=== PATIENT | male | born 1935 | race Caucasian/White ===

== ENCOUNTER → 2016-11-28 | Outpatient (CLI) | payer OTHER ==
[~2016-11-28] MED LIST: AMLH550 PO; ASPCH81; LEVO50TA PO; LPT/40 PO; MCRK20 PO; MULT-506 PO; OMEG10007 PO; PLMIN90 INH; PRED-301 PO; THEO1CAP3 PO
[2016-11-28 09:39] LABS: BASO % 0.3 %; BASO ABS # 0.02 K/uL (0-0.2); COMPLETE YES; EOS % 3.5 %; HEMATOCRIT 48.2 % (42-52); IG% 0.3 %; LYMPH % 12.9 %; LYMPH ABS # 0.96 K/uL (1.2-3.4); MEAN CELL VOLUME 91.6 fL (80-100); MEAN CORPUSCULAR HEMOGLOBIN 31.7 pg (25-34); MEAN CORPUSCULAR HGB CONC 34.6 g/dl (32-36); MEAN PLATELET VOLUME 11.3 fL (7.4-10.4); MONO % 11.6 %; NEUT % 71.4 %; PLATELET COUNT 139 K/uL (130-400); RED BLOOD COUNT 5.26 M/uL (4.7-6.1); WHITE BLOOD COUNT 7.42 K/uL (4.8-10.8)
[2016-11-28 10:13] LABS: ALT/SGPT 30 U/L (12-78); AST/SGOT 29 U/L (15-37); BLOOD UREA NITROGEN 22 mg/dl (7-18); BUN/CREATININE RATIO 18.3 (10-20); CALCIUM 9.8 mg/dl (8.5-10.1); CARBON DIOXIDE 31 mmol/L (21-32); CHLORIDE 102 mmol/L (98-107); GLUCOSE 85 mg/dl (70-99); POTASSIUM 3.5 mmol/L (3.5-5.1); SODIUM 139 mmol/L (136-145)
[2016-11-28 10:23] LABS: ALKALINE PHOSPHATASE 94 U/L (45-117); CHOLESTEROL 181 mg/dl (0-200); HDL CHOLESTEROL 45 mg/dl; LDL CHOLESTEROL CALCULATED 87 mg/dl; TRIGLYCERIDES 247 mg/dl (0-150); VERY LOW DENSITY LIPOPROT CALC 49 mg/dl
== END | disposition home or self-care (01) ==
LOC: C.LAB1850 08:35
PROVIDERS: ATTEND Internal Medicine Pulmonary Disease
DX: J45.909 Unspecified asthma, uncomplicated (principal); I10 Essential (primary) hypertension; D32.9 Benign neoplasm of meninges, unspecified; E03.9 Hypothyroidism, unspecified; R42 Dizziness and giddiness

== ENCOUNTER → 2017-06-10 | Outpatient (CLI) | payer OTHER ==
[2017-06-10 09:52] LABS: BASO % 0.4 %; BASO ABS # 0.03 K/uL (0-0.2); COMPLETE YES; EOS % 4.6 %; HEMATOCRIT 49.8 % (42-52); IG% 0.3 %; LYMPH % 17.2 %; LYMPH ABS # 1.24 K/uL (1.2-3.4); MEAN CELL VOLUME 90.4 fL (80-100); MEAN CORPUSCULAR HEMOGLOBIN 31.9 pg (25-34); MEAN CORPUSCULAR HGB CONC 35.3 g/dl (32-36); MEAN PLATELET VOLUME 11.1 fL (7.4-10.4); MONO % 9.9 %; NEUT % 67.6 %; PLATELET COUNT 137 K/uL (130-400); RED BLOOD COUNT 5.51 M/uL (4.7-6.1)
[2017-06-10 10:31] LABS: ALT/SGPT 29 U/L (12-78); AST/SGOT 27 U/L (15-37); BLOOD UREA NITROGEN 15 mg/dl (7-18); BUN/CREATININE RATIO 12.9 (10-20); CALCIUM 9.7 mg/dl (8.5-10.1); CARBON DIOXIDE 31 mmol/L (21-32); CHLORIDE 103 mmol/L (98-107); CREATININE 1.19 mg/dl (0.60-1.40); GLUCOSE 98 mg/dl (70-99); POTASSIUM 3.5 mmol/L (3.5-5.1); SODIUM 142 mmol/L (136-145)
[2017-06-10 10:34] LABS: ALB/GLOB RATIO 0.8 (0.9-2); ALKALINE PHOSPHATASE 116 U/L (45-117); CHOLESTEROL 220 mg/dl (0-200); CHOLESTEROL/HDL RATIO 4.8; HDL CHOLESTEROL 46 mg/dl; LDL CHOLESTEROL CALCULATED 103 mg/dl; TRIGLYCERIDES 353 mg/dl (0-150); VERY LOW DENSITY LIPOPROT CALC 71 mg/dl
== END | disposition home or self-care (01) ==
LOC: C.LAB1850 09:20
PROVIDERS: ATTEND Internal Medicine Pulmonary Disease
DX: J45.909 Unspecified asthma, uncomplicated (principal); E78.5 Hyperlipidemia, unspecified; E03.9 Hypothyroidism, unspecified; C20 Malignant neoplasm of rectum; I10 Essential (primary) hypertension

== ENCOUNTER → 2017-06-21 | Outpatient (CLI) | payer OTHER ==
[~2017-06-21] MED LIST changes: +GADAVIST IV PRN
--- NOTE | 2017-06-21 15:46 | DIAGNOSTIC IMAGING REPORT ---
BRAIN COMBO CLINICAL HISTORY: MENINOGOMA, SMALL VESSEL DISEASE CEREBRAL VASCULAR COMPARISON STUDY: No previous studies for comparison. TECHNIQUE: Utilizing a 1.5 Rosalie magnet and dedicated coil, multiplanar, multiecho imaging of the brain was performed pre and postcontrast administration. IV administration of 8 mL of Gadavist contrast was uneventful. FINDINGS: Diffusion-weighted images are considered negative for an acute ischemic insult. Stable findings of age-related chronic small vessel change and atrophy. The meningioma is unchanged. IMPRESSION: 1. No acute process. 2. Age-related changes considered stable. 3. Unchanging right para falcine meningioma The above report was generated using voice recognition software. It may contain grammatical, syntax or spelling errors. Electronically signed by: Reed Boykin M.D. 06/21/2017 3:45 PM Dictated Date/Time: 06/21/2017 3:42 PM
== END | disposition home or self-care (01) ==
LOC: C.MRI 14:21
PROVIDERS: ATTEND Psychiatry & Neurology Neurology
DX: D32.9 Benign neoplasm of meninges, unspecified (principal); I67.9 Cerebrovascular disease, unspecified

== ENCOUNTER 2022-07-24 13:50 | Inpatient (IN) ==
[2022-07-24 15:25] LABS: Hematocrit (blood only) 48.8 % (40.1-51.0); Hemoglobin 17.1 g/dl (14.0-18.0); Mean Corpuscular Hemoglobin 31.3 pg (25.0-34.0); Mean Corpuscular Volume 89.2 fL (80.0-100.0); Mean Platelet Volume 10.6 fL (9.4-12.4); Platelet Count 145 K/uL (130-400); RDW Coefficient of Variation 14.2 % (11.5-14.5); RDW Standard Deviation 45.3 fL (36.4-46.3); Red Blood Count 5.47 M/uL (4.63-6.08); White Blood Count 8.74 K/ul (4.8-10.8)
[2022-07-24 15:44] LABS: Partial Thromboplastin Ratio 0.9; Partial Thromboplastin Time 25.9 Seconds (21.0-31.0)
--- NOTE | 2022-07-24 15:48 | XRay Report ---
SINGLE VIEW PELVIS; 3 VIEWS LEFT FEMUR CLINICAL HISTORY: Atraumatic left leg pain. Weakness. FINDINGS: An AP view of the pelvis with AP, frog-leg, and crosstable lateral views of the left femur are obtained. Correlation is made with pelvic CT dated 06/27/2022. The skeletal structures are heterog eneously osteopenic. There is no radiographic evidence of acute fracture involving the hips or bony p maryjo. There is no radiographic evidence of left femoral fracture. Mild to moderate arthritic change and joint space narrowing is seen in the hips, right greater than left. Mild degenerative sclerosis i s noted in the sacroiliac joints. Lumbosacral spondylosis is partially imaged. The right knee joint i s grossly maintained. The overlying soft tissues are within normal limits. Advanced atherosclerotic c alcification is seen in the femoral arteries. Bladder calculi are again seen in the pelvis. Suture ma terial projects over the rectosigmoid. IMPRESSION: 1. No acute bony abnormality is seen involving the hips or pelvis. 2. No acute bony abnormality is seen involving the left femur. 3. Osteopenia and degenerative change as above. 4. Bladder calculi are noted in the pelvis. Electronically signed by: Holden Sloan M.D. 07/24/2022 3:46 PM
[2022-07-24 16:01] LABS: Alanine Aminotransferase 23 U/L (7-52); Albumin Globulin Ratio 1.2 (0.9-2); Albumin Level 3.8 gm/dl (3.4-5.0); Alkaline Phosphatase 131 U/L (34-104); Anion Gap 6 (3-11); Aspartate Aminotransferase 25 U/L (13-39); Bilirubin,Total 0.6 mg/dl (0.2-1.0); Calcium 10.6 mg/dl (8.5-10.1); Carbon Dioxide 30 mmol/L (21-32); Chloride 100 mmol/L (98-107); Est GFR (African American) 79.7 ml/min; Est GFR (Non-African American) 68.8 ml/min; Globulin 3.1 gm/dl (2.5-4.0); Glucose 129 mg/dl (70-99(Fasting)); Magnesium 2.3 mg/dl (1.7-2.4); Sodium 136 mmol/L (136-145); Total Protein 6.9 gm/dl (6.0-8.3)
[2022-07-24 16:23] LABS: Blood Urea Nitrogen 19 mg/dl (6-23)
--- NOTE | 2022-07-24 16:32 | Electrocardiogram Report ---
Test Reason : Blood Pressure : / mmHG Vent. Rate : 102 BPM Atrial Rate : 102 BPM P-R Int : 184 ms QRS Dur : 106 ms QT Int : 336 ms P-R-T Axes : 093 -65 087 degrees QTc Int : 437 ms Poor data quality, interpretation may be adversely affected Sinus tachycardia Left anterior fascicular block Left ventricular hypertrophy with repolarization abnormality Cannot rule out Septal infarct , age undetermined Possible Lateral infarct , age undetermined Abnormal ECG When compared with ECG of 03-APR-2018 16:45, Minimal criteria for Septal infarct are now Present Borderline criteria for Lateral infarct are now Present Confirmed by Dino Kearney ([id number]) on 07/24/2022 4:32:20 PM Referred By: Confirmed By:Dino Kearney
[2022-07-24] MEDS ORDERED: SODIUM CHLORIDE 0.9% 1000ML 500 ML IV ONE (17:41)
[2022-07-24] MEDS ORDERED: ACETAMINOPHEN 1,000 MG/100 ML VIAL IV STA (17:41)
--- NOTE | 2022-07-24 17:47 | Emergency Department Note ---
Impression & Plan Weakness, Falling, Lumbar disc herniation, Left leg pain ED Provider Note NAME: BARON ZAMORA AGE: 86 SEX: M : 1935 ARRIVES VIA: Walk-In INFORMANT: [Patient][family, nursing] ED PROVIDER(S): [Holden Rooney MD] CHIEF COMPLAINT: Neuro symptoms, falling HISTORY OF PRESENT ILLNESS: The patient is an 86-year-old male who for 3 months has been complaining of some left lower back pain and left leg pain. His left leg is becoming weaker and weaker to the point where he is now falling and cannot care for himself at home. He denies any syncope, there is no chest pain or shortness of breath. There has been no fever or chills. He does urinate frequently but this is not normal for him. No urinary burning. The patient feels he may have sciatica. His family is at bedside and they believe he needs hospitalization as he is too weak to be at home, they are concerned for his safety at home. PMHx/PSHx: See Below SOCIAL HISTORY: See Below. PHYSICAL EXAM: GENERAL: Patient is in no acute distress. HEENT: No acute trauma, normocephalic atraumatic, mucous membranes moist, no nasal congestion. NECK: No stridor, no adenopathy, no meningismus, trachea is midline. LUNGS: Clear to auscultation bilaterally, no wheeze, no rhonchi, breath sounds equal. HEART: Without murmurs gallops or rubs, regular rate and rhythm. ABDOMEN: Soft, nontender, bowel sounds positive, no peritonitis. EXTREMITIES: No cyanosis or edema, full range of motion of all the joints without pain or difficulty, no signs for acute trauma. NEUROLOGIC: Oriented x 3, no acute motor or sensory deficits, no focal weakness. Patient has 2/4 patellar reflexes bilaterally. I cannot elicit any Achilles reflex on the right or left. He is able to lift the left leg off the bed without difficulty. SKIN: No rash, no jaundice, no diaphoresis. DIFFERENTIAL DIAGNOSIS: Infection, UTI, dehydration, metabolic abnormality, hypo/hyperglycemia, electrolyte disturbance, anemia, hypoxia, cardiac sources, intracerebral event, toxicologic issues, stroke, TIA, sciatica, lumbar disc disease, as well as other pathologies. EMERGENCY DEPARTMENT COURSE/PROCEDURES: Prior/Outside records reviewed: None ECG: Indication was weakness and falling. The ECG shows a sinus tachycardia with a rate of 102. LVH is present. There is no ST elevation, no PVCs. Ba seline artifact is present. There is some poor R wave progression consistent with possible old septal infarct. QTC is 437. Continuous Cardiac Monitoring: An order was placed for continuous cardiac monitoring. The monitor shows a rate of 99 with normal sinus rhythm. MEDICAL DECISION MAKING: There is no leukocytosis or concerning anemia. There is a normal platelet count. No coagulopathy. No renal failure or significant electrolyte abnormality. No concerning liver enzyme elevation. The patient appeared to be in a euthyroid state. ECG showed a sinus tachycardia, no obvious ischemia. Cardiac enzyme testing x1 was not consistent with acute cardiac injury. Urinalysis did not show infection. COVID test returned negative. Films of the pelvis and left femur were performed, no fractures were seen. Lumbar spine MRI did show significant disc disease with some canal narrowing. On my exam, the patient was not toxic or febrile. He did have reflexes in both the right and left patella, I could not elicit reflex in either Achilles. He could lift both legs off the bed. The patient presents with frequent falls and increasing weakness. He can no longer bear his own weight. He was not felt safe for discharge home. The patient was given a 500 cc saline bolus, he received IV tylenol for pain. I did speak with the patient, I talked with his family, I spoke with case management, the on-call hospitalist was consulted. DISPOSITION: Patient's presentation and complaints warrant a hospital stay. 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 Meningioma Metastatic squamous cell carcinoma Nephrolithiasis Seizure Skin cancer Small vessel disease, cerebrovascular Status post placement of implantable loop recorder Ventral hernia Surgical History History of colon surgery History of hemorrhoidectomy History of neck surgery Hx of parotidectomy Status post Mohs surgery 07/04/2020 - left face/preauricular area Family History Unknown Coronary heart disease Cancer Father Cancer Hypertension Son Diabetes Mother Benign neoplasm of head Brother Heart disease Brother Liver disease Heart disease Valve replacement Denies family history of Stroke Social History Smoking Status: Never smoker Hx Alcohol Use: No Hx Substance Use: No Preferred Language: Citizen Of [place] Communication Ability: Effective Visual Impairment: No Limitations Hearing Ability: Hard of Hearing Heading Pinner Required: No Beliefs That Will Affect Care: None marital status: Current Living Situation: Spouse current occupational status: retired Feels Safe at Home: Yes caffeine: No Dental Care, Regularly: Yes Physical Activity Frequency: Daily Seatbelt Use: always Assistive Devices: Hearing Aid - Left, Hearing Aid - Right and Oxygen - Continuous Allergies Allergies Allergy/AdvReac Type Severity Reaction Status Date / Time No Known Drug Allergies Allergy Verified 07/13/22 11:04 Home Meds Home Medications Medication Instructions Recorded Confirmed levothyroxine 88 mcg tablet 88 mcg PO DAILYBB 07/24/22 07/24/22 potassium chloride 20 mEq 20 meq PO DAILY 07/24/22 07/24/22 tablet,extended release(part/cryst) prednisone 5 mg tablet 5 mg PO DAILY 07/24/22 07/24/22 tamsulosin 0.4 mg capsule 0.4 mg PO DAILY 07/24/22 07/24/22 theophylline 300 mg 600 mg PO DAILY 07/24/22 07/24/22 tablet,extended release,12 hr Previous Rx's Medication Instructions Recorded clopidogrel 75 mg tablet (Plavix) 75 mg PO DAILY #90 tabs 01/08/22 rosuvastatin 5 mg tablet 5 mg PO DAILY #90 tabs 04/30/22 cyclobenzaprine 5 mg tablet 5 mg PO TID PRN muscle spasm #60 05/28/22 tabs tramadol 50 mg tablet 50 mg PO Q6H #30 tabs 05/28/22 acetaminophen 300 mg-codeine 30 mg 1 tab PO Q6H PRN pain #50 tabs 06/25/22 tablet oxycodone-acetaminophen 5 mg-325 1 tab PO Q6H PRN pain #30 tabs 07/17/22 mg tablet (Percocet) Results & Data (ED) Vital Signs Vital Signs - 24 hr 07/24/22 13:54 07/24/22 15:00 07/24/22 15:00 Temperature 36.5 C Temperature Source Temporal Artery Scan Pulse Rate 101 H Pulse Rate [Finger] 103 H Respiratory Rate 17 20 Respiratory Effort / Characteristics Non-Labored Spontaneous Respiratory Depth Normal Blood Pressure 129/75 Blood Pressure [Right Arm] 129/80 Blood Pressure Mean 93 Blood Pressure Mean [Right Arm] 96 Pulse Oximetry 96 95 95 Oxygen Delivery Method Room Air Room Air Room Air Sepsis Recent Fever Within 48 Hours No Sepsis New/Unexplained Change in Mental Status N/A Sepsis Action Taken by Nursing No Action Required 07/24/22 17:31 07/24/22 17:32 07/24/22 17:59 Temperature Temperature Source Pulse Rate Pulse Rate [Finger] 98 H 76 Respiratory Rate 20 16 Respiratory Effort / Characteristics Non-Labored Non-Labored Respiratory Depth Normal Normal Blood Pressure Blood Pressure [Right Arm] 173/116 H 162/98 H Blood Pressure Mean Blood Pressure Mean [Right Arm] 135 119 Pulse Oximetry 94 96 Oxygen Delivery Method Room Air Room Air Room Air Sepsis Recent Fever Within 48 Hours Sepsis New/Unexplained Change in Mental Status Sepsis Action Taken by [facility] Medications Current Medication List: was personally reviewed by me Laboratory Data Attestation: I reviewed the patient's lab results. 07/24/22 15:13 07/24/22 15:13 Lab Results 07/24/22 07/24/22 07/24/22 Range/Units 15:11 15:13 15:13 WBC 8.74 (4.8-10.8) K/ul RBC 5.47 (4.63-6.08) M/uL Hgb 17.1 (14.0-18.0) g/dl Hct 48.8 (40.1-51.0) % MCV 89.2 (80.0-100.0) fL MCH 31.3 (25.0-34.0) pg MCHC 35.0 (32.0-36.0) g/dL RDW Std Deviation 45.3 (36.4-46.3) fL RDW Coeff of Celestino 14.2 (11.5-14.5) % Plt Count 145 (130-400) K/uL MPV 10.6 (9.4-12.4) fL PT 11.0 (9.0-12.0) Seconds INR 1.0 (0.9-1.1) APTT 25.9 (21.0-31.0) Seconds PTT Ratio 0.9 Sodium (136-145) mmol/L Potassium (3.5-5.1) mmol/L Chloride (98-107) mmol/L Carbon Dioxide (21-32) mmol/L Anion Gap (3-11) BUN (6-23) mg/dl Creatinine (0.6-1.4) mg/dl Est Cr Clr Drug Dosing Est GFR ( Amer) ml/min Est GFR (Non-Af Amer) ml/min BUN/Creatinine Ratio (10-20) Glucose (70-99(Fasting)) mg/dl POC Glucose 139 H (70-99) mg/dl Calcium (8.5-10.1) mg/dl Magnesium (1.7-2.4) mg/dl Total Bilirubin (0.2-1.0) mg/dl AST (13-39) U/L ALT (7-52) U/L Alkaline Phosphatase (34-104) U/L Troponin I High Sens (0-20) pg/ml Total Protein (6.0-8.3) gm/dl Albumin (3.4-5.0) gm/dl Globulin (2.5-4.0) gm/dl Albumin/Globulin Ratio (0.9-2) TSH (0.300-4.500) uIu/ml Urine Color Urine Appearance (Clear) Urine pH (4.5-7.5) Ur Specific [place] (1.000-1.030) Urine Protein (Negative) Urine Glucose (UA) (Negative) Urine Ketones (Negative) Urine Blood (Negative) Urine Nitrite (Negative) Urine Bilirubin (Negative) Urine Urobilinogen (Negative) Ur Leukocyte Esterase (Negative) SARS-CoV-2, RNA, NAAT (NEGATIVE) 07/24/22 07/24/22 07/24/22 Range/Units 15:13 15:13 15:13 WBC (4.8-10.8) K/ul RBC (4.63-6.08) M/uL Hgb (14.0-18.0) g/dl Hct (40.1-51.0) % MCV (80.0-100.0) fL MCH (25.0-34.0) pg MCHC (32.0-36.0) g/dL RDW Std Deviation (36.4-46.3) fL RDW Coeff of Celestino (11.5-14.5) % Plt Count (130-400) K/uL MPV (9.4-12.4) fL PT (9.0-12.0) Seconds INR (0.9-1.1) APTT (21.0-31.0) Seconds PTT Ratio Sodium 136 (136-145) mmol/L Potassium 4.0 (3.5-5.1) mmol/L Chloride 100 (98-107) mmol/L Carbon Dioxide 30 (21-32) mmol/L Anion Gap 6 (3-11) BUN 19 (6-23) mg/dl Creatinine 1.00 (0.6-1.4) mg/dl Est Cr Clr Drug Dosing Not Reportable Est GFR ( Amer) 79.7 ml/min Est GFR (Non-Af Amer) 68.8 ml/min BUN/Creatinine Ratio 19.0 (10-20) Glucose 129 H (70-99(Fasting)) mg/dl POC Glucose (70-99) mg/dl Calcium 10.6 H (8.5-10.1) mg/dl Magnesium 2.3 (1.7-2.4) mg/dl Total Bilirubin 0.6 (0.2-1.0) mg/dl AST 25 (13-39) U/L ALT 23 (7-52) U/L Alkaline Phosphatase 131 H (34-104) U/L Troponin I High Sens 10.8 (0-20) pg/ml Total Protein 6.9 (6.0-8.3) gm/dl Albumin 3.8 (3.4-5.0) gm/dl Globulin 3.1 (2.5-4.0) gm/dl Albumin/Globulin Ratio 1.2 (0.9-2) TSH 3.504 (0.300-4.500) uIu/ml Urine Color Urine Appearance (Clear) Urine pH (4.5-7.5) Ur Specific [place] (1.000-1.030) Urine Protein (Negative) Urine Glucose (UA) (Negative) Urine Ketones (Negative) Urine Blood (Negative) Urine Nitrite (Negative) Urine Bilirubin (Negative) Urine Urobilinogen (Negative) Ur Leukocyte Esterase (Negative) SARS-CoV-2, RNA, NAAT (NEGATIVE) 07/24/22 07/24/22 Range/Units 18:05 18:05 WBC (4.8-10.8) K/ul RBC (4.63-6.08) M/uL Hgb (14.0-18.0) g/dl Hct (40.1-51.0) % MCV (80.0-100.0) fL MCH (25.0-34.0) pg MCHC (32.0-36.0) g/dL RDW Std Deviation (36.4-46.3) fL RDW Coeff of Celestino (11.5-14.5) % Plt Count (130-400) K/uL MPV (9.4-12.4) fL PT (9.0-12.0) Seconds INR (0.9-1.1) APTT (21.0-31.0) Seconds PTT Ratio Sodium (136-145) mmol/L Potassium (3.5-5.1) mmol/L Chloride (98-107) mmol/L Carbon Dioxide (21-32) mmol/L Anion Gap (3-11) BUN (6-23) mg/dl Creatinine (0.6-1.4) mg/dl Est Cr Clr Drug Dosing Est GFR ( Amer) ml/min Est GFR (Non-Af Amer) ml/min BUN/Creatinine Ratio (10-20) Glucose (70-99(Fasting)) mg/dl POC Glucose (70-99) mg/dl Calcium (8.5-10.1) mg/dl Magnesium (1.7-2.4) mg/dl Total Bilirubin (0.2-1.0) mg/dl AST (13-39) U/L ALT (7-52) U/L Alkaline Phosphatase (34-104) U/L Troponin I High Sens (0-20) pg/ml Total Protein (6.0-8.3) gm/dl Albumin (3.4-5.0) gm/dl Globulin (2.5-4.0) gm/dl Albumin/Globulin Ratio (0.9-2) TSH (0.300-4.500) uIu/ml Urine Color Yellow Urine Appearance Clear (Clear) Urine pH 5.0 (4.5-7.5) Ur Specific [place] 1.014 (1.000-1.030) Urine Protein Negative (Negative) Urine Glucose (UA) Negative (Negative) Urine Ketones Negative (Negative) Urine Blood Negative (Negative) Urine Nitrite Negative (Negative) Urine Bilirubin Negative (Negative) Urine Urobilinogen Negative (Negative) Ur Leukocyte Esterase Negative (Negative) SARS-CoV-2, RNA, NAAT NEGATIVE (NEGATIVE) Administered Medications Discontinued Medications Gadobutrol (Gadobutrol 65ml Vial) 6.5 ml IV ONCE ONE Stop: 07/24/22 18:49 Last Admin: 07/24/22 18:49 Dose: 6.5 ml Documented By: JULES Sodium Chloride (Nss 1000ml) 500 mls @ 999 mls/hr IV .Q31M ONE Stop: 07/24/22 18:11 Last Admin: 07/24/22 18:00 Dose: 999 mls/hr Documented By: CRISTO Acetaminophen (Ofirmev) 1,000 mg in 100 mls @ 400 mls/hr IV NOW STA Stop: 07/24/22 17:55 Last Admin: 07/24/22 18:00 Dose: 400 mls/hr Documented By: CRISTO Imaging Data Radiologist's Impression: Femur X-Ray 07/24/22 13:58 SINGLE VIEW PELVIS; 3 VIEWS LEFT FEMUR CLINICAL HISTORY: Atraumatic left leg pain. Weakness. FINDINGS: An AP view of the pelvis with AP, frog-leg, and crosstable lateral views of the left femur are obtained. Correlation is made with pelvic CT dated 06/27/2022. The skeletal structures are heterogeneously osteopenic. There is no radiographic evidence of acute fracture involving the hips or bony pelvis. There is no radiographic evidence of left femoral fracture. Mild to moderate arthritic change and joint space narrowing is seen in the hips, right greater than left. Mild degenerative sclerosis is noted in the sacroiliac joints. Lumbosacral spondylosis is partially imaged. The right knee joint is grossly maintained. The overlying soft tissues are within normal limits. Advanced atherosclerotic calcification is seen in the femoral arteries. Bladder calculi are again seen in the pelvis. Suture material projects over the rectosigmoid. IMPRESSION: 1. No acute bony abnormality is seen involving the hips or pelvis. 2. No acute bony abnormality is seen involving the left femur. 3. Osteopenia and degenerative change as above. 4. Bladder calculi are noted in the pelvis. Electronically signed by: Holden Sloan M.D. 07/24/2022 3:46 PM Pelvis X-Ray 07/24/22 13:58 SINGLE VIEW PELVIS; 3 VIEWS LEFT FEMUR CLINICAL HISTORY: Atraumatic left leg pain. Weakness. FINDINGS: An AP view of the pelvis with AP, frog-leg, and crosstable lateral views of the left femur are obtained. Correlation is made with pelvic CT dated 06/27/2022. The skeletal structures are heterogeneously osteopenic. There is no radiographic evidence of acute fracture involving the hips or bony pelvis. There is no radiographic evidence of left femoral fracture. Mild to moderate arthritic change and joint space narrowing is seen in the hips, right greater than left. Mild degenerative sclerosis is noted in the sacroiliac joints. Lumbosacral spondylosis is partially imaged. The right knee joint is grossly maintained. The overlying soft tissues are within normal limits. Advanced atherosclerotic calcification is seen in the femoral arteries. Bladder calculi are again seen in the pelvis. Suture material projects over the rectosigmoid. IMPRESSION: 1. No acute bony abnormality is seen involving the hips or pelvis. 2. No acute bony abnormality is seen involving the left femur. 3. Osteopenia and degenerative change as above. 4. Bladder calculi are noted in the pelvis. Electronically signed by: Holden Sloan M.D. 07/24/2022 3:46 PM Lumbar Spine MRI 07/24/22 17:35 MRI OF THE LUMBAR SPINE WITH AND WITHOUT CONTRAST CLINICAL HISTORY: low back pain, left leg pain, falling COMPARISON STUDY: CT of the abdomen and pelvis June 27, 2022. TECHNIQUE: Utilizing a 1.5 Rosalie magnet and dedicated coil, multiplanar, multiecho imaging of the lumbar spine was performed before and after uneventful IV administration of 6.5 mL of Gadavist. FINDINGS: For purposes of numbering on this exam, the L5-S1 disc space is assigned to axial image 23 of 25. There is straightening of the normal lumbar lordosis. There is no lumbar spine fracture. A few Schmorl's nodes are noted. No intracanalicular fluid collection. Conus terminates at the lower L1 level. A large right renal cyst is partially imaged on this exam. There is a small 3 mm enhancing focus within the right aspect of the canal at the L2-L3 level. L1-2: The central canal and neural foramen are patent. L2-3: There is moderate facet arthrosis. The central canal is patent. There is mild bilateral neural foraminal stenosis. L3-4: Moderate facet arthrosis is noted. Central canal is patent. There is mild bilateral neural foraminal stenosis. There is mild disc bulge. L4-5: There is marked disc space narrowing with disc bulge and a superimposed right paracentral disc extrusion with superior subligamentous migration. There is severe facet arthrosis. Severe central canal stenosis is noted. Patent AP diameter canal is 3.2 mm. There is severe narrowing of both lateral recesses and the bilateral neural foramen, greater on the right. L5-S1: Marked disc space narrowing is noted. There is disc bulge with moderate facet arthrosis. Mild is narrowing of the central canal and lateral recesses is present. There is severe bilateral neural foraminal stenosis. IMPRESSION: 1. Disc bulge with superimposed right paracentral disc extrusion with superior subligamentous migration at L4-L5 superimposed upon facet arthrosis. Severe narrowing of the central canal, bilateral recesses and neural foramen at the L4- L5 level. 2. Mild central canal stenosis and severe bilateral neural foraminal stenosis at L5-S1. 3. No lumbar spine fracture. No suspicious marrow replacement. 4. Small 3 mm enhancing focus within the right aspect of the canal at the L2-L3 level. This appears to be associated with the exiting nerve roots. This could reflect a small meningioma or schwannoma or enhancement of the nerve roots. ACT 112: Negative or not required by law. Electronically signed by: Pablo Samuels M.D. 07/24/2022 7:15 PM Discharge Plan Visit Data Chief Complaint: Neuro Symptoms/Deficit Stated Complaint: LEG NUMBNESS ED Provider: Holden Rooney Discharge Problem: Weakness, Falling, Lumbar disc herniation, Left leg pain Patient Disposition: Admitted As Inpatient Condition: Fair Forms Stand Alone Forms: My [facility] [place] Prescriptions Prescriptions: No Action clopidogrel [Plavix] 75 mg tablet 75 mg PO DAILY Qty: 90 3RF rosuvastatin 5 mg tablet 5 mg PO DAILY Qty: 90 3RF cyclobenzaprine 5 mg tablet 5 mg PO TID PRN (Reason: muscle spasm) Qty: 60 3RF tramadol 50 mg tablet 50 mg PO Q6H Qty: 30 2RF acetaminophen-codeine 300-30 mg tablet 1 tab PO Q6H PRN (Reason: pain) Qty: 50 1RF oxycodone-acetaminophen [Percocet] 5-325 mg tablet 1 tab PO Q6H PRN (Reason: pain) Qty: 30 0RF theophylline 300 mg tablet extended release 12 hr 600 mg PO DAILY Rx Instructions: TAKE TWO TABLETS BY MOUTH DAILY tamsulosin 0.4 mg capsule 0.4 mg PO DAILY levothyroxine 88 mcg tablet 88 mcg PO DAILYBB Rx Instructions: TAKE ONE TABLET BY MOUTH ONE TIME DAILY potassium chloride 20 mEq tablet,ER particles/crystals 20 meq PO DAILY Rx Instructions: TAKE ONE TABLET BY MOUTH ONE TIME DAILY prednisone 5 mg tablet 5 mg PO DAILY Referrals Referrals: Giles Galan MD [Primary Care Provider] -
[2022-07-24 18:41] LABS: Appearance Urine Clear (Clear); Bilirubin Urine Negative (Negative); Blood Urine Negative (Negative); Color Urine Yellow; Glucose Urine UA Negative (Negative); Ketones Urine Negative (Negative); Leukocyte Esterase Urine Negative (Negative); Nitrite Urine Negative (Negative); Protein Urine Negative (Negative); Specific Gravity Urine 1.014 (1.000-1.030); Urobilinogen Urine Negative (Negative)
[2022-07-24] MEDS ORDERED: GADOBUTROL 65ML VIAL IV ONE (18:48)
--- NOTE | 2022-07-24 19:16 | History & Physical Report ---
Date of Service July 24, 2022 Assessment & Plan (1) Lumbar disc herniation: Plan: - 3 months of progressive left LBP with radiation into left leg associated with left leg weakness and decreased sensation with multiple falls. - Pelvis/femur XR: No acute bony abnormality is seen involving the hips or pelvis, or left femur. - Lumbar MRI: * Disc bulge with superimposed right paracentral disc extrusion with superior subligamentous migration at L4-L5 superimposed upon facet arthrosis. Severe narrowing of the central canal, bilateral recesses and neural foramen at the L4-L5 level. * Mild central canal stenosis and severe bilateral neural foraminal stenosis at L5-S1. * No lumbar spine fracture. No suspicious marrow replacement. * Small 3 mm enhancing focus within the right aspect of the canal at the L2-L3 level. This appears to be associated with the exiting nerve roots. This could reflect a small meningioma or schwannoma or enhancement of the nerve roots. - Orthopedic surgery consulted. - Pain control for now, PT/OT to evaluate and treat. (2) Hypercholesterolemia: Plan: - Continue statin therapy. (3) Hypothyroidism: Plan: - Continue levothyroxine. (4) Small vessel disease, cerebrovascular: Plan: - Continue Plavix. 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 (6) Asthma: Plan: - Continue prednisone, theophylline. 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 - CT and PET scans have since been negative for metastatic disease. Plan - Admit to med/surg. - SCDs for VTE ppx. - Full Code. History of Present Illness Chief Complaint: left back, leg pain and weakness x 3 months with frequent falls Primary Care Provider: Giles Galan MD Geovanni Redmond is an 86-year-old male with past medical history significant for hypertension, hyperlipidemia, hypothyroidism, prior CVA, sciatica, vertigo, meningioma, hypothyroidism, colon cancer, SCC, and BPH is presenting today for lower back and left leg pain. This has been going on for 3 months and causes his left leg to be On presentation is borderline tachycardic and hypertensive, otherwise vital signs are within normal limits, stable. Labs are largely unrevealing, concern for infection electrolyte imbalance, urinary tract infection. Renal and hepatic function at baseline. Femur and pelvis x-ray unrevealing for any acute bony abnormality, osteopenia and degenerative changes noted. Lumbar spine MRI: disc bulge with superimposed right paracentral disc extrusion with superior subligamentous migration at L4-L5 superimposed upon facet arthrosis. Severe narrowing of the central canal, bilateral recesses and neural foramen at the L4-L5 level. Mild central canal stenosis and severe bilateral neural foraminal stenosis at L5-S1. Small 3 mm enhancing focus within the right aspect of the canal at the L2-L3 level. This appears to be associated with the exiting nerve roots. This could reflect a small meningioma or schwannoma or enhancement of the nerve roots. Allergies Allergy/AdvReac Type Severity Reaction Status Date / Time No Known Drug Allergies Allergy Verified 07/13/22 11:04 Home Medications Medication Instructions Recorded Confirmed Type clopidogrel 75 mg tablet (Plavix) 75 mg PO DAILY #90 tabs 01/08/22 07/24/22 Rx rosuvastatin 5 mg tablet 5 mg PO DAILY #90 tabs 04/30/22 07/24/22 Rx cyclobenzaprine 5 mg tablet 5 mg PO TID PRN muscle spasm #60 05/28/22 07/24/22 Rx tabs tramadol 50 mg tablet 50 mg PO Q6H #30 tabs 05/28/22 07/24/22 Rx acetaminophen 300 mg-codeine 30 mg 1 tab PO Q6H PRN pain #50 tabs 06/25/22 07/24/22 Rx tablet oxycodone-acetaminophen 5 mg-325 1 tab PO Q6H PRN pain #30 tabs 07/17/22 Rx mg tablet (Percocet) levothyroxine 88 mcg tablet 88 mcg PO DAILYBB 07/24/22 07/24/22 History potassium chloride 20 mEq 20 meq PO DAILY 07/24/22 07/24/22 History tablet,extended release(part/cryst) prednisone 5 mg tablet 5 mg PO DAILY 07/24/22 07/24/22 History tamsulosin 0.4 mg capsule 0.4 mg PO DAILY 07/24/22 07/24/22 History theophylline 300 mg 600 mg PO DAILY 07/24/22 07/24/22 History tablet,extended release,12 hr 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 Meningioma Metastatic squamous cell carcinoma Nephrolithiasis Seizure Skin cancer Small vessel disease, cerebrovascular Status post placement of implantable loop recorder Ventral hernia Surgical History History of colon surgery History of hemorrhoidectomy History of neck surgery Hx of parotidectomy Status post Mohs surgery 07/04/2020 - left face/preauricular area Family History Unknown Coronary heart disease Cancer Father Cancer Hypertension Son Diabetes Mother Benign neoplasm of head Brother Heart disease Brother Liver disease Heart disease Valve replacement Denies family history of Stroke Social History Smoking Status: Never smoker Second Hand Exposure: No; Do You Dip or Chew Tobacco: No; Tobacco Cessation Education Requested by Patient: No Hx Alcohol Use: Yes Alcohol type: beer Alcohol Intake Frequency: 2-3 x/Week Hx Substance Use: No Preferred Language: Spanish Communication Ability: Effective Visual Impairment: No Limitations Hearing Ability: Hard of Hearing 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 Beliefs That Will Affect Care: None marital status: Current Living Situation: Spouse current occupational status: retired Other Information That Helps Us Care for You: No Feels Safe at Home: Yes Safety Concerns: Feels Safe At This Time caffeine: No Dental Care, Regularly: Yes Physical Activity Frequency: Daily Seatbelt Use: always Assistive Devices: Cane Review of Systems Review of Systems: Constitutional: No fever/chills, weakness, fatigue, myalgias, anorexia, night sweats Eyes: No diplopia, no worsening or blurred vision ENT: normal hearing, no trouble swallowing Respiratory: No cough, sputum, dyspnea at rest or on exertion Cardiovascular: No chest pain, tightness or palpitations Abdomen: No pain, nausea, vomiting, diarrhea or constipation : Denies dysuria, hematuria, increased urgency/frequency, urinary retention Musculoskeletal: left lower back pain radiating to lateral left leg with associated weakness x 3 months with frequent falls Neurologic: No weakness, numbness/tingling, or balance problems Psychiatric: No anxiety or depression Skin: No rash or itch Physical Exam Physical Exam: General: awake, alert, no apparent distress Head: Normocephalic, atraumatic ENT: PERRL, EOMI, no pharyngeal exudate, mucous membranes moist Chest: Clear to auscultation, on room air, no adventitious breath sounds Cardiac: Regular rate and rhythm, no murmur, no JVD, normal peripheral pulses, good capillary refill Abdominal: NABS x 4 quadrants, soft, nontender to palpation, no rebound, guarding or tenderness Extremities: dorsal and plantarflexion intact b/l with 2/4 b/l patellar reflexed intact, decreased lateral left thigh sensation; otherwise normal inspection, no peripheral edema or erythema, calfs nontender to palpation Psych: Normal mood and affect Neuro: AAO x 3, strength intact bilaterally and rated 5/5, no motor deficits, speech is clear, no peripheral sensory deficits Skin: no rash or erythema Results & Data Results & Data ([facility]) Vital Signs (Past 12 Hours) Vital Signs Temp Pulse Pulse Resp BP BP Pulse Ox 07/24/22 17:59 76 16 162/98 H 96 07/24/22 17:32 98 H 20 173/116 H 94 07/24/22 17:31 07/24/22 15:00 103 H 20 129/80 95 07/24/22 15:00 95 07/24/22 13:54 36.5 C 101 H 17 129/75 96 O2 Del Method 07/24/22 17:59 Room Air 07/24/22 17:32 Room Air 07/24/22 17:31 Room Air 07/24/22 15:00 Room Air 07/24/22 15:00 Room Air 07/24/22 13:54 Room Air Laboratory Results Abnormal lab results 07/24/22 07/24/22 Range/Units 15:11 15:13 Glucose 129 H (70-99(Fasting)) mg/dl POC Glucose 139 H (70-99) mg/dl Calcium 10.6 H (8.5-10.1) mg/dl Alkaline Phosphatase 131 H (34-104) U/L Diagnostic Findings Femur X-Ray 07/24/22 13:58 SINGLE VIEW PELVIS; 3 VIEWS LEFT FEMUR CLINICAL HISTORY: Atraumatic left leg pain. Weakness. FINDINGS: An AP view of the pelvis with AP, frog-leg, and crosstable lateral views of the left femur are obtained. Correlation is made with pelvic CT dated 06/27/2022. The skeletal structures are heterogeneously osteopenic. There is no radiographic evidence of acute fracture involving the hips or bony pelvis. There is no radiographic evidence of left femoral fracture. Mild to moderate arthritic change and joint space narrowing is seen in the hips, right greater than left. Mild degenerative sclerosis is noted in the sacroiliac joints. Lumbosacral spondylosis is partially imaged. The right knee joint is grossly maintained. The overlying soft tissues are within normal limits. Advanced atherosclerotic yeyo cification is seen in the femoral arteries. Bladder calculi are again seen in the pelvis. Suture material projects over the rectosigmoid. IMPRESSION: 1. No acute bony abnormality is seen involving the hips or pelvis. 2. No acute bony abnormality is seen involving the left femur. 3. Osteopenia and degenerative change as above. 4. Bladder calculi are noted in the pelvis. Electronically signed by: Holden Sloan M.D. 07/24/2022 3:46 PM Pelvis X-Ray 07/24/22 13:58 SINGLE VIEW PELVIS; 3 VIEWS LEFT FEMUR CLINICAL HISTORY: Atraumatic left leg pain. Weakness. FINDINGS: An AP view of the pelvis with AP, frog-leg, and crosstable lateral views of the left femur are obtained. Correlation is made with pelvic CT dated 06/27/2022. The skeletal structures are heterogeneously osteopenic. There is no radiographic evidence of acute fracture involving the hips or bony pelvis. There is no radiographic evidence of left femoral fracture. Mild to moderate arthritic change and joint space narrowing is seen in the hips, right greater than left. Mild degenerative sclerosis is noted in the sacroiliac joints. Lumbosacral spondylosis is partially imaged. The right knee joint is grossly maintained. The overlying soft tissues are within normal limits. Advanced atherosclerotic calcification is seen in the femoral arteries. Bladder calculi are again seen in the pelvis. Suture material projects over the rectosigmoid. IMPRESSION: 1. No acute bony abnormality is seen involving the hips or pelvis. 2. No acute bony abnormality is seen involving the left femur. 3. Osteopenia and degenerative change as above. 4. Bladder calculi are noted in the pelvis. Electronically signed by: Holden Sloan M.D. 07/24/2022 3:46 PM Code Status & VTE Plan Code Status Full Code. Supervising Physician Co-Signing Physician Notes Patient seen and examined at bedside. During face to face encounter, I performed a physical examination and clinical history. Patient will be admitted for left leg weakness and back pain will obtain imaging and consult Dr. Bueno I discussed plan of care with APC Ritchie and patient. I reviewed above note and agree with it. PG Care Time/CCT Total # of Minutes Spent Total Time Spent with Patient: Total time spent is greater than 50% in coordination of care (as documented) at patient's floor/unit and/or counseling patient: Coding Level of Care Code 48772 INT INP/OBS CARE MIN Diagnoses Lumbar disc herniation M51.26 Hypercholesterolemia E78.00 Hypothyroidism E03.9 Small vessel disease, cerebrovascular I67.9 Benign prostatic hyperplasia with urinary obstruction N40.1; N13.8 Asthma J45.909 Malignant neoplasm of parotid gland C07
--- NOTE | 2022-07-24 19:17 | Magnetic Resonance Report ---
MRI OF THE LUMBAR SPINE WITH AND WITHOUT CONTRAST CLINICAL HISTORY: low back pain, left leg pain, falling COMPARISON STUDY: CT of the abdomen and pelvis June 27, 2022. TECHNIQUE: Utilizing a 1.5 Rosalie magnet and dedicated coil, multiplanar, multiecho imaging of the adelina mbar spine was performed before and after uneventful IV administration of 6.5 mL of Gadavist. FINDINGS: For purposes of numbering on this exam, the L5-S1 disc space is assigned to axial image 23 of 25. The re is straightening of the normal lumbar lordosis. There is no lumbar spine fracture. A few Schmorl's nodes are noted. No intracanalicular fluid collection. Conus terminates at the lower L1 level. A lar ge right renal cyst is partially imaged on this exam. There is a small 3 mm enhancing focus within th e right aspect of the canal at the L2-L3 level. L1-2: The central canal and neural foramen are patent. L2-3: There is moderate facet arthrosis. The central canal is patent. There is mild bilateral neural foraminal stenosis. L3-4: Moderate facet arthrosis is noted. Central canal is patent. There is mild bilateral neural fora gia stenosis. There is mild disc bulge. L4-5: There is marked disc space narrowing with disc bulge and a superimposed right paracentral disc extrusion with superior subligamentous migration. There is severe facet arthrosis. Severe central can al stenosis is noted. Patent AP diameter canal is 3.2 mm. There is severe narrowing of both lateral r ecesses and the bilateral neural foramen, greater on the right. L5-S1: Marked disc space narrowing is noted. There is disc bulge with moderate facet arthrosis. Mild is narrowing of the central canal and lateral recesses is present. There is severe bilateral neural f oraminal stenosis. IMPRESSION: 1. Disc bulge with superimposed right paracentral disc extrusion with superior subligamentous migrati on at L4-L5 superimposed upon facet arthrosis. Severe narrowing of the central canal, bilateral reces ses and neural foramen at the L4-L5 level. 2. Mild central canal stenosis and severe bilateral neural foraminal stenosis at L5-S1. 3. No lumbar spine fracture. No suspicious marrow replacement. 4. Small 3 mm enhancing focus within the right aspect of the canal at the L2-L3 level. This appears t o be associated with the exiting nerve roots. This could reflect a small meningioma or schwannoma or enhancement of the nerve roots. ACT 112: Negative or not required by law. Electronically signed by: Pablo Samuels M.D. 07/24/2022 7:15 PM
[2022-07-24] MEDS ORDERED: ONDANSETRON INJ 2 MG/ML 2 ML VIAL IV PRN (21:14)
[2022-07-24] MEDS ORDERED: ACETAMINOPHEN 325 MG TAB PO PRN (21:14)
[2022-07-24] MEDS ORDERED: oxyCODONE/ACETAMINOPHEN 5mg/325mg TAB PO PRN (21:14)
[2022-07-24] MEDS ORDERED: POLYETHYLENE (MIRALAX) 17 GM PACK PO PRN (21:14)
[2022-07-24] MEDS ORDERED: ALUMINUM/MAGNESIUM SUSP 30 ML UDC PO PRN (21:14)
[2022-07-24] MEDS ORDERED: CYCLOBENZAPRINE HCL 5 MG TAB PO PRN (21:14)
[2022-07-25] MEDS: LEVOTHYROXINE SODIUM 88 MCG TABLET PO SCH (05:53)
[2022-07-25] MEDS: predniSONE 5 MG TAB PO SCH (07:22)
[2022-07-25] MEDS: TAMSULOSIN HCL 0.4 MG CAP PO SCH (07:22)
[2022-07-25] MEDS: ROSUVASTATIN CALCIUM 5 MG TAB PO SCH (07:22)
[2022-07-25] MEDS: THEOPHYLLINE 300MG EXTENDED REL TAB PO SCH (07:22)
[2022-07-25] MEDS: POTASSIUM CHLORIDE CRTAB 20 MEQ TABCR PO SCH (07:22)
[2022-07-25] MEDS ORDERED: CLOPIDOGREL BISULFATE 75 MG TAB PO SCH (09:00)
--- NOTE | 2022-07-25 11:41 | Consultation ---
Date of Consultation July 25, 2022 Assessment & Plan (1) Lumbar disc herniation: Dr. Bueno has reviewed case and imaging. I have reviewed options with the patient including trial of pain management versus surgical fixation in the form of a lumbar decompression and instrumented fusion. He has discussed this with his via phone. He states he is feeling better and would like to at least trial pain management injection. He is on Plavix. I believe this is held starting today. We will consult them. Ultimately if pain continues to be under better control, may discharge and follow-up with pain management as an outpatient. If this is the plan, we are happy to see him a week or 2 after injection and assess his response. History of Present Illness Reason for Consultation: Lower back pain Attending Physician: Robert Osorio Marty History of Present Illness Is a pleasant 86-year-old gentleman that we are seeing consultation regarding lower back pain rating to bilateral lower extremities left greater than right. He states symptoms have been ongoing for 2 to 3 weeks. No precipitating accident, trauma, fall. Majority the pain is along the left anterior lateral thigh. Sometimes it radiates below the knee. Also has similar pain pattern on the right but not to the degree of the left. Symptoms are typically reproduced with standing and walking. At home he lives with his and typically ambulates with a cane. Per the ER notes he has fallen multiple times and family brought him to the ER for further work-up and treatment options. Denies bowel or bladder dysfunction. Pain is been under better control since admission. Please note he is on Plavix. Allergies Allergy/AdvReac Type Severity Reaction Status Date / Time No Known Drug Allergies Allergy Verified 07/13/22 11:04 Home Medications Medication Instructions Recorded Confirmed Type clopidogrel 75 mg tablet (Plavix) 75 mg PO DAILY #90 tabs 01/08/22 07/24/22 Rx rosuvastatin 5 mg tablet 5 mg PO DAILY #90 tabs 04/30/22 07/24/22 Rx cyclobenzaprine 5 mg tablet 5 mg PO TID PRN muscle spasm #60 05/28/22 07/24/22 Rx tabs tramadol 50 mg tablet 50 mg PO Q6H #30 tabs 05/28/22 07/24/22 Rx acetaminophen 300 mg-codeine 30 mg 1 tab PO Q6H PRN pain #50 tabs 06/25/22 07/24/22 Rx tablet oxycodone-acetaminophen 5 mg-325 1 tab PO Q6H PRN pain #30 tabs 07/17/22 07/24/22 Rx mg tablet (Percocet) levothyroxine 88 mcg tablet 88 mcg PO DAILYBB 07/24/22 07/24/22 History potassium chloride 20 mEq 20 meq PO DAILY 07/24/22 07/24/22 History tablet,extended release(part/cryst) prednisone 5 mg tablet 5 mg PO DAILY 07/24/22 07/24/22 History tamsulosin 0.4 mg capsule 0.4 mg PO DAILY 07/24/22 07/24/22 History theophylline 300 mg 600 mg PO DAILY 07/24/22 07/24/22 History tablet,extended release,12 hr Patient History Medical History Acid reflux Asthma 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, symptomatic, with infarction Elevated PSA History of colon cancer History of rectal cancer History of skin cancer Hypercholesterolemia Hypertension Hypertriglyceridemia Hypothyroidism Insufficiency, 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 Meningioma Metastatic squamous cell carcinoma Nephrolithiasis Seizure Skin cancer Small vessel disease, cerebrovascular Status post placement of implantable loop recorder Ventral hernia Surgical History History of colon surgery History of hemorrhoidectomy History of neck surgery Hx of parotidectomy Status post Mohs surgery 07/04/2020 - left face/preauricular area Family History Unknown Coronary heart disease Cancer Father Cancer Hypertension Son Diabetes Mother Benign neoplasm of head Brother Heart disease Brother Liver disease Heart disease Valve replacement Denies family history of Stroke Social History Smoking Status: Never smoker Second Hand Exposure: No; Do You Dip or Chew Tobacco: No; Tobacco Cessation Education Requested by Patient: No Hx Alcohol Use: Yes Alcohol type: beer Alcohol Intake Frequency: 2-3 x/Week Hx Substance Use: No Preferred Language: Lithuanian Communication Ability: Effective Visual Impairment: No Limitations Hearing Ability: Hard of Hearing Science Specialist Required: No Beliefs That Will Affect Care: None marital status: Current Living Situation: Spouse current occupational status: retired Other Information That Helps Us Care for You: No Feels Safe at Home: Yes Safety Concerns: Feels Safe At This Time caffeine: No Dental Care, Regularly: Yes Physical Activity Frequency: Daily Seatbelt Use: always Assistive Devices: Cane Review of Systems Review of Systems: All systems reviewed & are unremarkable except as noted in HPI & below Physical Exam Physical Exam: He is alert and oriented x3 Hard of hearing He is in a reclined position with both legs flexed to his chest He is cooperative for exam Negative tension signs bilaterally Negative logrolling bilaterally Motor testing is 5 5 bilateral EHL, dorsiflexion, plantarflexion, quadriceps, hamstrings, hip abductor's and hip adductor's Constitutional: + thin Eyes: normal visual arango by confrontation ENMT: Ears: + hearing impairment Neck: normal visual inspection Respiratory: normal respiratory effort Cardiovascular: Extremities: normal capillary refill Gastrointestinal (Abdomen): Inspection/Auscultation: abdomen normal to inspection Musculoskeletal: Extremities: extremities normal to inspection and strength 5/5 throughout Skin: no rashes, warm and dry normal turgor Neurologic: normal touch/pain/proprioception and moves all extremities Psychiatric: A+Ox3, euthymic affect Eye Contact: good eye contact Speech: normal rate/rhythm/volume of speech Results & Data ([facility]) Vital Signs (Past 12 Hours) Vital Signs Temp Pulse Resp BP BP Pulse Ox O2 Del Method 07/25/22 07:58 36.6 C 66 16 146/74 H 96 Room Air 07/25/22 00:03 137/65 Diagnostic Findings [place], [place] [phone] Magnetic Resonance Report Patient:BARON ZAMORA Admit Date:07/24/22 MR#:[id number] Address[address] Acct ID:[id number] Address2: Date:1935 [facility] Zip:[place] [id number] Age:86 Location:ED Sex:M Room/Bed: Att Phy: Diagnosis:LEG NUMBNESS Gabriella Phy:Giles Galan MD Service Date:07/24/22 [facility] Phy: Interpreting Phy:Pablo Samuels MDAmani Phy: Ordering Phy:Holden Rooney M.D. cc: ~ MRI OF THE LUMBAR SPINE WITH AND WITHOUT CONTRAST CLINICAL HISTORY: low back pain, left leg pain, falling COMPARISON STUDY: CT of the abdomen and pelvis June 27, 2022. TECHNIQUE: Utilizing a 1.5 Rosalie magnet and dedicated coil, multiplanar, multiecho imaging of the lumbar spine was performed before and after uneventful IV administration of 6.5 mL of Gadavist. FINDINGS: For purposes of numbering on this exam, the L5-S1 disc space is assigned to axial image 23 of 25. There is straightening of the normal lumbar lordosis. There is no lumbar spine fracture. A few Schmorl's nodes are noted. No intracanalicular fluid collection. Conus terminates at the lower L1 level. A large right renal cyst is partially imaged on this exam. There is a small 3 mm enhancing focus within the right aspect of the canal at the L2-L3 level. L1-2: The central canal and neural foramen are patent. L2-3: There is moderate facet arthrosis. The central canal is patent. There is mild bilateral neural foraminal stenosis. L3-4: Moderate facet arthrosis is noted. Central canal is patent. There is mild bilateral neural foraminal stenosis. There is mild disc bulge. L4-5: There is marked disc space narrowing with disc bulge and a superimposed right paracentral disc extrusion with superior subligamentous migration. There is severe facet arthrosis. Severe central canal stenosis is noted. Patent AP diameter canal is 3.2 mm. There is severe narrowing of both lateral recesses and the bilateral neural foramen, greater on the right. L5-S1: Marked disc space narrowing is noted. There is disc bulge with moderate facet arthrosis. Mild is narrowing of the central canal and lateral recesses is present. There is severe bilateral neural foraminal stenosis. IMPRESSION: 1. Disc bulge with superimposed right paracentral disc extrusion with superior subligamentous migration at L4-L5 superimposed upon facet arthrosis. Severe narrowing of the central canal, bilateral recesses and neural foramen at the L4- L5 level. 2. Mild central canal stenosis and severe bilateral neural foraminal stenosis at L5-S1. 3. No lumbar spine fracture. No suspicious marrow replacement. 4. Small 3 mm enhancing focus within the right aspect of the canal at the L2-L3 level. This appears to be associated with the exiting nerve roots. This could reflect a small meningioma or schwannoma or enhancement of the nerve roots. ACT 112: Negative or not required by law. Electronically signed by: Pablo Samuels M.D. 07/24/2022 7:15 PM Dictated:07/24/221904 Transcribed: 07/24/221904
[2022-07-25] MEDS ORDERED: oxyCODONE HCL IR 5 MG TAB (IMMEDIATE RELEASE) PO PRN (19:00)
[2022-07-25] MEDS ORDERED: PNEUMOCOCCAL POLYSACCHARIDES 25 MCG/0.5 ML VIAL/SYR IM ONE (21:38)
[2022-07-25] MEDS: traMADol HCL 50 MG TABLET PO PRN (22:07)
--- NOTE | 2022-07-25 22:20 | Hospitalist Progress Note ---
Date of Service July 25, 2022 Assessment & Plan (1) Lumbar disc herniation: Plan: - 3 months of progressive left LBP with radiation into left leg associated with left leg weakness and decreased sensation with multiple falls. - Pelvis/femur XR: No acute bony abnormality is seen involving the hips or pelvis, or left femur. - Lumbar MRI: * Disc bulge with superimposed right paracentral disc extrusion with superior subligamentous migration at L4-L5 superimposed upon facet arthrosis. Severe narrowing of the central canal, bilateral recesses and neural foramen at the L4-L5 level. * Mild central canal stenosis and severe bilateral neural foraminal stenosis at L5-S1. * No lumbar spine fracture. No suspicious marrow replacement. * Small 3 mm enhancing focus within the right aspect of the canal at the L2-L3 level. This appears to be associated with the exiting nerve roots. This could reflect a small meningioma or schwannoma or enhancement of the nerve roots. - Orthopedic surgery consulted. - Pain control for now, PT/OT to evaluate and treat. Patient is willing to try an injection first to see if this will help with pain and weakness. Updated his spouse, she appears to be leaning towards surgery. Their son will be coming in on 07/26 in the afternoon and his spouse would prefer that procedure be delayed until after he arrives. consulted pain management (2) Hypercholesterolemia: Plan: - Continue statin therapy. (3) Hypothyroidism: Plan: - Continue levothyroxine. (4) Small vessel disease, cerebrovascular: Plan: - Continue Plavix. 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 (6) Asthma: Plan: - Continue prednisone, theophylline. 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 - CT and PET scans have since been negative for metastatic disease. Plan - Admit to med/surg. - SCDs for VTE ppx. - Full Code. Admission and Anticipated Discharge Date Admission Date: July 24, 2022 Subjective Patient is poor of hearing. Patient does not recall earlier conversion with ortho spine in which he opted for conservative management. Updated his spouse, who appears to be leaning towards surgery. Their son will be coming in on 07/26 in the afternoon. Review of Systems Review of Systems: All systems reviewed & are unremarkable except as noted in HPI & below Physical Exam Physical Exam: General: awake, alert, no apparent distress Head: Normocephalic, atraumatic ENT: PERRL, EOMI, no pharyngeal exudate, mucous membranes moist Chest: Clear to auscultation, on room air, no adventitious breath sounds Cardiac: Regular rate and rhythm, no murmur, no JVD, normal peripheral pulses, good capillary refill Abdominal: NABS x 4 quadrants, soft, nontender to palpation, no rebound, guarding or tenderness Extremities: dorsal and plantarflexion intact b/l with 2/4 b/l patellar reflexed intact, decreased lateral left thigh sensation; otherwise normal inspection, no peripheral edema or erythema, calfs nontender to palpation Psych: Normal mood and affect Neuro: AAO x 3, strength intact bilaterally and rated 5/5, no motor deficits, speech is clear, no peripheral sensory deficits Skin: no rash or erythema Results & Data Results & Data ([facility]) Vital Signs (Past 12 Hours) Vital Signs Temp Pulse Resp BP Pulse Ox O2 Del Method 07/25/22 20:46 36.8 C 75 18 127/74 92 Room Air 07/25/22 15:38 36.7 C 104 H 16 106/75 94 Room Air PG Care Time/CCT Total # of Minutes Spent Total Time Spent with Patient: Total time spent is greater than 50% in coordination of care (as documented) at patient's floor/unit and/or counseling patient: Coding Level of Care Code 90767 SUB INP/OBS CARE 2/35MIN Diagnoses Lumbar disc herniation M51.26 Hypercholesterolemia E78.00 Hypothyroidism E03.9 Small vessel disease, cerebrovascular I67.9 Benign prostatic hyperplasia with urinary obstruction N40.1; N13.8 Asthma J45.909 Malignant neoplasm of parotid gland C07
[2022-07-26] MEDS: ACETAMINOPHEN 325 MG TAB PO SCH ×4 (00:33→18:24)
[2022-07-26] MEDS: LEVOTHYROXINE SODIUM 88 MCG TABLET PO SCH (05:20)
--- NOTE | 2022-07-26 08:27 | Pain Management Consultation ---
Date of Consultation July 26, 2022 Assessment & Plan (1) Left leg pain: (2) Lumbar disc herniation: (3) Falling: (4) Spinal stenosis of lumbar region: Plan 1. We discussed his presenting symptoms and MRI findings at length. We discussed interventional treatment options. We discussed risks versus benefits of pursuing lumbar epidural. Patient does wish to proceed with lumbar epidural steroid injection. He will continue to hold his Plavix. Patient may be discharged to home and we will complete the epidural injection in the outpatient setting at the pain clinic on 08/01/2022 at 10:15 AM. 2. Recommend patient continue with tramadol 50 mg every 6 hours as needed 3. Patient will be seen in outpatient pain clinic next week for lumbar LYNDA Thank you for allowing us to participate in the care of Mr. Redmond History of Present Illness Reason for Consultation: Low back pain and lower extremity radicular pain Requesting Physician: Karen Garcia PA-C Attending Physician: Andrew Stringer MD History of Present Illness Mr. Redmond is an 86-year-old white male who was admitted 2 days ago due to progressive difficulties with low back pain and left greater than right lower extremity radicular pain with weakness and episodes of falling. Patient reports increased back pain over the past 2-3 months without known injury. His symptoms have been somewhat progressive. His pain is 70% axial and 30% radicular with 80% being left leg and 20% being right leg. The pain predominately stays in the upper leg in the lateral and posterior thigh stopping at the level of the knee. He describes aching axial low back pain which is fairly constant and episodically increased with standing and ambulation. Patient rates his pain a 1/10 at its best in the sitting and supine positions but can escalate to a 6/10 with standing and ambulation. He reports some weakness but denies bowel or bladder incontinence. He denies any lower extremity paresthesia. He reports Plavix use has been chronic over the past 2-3 years. Patient was evaluated by orthopedic surgery yesterday who did discuss surgical intervention versus consideration of interventional treatment. Patient would like to further discuss interventional treatment prior to committing to surgical procedure. He does find tramadol to be moderately effective at diminishing his pain without no table side effects. Plan of care discussed with Dr. Lillie Castillo. Pain Assessment Full Body Front + Back: 1. Axial low back pain left greater than right-sided 2. Left lateral thigh pain stopping at knee 3. Right lateral thigh pain stopping at knee Allergies Allergy/AdvReac Type Severity Reaction Status Date / Time No Known Drug Allergies Allergy Verified 07/13/22 11:04 Home Medications Medication Instructions Recorded Confirmed Type clopidogrel 75 mg tablet (Plavix) 75 mg PO DAILY #90 tabs 01/08/22 07/24/22 Rx rosuvastatin 5 mg tablet 5 mg PO DAILY #90 tabs 04/30/22 07/24/22 Rx cyclobenzaprine 5 mg tablet 5 mg PO TID PRN muscle spasm #60 05/28/22 07/24/22 Rx tabs tramadol 50 mg tablet 50 mg PO Q6H #30 tabs 05/28/22 07/24/22 Rx acetaminophen 300 mg-codeine 30 mg 1 tab PO Q6H PRN pain #50 tabs 06/25/22 07/24/22 Rx tablet oxycodone-acetaminophen 5 mg-325 1 tab PO Q6H PRN pain #30 tabs 07/17/22 07/24/22 Rx mg tablet (Percocet) levothyroxine 88 mcg tablet 88 mcg PO DAILYBB 07/24/22 07/24/22 History potassium chloride 20 mEq 20 meq PO DAILY 07/24/22 07/24/22 History tablet,extended release(part/cryst) prednisone 5 mg tablet 5 mg PO DAILY 07/24/22 07/24/22 History tamsulosin 0.4 mg capsule 0.4 mg PO DAILY 07/24/22 07/24/22 History theophylline 300 mg 600 mg PO DAILY 07/24/22 07/24/22 History tablet,extended release,12 hr Patient History Medical History (Updated 07/26/22 @ 08:34 by Chinmay Alaniz PA-C) Acid reflux Asthma 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, symptomatic, with infarction Elevated PSA History of colon cancer History of rectal cancer History of skin cancer Hypercholesterolemia Hypertension Hypertriglyceridemia Hypothyroidism Insufficiency, 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 Meningioma Metastatic squamous cell carcinoma Nephrolithiasis Seizure Skin cancer Small vessel disease, cerebrovascular Spinal stenosis of lumbar region Status post placement of implantable loop recorder Ventral hernia Surgical History History of colon surgery History of hemorrhoidectomy History of neck surgery Hx of parotidectomy Status post Mohs surgery 07/04/2020 - left face/preauricular area Family History Unknown Coronary heart disease Cancer Father Cancer Hypertension Son Diabetes Mother Benign neoplasm of head Brother Heart disease Brother Liver disease Heart disease Valve replacement Denies family history of Stroke Social History Smoking Status: Never smoker Second Hand Exposure: No; Do You Dip or Chew Tobacco: No; Tobacco Cessation Education Requested by Patient: No Hx Alcohol Use: Yes Alcohol type: beer Alcohol Intake Frequency: 2-3 x/Week Hx Substance Use: No Preferred Language: Urdu Communication Ability: Effective Visual Impairment: No Limitations Hearing Ability: Hard of Hearing Bank Compliance 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 Speech and thought process appropriate. Mood and affect appropriate. Cognition intact. Patient somewhat hard of hearing but communication was effective. Head: Normocephalic and atraumatic. ENT: No evidence of nasal or oral mucosal lesions. Mucous membranes are moist. Eyes: Pupils equal round reactive to light. Neck: Supple without adenopathy and full range of motion. Chest: Nontender to palpation of the costosternal junction. Abdomen: Soft and nondistended. No organomegaly. Bowel sounds active. Back/spine: Patient able to logroll towards his left side for physical exam. Complete loss of lordosis. Nontender over the midline. No focal facet or SI joint tenderness. Some minimal generalized tenderness over the lumbosacral junction which is left greater than right-sided and nonfocal. No appreciable spasm or myoneural trigger point. Lower extremities: Strength testing 4/5 with resisted hip flexion bilaterally. SLR negative bilaterally. All other strength 5/5 and equal. Sensation intact to sharp and dull. No appreciable edema. Neurologic: Cranial nerves grossly intact. Ambulatory function not witnessed. Results (Pain Clinic) Diagnostic Review MRI Findings: [place], [place] [phone] Magnetic Resonance Report Patient:BARON REDMOND Admit Date:07/24/22 MR#:[id number] Address[address] Acct ID:[id number] Address2: Date:1935 [facility] Zip:[place] [address] Age:86 Location:ED Sex:M Room/Bed: Att Phy: Diagnosis:LEG NUMBNESS Gabriella Phy:Giles Galan MD Service Date:07/24/22 [facility] Phy: Interpreting Phy:Pablo Samuels MDAconrad Phy: Ordering Phy:Holden Rooney M.D. cc: ~ MRI OF THE LUMBAR SPINE WITH AND WITHOUT CONTRAST CLINICAL HISTORY: low back pain, left leg pain, falling COMPARISON STUDY: CT of the abdomen and pelvis June 27, 2022. TECHNIQUE: Utilizing a 1.5 Rosalie magnet and dedicated coil, multiplanar, multiecho imaging of the lumbar spine was performed before and after uneventful IV administration of 6.5 mL of Gadavist. FINDINGS: For purposes of numbering on this exam, the L5-S1 disc space is assigned to axial image 23 of 25. There is straightening of the normal lumbar lordosis. Th ere is no lumbar spine fracture. A few Schmorl's nodes are noted. No intracanalicular fluid collection. Conus terminates at the lower L1 level. A large right renal cyst is partially imaged on this exam. There is a small 3 mm enhancing focus within the right aspect of the canal at the L2-L3 level. L1-2: The central canal and neural foramen are patent. L2-3: There is moderate facet arthrosis. The central canal is patent. There is mild bilateral neural foraminal stenosis. L3-4: Moderate facet arthrosis is noted. Central canal is patent. There is mild bilateral neural foraminal stenosis. There is mild disc bulge. L4-5: There is marked disc space narrowing with disc bulge and a superimposed r ight paracentral disc extrusion with superior subligamentous migration. There is severe facet arthrosis. Severe central canal stenosis is noted. Patent AP diameter canal is 3.2 mm. There is severe narrowing of both lateral recesses and the bilateral neural foramen, greater on the right. L5-S1: Marked disc space narrowing is noted. There is disc bulge with moderate facet arthrosis. Mild is narrowing of the central canal and lateral recesses is present. There is severe bilateral neural foraminal stenosis. IMPRESSION: 1. Disc bulge with superimposed right paracentral disc extrusion with superior subligamentous migration at L4-L5 superimposed upon facet arthrosis. Severe narrowing of the central canal, bilateral recesses and neural foramen at the L4- L5 level. 2. Mild central canal stenosis and severe bilateral neural foraminal stenosis at L5-S1. 3. No lumbar spine fracture. No suspicious marrow replacement. 4. Small 3 mm enhancing focus within the right aspect of the canal at the L2-L3 level. This appears to be associated with the exiting nerve roots. This could reflect a small meningioma or schwannoma or enhancement of the nerve roots. ACT 112: Negative or not required by law. Electronically signed by: Pablo Samuels M.D. 07/24/2022 7:15 PM Dictated:07/24/221904 Transcribed: 07/24/221904 Previous Records Review Previous Records: personally reviewed by me
[2022-07-26] MEDS: ROSUVASTATIN CALCIUM 5 MG TAB PO SCH (09:24)
[2022-07-26] MEDS: THEOPHYLLINE 300MG EXTENDED REL TAB PO SCH (09:24)
[2022-07-26] MEDS: POTASSIUM CHLORIDE CRTAB 20 MEQ TABCR PO SCH (09:25)
[2022-07-26] MEDS: TAMSULOSIN HCL 0.4 MG CAP PO SCH (09:25)
[2022-07-26] MEDS: predniSONE 5 MG TAB PO SCH (09:25)
[2022-07-26] MEDS: traMADol HCL 50 MG TABLET PO PRN ×2 (11:59→18:24)
--- NOTE | 2022-07-26 19:13 | Hospitalist Progress Note ---
Date of Service July 26, 2022 Assessment & Plan (1) Lumbar disc herniation: Plan: - 3 months of progressive left LBP with radiation into left leg associated with left leg weakness and decreased sensation with multiple falls. - Pelvis/femur XR: No acute bony abnormality is seen involving the hips or pelvis, or left femur. - Lumbar MRI: * Disc bulge with superimposed right paracentral disc extrusion with superior subligamentous migration at L4-L5 superimposed upon facet arthrosis. Severe narrowing of the central canal, bilateral recesses and neural foramen at the L4-L5 level. * Mild central canal stenosis and severe bilateral neural foraminal stenosis at L5-S1. * No lumbar spine fracture. No suspicious marrow replacement. * Small 3 mm enhancing focus within the right aspect of the canal at the L2-L3 level. This appears to be associated with the exiting nerve roots. This could reflect a small meningioma or schwannoma or enhancement of the nerve roots. - Orthopedic surgery consulted no immediate need for surgical intervention. - Pain control for now, PT/OT to evaluate and treat. Seen by pain management, patient is willing to try an injection first to see if this will help with pain and weakness. Updated his spouse and son at the bedside. (2) Hypercholesterolemia: Plan: - Continue statin therapy. (3) Hypothyroidism: Plan: - Continue levothyroxine. (4) Small vessel disease, cerebrovascular: Plan: - Continue Plavix. 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 (6) Asthma: Plan: - Continue prednisone, theophylline. 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 - CT and PET scans have since been negative for metastatic disease. Plan - Admit to med/surg. - SCDs for VTE ppx. - Full Code. Admission and Anticipated Discharge Date Admission Date: July 24, 2022 Subjective pt is very hard of hearing, he has good pain control and only minor weakness with movement looking forward to going to outpt pain management 08/01/22 Review of Systems Review of Systems: Mild distress and fatigue no headache, no visual changes no speech or swallowing issues no chest pain, pressure or palpitations no shortness of breath, cough or wheezes no abdominal pain, nausea or vomiting, diarrhea or constipation no dysuria, hematuria or frequency no focal joint pain or swelling Occasional left-sided pain with radicular symptomology. no bruising, bleeding or rashes Patient left leg weakness mostly when standing no complaints of anxiety or depression.. Physical Exam Physical Exam: The patient appeared well nourished and normally developed. Vital signs as documented. Head exam is normocephalic atraumatic Neck is without JVD, thyromegaly, or carotid bruits. Lungs are clear to auscultation, no focal loss of breath sounds Cardiac exam, Rhythm is regular.. No murmurs, rubs or gallops. Abdominal exam reveals normal bowel sounds, soft non tender, no masses Extremities are nonedematous and both pedal pulses are present Neurologic exam is alert and oriented, he is extremely hard of hearing, patient has no overtly brisk reflexes loss of sensation or strength decreased on the left side Skin is without bruises or rashes Psychologically is without concerns for anxiety or depression.. Results & Data Results & Data ([facility]) Vital Signs (Past 12 Hours) Vital Signs Temp Pulse Resp BP BP Pulse Ox O2 Del Method 07/26/22 14:18 98.1 F 78 18 129/65 92 Room Air 07/26/22 07:09 97.9 F 65 18 141/74 H 94 Room Air PG Care Time/CCT Total # of Minutes Spent Total Time Spent with Patient: Total time spent is greater than 50% in coordination of care (as documented) at patient's floor/unit and/or counseling patient: Coding Level of Care Code 43632 SUB INP/OBS CARE 2/35MIN Diagnoses Lumbar disc herniation M51.26 Hypercholesterolemia E78.00 Hypothyroidism E03.9 Small vessel disease, cerebrovascular I67.9 Benign prostatic hyperplasia with urinary obstruction N40.1; N13.8 Asthma J45.909 Malignant neoplasm of parotid gland C07
[2022-07-26 22:05] VITALS: O2SAT 94
[2022-07-27] MEDS: ACETAMINOPHEN 325 MG TAB PO SCH ×2 (00:22→05:48)
[2022-07-27] MEDS: traMADol HCL 50 MG TABLET PO PRN (03:57)
[2022-07-27] MEDS: LEVOTHYROXINE SODIUM 88 MCG TABLET PO SCH (05:49)
[2022-07-27 07:48] VITALS: BP 137/68; PULSE 70; TEMP 97.9
[2022-07-27] MEDS: ROSUVASTATIN CALCIUM 5 MG TAB PO SCH (09:12)
[2022-07-27] MEDS: POTASSIUM CHLORIDE CRTAB 20 MEQ TABCR PO SCH (09:12)
[2022-07-27] MEDS: TAMSULOSIN HCL 0.4 MG CAP PO SCH (09:12)
[2022-07-27] MEDS: THEOPHYLLINE 300MG EXTENDED REL TAB PO SCH (09:12)
[2022-07-27] MEDS: predniSONE 5 MG TAB PO SCH (09:12)
--- NOTE | 2022-07-27 17:54 | Discharge Summary ---
Date of Service July 27, 2022 Admission HPI Per Admitting Provider Geovanni Redmond is an 86-year-old male with past medical history significant for hypertension, hyperlipidemia, hypothyroidism, prior CVA, sciatica, vertigo, meningioma, hypothyroidism, colon cancer, SCC, and BPH is presenting today for lower back and left leg pain. This has been going on for 3 months and causes his left leg to be On presentation is borderline tachycardic and hypertensive, otherwise vital signs are within normal limits, stable. Labs are largely unrevealing, concern for infection electrolyte imbalance, urinary tract infection. Renal and hepatic function at baseline. Femur and pelvis x-ray unrevealing for any acute bony abnormality, osteopenia and degenerative changes noted. Lumbar spine MRI: disc bulge with superimposed right paracentral disc extrusion with superior subligamentous migration at L4-L5 superimposed upon facet arthrosis. Severe narrowing of the central canal, bilateral recesses and neural foramen at the L4-L5 level. Mild central canal stenosis and severe bilateral neural foraminal stenosis at L5-S1. Small 3 mm enhancing focus within the right aspect of the canal at the L2-L3 level. This appears to be associated with the exiting nerve roots. This could reflect a small meningioma or schwannoma or enhancement of the nerve roots. Principal Diagnosis Disc bulge with superimposed right paracentral disc extrusion with superior subligamentous migration at L4-L5 Discharge Exam Patient was discharged in stable condition Pain was in good control Discharge Data Allergies Allergy/AdvReac Type Severity Reaction Status Date / Time No Known Drug Allergies Allergy Verified 07/13/22 11:04 Consultations 07/24/22 17:59 ED Decision to Admit Stat 07/24/22 21:14 Consult Orthopedic Surgery Routine 07/25/22 09:23 Consult Pain Management Routine Ordered Studies 07/24/22 17:35 MR lumbar spine wo/w con Stat Hospital Course (1) Lumbar disc herniation: - 3 months of progressive left LBP with radiation into left leg associated with left leg weakness and decreased sensation with multiple falls. - Pelvis/femur XR: No acute bony abnormality is seen involving the hips or pelvis, or left femur. - Lumbar MRI: * Disc bulge with superimposed right paracentral disc extrusion with superior subligamentous migration at L4-L5 superimposed upon facet arthrosis. Severe narrowing of the central canal, bilateral recesses and neural foramen at the L4-L5 level. * Mild central canal stenosis and severe bilateral neural foraminal stenosis at L5-S1. * No lumbar spine fracture. No suspicious marrow replacement. * Small 3 mm enhancing focus within the right aspect of the canal at the L2-L3 level. This appears to be associated with the exiting nerve roots. This could reflect a small meningioma or schwannoma or enhancement of the nerve roots. - Orthopedic surgery consulted no immediate need for surgical intervention. - Pain control for acceptable time of discharge Seen by pain management, patient is willing to try an injection first to see if this will help with pain and weakness. Updated his spouse and son at the bedside 07/26/2022. (2) Hypercholesterolemia: - Continue statin therapy. (3) Hypothyroidism: - Continue levothyroxine. (4) Small vessel disease, cerebrovascular: - Continue Plavix. (5) Benign prostatic hyperplasia with urinary obstruction: - Continue Flomax. (6) Asthma: - Continue prednisone, theophylline. 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 - CT and PET scans have since been negative for metastatic disease. Total Time Total Time Spent Total Time Spent (In Minutes): It required less than 30 minutes to prepare this patient for discharge Discharge Plan Discharge Items Patient Disposition: Home - Home Health Services Reason For Visit: WEAKNESS, BACK PAIN Discharge Diagnosis: disc bulge with superimposed right paracentral disc extrusion with superior subligamentous migration severe facet arthrosis severe central canal stenosis Condition on Discharge: Fair Activity: Per Instructions section Activity Comment: limit activity until after injection Non-emergency contact: Primary Care Provider Call non-emergency contact if: your symptoms worsen Follow-up/Referrals: Giles Galan MD [Primary Care Provider] - 08/03/22 3:00 pm Diet: Heart Healthy Addtl Attending Provider Instructions: Please limit activity especially bendig lifting and twisting until after you see your pain management and also per their instructions afterward Pending Studies at Discharge: No Stand-Alone Forms: [facility], Pain - Opioid Pain Management, Smoking Cessation Medications and DC Order Prescriptions: New polyethylene glycol 3350 [Miralax] 17 gram Powder In Packet 17 g PO DAILY PRN (Reason: constipation) Qty: 30 0RF Continued rosuvastatin 5 mg tablet 5 mg PO DAILY Qty: 90 3RF cyclobenzaprine 5 mg tablet 5 mg PO TID PRN (Reason: muscle spasm) Qty: 60 3RF theophylline 300 mg tablet extended release 12 hr 600 mg PO DAILY Rx Instructions: TAKE TWO TABLETS BY MOUTH DAILY tamsulosin 0.4 mg capsule 0.4 mg PO DAILY levothyroxine 88 mcg tablet 88 mcg PO DAILYBB Rx Instructions: TAKE ONE TABLET BY MOUTH ONE TIME DAILY potassium chloride 20 mEq tablet,ER particles/crystals 20 meq PO DAILY Rx Instructions: TAKE ONE TABLET BY MOUTH ONE TIME DAILY prednisone 5 mg tablet 5 mg PO DAILY tramadol 50 mg tablet 50 mg PO Q6H Qty: 30 2RF oxycodone-acetaminophen [Percocet] 5-325 mg tablet 1 tab PO Q6H PRN (Reason: pain) Qty: 30 0RF Discontinued clopidogrel [Plavix] 75 mg tablet 75 mg PO DAILY Qty: 90 3RF acetaminophen-codeine 300-30 mg tablet 1 tab PO Q6H PRN (Reason: pain) Qty: 50 1RF Discharge Orders: Discharge Order (Routine); Ordered 07/27/22 Ordered By: Andrew Stringer Admission Data Admit Date/Time: 07/24/22 19:20 Attending Provider: Andrew Stringer Admit Provider: Robert Ferguson Primary Care Provider: Giles Galan Other Providers: Robert Ferguson ; Moises Bueno ; Chinmay Alaniz ; Lillie Castillo ; Dequan Rangel ; Ailyn Smith ; Prasanna Saldivar ; [facility] Other Interventions: Discharge Summary Assessment (RN) Last Done: 07/27/22 08:45 Coding Level of Care Code HOSP INP/OBS DISCH 30 MIN/LESS Diagnoses Lumbar disc herniation M51.26 Hypercholesterolemia E78.00 Hypothyroidism E03.9 Small vessel disease, cerebrovascular I67.9 Benign prostatic hyperplasia with urinary obstruction N40.1; N13.8 Asthma J45.909 Malignant neoplasm of parotid gland C07
== END 2022-07-27 10:39 | disposition home health service (06) | DRG 552 ==
LOC: ED 13:50 → 3N 19:20 → SUATTDRO 19:20 → 3N 20:46

== ENCOUNTER 2023-04-21 21:15 | Inpatient (IN) ==
[2023-04-21] MEDS ORDERED: OPTIRAY 320 125ml IV ONE (21:29)
--- NOTE | 2023-04-21 21:32 | Emergency Department Note ---
Impression & Plan Acute CVA (cerebrovascular accident), Occlusion of vertebral artery, Carotid arterial disease ED Provider Note NAME: BARON ZAMORA AGE: 87 SEX: M : 1935 ARRIVES VIA: Ambulance INFORMANT: Patient, ED PROVIDER(S): Dino Reynoso DO CHIEF COMPLAINT: Strokelike symptoms HPI: The patient is an 87-year-old male who presented to the emergency department for an evaluation of strokelike symptoms. Apparently the patient had an acute change in his mental status approximately 8 PM. 911 was called and the patient was brought to the emergency department. Upon evaluating the patient he was having difficulty speaking and had a shaking episode prior to arrival. There was no definite seizure activity. The patient does have a history of stroke in the past. The patient is unable to give much history at this time. ROS: See above HPI for pertinent positives & negatives. A total of 10 systems re viewed and were otherwise negative. PAST MEDICAL HISTORY: See Below PAST SURGICAL HISTORY: See Below FAMILY HISTORY: See Below SOCIAL HISTORY: See Below HOME MEDICATIONS: See Below ALLERGIES: See Below VITALS: See Below PHYSICAL EXAMINATION: GENERAL: The patient is awake and appears very anxious. He is difficult to manage and is not following commands. EYES: The conjunctivae are clear. The pupils are round and reactive. EARS, NOSE, MOUTH AND THROAT: The nose is without any evidence of any deformity. NECK: The neck is nontender and supple. RESPIRATORY: Normal respiratory effort is noted there is no evidence of wheezing rhonchi or rales CARDIOVASCULAR: Regular rate and rhythm noted there no murmurs rubs or gallops normal S1 normal S2. GASTROINTESTINAL: The abdomen is soft. Abdomen is nontender. MUSCULOSKELETAL/EXTREMITIES: There is no evidence of gross deformity full range of motion is noted in the hips and shoulders. SKIN: There is no obvious evidence of any rash. There are no petechiae, pallor or cyanosis noted. NEUROLOGIC: The patient is awake and alert. He does have a right-sided gaze deficit. He appears to have a left-sided facial droop. He is moving all extremities well. The patient is not able to answer questions. He does have some 1 word phrases but mostly says "no " MEDICAL DECISION MAKING: The patient is an 87-year-old male who presented to the emergency department for strokelike symptoms. The patient had similar episodes in the past. Approximately 5 years ago he had a stroke that presented very similarly. The patient had an acute onset of symptoms at approximately 8 PM. His significant other called 911. The patient had a left-sided facial droop. He had a left gaze preference. He had right-sided neglect. He also had some degree of dysarthria. Given the patient's findings and his history the patient was made a stroke alert prior to arrival. I discussed the patient's condition with the telestroke neurologist from [facility]. The patient was felt to be a good candidate for TNK. After discussion with the family verbal consent was obtained for TNK. I discussed the patient's condition with the on-call [facility] hospitalist. They have agreed to evaluate the patient in the emergency department for further management and disposition. The patient's blood pressure did not require intervention in the emergency department. Triage Nursing notes reviewed. Prior medical records reviewed Vital Signs: reviewed and remarkable for elevated blood pressure. Differential diagnosis: Infection, dehydration, metabolic abnormality, hypo/hyperglycemia, electrolyte disturbance, anemia, hypoxia, cardiac sources, intracerebral event, toxicologic, neurologic, as well as other pathologies. ER treatment provided: See below Diagnostics interpreted by me: ECG: EKG was obtained in the emergency department. My patient is sinus rhythm at 94 bpm. Left bundle branch block pattern was favored. LVH was noted by voltage criteria. This was compared to a tracing from July 24, 2022. No changes were noted. Cardiac Monitoring: An order was placed for continuous cardiac monitoring. The monitor shows a rate of 97 bpm with sinus rhythm. Laboratory studies: As stated above and show below. Imaging studies: See below. Radiographic imaging was reviewed by myself Consultation(s): I discussed this case with Dr Qureshi I discussed this case with Dr. Newsome who is on-call for the [facility] group. ED COURSE: Procedures: none Critical Care: I have personally spent greater than 65 minutes of critical care time in the direct management of this patient. This includes bedside care, interpretation of diagnostic studies, and testing, discussion with consultants, patient, and family members, and other required patient management activities. This 65 minutes is in excess of all separately billable procedures. 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 Carotid artery stenosis mild stenosis on 2018 neck CTA History of CVA (cerebrovascular accident) "couple of years ago" - denies residual. History of radiation therapy "left jaw" approx 1 year ago -- unable to recall type of cancer. 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 cervical spine? carotid? ROM WNL per pt report Hx of parotidectomy Status post Mohs surgery 07/04/2020 - left face/preauricular area Family History Unknown Coronary heart disease Cancer Father Cancer Hypertension Son Diabetes Mother Benign neoplasm of head Brother Heart disease Brother Liver disease Heart disease Valve replacement Denies family history of Stroke Social History Smoking Status: Former smoker Cigarettes Per Day: 1960; Second Hand Exposure: No; Do You Dip or Chew Tobacco: No; Hx Alcohol Use: Yes Alcohol type: beer Alcohol Intake Frequency: 2-3 x/Week Hx Substance Use: No Preferred Language: [place] Communication Ability: Impaired Visual Impairment: No Limitations Hearing Ability: Hard of Hearing Envelope Maker Required: No Beliefs That Will Affect Care: None marital status: Current Living Situation: Spouse current occupational status: retired Other Information That Helps Us Care for You: No Feels Safe at Home: Yes Safety Concerns: Feels Safe At This Time caffeine: No Dental Care, Regularly: Yes Physical Activity Frequency: Daily Seatbelt Use: always Assistive Devices: Glasses and Walker Allergies Allergies Allergy/AdvReac Type Severity Reaction Status Date / Time No Known Drug Allergies Allergy Verified 02/11/23 10:45 Home Meds Home Medications Medication Instructions Recorded Confirmed tamsulosin 0.4 mg capsule 0.4 mg PO QPM 07/24/22 02/05/23 cyclobenzaprine 5 mg tablet 5 mg PO TID PRN Muscle Spasm 09/27/22 02/05/23 theophylline 300 mg 300 mg PO QAM 01/23/23 02/05/23 tablet,extended release,12 hr levothyroxine 88 mcg tablet 88 mcg PO QAM 01/24/23 02/05/23 potassium chloride 20 mEq 20 meq PO QAM 01/24/23 02/05/23 tablet,extended release(part/cryst) prednisone 5 mg tablet 5 mg PO QAM 01/24/23 02/05/23 ibuprofen 200 mg tablet (Advil) 200 mg PO Q6H PRN Pain 02/05/23 02/05/23 Previous Rx's Medication Instructions Recorded polyethylene glycol 3350 17 gram 17 g PO DAILY PRN constipation #30 07/26/22 oral powder packet (Miralax) ea gabapentin 300 mg capsule 300 mg PO BID #60 caps 11/28/22 clopidogrel 75 mg tablet See Rx Instructions .Route 02/20/23 .COMPLEX #90 tabs tramadol 50 mg tablet 50 mg PO Q6H PRN Pain #30 tabs 04/17/23 rosuvastatin 5 mg tablet See Rx Instructions .Route 04/21/23 .COMPLEX #90 tabs Results & Data (ED) Vital Signs Vital Signs - 24 hr 04/21/23 21:27 04/21/23 21:35 04/21/23 21:45 Temperature Temperature Source Pulse Rate 117 H Pulse Rate [Apical] 96 H Respiratory Rate 16 18 Respiratory Effort / Characteristics Non-Labored Spontaneous Non-Labored Spontaneous Respiratory Depth Normal Normal Respiratory Pattern Blood Pressure 153/92 H Blood Pressure [Right Arm] 160/86 H Blood Pressure Mean 112 Blood Pressure Mean [Right Arm] 110 Pulse Oximetry 93 89 L 96 Oxygen Delivery Method Room Air Room Air Nasal Cannula Nasal Cannula Oxygen Flow Rate 3 Sepsis Recent Fever Within 48 Hours No Sepsis New/Unexplained Change in Mental Status No Sepsis Action Taken by Nursing No Action Required Oxygen Flow Rate - Titration 2 Pulse Oximetry Post Tiitration 96 04/21/23 22:01 04/21/23 22:10 04/21/23 22:15 Temperature Temperature Source Pulse Rate Pulse Rate [Apical] 96 H 97 H 102 H Respiratory Rate 14 16 19 Respiratory Effort / Characteristics Non-Labored Spontaneous Respiratory Depth Normal Respiratory Pattern Regular Blood Pressure Blood Pressure [Right Arm] 158/85 H 153/111 H 167/87 H Blood Pressure Mean Blood Pressure Mean [Right Arm] 109 125 113 Pulse Oximetry 94 96 95 Oxygen Delivery Method Nasal Cannula Nasal Cannula Nasal Cannula Oxygen Flow Rate 3 3 3 Sepsis Recent Fever Within 48 Hours Sepsis New/Unexplained Change in Mental Status Sepsis Action Taken by Nursing Oxygen Flow Rate - Titration Pulse Oximetry Post Tiitration 04/21/23 22:25 04/21/23 22:39 04/21/23 21:35 Temperature 36.5 C 36.5 C Temperature Source Oral Oral Pulse Rate 99 H Pulse Rate [Apical] 91 H 99 H Respiratory Rate 20 16 Respiratory Effort / Characteristics Respiratory Depth Respiratory Pattern Blood Pressure Blood Pressure [Right Arm] 161/85 H 125/88 Blood Pressure Mean Blood Pressure Mean [Right Arm] 110 100 Pulse Oximetry 97 96 Oxygen Delivery Method Nasal Cannula Nasal Cannula Oxygen Flow Rate 3 3 Sepsis Recent Fever Within 48 Hours Sepsis New/Unexplained Change in Mental Status Sepsis Action Taken by Nursing Oxygen Flow Rate - Titration Pulse Oximetry Post Tiitration Home Medications Current Medication List: was personally reviewed by me Laboratory Data Attestation: I reviewed the patient's lab results. 04/21/23 21:23 04/21/23 21:23 Lab Results 04/21/23 04/21/23 04/21/23 Range/Units 21:23 21:23 21:23 WBC 8.34 (4.8-10.8) K/ul RBC 5.03 (4.70-6.10) M/uL Hgb 15.6 (14.0-18.0) g/dl Hct 45.6 (42.0-52.0) % MCV 90.7 (80.0-100.0) fL MCH 31.0 (25.0-34.0) pg MCHC 34.2 (32.0-36.0) g/dL RDW Std Deviation 48.8 H (36.4-46.3) fL RDW Coeff of [place] 14.7 H (11.5-14.5) % Plt Count 131 (130-400) K/uL MPV 10.6 (9.4-12.4) fL Immature Gran % (Auto) 0.5 % Neut % (Auto) 69.9 % Lymph % (Auto) 17.4 % [place] % (Auto) 10.7 % Eos % (Auto) 1.1 % Baso % (Auto) 0.4 % Neut # (Auto) 5.84 (1.40-6.50) K/uL Lymph # (Auto) 1.45 (1.20-3.40) K/uL [place] # (Auto) 0.89 H (0.11-0.59) K/uL Eos # (Auto) 0.09 (0.00-0.50) K/uL Baso # (Auto) 0.03 (0.00-0.20) K/uL Immature Gran # (Auto) 0.04 (0.01-0.20) K/uL PT 10.9 (9.0-12.0) Seconds INR 1.0 (0.9-1.1) APTT 23.9 (21.0-31.0) Seconds PTT Ratio 0.8 VBG pH (7.36-7.41) VBG pCO2 (38-50) mmHg VBG pO2 mmHg VBG HCO3 mmol/L VBG O2 Saturation % VBG Base Excess mEq/L Sodium 138 (136-145) mmol/L Potassium 3.6 (3.5-5.1) mmol/L Chloride 101 (98-107) mmol/L Carbon Dioxide 25 (21-32) mmol/L Anion Gap 12 H (3-11) BUN 19 (6-23) mg/dl Creatinine 1.33 (0.6-1.4) mg/dl Est Cr Clr Drug Dosing 41.9 ml/min Est GFR ( Amer) 56.1 ml/min Est GFR (Non-Af Amer) 48.4 ml/min BUN/Creatinine Ratio 14.3 (10-20) Glucose 162 H (70-99(Fasting)) mg/dl Calcium 10.0 (8.6-10.3) mg/dl Magnesium 2.3 (1.7-2.4) mg/dl Total Bilirubin 0.6 (0.2-1.0) mg/dl AST 22 (13-39) U/L ALT 15 (7-52) U/L Alkaline Phosphatase 91 (34-104) U/L Troponin I High Sens 8.4 (0-20) pg/ml Total Protein 6.8 (6.0-8.3) gm/dl Albumin 3.8 (3.4-5.0) gm/dl Globulin 3.0 (2.5-4.0) gm/dl Albumin/Globulin Ratio 1.3 (0.9-2) Urine Color Urine Appearance (Clear) Urine pH (4.5-7.5) Ur Specific [place] (1.000-1.030) Urine Protein (Negative) Urine Glucose (UA) (Negative) Urine Ketones (Negative) Urine Blood (Negative) Urine Nitrite (Negative) Urine Bilirubin (Negative) Urine Urobilinogen (Negative) Ur Leukocyte Esterase (Negative) 04/21/23 04/21/23 Range/Units 21:23 22:16 WBC (4.8-10.8) K/ul RBC (4.70-6.10) M/uL Hgb (14.0-18.0) g/dl Hct (42.0-52.0) % MCV (80.0-100.0) fL MCH (25.0-34.0) pg MCHC (32.0-36.0) g/dL RDW Std Deviation (36.4-46.3) fL RDW Coeff of [place] (11.5-14.5) % Plt Count (130-400) K/uL MPV (9.4-12.4) fL Immature Gran % (Auto) % Neut % (Auto) % Lymph % (Auto) % [place] % (Auto) % Eos % (Auto) % Baso % (Auto) % Neut # (Auto) (1.40-6.50) K/uL Lymph # (Auto) (1.20-3.40) K/uL [place] # (Auto) (0.11-0.59) K/uL Eos # (Auto) (0.00-0.50) K/uL Baso # (Auto) (0.00-0.20) K/uL Immature Gran # (Auto) (0.01-0.20) K/uL PT (9.0-12.0) Seconds INR (0.9-1.1) APTT (21.0-31.0) Seconds PTT Ratio VBG pH 7.30 L (7.36-7.41) VBG pCO2 51 H (38-50) mmHg VBG pO2 35 mmHg VBG HCO3 25 mmol/L VBG O2 Saturation < 60.0 % VBG Base Excess -2.0 mEq/L Sodium (136-145) mmol/L Potassium (3.5-5.1) mmol/L Chloride (98-107) mmol/L Carbon Dioxide (21-32) mmol/L Anion Gap (3-11) BUN (6-23) mg/dl Creatinine (0.6-1.4) mg/dl Est Cr Clr Drug Dosing ml/min Est GFR ( Amer) ml/min Est GFR (Non-Af Amer) ml/min BUN/Creatinine Ratio (10-20) Glucose (70-99(Fasting)) mg/dl Calcium (8.6-10.3) mg/dl Magnesium (1.7-2.4) mg/dl Total Bilirubin (0.2-1.0) mg/dl AST (13-39) U/L ALT (7-52) U/L Alkaline Phosphatase (34-104) U/L Troponin I High Sens (0-20) pg/ml Total Protein (6.0-8.3) gm/dl Albumin (3.4-5.0) gm/dl Globulin (2.5-4.0) gm/dl Albumin/Globulin Ratio (0.9-2) Urine Color Yellow Urine Appearance Clear (Clear) Urine pH 6.0 (4.5-7.5) Ur Specific [place] > 1.045 H (1.000-1.030) Urine Protein Negative (Negative) Urine Glucose (UA) Negative (Negative) Urine Ketones Negative (Negative) Urine Blood Negative (Negative) Urine Nitrite Negative (Negative) Urine Bilirubin Negative (Negative) Urine Urobilinogen Negative (Negative) Ur Leukocyte Esterase Negative (Negative) Administered Medications Discontinued Medications Tenecteplase 18 mg/ Syringe 3.6 mls @ 43.2 mls/min IV NOW ONE; Protocol Stop: 04/21/23 22:09 Last Admin: 04/21/23 22:08 Dose: 43.2 mls/min Documented By: AN Co-signed By: KATIA Ioversol (Optiray 320 125ml) 113 ml IV ONCE ONE Stop: 04/21/23 21:30 Last Admin: 04/21/23 21:30 Dose: 113 ml Documented By: FERNANDO Miscellaneous (Stat Iv) 1 each N/A NOW STA Stop: 04/21/23 21:59 Last Admin: 04/21/23 22:09 Dose: 1 each Documented By: AN Sodium Chloride (Sodium Chloride 0.9% 10ml Flush) 20 ml IV NOW STA Stop: 04/21/23 21:59 Last Admin: 04/21/23 22:09 Dose: 20 ml Documented By: AN Imaging Data Attestation: I personally reviewed and interpreted this imaging study as follows: My Impression: CT of the brain was obtained in the emergency department. My interpretation is no intracranial hemorrhage or mass effect, final report below. 1 view chest x-ray was obtained in the emergency department. My interpretation is no free air or infiltrate, final report below. Radiologist's Impression: Head CT 04/21/23 21:17 CR Exam(s): CT HEAD Without Contrast EXAM: CT Head Without Intravenous Contrast CLINICAL HISTORY: Reason for exam: neuro deficit, acute stroke suspected. TECHNIQUE: Axial computed tomography images of the head/brain without intravenous contrast. CTDI is 47.24 mGy and DLP is 1338.07 mGy-cm. Automated exposure control was utilized for the study. A dose lowering technique was utilized adhering to the principles of ALARA. COMPARISON: April 04, 2018 FINDINGS: Brain: 12 mm calcified meningioma along the right side of the anterior aspect of the interhemispheric falx, unchanged. Mild cerebral atrophy and patchy periventricular white matter low density consistent with chronic small vessel disease and/or senescent changes, unchanged. No acute large vessel infarct or intracranial hemorrhage is seen. Ventricles: Unremarkable. No ventriculomegaly. Bones/joints: Unremarkable. No acute fracture. Soft tissues: Unremarkable. Sinuses: Chronic appearing opacification of the left maxillary sinus with bony overgrowth consistent with chronic sinusitis, unchanged. Several of the left ethmoid air cells are also opacified. Mastoid air cells: Unremarkable as visualized. No mastoid effusion. IMPRESSION: Mild cerebral atrophy and patchy periventricular white matter low density consistent with chronic small vessel disease and/or senescent changes, unchanged. No acute large vessel infarct or intracranial hemorrhage is seen. Communications: Call Doctor Stroke Electronically signed by: Morris Keith MD 04/21/23 21:44 PM Head CTA 04/21/23 21:17 CR Exam(s): CTA HEAD With Contrast IV Amt: 113ml EXAM: CT Angiography Head With Intravenous Contrast CLINICAL HISTORY: Reason for exam: neuro deficit, acute stroke suspected. TECHNIQUE: Axial computed tomographic angiography images of the head with intravenous contrast. CTDI is 47.24 mGy and DLP is 1338.07 mGy-cm. Automated exposure control was utilized for the study. A dose lowering technique was utilized adhering to the principles of ALARA. MIP reconstructed images were created and reviewed. CONTRAST: Patient received 113ml of IV contrast COMPARISON: No relevant prior studies available. FINDINGS: Right internal carotid artery: Calcified plaque in the cavernous portion of the distal right internal carotid artery with 30% stenosis. No aneurysm. Right anterior cerebral artery: Unremarkable. No occlusion or significant stenosis. No aneurysm. Right middle cerebral artery: Unremarkable. No occlusion or significant stenosis. No aneurysm. Right posterior cerebral artery: Unremarkable. No occlusion or significant stenosis. No aneurysm. 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 Left internal carotid artery: Calcified plaque causing 20% stenosis of the distal left internal carotid artery. No aneurysm. Left anterior cerebral artery: Unremarkable. No occlusion or significant stenosis. No aneurysm. Left middle cerebral artery: Unremarkable. No occlusion or significant stenosis. No aneurysm. Left posterior cerebral artery: Unremarkable. No occlusion or significant stenosis. No aneurysm. Left vertebral artery: Unremarkable as visualized. Basilar artery: Unremarkable. No occlusion or significant stenosis. No aneurysm. 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 The remaining arterial structures appear within normal limits. No large vessel occlusion is identified. No aneurysm or vascular malformation. Communications: Call Doctor Stroke Electronically signed by: Morris Keith MD 04/21/23 21:47 PM Neck CTA 04/21/23 21:17 CR Exam(s): CTA NECK With Contrast IV Amt: 113ml EXAM: CT Angiography Neck With Intravenous Contrast CLINICAL HISTORY: Reason for exam: neuro deficit, acute stroke suspected. TECHNIQUE: Routine carotid CT angiography protocol was performed with intravenous contrast. NASCET criteria using the distal ICAs for comparison were used for evaluation of stenoses. CTDI is 47.24 mGy and DLP is 1338.07 mGy-cm. Automated exposure control was utilized for the study. A dose lowering technique was utilized adhering to the principles of ALARA. MIP reconstructed images were created and reviewed. CONTRAST: Patient received 113ml of IV contrast COMPARISON: September 05, 2021 FINDINGS: VASCULATURE: Right common carotid artery: Unremarkable. No occlusion or significant stenosis. No dissection. Right internal carotid artery: Calcified plaque in the proximal right internal carotid artery causes 60-70% stenosis. The right internal carotid artery is tortuous. No dissection. Right external carotid artery: Unremarkable. No occlusion. 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 There is segmental reconstitution of a small caliber mid right vertebral artery. No occlusion or significant stenosis. Left common carotid artery: Unremarkable. No occlusion or significant stenosis. No dissection. Left internal carotid artery: Heavily calcified plaque in the proximal left internal carotid artery with 40-50% stenosis. No dissection. Left external carotid artery: Unremarkable. No occlusion. Left vertebral artery: Up to 50% stenosis of the mid left vertebral artery due to external compression from uncovertebral osteophytosis. No dissection. 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 Brachiocephalic and subclavian arteries: 30% stenosis of the right brachiocephalic artery. Aorta: Moderate calcification of the aortic arch. No aneurysm or dissection. NECK: Bones/joints: Moderate multilevel degenerative disc disease and facet arthrosis throughout the cervical spine. No acute fracture or subluxation is seen. Soft tissues: 1.57 or nodule the right thyroid lobe, slightly smaller than previous. Lung apices: Clear. CAROTID STENOSIS REFERENCE USING NASCET CRITERIA: % ICA stenosis = (1 - narrowest ICA diameter/diameter of distal cervical ICA) x 100. Mild - <50% stenosis. Moderate - 50-69% stenosis. Severe - 70-94% stenosis. Near occlusion - 95-99% stenosis. Occluded - 100% stenosis. IMPRESSION: 1. 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 There is segmental reconstitution of a small caliber mid right vertebral artery. This is unchanged. 2. Calcified plaque in the proximal right internal carotid artery causes 60-70% stenosis. The right internal carotid artery is tortuous. This is unchanged. Communications: Call Doctor Stroke Electronically signed by: Morris Keith MD 04/21/23 21:51 PM Discharge Plan Visit Data Chief Complaint: Stroke Alert Stated Complaint: STROKE ALERT ED Provider: Dino Reynoso Discharge Problem: Acute CVA (cerebrovascular accident), Occlusion of vertebral artery, Carotid arterial disease Patient Disposition: Being Evaluated by Hospitalist Discharge Instructions Interventions: ED Discharge Assessment Last Done: 04/21/23 23:14
[2023-04-21 21:38] LABS: HCO3 VBG 25 mmol/L; Oxygen Saturation VBG < 60.0 %; PCO2 VBG 51 mmHg (38-50); PO2 VBG 35 mmHg
--- NOTE | 2023-04-21 21:45 | CT Scan Report ---
Exam(s): CT HEAD Without Contrast EXAM: CT Head Without Intravenous Contrast CLINICAL HISTORY: Reason for exam: neuro deficit, acute stroke suspected. TECHNIQUE: Axial computed tomography images of the head/brain without intravenous contrast. CTDI is 47.24 mGy and DLP is 1338.07 mGy-cm. Automated exposure control was utilized for the study. A dose lowering technique was utilized adhering to the principles of ALARA. COMPARISON: April 04, 2018 FINDINGS: Brain: 12 mm calcified meningioma along the right side of the anterior aspect of the interhemispheric falx, unchanged. Mild cerebral atrophy and patchy periventricular white matter low density consistent with chronic small vessel disease and/or senescent changes, unchanged. No acute large vessel infarct or intracranial hemorrhage is seen. Ventricles: Unremarkable. No ventriculomegaly. Bones/joints: Unremarkable. No acute fracture. Soft tissues: Unremarkable. Sinuses: Chronic appearing opacification of the left maxillary sinus with bony overgrowth consistent with chronic sinusitis, unchanged. Several of the left ethmoid air cells are also opacified. Mastoid air cells: Unremarkable as visualized. No mastoid effusion. IMPRESSION: Mild cerebral atrophy and patchy periventricular white matter low density consistent with chronic small vessel disease and/or senescent changes, unchanged. No acute large vessel infarct or intracranial hemorrhage is seen. Communications: Call Doctor Stroke Electronically signed by: Morris Keith MD 04/21/23 21:44 PM
--- NOTE | 2023-04-21 21:48 | CT Scan Report ---
Exam(s): CTA HEAD With Contrast IV Amt: 113ml EXAM: CT Angiography Head With Intravenous Contrast CLINICAL HISTORY: Reason for exam: neuro deficit, acute stroke suspected. TECHNIQUE: Axial computed tomographic angiography images of the head with intravenous contrast. CTDI is 47.24 mGy and DLP is 1338.07 mGy-cm. Automated exposure control was utilized for the study. A dose lowering technique was utilized adhering to the principles of ALARA. MIP reconstructed images were created and reviewed. CONTRAST: Patient received 113ml of IV contrast COMPARISON: No relevant prior studies available. FINDINGS: Right internal carotid artery: Calcified plaque in the cavernous portion of the distal right internal carotid artery with 30% stenosis. No aneurysm. Right anterior cerebral artery: Unremarkable. No occlusion or significant stenosis. No aneurysm. Right middle cerebral artery: Unremarkable. No occlusion or significant stenosis. No aneurysm. Right posterior cerebral artery: Unremarkable. No occlusion or significant stenosis. No aneurysm. 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 Left internal carotid artery: Calcified plaque causing 20% stenosis of the distal left internal carotid artery. No aneurysm. Left anterior cerebral artery: Unremarkable. No occlusion or significant stenosis. No aneurysm. Left middle cerebral artery: Unremarkable. No occlusion or significant stenosis. No aneurysm. Left posterior cerebral artery: Unremarkable. No occlusion or significant stenosis. No aneurysm. Left vertebral artery: Unremarkable as visualized. Basilar artery: Unremarkable. No occlusion or significant stenosis. No aneurysm. 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 The remaining arterial structures appear within normal limits. No large vessel occlusion is identified. No aneurysm or vascular malformation. Communications: Call Doctor Stroke Electronically signed by: Morris Keith MD 04/21/23 21:47 PM
[2023-04-21 21:52] LABS: Basophils # (auto) 0.03 K/uL (0.00-0.20); Basophils % (auto) 0.4 %; Eosinophils # (auto) 0.09 K/uL (0.00-0.50); Eosinophils % (auto) 1.1 %; Hematocrit (blood only) 45.6 % (42.0-52.0); Hemoglobin 15.6 g/dl (14.0-18.0); Immature Granulocytes # (auto) 0.04 K/uL (0.01-0.20); Immature Granulocytes % (auto) 0.5 %; Lymphocytes # (auto) 1.45 K/uL (1.20-3.40); Lymphocytes % (auto) 17.4 %; Mean Corpuscular Hgb Conc 34.2 g/dL (32.0-36.0); Mean Corpuscular Volume 90.7 fL (80.0-100.0); Mean Platelet Volume 10.6 fL (9.4-12.4); Monocytes # (auto) 0.89 K/uL (0.11-0.59); Monocytes % (auto) 10.7 %; Neutrophils # (auto) 5.84 K/uL (1.40-6.50); Neutrophils % (auto) 69.9 %; Platelet Count 131 K/uL (130-400); RDW Coefficient of Variation 14.7 % (11.5-14.5); RDW Standard Deviation 48.8 fL (36.4-46.3); Red Blood Count 5.03 M/uL (4.70-6.10); White Blood Count 8.34 K/ul (4.8-10.8)
--- NOTE | 2023-04-21 21:52 | CT Scan Report ---
Exam(s): CTA NECK With Contrast IV Amt: 113ml EXAM: CT Angiography Neck With Intravenous Contrast CLINICAL HISTORY: Reason for exam: neuro deficit, acute stroke suspected. TECHNIQUE: Routine carotid CT angiography protocol was performed with intravenous contrast. NASCET criteria using the distal ICAs for comparison were used for evaluation of stenoses. CTDI is 47.24 mGy and DLP is 1338.07 mGy-cm. Automated exposure control was utilized for the study. A dose lowering technique was utilized adhering to the principles of ALARA. MIP reconstructed images were created and reviewed. CONTRAST: Patient received 113ml of IV contrast COMPARISON: September 05, 2021 FINDINGS: VASCULATURE: Right common carotid artery: Unremarkable. No occlusion or significant stenosis. No dissection. Right internal carotid artery: Calcified plaque in the proximal right internal carotid artery causes 60-70% stenosis. The right internal carotid artery is tortuous. No dissection. Right external carotid artery: Unremarkable. No occlusion. 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 There is segmental reconstitution of a small caliber mid right vertebral artery. No occlusion or significant stenosis. Left common carotid artery: Unremarkable. No occlusion or significant stenosis. No dissection. Left internal carotid artery: Heavily calcified plaque in the proximal left internal carotid artery with 40-50% stenosis. No dissection. Left external carotid artery: Unremarkable. No occlusion. Left vertebral artery: Up to 50% stenosis of the mid left vertebral artery due to external compression from uncovertebral osteophytosis. No dissection. 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 Brachiocephalic and subclavian arteries: 30% stenosis of the right brachiocephalic artery. Aorta: Moderate calcification of the aortic arch. No aneurysm or dissection. NECK: Bones/joints: Moderate multilevel degenerative disc disease and facet arthrosis throughout the cervical spine. No acute fracture or subluxation is seen. Soft tissues: 1.57 or nodule the right thyroid lobe, slightly smaller than previous. Lung apices: Clear. CAROTID STENOSIS REFERENCE USING NASCET CRITERIA: % ICA stenosis = (1 - narrowest ICA diameter/diameter of distal cervical ICA) x 100. Mild - <50% stenosis. Moderate - 50-69% stenosis. Severe - 70-94% stenosis. Near occlusion - 95-99% stenosis. Occluded - 100% stenosis. IMPRESSION: 1. 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 There is segmental reconstitution of a small caliber mid right vertebral artery. This is unchanged. 2. Calcified plaque in the proximal right internal carotid artery causes 60-70% stenosis. The right internal carotid artery is tortuous. This is unchanged. Communications: Call Doctor Stroke Electronically signed by: Morris Keith MD 04/21/23 21:51 PM
[2023-04-21] MEDS ORDERED: STAT IV STA (21:58)
[2023-04-21] MEDS ORDERED: SODIUM CHLORIDE 0.9% 10ML FLUSH IV STA (21:58)
[2023-04-21] MEDS ORDERED: No Aspirin within 24hrs of THROMBOLYTIC-Stroke PO SCH (22:00)
[2023-04-21 22:07] LABS: Albumin Level 3.8 gm/dl (3.4-5.0); Bilirubin,Total 0.6 mg/dl (0.2-1.0); Magnesium 2.3 mg/dl (1.7-2.4); Potassium 3.6 mmol/L (3.5-5.1)
[2023-04-21] MEDS ORDERED: TENECTEPLASE 18 MG in SYRINGE 0 ML IV ONE (22:08)
[2023-04-21 22:13] LABS: Albumin Globulin Ratio 1.3 (0.9-2); BUN Creatinine Ratio 14.3 (10-20); Creatinine Clr Calc Pharmacy 41.9 ml/min; Est GFR (African American) 56.1 ml/min; Est GFR (Non-African American) 48.4 ml/min; Total Protein 6.8 gm/dl (6.0-8.3)
[2023-04-21 22:18] LABS: Partial Thromboplastin Ratio 0.8; Partial Thromboplastin Time 23.9 Seconds (21.0-31.0); Prothrombin Time 10.9 Seconds (9.0-12.0)
[2023-04-21 22:41] LABS: Troponin I High Sensitivity 8.4 pg/ml (0-20)
--- NOTE | 2023-04-21 22:48 | Critical Care Consultation ---
Date of Consultation April 21, 2023 Assessment & Plan (1) Stroke-like symptoms: (2) Seizure-like activity: (3) Lumbosacral radiculopathy: (4) Hypercholesterolemia: (5) Squamous cell carcinoma: (6) Thoracic aortic aneurysm: (7) Moderate persistent asthma, uncomplicated: (8) Hypothyroidism: (9) Malignant neoplasm of parotid gland: (10) Carotid artery stenosis: (11) HLD (hyperlipidemia): (12) Hypertension: Plan Reason Critically Ill: 87 YOM presents to EMD with stroke like symptoms and reported seizure like activity, was deemed TNK candidate and received TNK at 2200. He is currently with NIHSS of 6. To ICU for 24 hours nuerological examinations, hemodynamic monitoring. MRI pending and obtain CT head 24 hour post TNK or acute change. Neuro - Stroke like symptoms, reported seizure like activity, lumbar back pain with radicular symptoms CAM ICU: [facility] - Patient presents with right sided facial droop, left sided weakness, dysarthria and mild aphasia- NIHSS 6 on arrival- improved - MRI pending - BP goal post TNK- <180/105- Labetalol/Hydralazine PRN if needed Cardene infusion - Speech therapy swallow screen- NPO until then - Previously on Plavix- unsure if taking - DUANE stenosis 60-70%- Vascular surgical consultation - Follow for seizure activity- hold on epileptics at this time unless large ischemic area noted on MRI - Neurology consultation - Will need re-imitation of statin following swallow eval- NPO - 24 hour telemetry monitoring for dysrythmia- ECHO in am for PFO - previously had ~ 3 year of loop monitoring recordings with no afib noted Cardiac - HTN, HLD, Carotid artery stenosis, AAA - BP goals as above - Statin as above- lipid panel pending - His AAA was recently evaluated by CT scan of chest 10/11- unclear who is following this- currently 4.4cm - scan was obtained for parotid gland screening and pulmonary nodules Respiratory - Pulmonary nodules, Asthma - 7 mm groundglass nodule within the lingula- follows with allergy- Dr. Galan - Asthma reported as mild/persistent- however appears that patient has been on 5mg prednisone for many years - No PFTs available and no CRISTIANO on medrec GI - No acute needs - NPO until swallow eval RENAL/LYTES - No acute needs - ICU electrolyte protocol - No acute needs - he has history of BPH with LUTS- Smith was declined prior to TNK administration- hopeful patient can void ENDO - No acute needs - Hx hypothyroidism- restart Synthroid when able HEME/Onc- Hx of bilateral parotid gland cancer- radiation therapy and left neck dissection - No acute needs ID - No cocnern for infectious etiology LINES/IV ACCESS - PIV Continue use of these lines DVT PROPHYLAXIS - SCDS, Chemoprophylaxis contraindicated following TNK administration DISPO: ICU 24 hours post TNK follow for declination in neurological status, hemodynamic monitoring and control post TNK I have personally spent 60 minutes of critical care time in the direct management of this patient. This is a life/limb threatening event. This includes time spent evaluating patient, direct bedside care, chart review, placing orders, interpretation of diagnostic studies, discussion with consultants, patient, and family members, as well as other required patient management activities. This time is exclusive of all separately billable procedures, and separate from and in addition to any other critical care service time. Thank you for allowing us to participate in the care of this patient. Please refer to my attending physician's documentation for any further recommendations. 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 Patient was brought in by EMS today with last known well around [id number] with what was reported by as him sitting up, putting has hand to his head and then started to be able to not speak right- incomprehensible sounds as well as she stated that he was then not moving any of his extremities. She then reports that when EMS got there he had shaking of bilateral upper and lower extremities and EMS told them he may be having a seizure. In the EMD the patient underwent Head CT, head and neck CTA completed with no bleed or LVO. He was noted to have right vertebral artery occlusion whi ch appears to also be unchanged from 2018. He was noted to have DUANE stenosis 60-70%, and remains with LICA 40-50% stenosis. He was deemed a TNK candidate and this was administered at 2208. Patient will be admitted for frequent neurological exams, MRI, hemodynamic monitoring and control if needed. Patient previous history of possible CVA in 2018 for which he did receive TPA for at that time - preceded by seizure like activity- he was diagnosed encephalopathy with small vessel disease- MRI was negative for ischemia, he had routine EEG performed that was negative for siezure like activity- he was to be evaluated for LECT CEA in 04/08- however does not appear this was done, he also had implantation of loop recorder. CODE: DNR/DNI Allergies Allergy/AdvReac Type Severity Reaction Status Date / Time No Known Drug Allergies Allergy Verified 02/11/23 10:45 Home Medications Medication Instructions Recorded Confirmed Type tamsulosin 0.4 mg capsule 0.4 mg PO QPM 07/24/22 02/05/23 History polyethylene glycol 3350 17 gram 17 g PO DAILY PRN constipation #30 07/26/22 02/05/23 Rx oral powder packet (Miralax) ea cyclobenzaprine 5 mg tablet 5 mg PO TID PRN Muscle Spasm 09/27/22 02/05/23 History gabapentin 300 mg capsule 300 mg PO BID #60 caps 11/28/22 02/05/23 Rx theophylline 300 mg 300 mg PO QAM 01/23/23 02/05/23 History tablet,extended release,12 hr levothyroxine 88 mcg tablet 88 mcg PO QAM 01/24/23 02/05/23 History potassium chloride 20 mEq 20 meq PO QAM 01/24/23 02/05/23 History tablet,extended release(part/cryst) prednisone 5 mg tablet 5 mg PO QAM 01/24/23 02/05/23 History ibuprofen 200 mg tablet (Advil) 200 mg PO Q6H PRN Pain 02/05/23 02/05/23 History clopidogrel 75 mg tablet See Rx Instructions .Route 02/20/23 Rx .COMPLEX #90 tabs tramadol 50 mg tablet 50 mg PO Q6H PRN Pain #30 tabs 04/17/23 Rx rosuvastatin 5 mg tablet See Rx Instructions .Route 04/21/23 Rx .COMPLEX #90 tabs Patient History Medical History (Updated 04/21/23 @ 23:44 by GLORIA Orozco) Acid reflux 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 Carotid artery stenosis mild stenosis on 2018 neck CTA History of CVA (cerebrovascular accident) "couple of years ago" - denies residual. History of radiation therapy "left jaw" approx 1 year ago -- unable to recall type of cancer. 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 cervical spine? carotid? ROM WNL per pt report Hx of parotidectomy Status post Mohs surgery 07/04/2020 - left face/preauricular area Family History Unknown Coronary heart disease Cancer Father Cancer Hypertension Son Diabetes Mother Benign neoplasm of head Brother Heart disease Brother Liver disease Heart disease Valve replacement Denies family history of Stroke Social History Smoking Status: Former smoker Cigarettes Per Day: 1960; Second Hand Exposure: No; Do You Dip or Chew Tobacco: No; Hx Alcohol Use: Yes Alcohol type: beer Alcohol Intake Frequency: 2-3 x/Week Hx Substance Use: No Preferred Language: [place] Communication Ability: Impaired Visual Impairment: No Limitations Hearing Ability: Hard of Hearing Therapeutic Consultant Required: No Beliefs That Will Affect Care: None marital status: Current Living Situation: Spouse current occupational status: retired Other Information That Helps Us Care for You: No Feels Safe at Home: Yes Safety Concerns: Feels Safe At This Time caffeine: No Dental Care, Regularly: Yes Physical Activity Frequency: Daily Seatbelt Use: always Assistive Devices: Glasses and Walker Review of Systems Review of Systems: REVIEW OF SYSTEMS: obtained by and son in law at the bedside REVIEW OF SYSTEMS: Constitutional: No fever, sweats or chills Eyes: No diplopia, no worsening or blurred vision ENT: (+) difficulty hearingnormal hearing, no trouble swallowing Respiratory: (+) asthma, No cough, sputum, dyspnea at rest or on exertion Cardiovascular: No chest pain, tightness or palpitations Abdomen: No pain, nausea, vomiting, diarrhea or constipation Musculoskeletal: (+) chronic low back pain, No joint pain, calf pain, swelling Neurologic: (+) difficulty with speach, possible seizure like activity, weakness, balance problems- walks with walker and cane Psychiatric: No anxiety or depression Skin: multiple skin lesions Physical Exam Physical Exam: PHYSICAL EXAM: General: awakens to voice Head: Normocephalic, atraumatic ENT: PERRLA, EOMI, no pharyngeal exudate, mucous membranes dry Neuro: AAO x 1, speech clear and appropriate at times as well as times with dysarthria and inappropriate answers, is repeating some words, Right sided facial droop is present, Right side 5/5 upper and lower strength, LUE and LLE 4/5 strength, LLE with drift, LUE ataxia, mild aphasia- NIHSS - 6 Chest: equal rise and fall of the chest, no accessory muscle use, no heaves or thrills, Clear to auscultation, on room air, Cardiac: Regular rate and rhythm, telemetry reviewed- NSR, skin warm dry, cap refill <3 seconds, peripheral pulses +2 no JVD, no murmur, no edema GI: NABS x 4 quadrants, soft, nontender to palpation, no rebound, guarding or tenderness : Spontaneously voiding, no pain, no CVA tenderness, Psych: Normal mood and affect Skin: multiple skin keratotic skin lesions Results & Data Results & Data Vital Signs (Past 12 Hours) Vital Signs Temp Pulse Pulse Resp BP BP Pulse Ox 04/21/23 22:39 36.5 C 99 H 16 125/88 96 04/21/23 22:25 36.5 C 91 H 20 161/85 H 97 04/21/23 22:15 102 H 19 167/87 H 95 04/21/23 22:10 97 H 16 153/111 H 96 04/21/23 22:01 96 H 14 158/85 H 94 04/21/23 21:45 96 H 18 160/86 H 96 04/21/23 21:35 89 L 04/21/23 21:27 117 H 16 153/92 H 93 O2 Del Method O2 Flow Rate 04/21/23 22:39 Nasal Cannula 3 04/21/23 22:25 Nasal Cannula 3 04/21/23 22:15 Nasal Cannula 3 04/21/23 22:10 Nasal Cannula 3 04/21/23 22:01 Nasal Cannula 3 04/21/23 21:45 Nasal Cannula 3 04/21/23 21:35 Room Air, Nasal Cannula 04/21/23 21:27 Room Air Laboratory Results Abnormal lab results 04/21/23 04/21/23 04/21/23 Range/Units 21:23 21:23 21:23 RDW Std Deviation 48.8 H (36.4-46.3) fL RDW Coeff of Celestino 14.7 H (11.5-14.5) % Davis # (Auto) 0.89 H (0.11-0.59) K/uL VBG pH 7.30 L (7.36-7.41) VBG pCO2 51 H (38-50) mmHg Anion Gap 12 H (3-11) Glucose 162 H (70-99(Fasting)) mg/dl Ur Specific [place] (1.000-1.030) 04/21/23 Range/Units 22:16 RDW Std Deviation (36.4-46.3) fL RDW Coeff of [place]estino (11.5-14.5) % Davis # (Auto) (0.11-0.59) K/uL VBG pH (7.36-7.41) VBG pCO2 (38-50) mmHg Anion Gap (3-11) Glucose (70-99(Fasting)) mg/dl Ur Specific [place] > 1.045 H (1.000-1.030) Diagnostic Findings Head CT 04/21/23 21:17 CR Exam(s): CT HEAD Without Contrast EXAM: CT Head Without Intravenous Contrast CLINICAL HISTORY: Reason for exam: neuro deficit, acute stroke suspected. TECHNIQUE: Axial computed tomography images of the head/brain without intravenous contrast. CTDI is 47.24 mGy and DLP is 1338.07 mGy-cm. Automated exposure control was utilized for the study. A dose lowering technique was utilized adhering to the principles of ALARA. COMPARISON: April 04, 2018 FINDINGS: Brain: 12 mm calcified meningioma along the right side of the anterior aspect of the interhemispheric falx, unchanged. Mild cerebral atrophy and patchy periventricular white matter low density consistent with chronic small vessel disease and/or senescent changes, unchanged. No acute large vessel infarct or intracranial hemorrhage is seen. Ventricles: Unremarkable. No ventriculomegaly. Bones/joints: Unremarkable. No acute fracture. Soft tissues: Unremarkable. Sinuses: Chronic appearing opacification of the left maxillary sinus with bony overgrowth consistent with chronic sinusitis, unchanged. Several of the left ethmoid air cells are also opacified. Mastoid air cells: Unremarkable as visualized. No mastoid effusion. IMPRESSION: Mild cerebral atrophy and patchy periventricular white matter low density consistent with chronic small vessel disease and/or senescent changes, unchanged. No acute large vessel infarct or intracranial hemorrhage is seen. Communications: Call Doctor Stroke Electronically signed by: Morris Keith MD 04/21/23 21:44 PM Head CTA 04/21/23 21:17 CR Exam(s): CTA HEAD With Contrast IV Amt: 113ml EXAM: CT Angiography Head With Intravenous Contrast CLINICAL HISTORY: Reason for exam: neuro deficit, acute stroke suspected. TECHNIQUE: Axial computed tomographic angiography images of the head with intravenous contrast. CTDI is 47.24 mGy and DLP is 1338.07 mGy-cm. Automated exposure control was utilized for the study. A dose lowering technique was utilized adhering to the principles of ALARA. MIP reconstructed images were created and reviewed. CONTRAST: Patient received 113ml of IV contrast COMPARISON: No relevant prior studies available. FINDINGS: Right internal carotid artery: Calcified plaque in the cavernous portion of the distal right internal carotid artery with 30% stenosis. No aneurysm. Right anterior cerebral artery: Unremarkable. No occlusion or significant stenosis. No aneurysm. Right middle cerebral artery: Unremarkable. No occlusion or significant stenosis. No aneurysm. Right posterior cerebral artery: Unremarkable. No occlusion or significant stenosis. No aneurysm. 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 Left internal carotid artery: Calcified plaque causing 20% stenosis of the distal left internal carotid artery. No aneurysm. Left anterior cerebral artery: Unremarkable. No occlusion or significant stenosis. No aneurysm. Left middle cerebral artery: Unremarkable. No occlusion or significant stenosis. No aneurysm. Left posterior cerebral artery: Unremarkable. No occlusion or significant stenosis. No aneurysm. Left vertebral artery: Unremarkable as visualized. Basilar artery: Unremarkable. No occlusion or significant stenosis. No aneurysm. 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 The remaining arterial structures appear within normal limits. No large vessel occlusion is identified. No aneurysm or vascular malformation. Communications: Call Doctor Stroke Electronically signed by: Morris Keith MD 04/21/23 21:47 PM Neck CTA 04/21/23 21:17 CR Exam(s): CTA NECK With Contrast IV Amt: 113ml EXAM: CT Angiography Neck With Intravenous Contrast CLINICAL HISTORY: Reason for exam: neuro deficit, acute stroke suspected. TECHNIQUE: Routine carotid CT angiography protocol was performed with intravenous contrast. NASCET criteria using the distal ICAs for comparison were used for evaluation of stenoses. CTDI is 47.24 mGy and DLP is 1338.07 mGy-cm. Automated exposure control was utilized for the study. A dose lowering technique was utilized adhering to the principles of ALARA. MIP reconstructed images were created and reviewed. CONTRAST: Patient received 113ml of IV contrast COMPARISON: September 05, 2021 FINDINGS: VASCULATURE: Right common carotid artery: Unremarkable. No occlusion or significant stenosis. No dissection. Right internal carotid artery: Calcified plaque in the proximal right internal carotid artery causes 60-70% stenosis. The right internal carotid artery is tortuous. No dissection. Right external carotid artery: Unremarkable. No occlusion. 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 There is segmental reconstitution of a small caliber mid right vertebral artery. No occlusion or significant stenosis. Left common carotid artery: Unremarkable. No occlusion or significant stenosis. No dissection. Left internal carotid artery: Heavily calcified plaque in the proximal left internal carotid artery with 40-50% stenosis. No dissection. Left external carotid artery: Unremarkable. No occlusion. Left vertebral artery: Up to 50% stenosis of the mid left vertebral artery due to external compression from uncovertebral osteophytosis. No dissection. 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 Brachiocephalic and subclavian arteries: 30% stenosis of the right brachiocephalic artery. Aorta: Moderate calcification of the aortic arch. No aneurysm or dissection. NECK: Bones/joints: Moderate multilevel degenerative disc disease and facet arthrosis throughout the cervical spine. No acute fracture or subluxation is seen. Soft tissues: 1.57 or nodule the right thyroid lobe, slightly smaller than previous. Lung apices: Clear. CAROTID STENOSIS REFERENCE USING NASCET CRITERIA: % ICA stenosis = (1 - narrowest ICA diameter/diameter of distal cervical ICA) x 100. Mild - <50% stenosis. Moderate - 50-69% stenosis. Severe - 70-94% stenosis. Near occlusion - 95-99% stenosis. Occluded - 100% stenosis. IMPRESSION: 1. 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 There is segmental reconstitution of a small caliber mid right vertebral artery. This is unchanged. 2. Calcified plaque in the proximal right internal carotid artery causes 60-70% stenosis. The right internal carotid artery is tortuous. This is unchanged. Communications: Call Doctor Stroke Electronically signed by: Morris Keith MD 04/21/23 21:51 PM Medications Administered Discontinued Medications Tenecteplase 18 mg/ Syringe 3.6 mls @ 43.2 mls/min IV NOW ONE; Protocol Stop: 04/21/23 22:09 Last Admin: 04/21/23 22:08 Dose: 43.2 mls/min Documented By: AN Co-signed By: KATIA Ioversol (Optiray 320 125ml) 113 ml IV ONCE ONE Stop: 04/21/23 21:30 Last Admin: 04/21/23 21:30 Dose: 113 ml Documented By: FERNANDO Miscellaneous (Stat Iv) 1 each N/A NOW STA Stop: 04/21/23 21:59 Last Admin: 04/21/23 22:09 Dose: 1 each Documented By: AN Sodium Chloride (Sodium Chloride 0.9% 10ml Flush) 20 ml IV NOW STA Stop: 04/21/23 21:59 Last Admin: 04/21/23 22:09 Dose: 20 ml Documented By: AN ECG Additional Comments: Sinus rhythm with 1st degree A-V block Left anterior fascicular block Left ventricular hypertrophy with QRS widening and repolarization abnormality ( R in aVL , [place] product ) Cannot rule out Septal infarct (cited on or before 24-JUL-2022) Abnormal ECG When compared with ECG of 24-JUL-2022 15:02, HI interval has increased Borderline criteria for Lateral infarct are no longer Present Questionable change in initial forces of Septal leads Coding Level of Care Code 62603 CRITICAL CARE 1ST 30-74M Diagnoses Stroke-like symptoms R29.90 Seizure-like activity R56.9 Lumbosacral radiculopathy M54.17 Hypercholesterolemia E78.00 Squamous cell carcinoma Thoracic aortic aneurysm I71.2 Moderate persistent asthma, uncomplicated J45.40 Hypothyroidism E03.9 Malignant neoplasm of parotid gland C07 Carotid artery stenosis I65.29 HLD (hyperlipidemia) E78.5 Hypertension I10 Hypertension type: primary hypertension (12) Hypertension Hypertension type: primary hypertension Qualified Code(s): I10 - Essential (primary) hypertension
[2023-04-21 22:50] LABS: Appearance Urine Clear (Clear); Bilirubin Urine Negative (Negative); Blood Urine Negative (Negative); Color Urine Yellow; Glucose Urine UA Negative (Negative); Ketones Urine Negative (Negative); Leukocyte Esterase Urine Negative (Negative); Nitrite Urine Negative (Negative); Protein Urine Negative (Negative); Specific Gravity Urine > 1.045 (1.000-1.030); Urobilinogen Urine Negative (Negative)
--- NOTE | 2023-04-21 22:55 | History & Physical Report ---
Date of Service April 21, 2023 Assessment & Plan (1) CVA (cerebral vascular accident): (2) Hypertension: (3) HLD (hyperlipidemia): (4) Carotid artery stenosis: (5) Vertebral artery narrowing: (6) Seizure-like activity: (7) Stroke-like symptoms: Plan Strokelike symptoms/seizure-like activity/history of stroke- CT head without contrast shows chronic small vessel disease CTA head and neck show a 90% distal right vertebral artery narrowing, occlusion at the proximal origin, and revascularization in mid artery Right internal carotid artery stenosis of 60-70% Admit to ICU post TNK reports that his symptoms have improved somewhat shortly after administration of TNK Seizure-like activity noted, and will order EEG and neurology consult MRI does not show acute stroke Stroke with TNK order set Consult PT/OT/speech/neurology Hold oral medications until cleared by speech Carotid artery stenosis/AAA/hypertension- Permissive hypertension overnight, with target of keeping blood pressure less than 180/105 due to post TNK As needed hydralazine and labetalol orders as noted Asthma/pulmonary nodules- Following with Dr. Morgan in the outpatient setting Chronically on prednisone 5 mg Monitor for need for stress dose steroids, being held at this time History of Present Illness Chief Complaint: The patient presents to the emergency department with symptoms of seizure-like activity, noted by EMS, strokelike symptoms, was seen by telestroke and felt to be a TNK candidate, and was given TNK in the ED. 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 The patient's reports that around 830 this evening, the patient developed acute onset of difficulty with speech, sounding confused, and they then called EMS. When EMS is there, the reports that she overheard them saying that he was shaking like he was having a seizure. When he was brought to the emergency department, he was evaluated by telestroke, was thought to be a good TNK candidate, and then administered TNK at 2200 hrs. Allergies Allergy/AdvReac Type Severity Reaction Status Date / Time No Known Drug Allergies Allergy Verified 02/11/23 10:45 Home Medications Medication Instructions Recorded Confirmed Type tamsulosin 0.4 mg capsule 0.4 mg PO QPM 07/24/22 02/05/23 History polyethylene glycol 3350 17 gram 17 g PO DAILY PRN constipation #30 07/26/22 02/05/23 Rx oral powder packet (Miralax) ea cyclobenzaprine 5 mg tablet 5 mg PO TID PRN Muscle Spasm 09/27/22 02/05/23 History gabapentin 300 mg capsule 300 mg PO BID #60 caps 11/28/22 02/05/23 Rx theophylline 300 mg 300 mg PO QAM 01/23/23 02/05/23 History tablet,extended release,12 hr levothyroxine 88 mcg tablet 88 mcg PO QAM 01/24/23 02/05/23 History potassium chloride 20 mEq 20 meq PO QAM 01/24/23 02/05/23 History tablet,extended release(part/cryst) prednisone 5 mg tablet 5 mg PO QAM 01/24/23 02/05/23 History ibuprofen 200 mg tablet (Advil) 200 mg PO Q6H PRN Pain 02/05/23 02/05/23 History clopidogrel 75 mg tablet See Rx Instructions .Route 02/20/23 Rx .COMPLEX #90 tabs tramadol 50 mg tablet 50 mg PO Q6H PRN Pain #30 tabs 04/17/23 Rx rosuvastatin 5 mg tablet See Rx Instructions .Route 04/21/23 Rx .COMPLEX #90 tabs Past Med/Surg History Medical History (Updated 04/22/23 @ 04:34 by Kilo Newsome MD) Acid reflux 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 Carotid artery stenosis mild stenosis on 2018 neck CTA History of CVA (cerebrovascular accident) "couple of years ago" - denies residual. History of radiation therapy "left jaw" approx 1 year ago -- unable to recall type of cancer. 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 cervical spine? carotid? ROM WNL per pt report Hx of parotidectomy Status post Mohs surgery 07/04/2020 - left face/preauricular area Family History Unknown Coronary heart disease Cancer Father Cancer Hypertension Son Diabetes Mother Benign neoplasm of head Brother Heart disease Brother Liver disease Heart disease Valve replacement Denies family history of Stroke Social History Smoking Status: Former smoker Cigarettes Per Day: 1960; Second Hand Exposure: No; Do You Dip or Chew Tobacco: No; Hx Alcohol Use: Yes Alcohol type: beer Alcohol Intake Frequency: 2-3 x/Week Hx Substance Use: No Preferred Language: Hungarian Communication Ability: Impaired Visual Impairment: No Limitations Hearing Ability: Hard of Hearing [employer]ch[employer] Required: No Beliefs That Will Affect Care: None marital status: Current Living Situation: Spouse current occupational status: retired Other Information That Helps Us Care for You: No Feels Safe at Home: Yes Safety Concerns: Feels Safe At This Time caffeine: No Dental Care, Regularly: Yes Physical Activity Frequency: Daily Seatbelt Use: always Assistive Devices: Glasses and Walker Review of Systems Review of Systems: Patient himself unable to contribute significant to review of systems due to present medical state, however, his reports that he was in his usual state of health until about 830 this evening when his symptoms developed Physical Exam Physical Exam: The patient is awake, and confused, well developed and well nourished, normocephalic and atraumatic, sitting upright in bed and in no acute distress. HEENT--PERRL, EOMI, mucous membranes and oropharynx mildly dry. Neck--supple. No JVD. No bruits. Thyroid normal, trachea midline, no adenopathy. Heart--normal S1 and S2. No murmurs, rubs or gallops. Lungs--clear bilaterally, no respiratory distress, no accessory muscle use. Abdomen--normal bowel sounds and soft. Nontender. Nondistended, no hernias or masses, no organomegaly. Extremities--no cyanosis or clubbing. No edema. Dermatologic--normal skin turgor, normal color, no abnormal lymph nodes, no rash. Neurologic--cranial nerves II through XII grossly intact. Rheumatologic--limited exam due to patient confusion Psychiatric--normal affect, but confused Results & Data Results & Data Vital Signs (Past 12 Hours) Vital Signs Temp Pulse Pulse Resp BP BP Pulse Ox 04/21/23 22:39 36.5 C 99 H 16 125/88 96 04/21/23 22:25 36.5 C 91 H 20 161/85 H 97 04/21/23 22:15 102 H 19 167/87 H 95 04/21/23 22:10 97 H 16 153/111 H 96 04/21/23 22:01 96 H 14 158/85 H 94 04/21/23 21:45 96 H 18 160/86 H 96 04/21/23 21:35 89 L 04/21/23 21:27 117 H 16 153/92 H 93 O2 Del Method O2 Flow Rate 04/21/23 22:39 Nasal Cannula 3 04/21/23 22:25 Nasal Cannula 3 04/21/23 22:15 Nasal Cannula 3 04/21/23 22:10 Nasal Cannula 3 04/21/23 22:01 Nasal Cannula 3 04/21/23 21:45 Nasal Cannula 3 04/21/23 21:35 Room Air, Nasal Cannula 04/21/23 21:27 Room Air Laboratory Results Laboratory Results WBC 8.34 K/ul (4.8-10.8) 04/21/23 21: RBC 5.03 M/uL (4.70-6.10) 04/21/23 21:23 Hgb 15.6 g/dl (14.0-18.0) 04/21/23 21:23 Hct 45.6 % (42.0-52.0) 04/21/23: MCV 90.7 fL (80.0-100.0) 04/21/23: MCH 31.0 pg (25.0-34.0) 04/21/23: MCHC 34.2 g/dL (32.0-36.0) 04/21/23: RDW Std Deviation 48.8 fL (36.4-46.3) H 04/21/23: RDW Coeff of [place] 14.7 % (11.5-14.5) H 04/21/23: Plt Count 131 K/uL (130-400) 04/21/23: MPV 10.6 fL (9.4-12.4) 04/21/23: Immature Gran % (Auto) 0.5 % 04/21/23: Neut % (Auto) 69.9 % 04/21/23: Lymph % (Auto) 17.4 % 04/21/23: [place] % (Auto) 10.7 % 04/21/23: Eos % (Auto) 1.1 % 04/21/23: Baso % (Auto) 0.4 % 04/21/23: Neut # (Auto) 5.84 K/uL (1.40-6.50) 04/21/23: Lymph # (Auto) 1.45 K/uL (1.20-3.40) 04/21/23: [place] # (Auto) 0.89 K/uL (0.11-0.59) H 04/21/23: Eos # (Auto) 0.09 K/uL (0.00-0.50) 04/21/23: Baso # (Auto) 0.03 K/uL (0.00-0.20) 04/21/23: Immature Gran # (Auto) 0.04 K/uL (0.01-0.20) 04/21/23: PT 10.9 Seconds (9.0-12.0) 04/21/23: INR 1.0 (0.9-1.1) 04/21/23: APTT 23.9 Seconds (21.0-31.0) 04/21/23: PTT Ratio 0.8 04/21/23 21: VBG pH 7.30 (7.36-7.41) L 04/21/23 21: VBG pCO2 51 mmHg (38-50) H 04/21/23: VBG pO2 35 mmHg 04/21/23: VBG HCO3 25 mmol/L 04/21/23 21: VBG O2 Saturation < 60.0 % 04/21/23 21: VBG Base Excess -2.0 mEq/L 04/21/23 21: Sodium 138 mmol/L (136-145) 04/21/23 21: Potassium 3.6 mmol/L (3.5-5.1) 04/21/23: Chloride 101 mmol/L (98-107) 04/21/23: Carbon Dioxide 25 mmol/L (21-32) 04/21/23: Anion Gap 12 (3-11) H 04/21/23 21: BUN 19 mg/dl (6-23) 04/21/23 21: Creatinine 1.33 mg/dl (0.6-1.4) 04/21/23: Est Cr Clr Drug Dosing 41.9 ml/min 04/21/23: Est GFR ( Amer) 56.1 ml/min 04/21/23: Est GFR (Non-Af Amer) 48.4 ml/min 04/21/23: BUN/Creatinine Ratio 14.3 (10-20) 04/21/23 21: Glucose 162 mg/dl (70-99(Fasting)) H 04/21/23 21: Calcium 10.0 mg/dl (8.6-10.3) 04/21/23: Magnesium 2.3 mg/dl (1.7-2.4) 04/21/23: Total Bilirubin 0.6 mg/dl (0.2-1.0) 04/21/23 21: AST 22 U/L (13-39) 04/21/23: ALT 15 U/L (7-52) 04/21/23 21: Alkaline Phosphatase 91 U/L (34-104) 04/21/23 21: Troponin I High Sens 8.4 pg/ml (0-20) 04/21/23 21:23 Total Protein 6.8 gm/dl (6.0-8.3) 04/21/23 21:23 Albumin 3.8 gm/dl (3.4-5.0) 04/21/23 21:23 Globulin 3.0 gm/dl (2.5-4.0) 04/21/23 21:23 Albumin/Globulin Ratio 1.3 (0.9-2) 04/21/23 21:23 Urine Color Yellow 04/21/23 22:16 Urine Appearance Clear (Clear) 04/21/23 22:16 Urine pH 6.0 (4.5-7.5) 04/21/23 22:16 Ur Specific [place] > 1.045 (1.000-1.030) H 04/21/23 22:16 Urine Protein Negative (Negative) 04/21/23 22:16 Urine Glucose (UA) Negative (Negative) 04/21/23 22:16 Urine Ketones Negative (Negative) 04/21/23 22:16 Urine Blood Negative (Negative) 04/21/23 22:16 Urine Nitrite Negative (Negative) 04/21/23 22:16 Urine Bilirubin Negative (Negative) 04/21/23 22:16 Urine Urobilinogen Negative (Negative) 04/21/23 22:16 Ur Leukocyte Esterase Negative (Negative) 04/21/23 22:16 Nasal Screen MRSA (PCR) Negative (Negative) 04/21/23 23:[address] 04/21/23 21:17 CR Exam(s): CT HEAD Without Contrast EXAM: CT Head Without Intravenous Contrast CLINICAL HISTORY: Reason for exam: neuro deficit, acute stroke suspected. TECHNIQUE: Axial computed tomography images of the head/brain without intravenous contrast. CTDI is 47.24 mGy and DLP is 1338.07 mGy-cm. Automated exposure control was utilized for the study. A dose lowering technique was utilized adhering to the principles of ALARA. COMPARISON: April 04, 2018 FINDINGS: Brain: 12 mm calcified meningioma along the right side of the anterior aspect of the interhemispheric falx, unchanged. Mild cerebral atrophy and patchy periventricular white matter low density consistent with chronic small vessel disease and/or senescent changes, unchanged. No acute large vessel infarct or intracranial hemorrhage is seen. Ventricles: Unremarkable. No ventriculomegaly. Bones/joints: Unremarkable. No acute fracture. Soft tissues: Unremarkable. Sinuses: Chronic appearing opacification of the left maxillary sinus with bony overgrowth consistent with chronic sinusitis, unchanged. Several of the left ethmoid air cells are also opacified. Mastoid air cells: Unremarkable as visualized. No mastoid effusion. IMPRESSION: Mild cerebral atrophy and patchy periventricular white matter low density consistent with chronic small vessel disease and/or senescent changes, unchanged. No acute large vessel infarct or intracranial hemorrhage is seen. Communications: Call Doctor Stroke Electronically signed by: Morris Keith MD 04/21/23 21:44 PM Head CTA 04/21/23 21:17 CR Exam(s): CTA HEAD With Contrast IV Amt: 113ml EXAM: CT Angiography Head With Intravenous Contrast CLINICAL HISTORY: Reason for exam: neuro deficit, acute stroke suspected. TECHNIQUE: Axial computed tomographic angiography images of the head with intravenous contrast. CTDI is 47.24 mGy and DLP is 1338.07 mGy-cm. Automated exposure control was utilized for the study. A dose lowering technique was utilized adhering to the principles of ALARA. MIP reconstructed images were created and reviewed. CONTRAST: Patient received 113ml of IV contrast COMPARISON: No relevant prior studies available. FINDINGS: Right internal carotid artery: Calcified plaque in the cavernous portion of the distal right internal carotid artery with 30% stenosis. No aneurysm. Right anterior cerebral artery: Unremarkable. No occlusion or significant stenosis. No aneurysm. Right middle cerebral artery: Unremarkable. No occlusion or significant stenosis. No aneurysm. Right posterior cerebral artery: Unremarkable. No occlusion or significant stenosis. No aneurysm. 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 Left internal carotid artery: Calcified plaque causing 20% stenosis of the distal left internal carotid artery. No aneurysm. Left anterior cerebral artery: Unremarkable. No occlusion or significant stenosis. No aneurysm. Left middle cerebral artery: Unremarkable. No occlusion or significant stenosis. No aneurysm. Left posterior cerebral artery: Unremarkable. No occlusion or significant stenosis. No aneurysm. Left vertebral artery: Unremarkable as visualized. Basilar artery: Unremarkable. No occlusion or significant stenosis. No aneurysm. 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 The remaining arterial structures appear within normal limits. No large vessel occlusion is identified. No aneurysm or vascular malformation. Communications: Call Doctor Stroke Electronically signed by: Morris Keith MD 04/21/23 21:47 PM Neck CTA 04/21/23 21:17 CR Exam(s): CTA NECK With Contrast IV Amt: 113ml EXAM: CT Angiography Neck With Intravenous Contrast CLINICAL HISTORY: Reason for exam: neuro deficit, acute stroke suspected. TECHNIQUE: Routine carotid CT angiography protocol was performed with intravenous contrast. NASCET criteria using the distal ICAs for comparison were used for evaluation of stenoses. CTDI is 47.24 mGy and DLP is 1338.07 mGy-cm. Automated exposure control was utilized for the study. A dose lowering technique was utilized adhering to the principles of ALARA. MIP reconstructed images were created and reviewed. CONTRAST: Patient received 113ml of IV contrast COMPARISON: September 05, 2021 FINDINGS: VASCULATURE: Right common carotid artery: Unremarkable. No occlusion or significant stenosis. No dissection. Right internal carotid artery: Calcified plaque in the proximal right internal carotid artery causes 60-70% stenosis. The right internal carotid artery is tortuous. No dissection. Right external carotid artery: Unremarkable. No occlusion. 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 There is segmental reconstitution of a small caliber mid right vertebral artery. No occlusion or significant stenosis. Left common carotid artery: Unremarkable. No occlusion or significant stenosis. No dissection. Left internal carotid artery: Heavily calcified plaque in the proximal left internal carotid artery with 40-50% stenosis. No dissection. Left external carotid artery: Unremarkable. No occlusion. Left vertebral artery: Up to 50% stenosis of the mid left vertebral artery due to external compression from uncovertebral osteophytosis. No dissection. 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 Brachiocephalic and subclavian arteries: 30% stenosis of the right brachiocephalic artery. Aorta: Moderate calcification of the aortic arch. No aneurysm or dissection. NECK: Bones/joints: Moderate multilevel degenerative disc disease and facet arthrosis throughout the cervical spine. No acute fracture or subluxation is seen. Soft tissues: 1.57 or nodule the right thyroid lobe, slightly smaller than previous. Lung apices: Clear. CAROTID STENOSIS REFERENCE USING NASCET CRITERIA: % ICA stenosis = (1 - narrowest ICA diameter/diameter of distal cervical ICA) x 100. Mild - <50% stenosis. Moderate - 50-69% stenosis. Severe - 70-94% stenosis. Near occlusion - 95-99% stenosis. Occluded - 100% stenosis. IMPRESSION: 1. 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 There is segmental reconstitution of a small caliber mid right vertebral artery. This is unchanged. 2. Calcified plaque in the proximal right internal carotid artery causes 60-70% stenosis. The right internal carotid artery is tortuous. This is unchanged. Communications: Call Doctor Stroke Electronically signed by: Morris Keith MD 04/21/23 21:51 PM Brain MRI 04/21/23 22:57 Exam(s): MRI HEAD Without Contrast EXAM: MR Head Without Intravenous Contrast CLINICAL HISTORY: Reason for exam: eval for stroke. TECHNIQUE: Magnetic resonance images of the head/brain without intravenous contrast in multiple planes. COMPARISON: CT head from April 21, [address] neck from September 05, 2021 FINDINGS: Brain: Mild to moderate diffuse cerebral atrophy and patchy periventricular white matter T2 hyperintensity consistent with chronic small vessel disease and/or senescent changes. No areas of diffusion restriction are seen to indicate acute stroke. No hemorrhage. Ventricles: Unremarkable. No ventriculomegaly. Bones/joints: Unremarkable. Sinuses: Fluid signal in the left maxillary sinus and several left ethmoid air cells consistent with sinusitis. Mastoid air cells: Unremarkable as visualized. No mastoid effusion. Orbits: Unremarkable as visualized. Vertebral arteries: Absent flow signal in the visualized portion of the distal right vertebral artery indicating occlusion. IMPRESSION: 1. Absent flow signal in the visualized portion of the distal right vertebral artery indicating occlusion. This is chronic. 2. Fluid signal in the left maxillary sinus and several left ethmoid air cells consistent with sinusitis. 3. Mild to moderate diffuse cerebral atrophy and patchy periventricular white matter T2 hyperintensity consistent with chronic small vessel disease and/or senescent changes. No areas of diffusion restriction are seen to indicate acute stroke. Electronically signed by: Morris Keith MD 04/22/23 01:33 AM Code Status & VTE Plan Code Status DNR/DNI VTE Prophylaxis Plan VTE Prophylaxis will be ordered: Yes PG Care Time/CCT Total # of Minutes Spent Total Time Spent with Patient: Total time spent is greater than 50% in coordination of care (as documented) at patient's floor/unit and/or counseling patient: Coding Level of Care Code 46536 INT INP/OBS CARE 3/75MIN Diagnoses CVA (cerebral vascular accident) I63.9 Hypertension I10 Hypertension type: primary hypertension HLD (hyperlipidemia) E78.5 Carotid artery stenosis I65.29 Vertebral artery narrowing I65.09 Seizure-like activity R56.9 Stroke-like symptoms R29.90 (2) Hypertension Hypertension type: primary hypertension Qualified Code(s): I10 - Essential (primary) hypertension
[2023-04-21] MEDS ORDERED: ALBUT/IPRATROP 3MG/0.5MG NEB 3 ML VIAL NEB PRN (23:24)
[2023-04-21] MEDS ORDERED: PHARMACIST DISCHARGE MED REC CONSULT PRN (23:24)
[2023-04-21] MEDS ORDERED: ACETAMINOPHEN 1000 MG/100 ML IV IV PRN (23:24)
[2023-04-21] MEDS ORDERED: ONDANSETRON INJ 2 MG/ML 2 ML VIAL IV PRN (23:24)
[2023-04-22] MEDS: NSS + 20MEQ KCL 20 MEQ/1,000 ML BAG IV SCH ×2 (00:34→19:02)
--- NOTE | 2023-04-22 01:34 | Magnetic Resonance Report ---
Exam(s): MRI HEAD Without Contrast EXAM: MR Head Without Intravenous Contrast CLINICAL HISTORY: Reason for exam: eval for stroke. TECHNIQUE: Magnetic resonance images of the head/brain without intravenous contrast in multiple planes. COMPARISON: CT head from April 21, [address] neck from September 05, 2021 FINDINGS: Brain: Mild to moderate diffuse cerebral atrophy and patchy periventricular white matter T2 hyperintensity consistent with chronic small vessel disease and/or senescent changes. No areas of diffusion restriction are seen to indicate acute stroke. No hemorrhage. Ventricles: Unremarkable. No ventriculomegaly. Bones/joints: Unremarkable. Sinuses: Fluid signal in the left maxillary sinus and several left ethmoid air cells consistent with sinusitis. Mastoid air cells: Unremarkable as visualized. No mastoid effusion. Orbits: Unremarkable as visualized. Vertebral arteries: Absent flow signal in the visualized portion of the distal right vertebral artery indicating occlusion. IMPRESSION: 1. Absent flow signal in the visualized portion of the distal right vertebral artery indicating occlusion. This is chronic. 2. Fluid signal in the left maxillary sinus and several left ethmoid air cells consistent with sinusitis. 3. Mild to moderate diffuse cerebral atrophy and patchy periventricular white matter T2 hyperintensity consistent with chronic small vessel disease and/or senescent changes. No areas of diffusion restriction are seen to indicate acute stroke. Electronically signed by: Morris Keith MD 04/22/23 01:33 AM
[2023-04-22] MEDS ORDERED: LABETALOL HCL IV 5 MG/ML 20ML IV PRN (02:20)
--- NOTE | 2023-04-22 04:39 | Billing Data ---
Date of Service April 22, 2023 Coding Level of Care Code 54071 CRITICAL CARE 1ST 30-74M Time Spent (min) 50
[2023-04-22 05:24] LABS: Basophils # (auto) 0.03 K/uL (0.00-0.20); Basophils % (auto) 0.4 %; Eosinophils # (auto) 0.05 K/uL (0.00-0.50); Eosinophils % (auto) 0.7 %; Hematocrit (blood only) 40.7 % (42.0-52.0); Hemoglobin 14.1 g/dl (14.0-18.0); Immature Granulocytes # (auto) 0.03 K/uL (0.01-0.20); Immature Granulocytes % (auto) 0.4 %; Lymphocytes # (auto) 0.65 K/uL (1.20-3.40); Lymphocytes % (auto) 8.5 %; Mean Corpuscular Hgb Conc 34.6 g/dL (32.0-36.0); Mean Corpuscular Volume 89.5 fL (80.0-100.0); Mean Platelet Volume 10.3 fL (9.4-12.4); Monocytes # (auto) 0.92 K/uL (0.11-0.59); Monocytes % (auto) 12.1 %; Neutrophils # (auto) 5.93 K/uL (1.40-6.50); Neutrophils % (auto) 77.9 %; Platelet Count 120 K/uL (130-400); RDW Coefficient of Variation 14.4 % (11.5-14.5); RDW Standard Deviation 46.6 fL (36.4-46.3); Red Blood Count 4.55 M/uL (4.70-6.10); White Blood Count 7.61 K/ul (4.8-10.8)
[2023-04-22 05:35] LABS: Albumin Level 3.2 gm/dl (3.4-5.0); BUN Creatinine Ratio 16.9 (10-20); Bilirubin Direct 0.1 mg/dl (0-0.2); Bilirubin,Total 0.6 mg/dl (0.2-1.0); Calcium 9.1 mg/dl (8.6-10.3); Chol HDL Ratio 4.2 (0-5); Creatinine Clr Calc Pharmacy 62.7 ml/min; Est GFR (African American) 90.4 ml/min; Phosphorus 2.1 mg/dl (2.5-4.9); Potassium 3.4 mmol/L (3.5-5.1); Total Protein 5.7 gm/dl (6.0-8.3)
[2023-04-22 06:07] LABS: Partial Thromboplastin Ratio 0.9; Partial Thromboplastin Time 25.7 Seconds (21.0-31.0); Prothrombin Time 11.1 Seconds (9.0-12.0)
[2023-04-22] MEDS: ICU Protocol for HYPERglycemia SCH ×4 (07:28→20:29)
[2023-04-22] MEDS ORDERED: POTASSIUM PHOS 3 MMOL/1 ML INFUSION IV STA (07:44)
--- NOTE | 2023-04-22 07:45 | Hospitalist Progress Note ---
Date of Service April 22, 2023 Assessment & Plan (1) CVA (cerebral vascular accident): Plan: Strokelike symptoms/seizure-like activity/history of stroke-stoke alert with thrombolytic administration symptoms have improved somewhat shortly after administration of TNK CT head without contrast shows chronic small vessel disease CTA head and neck show a 90% distal right vertebral artery narrowing, occlusion at the proximal origin, and revascularization in mid artery Right internal carotid artery stenosis of 60-70% MRI does not show acute stroke, on asa and rosuvastatin Seizure-like activity noted, neurology consult, Stroke with TNK order set pt taking po meds cleared by speech (2) Asthma: Plan: Following with Dr. Galan in the outpatient setting Chronically on prednisone 5 mg, theophylline Monitor for need for stress dose steroids, being held at this time Plan will need to start DVT chemoprophylaxis 24 hours after thrombolytic completed Admission and Anticipated Discharge Date Admission Date: April 21, 2023 Subjective Patient was seen he has no great recollection he does not seem to have any focal deficits he does recall why he came to the hospital Physical Exam Physical Exam: Awake and alert no focal neurological deficits spontaneously moving all extremities no facial drooping Results & Data Results & Data Vital Signs (Past 12 Hours) Vital Signs Temp Pulse Pulse Resp BP BP Pulse Ox 04/22/23 07:10 97.7 F 61 14 146/75 H 94 04/22/23 06:31 82 19 126/96 93 04/22/23 06:00 65 10 L 135/69 90 04/22/23 06:10 97.7 F 62 9 L 135/69 96 04/22/23 05:30 75 18 95 04/22/23 05:30 144/88 H 04/22/23 05:10 97.7 F 77 13 138/74 92 04/22/23 05:40 97.7 F 72 8 L 144/88 H 94 04/22/23 01:40 83 04/22/23 04:31 80 15 95 04/22/23 04:31 164/79 H 04/22/23 03:30 76 16 97 04/22/23 03:30 153/72 H 04/22/23 03:00 76 8 L 94 04/22/23 03:00 151/76 H 04/22/23 02:30 70 12 04/22/23 02:30 152/74 H 04/22/23 02:01 83 15 97 04/22/23 02:01 168/86 H 04/22/23 04:40 97.7 F 75 12 164/79 H 92 04/22/23 03:40 97.7 F 79 15 153/72 H 94 04/22/23 04:10 97.7 F 70 14 148/70 H 93 04/22/23 03:10 97.7 F 77 15 151/76 H 94 04/22/23 02:40 97.7 F 73 15 152/74 H 94 04/22/23 02:10 97.7 F 86 20 168/86 H 93 04/22/23 01:40 97.7 F 89 19 168/86 H 96 04/22/23 01:15 73 19 93 04/22/23 01:00 85 20 04/22/23 00:41 157/82 H 04/22/23 00:41 89 18 93 04/22/23 00:32 109 H 24 96 04/22/23 00:32 167/107 H 04/21/23 23:35 92 H 18 95 04/21/23 23:35 172/84 H 04/22/23 00:40 97.7 F 88 16 157/82 H 92 04/22/23 01:10 97.7 F 68 20 155/78 H 93 04/21/23 23:55 97.7 F 93 H 20 139/91 95 04/22/23 00:10 97.7 F 90 20 137/82 93 04/21/23 23:25 97.7 F 94 H 20 172/84 H 95 04/21/23 23:10 97.9 F 97 H 18 146/83 H 96 04/21/23 21:35 99 H 04/21/23 22:55 97.9 F 94 H 22 136/84 97 04/21/23 22:39 97.7 F 99 H 16 125/88 96 04/21/23 22:25 97.7 F 91 H 20 161/85 H 97 04/21/23 22:15 102 H 19 167/87 H 95 04/21/23 22:10 97 H 16 153/111 H 96 04/21/23 22:01 96 H 14 158/85 H 94 04/21/23 21:45 96 H 18 160/86 H 96 04/21/23 21:35 89 L 04/21/23 21:27 117 H 16 153/92 H 93 O2 Del Method O2 Flow Rate 04/22/23 07:10 Room Air 04/22/23 06:31 04/22/23 06:00 04/22/23 06:10 Room Air 04/22/23 05:30 04/22/23 05:30 04/22/23 05:10 Room Air 04/22/23 05:40 Room Air 04/22/23 01:40 04/22/23 04:31 04/22/23 04:31 04/22/23 03:30 04/22/23 03:30 04/22/23 03:00 04/22/23 03:00 04/22/23 02:30 04/22/23 02:30 04/22/23 02:01 04/22/23 02:01 04/22/23 04:40 Room Air 04/22/23 03:40 Room Air 04/22/23 04:10 Room Air 04/22/23 03:10 Room Air 04/22/23 02:40 Room Air 04/22/23 02:10 Room Air 04/22/23 01:40 Room Air 04/22/23 01:15 04/22/23 01:00 04/22/23 00:41 04/22/23 00:41 04/22/23 00:32 04/22/23 00:32 04/21/23 23:35 04/21/23 23:35 04/22/23 00:40 Room Air 04/22/23 01:10 Room Air 04/21/23 23:55 Room Air 04/22/23 00:10 Room Air 04/21/23 23:25 Room Air 04/21/23 23:10 Nasal Cannula 3 04/21/23 21:35 04/21/23 22:55 Nasal Cannula 3 04/21/23 22:39 Nasal Cannula 3 04/21/23 22:25 Nasal Cannula 3 04/21/23 22:15 Nasal Cannula 3 04/21/23 22:10 Nasal Cannula 3 04/21/23 22:01 Nasal Cannula 3 04/21/23 21:45 Nasal Cannula 3 04/21/23 21:35 Room Air, Nasal Cannula 04/21/23 21:27 Room Air Laboratory Results Reviewed CBC Reviewed PRP PG Care Time/CCT Total # of Minutes Spent Total Time Spent with Patient: Total time spent is greater than 50% in coordination of care (as documented) at patient's floor/unit and/or counseling patient: Coding Level of Care Code 58221 SUB INP/OBS CARE 2/35MIN Diagnoses CVA (cerebral vascular accident) I63.9 Asthma J45.909
--- NOTE | 2023-04-22 07:54 | XRay Report ---
XR chest 1V portable CLINICAL HISTORY: neuro deficit, acute stroke suspected TECHNIQUE: Single frontal radiograph of the chest was obtained. Comparison: Comparison is made to chest radiograph 04/03/2018 FINDINGS: No lines and tubes are seen. The cardiomediastinal silhouette is normal. Lungs are underinflated but clear. No evidence of pleural effusion or pneumothorax. IMPRESSION: No acute chest disease. ACT 112: Negative or not required by law. Electronically signed by: Claude Coker M.D. 04/22/2023 7:53 AM
[2023-04-22] MEDS ORDERED: POTASSIUM PHOSPHATE 21 MMOL in SODIUM CHLORIDE 0.9% 500 ML IV ONE (08:30)
--- NOTE | 2023-04-22 09:22 | Critical Care Progress Note ---
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 He is currently with NIHSS of 6. To ICU for 24 hours nuerological examinations, hemodynamic monitoring. MRI pending and obtain CT head 24 hour post TNK or acute change. Neuro -Stroke like symptoms, reported seizure like activity, lumbar back pain with radicular symptoms CAM ICU: [facility] - Patient presents with right sided facial droop, left sided weakness, dysarthria and mild aphasia- NIHSS 6 on arrival- improved - MRI pending - BP goal post TNK- <180/105- Labetalol/Hydralazine PRN if needed Cardene infusion - Previously on Plavix-held it for epidural procedure not too long ago - DUANE stenosis 60-70%- Vascular surgical consultation - Follow for seizure activity- hold on epileptics at this time unless large ischemic area noted on MRI - Neurology consultation -Reinitiate statin - 24 hour telemetry monitoring for dysrythmia- ECHO in am for PFO - previously had ~ 3 year of loop monitoring recordings with no afib noted Cardiac -HTN, HLD, Carotid artery stenosis, AAA - BP goals as above - Statin as above- lipid panel pending - His AAA was recently evaluated by CT scan of chest 10/11- unclear who is following this- currently 4.4cm - scan was obtained for parotid gland screening and pulmonary nodules Respiratory -Pulmonary nodules, Asthma -7 mm groundglass nodule within the lingula- follows with allergy- Dr. 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 Plan: In/out: -150 We will get bedside swallow and see if the patient can be started on diet Neurology consultation reviewed. Low likelihood of seizure as per their experience. Hold off on antiepileptic. Patient is on chronic prednisone 5 mg. He is also taking Theophylline as well as tramadol. Theophylline as well as tramadol will decrease the seizure threshold. We will try to avoid them if possible. Potassium and phosphorus being replaced Follow-up repeat CT head later tonight. Please note the above document was generated using voice recognition software. It may contain grammatical, syntax or spelling errors.Any formal questions or concerns about the content, text or information contained within the body of this dictation should be directly addressed to the provider for clarification. Admission and Anticipated Discharge Date Admission Date: April 21, 2023 Subjective Patient seen and examined at bedside. No acute distress, no adverse events overnight Blood pressure was 150/77 at the time of examination. Denies any chest pain, no shortness of breath, no headache, no nausea, no vomiting, no dizziness Was asking if he can eat something. Denies any blurry vision. Moving all extremities without any issues Review of Systems Review of Systems: All systems reviewed & are unremarkable except as noted in Subjective Physical Exam Physical Exam: Constitutional: No acute distress HEENT: EOMI, PERRLA, mild left-sided facial droop Respiratory system: Good air entry bilaterally, no wheeze, no rhonchi, no crackles CVS: S1-S2 positive, no murmurs or gallops, accentuated P2 Abdomen: Soft, nontender, nondistended, positive bowel sounds x4 Extremities: +2 pulses bilaterally radialis/ dorsalis pedis, no cyanosis, no edema Neuro: Awake alert oriented x3, motor strength 5 out of 5 bilateral upper extremity and lower extremity Psych: Normal mood and affect G/U: No Smith Skin: no rashes, warm and dry Lymphatic: no cervical or axillary lymphadenopathy Results & Data Results & Data Vital Signs (Past 12 Hours) Vital Signs Temp Pulse Pulse Resp BP BP Pulse Ox 04/22/23 09:10 36.6 C 79 16 160/90 H 95 04/22/23 08:10 36.5 C 70 16 151/74 H 93 04/22/23 07:10 36.5 C 61 14 146/75 H 94 04/22/23 06:31 82 19 126/96 93 04/22/23 06:00 65 10 L 135/69 90 04/22/23 06:10 36.5 C 62 9 L 135/69 96 04/22/23 05:30 75 18 95 04/22/23 05:30 144/88 H 04/22/23 05:10 36.5 C 77 13 138/74 92 04/22/23 05:40 36.5 C 72 8 L 144/88 H 94 04/22/23 01:40 83 04/22/23 04:31 80 15 95 04/22/23 04:31 164/79 H 04/22/23 03:30 76 16 97 04/22/23 03:30 153/72 H 04/22/23 03:00 76 8 L 94 04/22/23 03:00 151/76 H 04/22/23 02:30 70 12 04/22/23 02:30 152/74 H 04/22/23 02:01 83 15 97 04/22/23 02:01 168/86 H 04/22/23 04:40 36.5 C 75 12 164/79 H 92 04/22/23 03:40 36.5 C 79 15 153/72 H 94 04/22/23 04:10 36.5 C 70 14 148/70 H 93 04/22/23 03:10 36.5 C 77 15 151/76 H 94 04/22/23 02:40 36.5 C 73 15 152/74 H 94 04/22/23 02:10 36.5 C 86 20 168/86 H 93 04/22/23 01:40 36.5 C 89 19 168/86 H 96 04/22/23 01:15 73 19 93 04/22/23 01:00 85 20 04/22/23 00:41 157/82 H 04/22/23 00:41 89 18 93 04/22/23 00:32 109 H 24 96 04/22/23 00:32 167/107 H 04/21/23 23:35 92 H 18 95 04/21/23 23:35 172/84 H 04/22/23 00:40 36.5 C 88 16 157/82 H 92 04/22/23 01:10 36.5 C 68 20 155/78 H 93 04/21/23 23:55 36.5 C 93 H 20 139/91 95 04/22/23 00:10 36.5 C 90 20 137/82 93 04/21/23 23:25 36.5 C 94 H 20 172/84 H 95 04/21/23 23:10 36.6 C 97 H 18 146/83 H 96 04/21/23 21:35 99 H 04/21/23 22:55 36.6 C 94 H 22 136/84 97 04/21/23 22:39 36.5 C 99 H 16 125/88 96 04/21/23 22:25 36.5 C 91 H 20 161/85 H 97 04/21/23 22:15 102 H 19 167/87 H 95 04/21/23 22:10 97 H 16 153/111 H 96 04/21/23 22:01 96 H 14 158/85 H 94 04/21/23 21:45 96 H 18 160/86 H 96 04/21/23 21:35 89 L 04/21/23 21:27 117 H 16 153/92 H 93 O2 Del Method O2 Flow Rate 04/22/23 09:10 Room Air 04/22/23 08:10 Room Air 04/22/23 07:10 Room Air 04/22/23 06:31 04/22/23 06:00 04/22/23 06:10 Room Air 04/22/23 05:30 04/22/23 05:30 04/22/23 05:10 Room Air 04/22/23 05:40 Room Air 04/22/23 01:40 04/22/23 04:31 04/22/23 04:31 04/22/23 03:30 04/22/23 03:30 04/22/23 03:00 04/22/23 03:00 04/22/23 02:30 04/22/23 02:30 04/22/23 02:01 04/22/23 02:01 04/22/23 04:40 Room Air 04/22/23 03:40 Room Air 04/22/23 04:10 Room Air 04/22/23 03:10 Room Air 04/22/23 02:40 Room Air 04/22/23 02:10 Room Air 04/22/23 01:40 Room Air 04/22/23 01:15 04/22/23 01:00 04/22/23 00:41 04/22/23 00:41 04/22/23 00:32 04/22/23 00:32 04/21/23 23:35 04/21/23 23:35 04/22/23 00:40 Room Air 04/22/23 01:10 Room Air 04/21/23 23:55 Room Air 04/22/23 00:10 Room Air 04/21/23 23:25 Room Air 04/21/23 23:10 Nasal Cannula 3 04/21/23 21:35 04/21/23 22:55 Nasal Cannula 3 04/21/23 22:39 Nasal Cannula 3 04/21/23 22:25 Nasal Cannula 3 04/21/23 22:15 Nasal Cannula 3 04/21/23 22:10 Nasal Cannula 3 04/21/23 22:01 Nasal Cannula 3 04/21/23 21:45 Nasal Cannula 3 04/21/23 21:35 Room Air, Nasal Cannula 04/21/23 21:27 Room Air Laboratory Results 04/22/23 04:50 04/22/23 04:50 Coding Level of Care Code 42017 SUB INP/OBS CARE 3/50MIN Diagnoses Occlusion of right vertebral artery I65.01 Vertebral artery narrowing I65.09 Hypertension I10 Hypertension type: primary hypertension HLD (hyperlipidemia) E78.5 Seizure-like activity R56.9 Stroke-like symptoms R29.90 Hypercholesterolemia E78.00 Squamous cell carcinoma Lung nodule R91.1 Malignant neoplasm of parotid gland C07 Benign prostatic hyperplasia with urinary obstruction N40.1; N13.8 (3) Hypertension Hypertension type: primary hypertension Qualified Code(s): I10 - Essential (primary) hypertension
--- NOTE | 2023-04-22 10:25 | Neurology Consultation ---
Date of Consultation April 22, 2023 Assessment & Plan (1) Stroke-like symptoms: (2) Occlusion of right vertebral artery: (3) Carotid artery stenosis: Plan 87-year-old male with probable TIA, presenting with aphasia, dysarthria, left gaze preference, right visual field deficit, and mild right-sided weakness. The symptoms would localize to the left cerebral hemisphere. He did receive TNKase in the emergency department. Symptoms are resolved this morning. No evidence of acute or subacute stroke on MRI. 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 This finding is not likely related to his current clinical presentation. He also has a chronic moderate stenosis of the proximal right internal carotid artery. This finding would also not likely be related to his current presentation. The patient did inform me that he has been holding his Plavix recently, in anticipation of proceeding with a lumbar epidural steroid injection. Continue to allow for permissive hypertension, systolic blood pressure 140 to 160 mmHg. Long-term blood pressure goal less than 130/80. May continue with rosuvastatin. LDL goal 70 or less. May restart clopidogrel 75 mg/day, 24 hours after administration of TNK. Further, if there is no evidence of hemorrhage on follow-up CT of the head (to be done 24 hours after administration of TNK), would recommend dual antiplatelet therapy, aspirin 81 mg/day, and clopidogrel 75 mg/day for 21 days, followed by discontinuation of aspirin, and continuation with clopidogrel. Given that patient's TIA occurred in the context of holding his clopidogrel for an epidural steroid injection (that was scheduled for April 24), would recommend not proceeding with this type of procedure going forward. I note that patient had a loop recorder for about 4 years, was explanted in February 2022. No evidence of atrial fibrillation although he did have a few episodes of atrial tachycardia that were not felt to be responsible for his previous stroke. Would recommend 30-day mobile cardiac outpatient telemetry. Patient also has a history of head and neck radiation to address a left parotid squamous cell carcinoma. He may have radiation-induced vasculopathy although no evidence of significant vascular lesion on CTA of the head and neck. Would also recommend a transthoracic echocardiogram with bubble study. Further, patient's clinical presentation did include some shaking although the majority of documented signs and symptoms are more consistent with TIA/stroke, rather than seizure. Going forward, if patient were to have further similar episodes, would recommend outpatient EEG. Would not recommend starting an antiseizure medicine at this time. May follow-up in neurology clinic in 2 to 3 weeks. History of Present Illness Reason for Consultation: stroke like sxs Requesting Physician: Willa Attending Physician: Andrew Stringer MD History of Present Illness The patient is a 87-year-old male who presented to the emergency department yesterday evening with acute onset change in speech, word finding difficulty, confusion, and shaking. He reportedly had left gaze deviation as well as possible difficulty with the right visual field. He has a chronic left facial droop related to history of left parotid gland surgery. He had a similar presentation in 2018. He informs me that he has been holding his clopidogrel over the past few days, in anticipation of receiving an epidural steroid injection. A CT of the head revealed atrophy and chronic cerebrovascular disease, no hemorrhage or acute process. A CTA of the head and neck revealed a chronic occlusion of the right vertebral artery at its origin with segmental reconstitution as well as a calcified plaque in the proximal right internal carotid artery resulting in 60 to 70% stenosis. This finding is also unchanged compared with the previous study done in August 2021. He did have a telestroke consultation with a specialist at [facility]. He did have evidence of aphasia, dysarthria, left gaze preference, right visual field cut, (chronic left facial droop), as well as right upper and lower extremity drift on examination at that time. He did receive TNK. A brain MRI completed yesterday was negative for acute or subacute infarcts. There was absent flow signal in the visualized portion of the distal right vertebral artery, mild to moderate diffuse cerebral atrophy and patchy chronic small vessel ischemic disease. No evidence of hemorrhage. There is chronic left maxillary and ethmoid sinusitis. 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 Radiation therapy to the head and neck was completed in November 2020. Patient also had a cardiac loop recorder explanted in February 2022. He has previously followed with [facility] cardiology, no significant cardiac arrhythmia. He did have an occasional episode of atrial tachycardia that was not felt to be related to his previous stroke. This morning, patient's acute neurologic symptoms have resolved. No visual field loss, no aphasia, no focal weakness. He does have a chronic left facial droop. Allergies Allergy/AdvReac Type Severity Reaction Status Date / Time No Known Drug Allergies Allergy Verified 02/11/23 10:45 Home Medications Medication Instructions Recorded Confirmed Type tamsulosin 0.4 mg capsule 0.4 mg PO QPM 07/24/22 02/05/23 History polyethylene glycol 3350 17 gram 17 g PO DAILY PRN constipation #30 07/26/22 02/05/23 Rx oral powder packet (Miralax) ea cyclobenzaprine 5 mg tablet 5 mg PO TID PRN Muscle Spasm 09/27/22 02/05/23 History gabapentin 300 mg capsule 300 mg PO BID #60 caps 11/28/22 02/05/23 Rx theophylline 300 mg 300 mg PO QAM 01/23/23 02/05/23 History tablet,extended release,12 hr levothyroxine 88 mcg tablet 88 mcg PO QAM 01/24/23 02/05/23 History potassium chloride 20 mEq 20 meq PO QAM 01/24/23 02/05/23 History tablet,extended release(part/cryst) prednisone 5 mg tablet 5 mg PO QAM 01/24/23 02/05/23 History ibuprofen 200 mg tablet (Advil) 200 mg PO Q6H PRN Pain 02/05/23 02/05/23 History clopidogrel 75 mg tablet See Rx Instructions .Route 02/20/23 Rx .COMPLEX #90 tabs tramadol 50 mg tablet 50 mg PO Q6H PRN Pain #30 tabs 04/17/23 Rx rosuvastatin 5 mg tablet See Rx Instructions .Route 04/21/23 Rx .COMPLEX #90 tabs Patient History Medical History (Updated 04/22/23 @ 10:09 by Bala Garrido MD) Acid reflux 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 Carotid artery stenosis mild stenosis on 2018 neck CTA History of CVA (cerebrovascular accident) "couple of years ago" - denies residual. History of radiation therapy "left jaw" approx 1 year ago -- unable to recall type of cancer. 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) History of skin cancer HLD (hyperlipidemia) [place] (hard of hearing) Hypertension Hypothyroidism Insufficiency, adrenal Lumbar disc disease with radiculopathy Lumbosacral radiculopathy Malignant neoplasm of parotid gland hx Meningioma Metastatic squamous cell carcinoma hx Poor historian Spinal stenosis of lumbar region Status post placement of implantable loop recorder removed Subclavian artery stenosis moderate proximal left subclavian artery, mild stenosis at origin of left vertebral artery on 2018 neck CTA Ventral hernia Vertebral artery occlusion occluded proximal right vertebral artery on 2018 neck CTA Surgical History History of bowel resection w/ colostomy History of colostomy reversal History of hemorrhoidectomy History of neck surgery unsure of type? cervical spine? carotid? ROM WNL per pt report Hx of parotidectomy Status post Mohs surgery 07/04/2020 - left face/preauricular area Family History Unknown Coronary heart disease Cancer Father Cancer Hypertension Son Diabetes Mother Benign neoplasm of head Brother Heart disease Brother Liver disease Heart disease Valve replacement Denies family history of Stroke Social History Smoking Status: Former smoker Cigarettes Per Day: 1960; Second Hand Exposure: No; Do You Dip or Chew Tobacco: No; Hx Alcohol Use: Yes Alcohol type: beer Alcohol Intake Frequency: 2-3 x/Week Hx Substance Use: No Preferred Language: Bhutanese Communication Ability: Impaired Visual Impairment: No Limitations Hearing Ability: Hard of Hearing Behavioral Specialist Required: No Beliefs That Will Affect Care: None marital status: Current Living Situation: Spouse current occupational status: retired Other Information That Helps Us Care for You: No Feels Safe at Home: Yes Safety Concerns: Feels Safe At This Time caffeine: No Dental Care, Regularly: Yes Physical Activity Frequency: Daily Seatbelt Use: always Assistive Devices: Glasses and Walker Review of Systems Constitutional: no fever and no chills Eyes: no blind spots and no diplopia Ear, Nose, Mouth, Throat: + hearing loss (Chronic, wears hearing aid) Respiratory: no cough and no dyspnea Cardiovascular: no chest pain and no palpitations Gastrointestinal: no nausea and no vomiting Genitourinary: no dysuria Musculoskeletal: + back pain and + muscle weakness (Complains of left leg weakness which has been present for several months); no myalgia Integumentary: no rash Neurologic: as per Subjective / HPI and + headache(s) (Mild); no tremor(s) and no abnormal movements Psychiatric: no depression and no anxiety Hematologic / Lymphatic: + easy bruising; no easy bleeding Exam (Neuro) Constitutional: well developed and + thin; no acute distress Eyes: normal visual arango by confrontation, PERRL and EOM intact bilaterally Neurologic: Oriented to:: Person, Place and Time Memory: Short Term Intact and Remote Intact Attention: Span Intact and Concentration Intact Speech Fluency: negative Dysarthria or Dysfluency Speech Aphasia: negative Aphasia Fund of Knowledge: Current Events, Past History and Vocabulary Cranial Nerves: Normal II, III, IV, , V, IX, X, XI and XII; Abnorm VII (Left lower facial droop noted (chronic)) or VIII Motor Strength: Normal Lower Extremities and Normal Upper Extremities; negative Pronator Drift Motor Tone: Normal Lower Extremities and Normal Upper Extremities Muscle Bulk/Involuntary Movements: No Involuntary Movements and Muscle Atrophy (Atrophy of the intrinsic hand muscles noted) Sensation: Light Touch Intact, Pain/Temperature Intact, Vibration Intact and Proprioception Intact Coordination: negative Dysdiadochokinesia, Finger-Nose Abnormal or Heel-Zabala Abnormal Deep Tendon Reflexes: Rt Triceps: 1+, Lt Triceps: 1+, Rt Biceps: 1+, Lt Biceps: 1+, Rt Brachioradialis: 1+, Lt Brachioradialis: 1+, Rt Patellar: 1+, Lt Patellar: 1+, Rt Ankle: 1+ and Lt Ankle: 1+ Special Tests: negative Babinski Present Details: Gait cannot be tested. Patient does not extinguish to double simultaneous stimulation. Results & Data Vital Signs (Past 12 Hours) Vital Signs Temp Pulse Pulse Resp BP BP Pulse Ox 04/22/23 09:10 36.6 C 79 16 160/90 H 95 04/22/23 08:10 36.5 C 70 16 151/74 H 93 04/22/23 07:10 36.5 C 61 14 146/75 H 94 04/22/23 06:31 82 19 126/96 93 04/22/23 06:00 65 10 L 135/69 90 04/22/23 06:10 36.5 C 62 9 L 135/69 96 04/22/23 05:30 75 18 95 04/22/23 05:30 144/88 H 04/22/23 05:10 36.5 C 77 13 138/74 92 04/22/23 05:40 36.5 C 72 8 L 144/88 H 94 04/22/23 01:40 83 04/22/23 04:31 80 15 95 04/22/23 04:31 164/79 H 04/22/23 03:30 76 16 97 04/22/23 03:30 153/72 H 04/22/23 03:00 76 8 L 94 04/22/23 03:00 151/76 H 04/22/23 02:30 70 12 04/22/23 02:30 152/74 H 04/22/23 02:01 83 15 97 04/22/23 02:01 168/86 H 04/22/23 04:40 36.5 C 75 12 164/79 H 92 04/22/23 03:40 36.5 C 79 15 153/72 H 94 04/22/23 04:10 36.5 C 70 14 148/70 H 93 04/22/23 03:10 36.5 C 77 15 151/76 H 94 04/22/23 02:40 36.5 C 73 15 152/74 H 94 04/22/23 02:10 36.5 C 86 20 168/86 H 93 04/22/23 01:40 36.5 C 89 19 168/86 H 96 04/22/23 01:15 73 19 93 04/22/23 01:00 85 20 04/22/23 00:41 157/82 H 04/22/23 00:41 89 18 93 04/22/23 00:32 109 H 24 96 04/22/23 00:32 167/107 H 04/21/23 23:35 92 H 18 95 04/21/23 23:35 172/84 H 04/22/23 00:40 36.5 C 88 16 157/82 H 92 04/22/23 01:10 36.5 C 68 20 155/78 H 93 04/21/23 23:55 36.5 C 93 H 20 139/91 95 04/22/23 00:10 36.5 C 90 20 137/82 93 04/21/23 23:25 36.5 C 94 H 20 172/84 H 95 04/21/23 23:10 36.6 C 97 H 18 146/83 H 96 04/21/23 22:55 36.6 C 94 H 22 136/84 97 04/21/23 22:39 36.5 C 99 H 16 125/88 96 04/21/23 22:25 36.5 C 91 H 20 161/85 H 97 04/21/23 22:15 102 H 19 167/87 H 95 04/21/23 22:10 97 H 16 153/111 H 96 04/21/23 22:01 96 H 14 158/85 H 94 O2 Del Method O2 Flow Rate 04/22/23 09:10 Room Air 04/22/23 08:10 Room Air 04/22/23 07:10 Room Air 04/22/23 06:31 04/22/23 06:00 04/22/23 06:10 Room Air 04/22/23 05:30 04/22/23 05:30 04/22/23 05:10 Room Air 04/22/23 05:40 Room Air 04/22/23 01:40 04/22/23 04:31 04/22/23 04:31 04/22/23 03:30 04/22/23 03:30 04/22/23 03:00 04/22/23 03:00 04/22/23 02:30 04/22/23 02:30 04/22/23 02:01 04/22/23 02:01 04/22/23 04:40 Room Air 04/22/23 03:40 Room Air 04/22/23 04:10 Room Air 04/22/23 03:10 Room Air 04/22/23 02:40 Room Air 04/22/23 02:10 Room Air 04/22/23 01:40 Room Air 04/22/23 01:15 04/22/23 01:00 04/22/23 00:41 04/22/23 00:41 04/22/23 00:32 04/22/23 00:32 04/21/23 23:35 04/21/23 23:35 04/22/23 00:40 Room Air 04/22/23 01:10 Room Air 04/21/23 23:55 Room Air 04/22/23 00:10 Room Air 04/21/23 23:25 Room Air 04/21/23 23:10 Nasal Cannula 3 04/21/23 22:55 Nasal Cannula 3 04/21/23 22:39 Nasal Cannula 3 04/21/23 22:25 Nasal Cannula 3 04/21/23 22:15 Nasal Cannula 3 04/21/23 22:10 Nasal Cannula 3 04/21/23 22:01 Nasal Cannula 3 Laboratory Results WBC 7.61, hemoglobin 14.1, hematocrit 40.7, MCV 89.5, platelet count 120, sodium 136, potassium 3.4, BUN 15, creatinine 0.89, glucose 112, hemoglobin A1c 5.4, magnesium 2.0, AST 17, ALT 13, high-sensitivity troponin 34.6, triglycerides 142, cholesterol 155, LDL 90, VLDL 28, HDL [address] of the head, CTA of the head and neck, and brain MRI are as described in the HPI, I independently reviewed these images. An ECG reveals a sinus rhythm with first-degree AV block, left anterior fascicular block, left ventricular hypertrophy, 94 bpm Coding Level of Care Code 93120 INT INP/OBS CARE 3MIN Diagnoses Stroke-like symptoms R29.90 Occlusion of right vertebral artery I65.01 Carotid artery stenosis I65.29 Time Spent (min) 80
[2023-04-22 10:27] LABS: Estimated Average Glucose 108 mg/dl; Hemoglobin A1C 5.4 % (4.5-5.6)
[2023-04-22] MEDS ORDERED: PANTOprazole 40 MG in SYRINGE 0 ML IV SCH (11:00)
[2023-04-22] MEDS: predniSONE 5 MG TAB PO SCH (11:37)
[2023-04-22] MEDS: ROSUVASTATIN CALCIUM 5 MG TAB PO SCH (11:38)
[2023-04-22] MEDS: LEVOTHYROXINE SODIUM 88 MCG TABLET PO SCH (11:38)
--- NOTE | 2023-04-22 11:51 | Consultation ---
Date of Consultation April 22, 2023 Assessment & Plan (1) Symptomatic stenosis of left carotid artery: Pt with symptomatic stenosis of L ICA, approx 60%, with what appears to be an area of ulcerated plaque. Imaging reviewed by Dr Cordvoa, recommends pt consider surgical intervention to prevent further CVA. Discussed risks, benefits, and alternatives of CEA vs TCAR with pt and family. Pt prefers TCAR. Pt would be high risk anatomically d/t hostile neck for L CEA. Will see pt in office early next week to discuss further and schedule procedure. Pt will need to remain on plavix and statin medications in preparation for TCAR. Would also add 81mg ASA if no contraindications. History of Present Illness Reason for Consultation: l ICA stenosis, CVA Attending Physician: Andrew Stringer MD History of Present Illness 87 yo m with hx of SCC, HTN, hyperlipidemia, lumbosacral radiculopathy, BPH, parotid gland ca, asthma, thoracic ascending AA, lung nodule, CVA, admitted after suffering L hemispheric CVA last evening, seen in consultation today for BL ICA stenosis. Pt is a poor historian. Pt states he was with his family at home, and had sudden onset of difficulty speaking/slurred speech, R arm weakness. Per ED notes, pt also with L visual field cut. Pt was administered tPA at recommendations of Telestroke, with total resolution of sx. Pt states he has chronic BLE weakness from back problems. ALso states he has chronic facial droop from nerve damage after his L neck surgery to remove multiple lymph nodes. Pt states has a slight frontal DENNIS presently. Pt denies fever, recent illness, chest pain, SOB, abd pain, N/V, other complaints. CTA neck demonstrates about 60% R ICA and 60% of L ICA with ulcerated plaque. Allergies Allergy/AdvReac Type Severity Reaction Status Date / Time No Known Drug Allergies Allergy Verified 02/11/23 10:45 Home Medications Medication Instructions Recorded Confirmed Type tamsulosin 0.4 mg capsule 0.4 mg PO QPM 07/24/22 02/05/23 History polyethylene glycol 3350 17 gram 17 g PO DAILY PRN constipation #30 07/26/22 02/05/23 Rx oral powder packet (Miralax) ea cyclobenzaprine 5 mg tablet 5 mg PO TID PRN Muscle Spasm 09/27/22 02/05/23 History gabapentin 300 mg capsule 300 mg PO BID #60 caps 11/28/22 02/05/23 Rx theophylline 300 mg 300 mg PO QAM 01/23/23 02/05/23 History tablet,extended release,12 hr levothyroxine 88 mcg tablet 88 mcg PO QAM 01/24/23 02/05/23 History potassium chloride 20 mEq 20 meq PO QAM 01/24/23 02/05/23 History tablet,extended release(part/cryst) prednisone 5 mg tablet 5 mg PO QAM 01/24/23 02/05/23 History ibuprofen 200 mg tablet (Advil) 200 mg PO Q6H PRN Pain 02/05/23 02/05/23 History clopidogrel 75 mg tablet See Rx Instructions .Route 02/20/23 Rx .COMPLEX #90 tabs tramadol 50 mg tablet 50 mg PO Q6H PRN Pain #30 tabs 04/17/23 Rx rosuvastatin 5 mg tablet See Rx Instructions .Route 04/21/23 Rx .COMPLEX #90 tabs Patient History Medical History Acid reflux 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 Carotid artery stenosis mild stenosis on 2018 neck CTA History of CVA (cerebrovascular accident) "couple of years ago" - denies residual. History of radiation therapy "left jaw" approx 1 year ago -- unable to recall type of cancer. 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) History of skin cancer HLD (hyperlipidemia) [place] (hard of hearing) Hypertension Hypothyroidism Insufficiency, adrenal Lumbar disc disease with radiculopathy Lumbosacral radiculopathy Malignant neoplasm of parotid gland hx Meningioma Metastatic squamous cell carcinoma hx Poor historian Spinal stenosis of lumbar region Status post placement of implantable loop recorder removed Subclavian artery stenosis moderate proximal left subclavian artery, mild stenosis at origin of left vertebral artery on 2018 neck CTA Ventral hernia Vertebral artery occlusion occluded proximal right vertebral artery on 2018 neck CTA Surgical History History of bowel resection w/ colostomy History of colostomy reversal History of hemorrhoidectomy History of neck surgery unsure of type? cervical spine? carotid? ROM WNL per pt report Hx of parotidectomy Status post Mohs surgery 07/04/2020 - left face/preauricular area Family History Unknown Coronary heart disease Cancer Father Cancer Hypertension Son Diabetes Mother Benign neoplasm of head Brother Heart disease Brother Liver disease Heart disease Valve replacement Denies family history of Stroke Social History Smoking Status: Former smoker Cigarettes Per Day: 1960; Second Hand Exposure: No; Do You Dip or Chew Tobacco: No; Hx Alcohol Use: Yes Alcohol type: beer Alcohol Intake Frequency: 2-3 x/Week Hx Substance Use: No Preferred Language: Paraguayan Communication Ability: Effective Visual Impairment: No Limitations Hearing Ability: Hard of Hearing Pulverizing And Sifting Operator Required: No Beliefs That Will Affect Care: None marital status: Current Living Situation: Spouse current occupational status: retired Feels Safe at Home: Yes caffeine: No Dental Care, Regularly: Yes Physical Activity Frequency: Daily Seatbelt Use: always Assistive Devices: Cane, Glasses and Walker Review of Systems Review of Systems: All systems reviewed & are unremarkable except as noted in HPI & below Physical Exam Constitutional: WD/WN, vitals as above + thin, + frail appearing, cooperative and comfortable; not in distress ENMT: Ears: + hearing impairment (wears hearing aids) Neck: trachea midline L neck scarring noted from previous lymph node removal Respiratory: normal respiratory effort; no labored breathing Auscultation: lungs clear to auscultation bilaterally and + diminished lung sounds Cardiovascular: Rate/Rhythm: regular rate and regular rhythm Vessels: + carotid bruit, femoral pulses present, posterior tibial pulses present, dorsalis pedis pulses present and radial pulses present; + abnormal peripheral pulses Extremities: normal capillary refill; no edema Gastrointestinal (Abdomen): Inspection/Auscultation: abdomen normal to inspection and normal bowel sounds Percussion/Palpation: abdomen nontender and + abdomen not soft Musculoskeletal: no cyanosis or clubbing, extremities motor strength 5/5 Skin: no rashes, warm and dry + lesion (multiple scattered skin lesions, no open areas) Neurologic: moves all extremities and awake; no focal motor deficits and not confused Psychiatric: A+Ox3, euthymic affect Results & Data Vital Signs (Past 12 Hours) Vital Signs Temp Pulse Pulse Resp BP BP Pulse Ox 04/22/23 11:10 36.6 C 72 16 139/80 94 04/22/23 10:10 36.6 C 16 170/88 H 04/22/23 09:10 36.6 C 79 16 160/90 H 95 04/22/23 08:10 36.5 C 70 16 151/74 H 93 04/22/23 07:10 36.5 C 61 14 146/75 H 94 04/22/23 06:31 82 19 126/96 93 04/22/23 06:00 65 10 L 135/69 90 04/22/23 06:10 36.5 C 62 9 L 135/69 96 04/22/23 05:30 75 18 95 04/22/23 05:30 144/88 H 04/22/23 05:10 36.5 C 77 13 138/74 92 04/22/23 05:40 36.5 C 72 8 L 144/88 H 94 04/22/23 01:40 83 04/22/23 04:31 80 15 95 04/22/23 04:31 164/79 H 04/22/23 03:30 76 16 97 04/22/23 03:30 153/72 H 04/22/23 03:00 76 8 L 94 04/22/23 03:00 151/76 H 04/22/23 02:30 70 12 04/22/23 02:30 152/74 H 04/22/23 02:01 83 15 97 04/22/23 02:01 168/86 H 04/22/23 04:40 36.5 C 75 12 164/79 H 92 04/22/23 03:40 36.5 C 79 15 153/72 H 94 04/22/23 04:10 36.5 C 70 14 148/70 H 93 04/22/23 03:10 36.5 C 77 15 151/76 H 94 04/22/23 02:40 36.5 C 73 15 152/74 H 94 04/22/23 02:10 36.5 C 86 20 168/86 H 93 04/22/23 01:40 36.5 C 89 19 168/86 H 96 04/22/23 01:15 73 19 93 04/22/23 01:00 85 20 04/22/23 00:41 157/82 H 04/22/23 00:41 89 18 93 04/22/23 00:32 109 H 24 96 04/22/23 00:32 167/107 H 04/22/23 00:40 36.5 C 88 16 157/82 H 92 04/22/23 01:10 36.5 C 68 20 155/78 H 93 04/21/23 23:55 36.5 C 93 H 20 139/91 95 04/22/23 00:10 36.5 C 90 20 137/82 93 O2 Del Method 04/22/23 11:10 Room Air 04/22/23 10:10 Room Air 04/22/23 09:10 Room Air 04/22/23 08:10 Room Air 04/22/23 07:10 Room Air 04/22/23 06:31 04/22/23 06:00 04/22/23 06:10 Room Air 04/22/23 05:30 04/22/23 05:30 04/22/23 05:10 Room Air 04/22/23 05:40 Room Air 04/22/23 01:40 04/22/23 04:31 04/22/23 04:31 04/22/23 03:30 04/22/23 03:30 04/22/23 03:00 04/22/23 03:00 04/22/23 02:30 04/22/23 02:30 04/22/23 02:01 04/22/23 02:01 04/22/23 04:40 Room Air 04/22/23 03:40 Room Air 04/22/23 04:10 Room Air 04/22/23 03:10 Room Air 04/22/23 02:40 Room Air 04/22/23 02:10 Room Air 04/22/23 01:40 Room Air 04/22/23 01:15 04/22/23 01:00 04/22/23 00:41 04/22/23 00:41 04/22/23 00:32 04/22/23 00:32 04/22/23 00:40 Room Air 04/22/23 01:10 Room Air 04/21/23 23:55 Room Air 04/22/23 00:10 Room Air
--- NOTE | 2023-04-22 14:38 | XCELERA ---
[id number] [id number]
--- NOTE | 2023-04-22 14:45 | Electrocardiogram Report ---
Test Reason : Blood Pressure : / mmHG Vent. Rate : 094 BPM Atrial Rate : 094 BPM P-R Int : 222 ms QRS Dur : 122 ms QT Int : 362 ms P-R-T Axes : 073 -57 071 degrees QTc Int : 452 ms Sinus rhythm with 1st degree A-V block Left anterior fascicular block Left ventricular hypertrophy with QRS widening and repolarization abnormality Abnormal ECG When compared with ECG of 24-JUL-2022 15:02, MD interval has increased Borderline criteria for Lateral infarct are no longer Present Confirmed by Duke Vizcaino ([id number]) on 04/22/2023 2:44:42 PM Referred By: REFERRED SELF Confirmed By:Amari Vizcaino
--- NOTE | 2023-04-22 14:48 | Pharmacy Report ---
- Date of Service April 22, 2023 - Pharmacy CVA/TIA Medication Review Medications to Prevent Stroke handout has been added to the patients discharge packet. Antiplatelet(s) * Dual antiplatelet aspirin 81 mg/day + clopidogrel 75 mg/day for 21 days then clopidogrel monotherapy recommended following 24 hrs post TNKase (if no hemorrhage on follow up CT) Cholesterol * High intensity statin deferred due to age >75, on rosuvastatin 5 mg daily DVT Prophylaxis * SCD knee Therapeutic Anticoagulation * No history of Afib/Aflutter noted- 30 day mobile cardiac outpatient telemetry recommended by neurology Type 2 Diabetes * Patient does not have T2DM
[2023-04-22] MEDS ORDERED: POTASSIUM CHLORIDE 20 MEQ/15 ML UDC PO STA ×2 (16:40→20:26)
--- NOTE | 2023-04-22 23:41 | CT Scan Report ---
Exam(s): CT HEAD Without Contrast EXAM: CT Head Without Intravenous Contrast CLINICAL HISTORY: Reason for exam: 24 hour post TNK eval for hemorrhagic covernsion. TECHNIQUE: Axial computed tomography images of the head/brain without intravenous contrast. CTDI is 37.94 mGy and DLP is 547.75 mGy-cm. Automated exposure control was utilized for the study. A dose lowering technique was utilized adhering to the principles of ALARA. COMPARISON: No relevant prior studies available. FINDINGS: No acute intracranial hemorrhage. No midline shift or mass effect. The territorial evangelista-white matter differentiation is maintained throughout. Age-related cerebral volume loss. Periventricular and subcortical white matter hypoattenuation, consistent with chronic microangiopathy. The visualized orbits appear grossly unremarkable. Dural based calcification along the inner table at the vertex is 14 x 8 mm, likely a small meningioma. The visualized paranasal sinuses and mastoid air cells are grossly clear. IMPRESSION: No acute intracranial hemorrhage, midline shift, or mass effect. Electronically signed by: Chiki Cooper MD 04/22/23 23:41 PM
[2023-04-23 04:56] LABS: Basophils # (auto) 0.03 K/uL (0.00-0.20); Basophils % (auto) 0.4 %; Eosinophils # (auto) 0.09 K/uL (0.00-0.50); Eosinophils % (auto) 1.3 %; Hematocrit (blood only) 42.3 % (42.0-52.0); Hemoglobin 14.5 g/dl (14.0-18.0); Immature Granulocytes # (auto) 0.03 K/uL (0.01-0.20); Immature Granulocytes % (auto) 0.4 %; Lymphocytes # (auto) 0.87 K/uL (1.20-3.40); Mean Corpuscular Hemoglobin 30.7 pg (25.0-34.0); Mean Corpuscular Hgb Conc 34.3 g/dL (32.0-36.0); Mean Corpuscular Volume 89.4 fL (80.0-100.0); Mean Platelet Volume 10.3 fL (9.4-12.4); Monocytes % (auto) 13.5 %; Neutrophils # (auto) 4.76 K/uL (1.40-6.50); Neutrophils % (auto) 71.4 %; Platelet Count 114 K/uL (130-400); RDW Coefficient of Variation 14.4 % (11.5-14.5); RDW Standard Deviation 47.4 fL (36.4-46.3); Red Blood Count 4.73 M/uL (4.70-6.10); White Blood Count 6.68 K/ul (4.8-10.8)
[2023-04-23 05:14] LABS: Albumin Level 3.1 gm/dl (3.4-5.0); Bilirubin Direct 0.2 mg/dl (0-0.2); Total Protein 5.7 gm/dl (6.0-8.3)
[2023-04-23 05:34] LABS: Prothrombin Time 11.4 Seconds (9.0-12.0)
[2023-04-23] MEDS: predniSONE 5 MG TAB PO SCH (07:41)
[2023-04-23] MEDS: ROSUVASTATIN CALCIUM 5 MG TAB PO SCH (07:41)
[2023-04-23] MEDS: LEVOTHYROXINE SODIUM 88 MCG TABLET PO SCH (07:41)
[2023-04-23] MEDS ORDERED: ASPIRIN 81 MG CHEW ONE (07:45)
[2023-04-23] MEDS ORDERED: ASPIRIN 81 MG ECTAB PO SCH (09:00)
[2023-04-23] MEDS ORDERED: CLOPIDOGREL BISULFATE 75 MG TAB PO SCH (09:00)
[2023-04-23] MEDS ORDERED: TAMSULOSIN HCL 0.4 MG CAP PO SCH (09:00)
[2023-04-23] MEDS ORDERED: ENOXAPARIN INJ 40 MG/0.4 ML SYR SQ SCH (09:00)
[2023-04-23] MEDS ORDERED: PANTOprazole 40 MG TAB PO SCH (09:00)
[2023-04-23] MEDS ORDERED: GABAPENTIN 300 MG CAP PO SCH (09:00)
[2023-04-23] MEDS ORDERED: STROKE PATIENT DISCHARGE STA (11:10)
[2023-04-23 11:49] VITALS: RESP 19; TEMP 98.2; O2SAT 95
[2023-04-23 12:04] VITALS: BP 161/87; PULSE 82
--- NOTE | 2023-04-23 15:55 | Discharge Summary ---
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 The patient's reports that around 830 this evening, the patient developed acute onset of difficulty with speech, sounding confused, and they then called EMS. When EMS is there, the reports that she overheard them saying that he was shaking like he was having a seizure. When he was brought to the emergency department, he was evaluated by telestroke, was thought to be a good TNK candidate, and then administered TNK at 2200 hrs. Principal Diagnosis TIA status postthrombolytic therapy without any evidence of residual deficit 60% left internal carotid artery with possible ulcerated plaque recommended for outpatient consideration of TCAR Discharge Exam Awake alert appropriate back to his baseline patient able to ambulate with physical therapy Discharge Data Allergies Allergy/AdvReac Type Severity Reaction Status Date / Time No Known Drug Allergies Allergy Verified 02/11/23 10:45 Consultations 04/21/23 22:19 ED Decision to Admit Stat 04/21/23 23:24 Consult Greenhouse Specialist Routine 04/21/23 23:57 Consult Vascular Surgery Routine 04/22/23 00:00 Consult Neurology Routine Ordered Studies 04/21/23 21:17 CT angio head w con Stat CT angio neck with con Stat CT head/brain wo con Stat 04/21/23 22:57 MRI Brain [MR brain wo con] Routine 04/22/23 22:00 CT head/brain wo con Stat Hospital Course (1) CVA (cerebral vascular accident): Strokelike symptoms/seizure-like activity/history of stroke-stoke alert with thrombolytic administration symptoms have improved somewhat shortly after administration of TNK CT head without contrast shows chronic small vessel disease CTA head and neck show a 90% distal right vertebral artery narrowing, occlusion at the proximal origin, and revascularization in mid artery Left internal carotid artery stenosis, there is concern for some ulcerated plaque patient will be referred to Dr. Cordova as an outpatient MRI does not show acute stroke, on asa and Plavix for 21 days then just Plavix with additional institution of rosuvastatin Seizure-like activity noted, neurology consult, Stroke with TNK order set completed. No plans of for further evaluation of possible stroke pt taking po meds cleared by speech (2) Asthma: Following with Dr. Galan in the outpatient setting Chronically on prednisone 5 mg, theophylline Total Time Total Time Spent Total Time Spent (In Minutes): It required greater than 30 minutes to prepare this patient for discharge Discharge Plan Discharge Items Patient Disposition: Home - Home Health Services Reason For Visit: CVA, POST TNK IN THE ED Discharge Diagnosis: tia, s/p TNK treatment left internal carotid stenosis with plaque Activity: Resume your previous activity Non-emergency contact: Primary Care Provider and Specialist Call non-emergency contact if: your symptoms worsen Follow-up/Referrals: Giles Galan MD [Primary Care Provider] - 04/29/23 11:30 am (Follow up scheduled on 04/29/23 @ 11:30 ) Rodrigue Cordova MD [Physician] - (Dr. Cordova's office will contact you to schedule an appointment) Diet: Heart Healthy Addtl Attending Provider Instructions: Risk Factors for Stroke: You can reduce your chances of stroke by working with your medical provider to adopt a healthy lifestyle. Some specific ways to lower your chance of stroke are: * If you are a smoker, now is the time to stop smoking cigarettes * If you are diabetic, improve the control of your blood sugars * Avoid excessive amounts of alcohol * Control high blood pressure * Lose weight if you are overweight * Be sure to lead an active lifestyle * Eat a healthy diet low in salt, cholesterol and fat You should know about other risk factors for stroke that you are unable to control. These include: * Age 55 years or older * Male gender * Certain racial groups: , or / * Family History of Stroke, Mini stroke or Heart Attack * Sickle Cell Disease Follow Up: It is important for you to keep your follow up appointments with your medical provider. Who to Call and When: Medical Emergencies: Call 911 immediately if you experience any of the following warning signs and symptoms of Stroke: * Sudden numbness or weakness of the face, arm or leg, especially on one side of the body * Sudden confusion, trouble speaking or understanding * Sudden trouble seeing in one or both eyes * Sudden trouble walking, dizziness, loss of balance or coordination * Sudden severe headache with no cause Do not delay calling 911 if you experience any warning signs or symptoms of a stroke. Delay in seeking medical attention may affect what treatments can be given to you. . Addtl Vice President Compliance Provider Instructions: Expect to be contacted by Dr Cordova's office to discuss possible treatment of your carotid artery Take both aspirin and plavix(clopidogrel) for 21 days then stop the aspirin Pending Studies at Discharge: No Stand-Alone Forms: [facility], Smoking Cessation Medications and DC Order Prescriptions: New aspirin 81 mg Tablet,Delayed Release (Dr/Ec) 81 mg PO QAM Qty: 21 0RF rosuvastatin 5 mg Tablet 5 mg PO DAILY Qty: 30 4RF Continued cyclobenzaprine 5 mg tablet 5 mg PO TID PRN (Reason: Muscle Spasm) gabapentin 300 mg capsule 300 mg PO BID Qty: 60 5RF clopidogrel 75 mg tablet See Rx Instructions .ROUTE .COMPLEX Qty: 90 3RF Hold Instructions: Resume on 02/07/23. Dose Instruction: TAKE ONE TABLET BY MOUTH DAILY Rx Instructions: TAKE ONE TABLET BY MOUTH DAILY tramadol 50 mg tablet 50 mg PO Q6H PRN (Reason: Pain) Qty: 30 5RF rosuvastatin 5 mg tablet See Rx Instructions .ROUTE .COMPLEX Qty: 90 3RF Dose Instruction: TAKE ONE TABLET BY MOUTH DAILY Rx Instructions: TAKE ONE TABLET BY MOUTH DAILY theophylline 300 mg tablet extended release 12 hr 300 mg PO QAM Rx Instructions: TAKE 1 TABLET BY MOUTH DAILY tamsulosin 0.4 mg capsule 0.4 mg PO QPM polyethylene glycol 3350 [Miralax] 17 gram Powder In Packet 17 g PO DAILY PRN (Reason: constipation) Qty: 30 0RF prednisone 5 mg tablet 5 mg PO QAM levothyroxine 88 mcg tablet 88 mcg PO QAM Rx Instructions: TAKE ONE TABLET BY MOUTH DAILY potassium chloride 20 mEq tablet,ER particles/crystals 20 meq PO QAM Rx Instructions: TAKE ONE TABLET BY MOUTH ONE TIME DAILY ibuprofen [Advil] 200 mg Tablet 200 mg PO Q6H PRN (Reason: Pain) Discharge Orders: Discharge Order (Routine); Ordered 04/23/23 Ordered By: Andrew Stringer Admission Data Admit Date/Time: 04/21/23 22:55 Attending Provider: Andrew Stringer Admit Provider: Kilo Newsome Primary Care Provider: Solic,Aurelio. Other Providers: Kilo Newsome ; Moises Mayo ; Rodrigue Cordova ; Bala Garrido ; Chaim Schafer ; Ailyn Akins ; Zonia Ramires ; Dyana Wheeler ; Giles Vidal ; Dyana Nazario ; Radames Cannon ; Floyd Valadez ; Colten Pablo ; Kevin Barnes ; Elenita Malone ; Kristine Hernandez ; Peter Yost ; Galileo Medrano ; Jitendra Rincon ; Chinmay Archibald ; Gabriela Lama ; Christa Smith ; Amy,[facility] Other Interventions: Discharge Summary Assessment (RN) Last Done: 04/23/23 12:01 Coding Level of Care Code 89819 INP/OBS DISCH >30 MIN Diagnoses CVA (cerebral vascular accident) I63.9 Asthma J45.909
--- NOTE | 2023-04-26 10:44 | Pharmacy Report ---
Pharmacist Stroke Counseling - Date of Service April 26, 2023 - Scope: Pharmacy has been consulted to provide medication discharge counseling for this patient admitted with transient ischemic attack as per the Pharmacist Discharge Counseling for Stroke Patients Protocol. - Medications on Discharge: Home Medications Medication Instructions Recorded Confirmed tamsulosin 0.4 mg capsule 0.4 mg PO QPM 07/24/22 02/05/23 cyclobenzaprine 5 mg tablet 5 mg PO TID PRN Muscle Spasm 09/27/22 02/05/23 theophylline 300 mg 300 mg PO QAM 01/23/23 02/05/23 tablet,extended release,12 hr levothyroxine 88 mcg tablet 88 mcg PO QAM 01/24/23 02/05/23 potassium chloride 20 mEq 20 meq PO QAM 01/24/23 02/05/23 tablet,extended release(part/cryst) prednisone 5 mg tablet 5 mg PO QAM 01/24/23 02/05/23 ibuprofen 200 mg tablet (Advil) 200 mg PO Q6H PRN Pain 02/05/23 02/05/23 New Rx's Medication Instructions Recorded polyethylene glycol 3350 17 gram 17 g PO DAILY PRN constipation #30 07/26/22 oral powder packet (Miralax) ea gabapentin 300 mg capsule 300 mg PO BID #60 caps 11/28/22 clopidogrel 75 mg tablet See Rx Instructions .Route 02/20/23 .COMPLEX #90 tabs tramadol 50 mg tablet 50 mg PO Q6H PRN Pain #30 tabs 04/17/23 rosuvastatin 5 mg tablet See Rx Instructions .Route 04/21/23 .COMPLEX #90 tabs aspirin 81 mg tablet,delayed 81 mg PO QAM #21 tabs 04/23/23 release rosuvastatin 5 mg tablet 5 mg PO DAILY #30 tabs 04/23/23 - Action: The above medications, specifically ones for stroke treatment/prophylaxis, have been reviewed in detail with the patient and/or patient sales representative publications(s) prior to discharge. This includes indication, common adverse reactions, drug interactions, and medication administration. Medication counseling has been employed using the teach-back method to ensure understanding. - Outcome: The patient and/or patient sales representative publications(s) have demonstrated understanding of the medications. Additional comments: I discussed medication changes with Geovanni and his , has picked up the aspirin and aware he is supposed to take for 21 days. Has follow-up appointments scheduled with Dr. Cordova and PCP. Expressed understand of the importance of stroke medications and how he is supposed to take them. Thank you for allowing pharmacy to be involved in the care of this patient. Ple ase call [phone] with any additional questions
== END 2023-04-23 13:12 | disposition home health service (06) | DRG 62 ==
LOC: ED 21:15 → SUATTDRO 22:55 → 1E 22:55

== ENCOUNTER 2023-05-06 06:05 | Inpatient (IN) ==
--- NOTE | 2023-04-30 15:36 | Anesthesiology Consultation ---
Date of Service April 30, 2023 Assessment & Plan (1) Encounter for pre-operative examination: Chart Review Chart Review: Acceptable Risk for Surgery (pending anesthesia evaluation DOS ) and Patient NOT seen in Pre Admission Testing - Discussed case with Dr. Loera- due to nature of procedure- patient can proceed as scheduled -possible difficult intubation: reported h/o neck surgery and jaw radiation Chronic prednisone 5mg daily -Infectious Disease screening: Per PAT nursing assessment on 04/30/23. No known infectious disease contacts in past 10 days or current infectious disease symptoms. No recent travel outside the country. Pt seen by PCP 04/29/23= Patient recently admitted to [facility] 04/21/23-04/23/23 for stroke like symptoms. Seen by neurology while admittedfelt probable TIA. Scheduled to meet with vascular surgeon later today. Neurology requesting 30- day cardiac event monitor during admission but the patient has not yet received 1 and has not heard anything about the study. PCP will contact cardiology regarding this. Patient advised to take aspirin daily with Plavix x21 days. Patient will reschedule with dermatology regarding skin changes on hands. Take medications as directed. Follow-up in August 2023 Pt seen by neuro for consultation during [facility] admission 04/22/23= Patient with probable TIA. No evidence of acute or subacute stroke on MRI. 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 Chronic moderate stenosis of the proximal right ICAnot likely to be related to current presentation. Patient has been holding Plavix for upcoming lumbar epidural steroid injection. Continue to to allow for permissive hypertensionsystolic pressure 140 to 160 mmHg. Continue rosuvastatin. Restart Plavix 24 hours after administration of TNK. If no further hemorrhage evident on follow-up CTwould recommend dual antiplatelet therapyaspirin 81 mg and Plavix for 21 daysdiscontinue aspirin after 21 days and continue Plavix. Given patient's TIA occurred in the context of holding Plavix for epidural steroid injectionwould not recommend proceeding with this type of procedure going forward. Patient did have loop recorder for about 4 yearsexplanted February 2022no evidence of A-fib but did have few episodes of atrial tachycardia that were not felt responsible for previous stroke. Would recommend 30-day mobile cardiac outpatient telemetry. History of head and neck radiation to address left parotid squamous cell carcinomamay have radiation-induced vasculopathy although no evidence of significant vascular lesion on CTA of head and neck. Would recommend transthoracic echocardiogram with bubble study. Further, patient's clinical presentation did include some shaking although the majority of documented signs and symptoms are more consistent with TIA/stroke, rather than seizure. Going forward, if patient were to have further similar episodes, would recommend outpatient EEG. Would not recommend starting an antiseizure medicine at this time. Cystolitholopaxy with bladder stone retrieval and TURBT 02/05/2023 = done under [facility] with LMA #5 History Surgery Operation Date: 05/06/23 08:00 Proposed Procedures p Left Transcarotid Artery Revascularization - Rodrigue Cordova MD Height/Weight Height: 5 ft 9.5 in Weight: 68.946 kg Allergies Allergy/AdvReac Type Severity Reaction Status Date / Time No Known Drug Allergies Allergy Verified 04/30/23 14:44 Medications Home Medications Medication Instructions Recorded Confirmed Last Taken tamsulosin 0.4 mg capsule 0.4 mg PO QPM 07/24/22 04/30/23 02/04/23 18:00 polyethylene glycol 3350 17 gram 17 g PO DAILY PRN constipation #30 07/26/22 04/30/23 02/04/23 07:00 oral powder packet (Miralax) ea cyclobenzaprine 5 mg tablet 5 mg PO TID PRN Muscle Spasm 09/27/22 04/30/23 Unknown gabapentin 300 mg capsule 300 mg PO BID #60 caps 11/28/22 04/30/23 02/05/23 06:00 theophylline 300 mg 300 mg PO BID 01/23/23 04/30/23 02/05/23 06:00 tablet,extended release,12 hr levothyroxine 88 mcg tablet 88 mcg PO QAM 01/24/23 04/30/23 02/05/23 06:00 potassium chloride 20 mEq 20 meq PO QAM 01/24/23 04/30/23 02/05/23 06:00 tablet,extended release(part/cryst) prednisone 5 mg tablet 5 mg PO QAM 01/24/23 04/30/23 02/05/23 06:00 ibuprofen 200 mg tablet (Advil) 200 mg PO Q6H PRN Pain 02/05/23 04/30/23 02/04/23 18:00 clopidogrel 75 mg tablet See Rx Instructions .Route 02/20/23 04/30/23 Unknown .COMPLEX #90 tabs tramadol 50 mg tablet 50 mg PO Q6H PRN Pain #30 tabs 04/17/23 04/30/23 Unknown aspirin 81 mg tablet,delayed 81 mg PO QAM #21 tabs 04/23/23 04/30/23 Unknown release rosuvastatin 5 mg tablet 5 mg PO QAM 04/30/23 04/30/23 Unknown Past Medical History Medical History (Updated 05/01/23 @ 09:50 by Rox Rivas PA-C) Acid reflux 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 Last treatment November 2020 per records History of skin cancer HLD (hyperlipidemia) [place] (hard of hearing) Hypertension Hypothyroidism Insufficiency, adrenal On Prednisone 5mg daily for asthma per PCP records Mention of possible adrenal insufficiency due to chronic steroid use per 09/15/20 PCP note- but at visit 10/05/20- patient had no difference in symptoms with increased steroid and directed to go back on Prednisone 5mg daily Lumbar disc disease with radiculopathy Meningioma Dural based calcification along the inner table at the vertex is 14 x 8mm, likely a small meningioma per 04/22/23 brain MRI Followed by neurology per PCP records 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 per brain MRI 04/21/23 and head/neck CTA 04/21/23 Past Family History Family History Unknown Coronary heart disease Cancer Father Cancer Hypertension Son Diabetes Mother Benign neoplasm of head Brother Heart disease Brother Liver disease Heart disease Valve replacement Denies family history of Stroke Past Surgical History Surgical History History of bowel resection w/ colostomy History of colonoscopy History of colostomy reversal History of hemorrhoidectomy History of neck surgery for cancer with radiation Hx of parotidectomy Status post Mohs surgery 07/04/2020 - left face/preauricular area Social History Smoking Status: Never smoker Smoking cigarettes per day: 1960 Do You Dip or Chew Tobacco: No Hx Alcohol Use: Yes Alcohol type: beer alcohol intake frequency: 0-2 drinks per day Hx Substance Use: No substance use type: does not use Lab Results Anesthesia Preop Results Results Anesthesia Widget: WBC 8.29 K/ul (4.8-10.8) 04/30/23 Hgb 15.3 g/dl (14.0-18.0) 04/30/23 Hct 45.1 % (42.0-52.0) 04/30/23 Plt 160 K/uL (130-400) 04/30/23 Na 138 mmol/L (136-145) 04/30/23 K 4.2 mmol/L (3.5-5.1) 04/30/23 Cl 102 mmol/L (98-107) 04/30/23 CO2 30 mmol/L (21-32) 04/30/23 BUN 22 mg/dl (6-23) 04/30/23 Creat 1.01 mg/dl (0.6-1.4) 04/30/23 Glucose Level 115 mg/dl (70-99(Fasting)) H 04/30/23 PT 11.4 Seconds (9.0-12.0) 04/23/23 PTT 26.8 Seconds (21.0-31.0) 04/30/23 INR 1.0 (0.9-1.1) 04/23/23 HA1c 5.4 % (4.5-5.6) 04/22/23 Urine Color Yellow 04/21/23 Urine Appearance Clear (Clear) 04/21/23 Urine pH 6.0 (4.5-7.5) 04/21/23 Urine Specific Dennard > 1.045 (1.000-1.030) H 04/21/23 Urine Protein Negative (Negative) 04/21/23 Urine Glucose (UA) Negative (Negative) 04/21/23 Urine Ketones Negative (Negative) 04/21/23 Urine Blood Negative (Negative) 04/21/23 Urine Nitrite Negative (Negative) 04/21/23 Urine Bilirubin Negative (Negative) 04/21/23 Urine Urobilinogen Negative (Negative) 04/21/23 Urine Leukocyte Esterase Negative (Negative) 04/21/23 Blood Type A Positive 04/30/23 Antibody Screen NEGATIVE 04/30/23 Testing Electrocardiogram Date: 04/21/23 Sinus rhythm with first-degree AV block at 94 bpm Left anterior fascicular block LVH with QRS widening and repolarization abnormality When compared EKG from July 24R interval has increased, borderline criteria for lateral infarct are no longer present per cardio Chest X-Ray Date: 04/21/23 Findings: + NAD Echocardiogram Date: 04/22/23 EF: 50-55% LV Function: normal RWMA: + none Other Findings: + LVH (Borderline/concentric) Valvular Disease: + AI (Mild) No cardiac source of emboli noted Proximal septal thickening is noted RV systolic pressure is normal Mild TR. Other Testing Head CT 04/22/23= No acute intracranial hemorrhage, midline shift, or mass effect. Brain MRI 04/21/23= Absent flow signal in the visualized portion of the distal right vertebral artery indicating occlusion. This is chronic. Fluid signal in the left maxillary sinus and several left ethmoid air cells consistent with sinusitis. Mild to moderate diffuse cerebral atrophy and patchy periventricular white matter T2 hyperintensity consistent with chronic small vessel disease and/or senescent changes. No areas of diffusion restriction are seen to indicate acute stroke. Neck CTA 04/21/23= The right vertebral artery is occluded at its origin. There is segmental reconstitution of a small caliber mid right vertebral artery.This is unchanged. Calcified plaque in the proximal right internal carotid artery causes 60-70% stenosis. The right internal carotid artery is tortuous. This is unchanged.Left internal carotid artery: Heavily calcified plaque in the proximal left internal carotid artery with 40-50% stenosis.Left vertebral artery: Up to 50% stenosis of the mid left vertebral artery due to external compression from uncovertebral osteophytosis. 40% stenosis of the origin of the left subclavian artery. Head CTA 04/21/23= Severe 90% stenosis of the distal right vertebral artery. The remaining arterial structures appear within normal limits. No large vessel occlusion is identified. No aneurysm or vascular malformation. Chest CT 10/10/22= No convincing evidence for metastatic disease within the chest. No change in several pulmonary nodules, including a 7 mm groundglass nodule within the lingula. These can be assessed on follow-up exams to ensure stability. Stable dilatation of the ascending aorta, measuring 4.4 cm.
[~2023-05-06 06:05] MED LIST changes: -AMLH550 PO; -ASPCH81; +CEFAZOLIN 2,000 MG/15 ML SYR IV SCH; -GADAVIST IV PRN; +LACTATED RINGER'S 1,000 ML BAG IV SCH; -LEVO50TA PO; -LPT/40 PO; -MCRK20 PO; -MULT-506 PO; -OMEG10007 PO; -PLMIN90 INH; -PRED-301 PO; -THEO1CAP3 PO
[2023-05-06] MEDS ORDERED: PROPOFOL IV EMULSION 10 MG/ML 20 ML VIAL IV ONE (06:51)
[2023-05-06] MEDS ORDERED: LIDOCAINE 2% 2 ML VIAL/AMP(20MG/ML) INFIL ONE (06:51)
[2023-05-06] MEDS ORDERED: ROCURONIUM BROMIDE 10 MG/ML 5 ML VIAL IV ONE ×4 (06:51→08:35)
[2023-05-06] MEDS ORDERED: ONDANSETRON INJ 2 MG/ML 2 ML VIAL ONE (06:52)
[2023-05-06] MEDS ORDERED: fentaNYL citrate PF 100 MCG/2 ML VIAL ONE (06:52)
[2023-05-06] MEDS ORDERED: MIDAZOLAM HCL 1 MG/ML 2ML VIAL ONE (06:52)
[2023-05-06] MEDS ORDERED: DEXAMETHASONE SOD INJ 4 MG/ML VIAL ONE ×2 (06:52→08:43)
[2023-05-06] MEDS ORDERED: GLYCOPYRROLATE 0.2 MG/ML VIAL ONE (07:02)
[2023-05-06] MEDS ORDERED: SUGAMMADEX SODIUM 200 MG/2 ML VIAL IV ONE (07:03)
[2023-05-06] MEDS ORDERED: PHENYLEPHRINE HCL 25 MG/250 ML NSS IV ONE (07:03)
[2023-05-06] MEDS ORDERED: ePHEDrine sulfate 50 MG/ML AMP IV PRN (07:25)
[2023-05-06] MEDS ORDERED: ONDANSETRON INJ 2 MG/ML 2 ML VIAL IV PRN ×2 (07:25→10:54)
[2023-05-06] MEDS ORDERED: ATROPINE SULFATE 0.1 MG/ML 10ML SYR IV PRN (07:25)
[2023-05-06] MEDS ORDERED: fentaNYL citrate PF 100 MCG/2 ML VIAL IV PRN (07:25)
--- NOTE | 2023-05-06 07:50 | History & Physical Bridge Note ---
Date of Service May 06, 2023 History & Physical Bridge Note I have examined the patient, reviewed the History & Physical and in the interval since the performance of the History & Physical I have noted the following changes of clinical significance: no changes noted
--- NOTE | 2023-05-06 07:50 | History & Physical Report ---
Date of Service May 06, 2023 History of Present Illness Primary Care Provider: Giles Galan MD April 22, 2023 Assessment & Plan (1) Symptomatic stenosis of left carotid artery: Pt with symptomatic stenosis of L ICA, approx 60%, with what appears to be an area of ulcerated plaque. Imaging reviewed by Dr Cordova, recommends pt consider surgical intervention to prevent further CVA. Discussed risks, benefits, and alternatives of CEA vs TCAR with pt and family. Pt prefers TCAR. Pt would be high risk anatomically d/t hostile neck for L CEA. Will see pt in office early next week to discuss further and schedule procedure. Pt will need to remain on plavix and statin medications in preparation for TCAR. Would also add 81mg ASA if no contraindications. History of Present Illness Reason for Consultation: l ICA stenosis, CVA Attending Physician: Andrew Stringer MD History of Present Illness 87 yo m with hx of SCC, HTN, hyperlipidemia, lumbosacral radiculopathy, BPH, parotid gland ca, asthma, thoracic ascending AA, lung nodule, CVA, admitted after suffering L hemispheric CVA last evening, seen in consultation today for BL ICA stenosis. Pt is a poor historian. Pt states he was with his family at home, and had sudden onset of difficulty speaking/slurred speech, R arm weakness. Per ED notes, pt also with L visual field cut. Pt was administered tPA at recommendations of Telestroke, with total resolution of sx. Pt states he has chronic BLE weakness from back problems. ALso states he has chronic facial droop from nerve damage after his L neck surgery to remove multiple lymph nodes. Pt states has a slight frontal DENNIS presently. Pt denies fever, recent illness, chest pain, SOB, abd pain, N/V, other complaints. CTA neck demonstrates about 60% R ICA and 60% of L ICA with ulcerated plaque. Allergies Allergy/AdvReac Type Severity Reaction Status Date / Time No Known Drug Allergies Allergy Verified 02/11/23 10:45 Home Medications Medication Instructions Recorded Confirmed Type tamsulosin 0.4 mg capsule 0.4 mg PO QPM 07/24/22 02/05/23 History polyethylene glycol 3350 17 gram 17 g PO DAILY PRN constipation #30 07/26/22 02/05/23 Rx oral powder packet (Miralax) ea cyclobenzaprine 5 mg tablet 5 mg PO TID PRN Muscle Spasm 09/27/22 02/05/23 History gabapentin 300 mg capsule 300 mg PO BID #60 caps 11/28/22 02/05/23 Rx theophylline 300 mg 300 mg PO QAM 01/23/23 02/05/23 History tablet,extended release,12 hr levothyroxine 88 mcg tablet 88 mcg PO QAM 01/24/23 02/05/23 History potassium chloride 20 mEq 20 meq PO QAM 01/24/23 02/05/23 History tablet,extended release(part/cryst) prednisone 5 mg tablet 5 mg PO QAM 01/24/23 02/05/23 History ibuprofen 200 mg tablet (Advil) 200 mg PO Q6H PRN Pain 02/05/23 02/05/23 History clopidogrel 75 mg tablet See Rx Instructions .Route 02/20/23 Rx .COMPLEX #90 tabs tramadol 50 mg tablet 50 mg PO Q6H PRN Pain #30 tabs 04/17/23 Rx rosuvastatin 5 mg tablet See Rx Instructions .Route 04/21/23 Rx .COMPLEX #90 tabs Patient History Medical History Acid reflux Ascending aorta dilatation 4.4 cm, stable per 09/2022 chest CTAsthma Back problem 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Carotid artery stenosis mild stenosis on 2018 neck CTAHistory of CVA (cerebrovascular accident) "couple of years ago" - denies residual.History of radiation therapy "left jaw" approx 1 year ago -- unable to recall type of cancer. 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 cervical spine? carotid? ROM WNL per pt reportHx of parotidectomy Status post Mohs surgery 07/04/2020 - left face/preauricular area Family History Unknown Coronary heart disease CancerFather Cancer HypertensionSon DiabetesMother Benign neoplasm of headBrother Heart diseaseBrother Liver disease Heart disease Valve replacement Denies family history of Stroke Social History Smoking Status: Former smoker Cigarettes Per Day: 1960; Second Hand Exposure: No; Do You Dip or Chew Tobacco: No; Hx Alcohol Use: Yes Alcohol type: beer Alcohol Intake Frequency: 2-3 x/Week Hx Substance Use: No Preferred Language: Panamanian Communication Ability: Effective Visual Impairment: No Limitations Hearing Ability: Hard of Hearing Executive Assistant Required: No Beliefs That Will Affect Care: None marital status: Current Living Situation: Spouse current occupational status: retired Feels Safe at Home: Yes caffeine: No Dental Care, Regularly: Yes Physical Activity Frequency: Daily Seatbelt Use: always Assistive Devices: Cane, Glasses and Walker Review of Systems Review of Systems: All systems reviewed & are unremarkable except as noted in HPI & below Physical Exam Constitutional: WD/WN, vitals as above + thin, + frail appearing, cooperative and comfortable; not in distress B ENMT: Ears: + hearing impairment (wears hearing aids) Neck: trachea midline L neck scarring noted from previous lymph node removal Respiratory: normal respiratory effort; no labored breathing Auscultation: lungs clear to auscultation bilaterally and + diminished lung sounds Cardiovascular: Rate/Rhythm: regular rate and regular rhythm Vessels: + carotid bruit, femoral pulses present, posterior tibial pulses present, dorsalis pedis pulses present and radial pulses present; + abnormal peripheral pulses Extremities: normal capillary refill; no edema Gastrointestinal (Abdomen): Inspection/Auscultation: abdomen normal to inspection and normal bowel sounds Percussion/Palpation: abdomen nontender and + abdomen not soft Musculoskeletal: no cyanosis or clubbing, extremities motor strength 5/5 Skin: no rashes, warm and dry + lesion (multiple scattered skin lesions, no open areas) Neurologic: moves all extremities and awake; no focal motor deficits and not confused Psychiatric: A+Ox3, euthymic affect Results & Data Vital Signs (Past 12 Hours) Vital Signs Temp Pulse Pulse Resp BP BP Pulse Ox 04/22/23 11:10 36.6 C 72 16 139/80 94 04/22/23 10:10 36.6 C 16 170/88 H 04/22/23 09:10 36.6 C 79 16 160/90 H 95 04/22/23 08:10 36.5 C 70 16 151/74 H 93 04/22/23 07:10 36.5 C 61 14 146/75 H 94 04/22/23 06:31 82 19 126/96 93 04/22/23 06:00 65 10 L 135/69 90 04/22/23 06:10 36.5 C 62 9 L 135/69 96 04/22/23 05:30 75 18 95 04/22/23 05:30 144/88 H 04/22/23 05:10 36.5 C 77 13 138/74 92 04/22/23 05:40 36.5 C 72 8 L 144/88 H 94 04/22/23 01:40 83 04/22/23 04:31 80 15 95 04/22/23 04:31 164/79 H 04/22/23 03:30 76 16 97 04/22/23 03:30 153/72 H 04/22/23 03:00 76 8 L 94 04/22/23 03:00 151/76 H 04/22/23 02:30 70 12 04/22/23 02:30 152/74 H 04/22/23 02:01 83 15 97 04/22/23 02:01 168/86 H 04/22/23 04:40 36.5 C 75 12 164/79 H 92 04/22/23 03:40 36.5 C 79 15 153/72 H 94 04/22/23 04:10 36.5 C 70 14 148/70 H 93 04/22/23 03:10 36.5 C 77 15 151/76 H 94 04/22/23 02:40 36.5 C 73 15 152/74 H 94 04/22/23 02:10 36.5 C 86 20 168/86 H 93 04/22/23 01:40 36.5 C 89 19 168/86 H 96 04/22/23 01:15 73 19 93 04/22/23 01:00 85 20 04/22/23 00:41 157/82 H 04/22/23 00:41 89 18 93 04/22/23 00:32 109 H 24 96 04/22/23 00:32 167/107 H 04/22/23 00:40 36.5 C 88 16 157/82 H 92 04/22/23 01:10 36.5 C 68 20 155/78 H 93 04/21/23 23:55 36.5 C 93 H 20 139/91 95 04/22/23 00:10 36.5 C 90 20 137/82 93 O2 Del Method 04/22/23 11:10 Room Air 04/22/23 10:10 Room Air 04/22/23 09:10 Room Air 04/22/23 08:10 Room Air 04/22/23 07:10 Room Air 04/22/23 06:31 04/22/23 06:00 04/22/23 06:10 Room Air 04/22/23 05:30 04/22/23 05:30 04/22/23 05:10 Room Air 04/22/23 05:40 Room Air 04/22/23 01:40 04/22/23 04:31 04/22/23 04:31 04/22/23 03:30 04/22/23 03:30 04/22/23 03:00 04/22/23 03:00 04/22/23 02:30 04/22/23 02:30 04/22/23 02:01 04/22/23 02:01 04/22/23 04:40 Room Air 04/22/23 03:40 Room Air 04/22/23 04:10 Room Air 04/22/23 03:10 Room Air 04/22/23 02:40 Room Air 04/22/23 02:10 Room Air 04/22/23 01:40 Room Air 04/22/23 01:15 04/22/23 01:00 04/22/23 00:41 04/22/23 00:41 04/22/23 00:32 04/22/23 00:32 04/22/23 00:40 Room Air 04/22/23 01:10 Room Air 04/21/23 23:55 Room Air 04/22/23 00:10 Room Air Signed By: <Electronically signed by Shabana Reyes PA-C> 04/22/23 1159 <Electronically signed by Rodrigue Cordova MD> 04/23/23 0745 Created:04/22/23 1140 The status of this report isSigned. Draft = Not yet reviewed or approved by Medical Physician. Signed = Reviewed and approved by Medical Physician. Allergies Allergy/AdvReac Type Severity Reaction Status Date / Time No Known Drug Allergies Allergy Verified 05/06/23 06:58 Home Medications Medication Instructions Recorded Confirmed Type polyethylene glycol 3350 17 gram 17 g PO DAILY PRN constipation #30 07/26/22 05/06/23 Rx oral powder packet (Miralax) ea cyclobenzaprine 5 mg tablet 5 mg PO TID PRN Muscle Spasm 09/27/22 05/06/23 History gabapentin 300 mg capsule 300 mg PO BID #60 caps 11/28/22 05/06/23 Rx theophylline 300 mg 300 mg PO BID 01/23/23 05/06/23 History tablet,extended release,12 hr levothyroxine 88 mcg tablet 88 mcg PO QAM 01/24/23 05/06/23 History potassium chloride 20 mEq 20 meq PO QAM 01/24/23 05/06/23 History tablet,extended release(part/cryst) prednisone 5 mg tablet 5 mg PO QAM 01/24/23 05/06/23 History ibuprofen 200 mg tablet (Advil) 200 mg PO Q6H PRN Pain 02/05/23 05/06/23 History tramadol 50 mg tablet 50 mg PO Q6H PRN Pain #30 tabs 04/17/23 05/06/23 Rx aspirin 81 mg tablet,delayed 81 mg PO QAM #21 tabs 04/23/23 05/06/23 Rx release rosuvastatin 5 mg tablet (Crestor) 5 mg PO QAM 04/30/23 05/06/23 History tamsulosin 0.4 mg capsule 0.4 mg PO QPM #90 caps 05/02/23 05/06/23 Rx clopidogrel 75 mg tablet (Plavix) See Rx Instructions .Route .COMPLEX 05/06/23 05/06/23 History Past Med/Surg History Medical History Acid reflux 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 Last treatment November 2020 per records History of skin cancer HLD (hyperlipidemia) [place] ([place] of hearing) Hypertension Hypothyroidism Insufficiency, adrenal On Prednisone 5mg daily for asthma per PCP records Mention of possible adrenal insufficiency due to chronic steroid use per 09/15/20 PCP note- but at visit 10/05/20- patient had no difference in symptoms with increased steroid and directed to go back on Prednisone 5mg daily Lumbar disc disease with radiculopathy Meningioma Dural based calcification along the inner table at the vertex is 14 x 8mm, likely a small meningioma per 04/22/23 brain MRI Followed by neurology per PCP records 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 per brain MRI 04/21/23 and head/neck CTA 04/21/23 Surgical History History of bowel resection w/ colostomy History of colonoscopy History of colostomy reversal History of hemorrhoidectomy History of neck surgery for cancer with radiation Hx of parotidectomy Status post Mohs surgery 07/04/2020 - left face/preauricular area Family History Unknown Coronary heart disease Cancer Father Cancer Hypertension Son Diabetes Mother Benign neoplasm of head Brother Heart disease Brother Liver disease Heart disease Valve replacement Denies family history of Stroke Social History Smoking Status: Never smoker Cigarettes Per Day: 1960; Second Hand Exposure: No; Do You Dip or Chew Tobacco: No; Tobacco Cessation Education Requested by Patient: No Hx Alcohol Use: Yes Alcohol type: beer Alcohol Intake Frequency: 2-3 x/Week Hx Substance Use: No Preferred Language: Panamanian Communication Ability: Effective Visual Impairment: No Limitations Hearing Ability: Hard of Hearing Executive Assistant Required: No Beliefs That Will Affect Care: None marital status: Current Living Situation: Spouse current occupational status: retired Feels Safe at Home: Yes Safety Concerns: Feels Safe At This Time caffeine: No Dental Care, Regularly: Yes Physical Activity Frequency: Daily Seatbelt Use: always Assistive Devices: Cane, Hearing Aid - Right and Walker Results & Data Vital Signs (Past 12 Hours) Vital Signs Temp Pulse Resp BP Pulse Ox O2 Del Method 05/06/23 06:50 36.5 C 96 H 18 165/90 H 96 Room Air
[2023-05-06] MEDS ORDERED: GELATIN SPONGE SZ 100 ONE (07:56)
[2023-05-06] MEDS ORDERED: HEPARIN (PORCINE) 1000 UNIT/ML 10 ML (CATH LAB USE ONLY) ONE (07:56)
[2023-05-06] MEDS ORDERED: THROMBIN FOR SOLN 20000 UNIT KIT ONE (07:56)
[2023-05-06] MEDS ORDERED: ceFAZolin 330 MG/ML 1 GM VIAL ONE (07:56)
[2023-05-06] MEDS ORDERED: BUPIVACAINE/EPINEPHRINE 0.25% 1:200,000 30 ML VIAL ONE (08:00)
[2023-05-06] MEDS ORDERED: ePHEDrine sulfate 50 MG/5 ML SYR ONE (09:01)
[2023-05-06] MEDS ORDERED: HEPARIN SOD (PORCINE) 1000 UNIT/ML ONE (09:01)
[2023-05-06] MEDS ORDERED: VISIPAQUE IV ONE (09:13)
[2023-05-06] MEDS ORDERED: PROTAMINE SULFATE 10 MG/ML 5 ML VIAL IV ONE (09:32)
--- NOTE | 2023-05-06 09:37 | Procedure Note ---
Angiogram Post Procedure Fluoroscopy Time (minutes): 2.3 Radiation (mGy): 31 Contrast: 15 Post Operative Report Pre & Post Diagnosis Operation Date: 05/06/23 08:00 Pre-Op Diagnosis: Symptomatic Left Internal Carotid Artery Stenosis Post-Op Diagnosis: Symptomatic Left Internal Carotid Artery Stenosis I identified the patient and participated in the time-out.: Yes Procedure Operation Date: 05/06/23 08:00 Actual Procedures p Left Transcarotid Artery Revascularization, Right Common Femoral Vein ultrasound(Right) - Rodrigue Cordova MD Surgeon Rodrigue Cordova MD Stage Settings Painter Anaid,PAC Estimated Blood Loss 20 Findings Consistent with Post-Op Diagnosis Specimens none Anesthesia Type General Complications none Disposition Accompanied Patient To Recovery: No Disposition: Recovery Room Indications This is an 87-year-old gentleman who had a TIA approximately 2 weeks prior to this involving the left hemisphere. Left TCAR was recommended for a 60% narrowing of his left internal carotid artery again which was symptomatic. I have discussed the risks options and benefits of the procedure with the patien t. The patient understands the risks options and benefits and agrees to the procedure. Description of Procedure The patient was taken to the operating room and placed in supine position. After general anesthesia was accomplished the groins and left side of the neck and chest were prepped and draped in a sterile manner. Timeout was performed and the patient was identified. A transverse incision was made just above the clavicle between the heads of the sternocleidomastoid. This is carried down to where the common carotid artery was identified. It was isolated. It was slung with umbilical tape and Michelle tourniquet. Next the U stitch was placed in the common carotid artery with a 5-0 Prolene suture. Patient was given 8000 heparin at that time. Ultrasound was then used to localize the right common femoral vein. The vein was patent and compressed easily. Under ultrasound guidance the right common femoral vein was punctured and the venous sheath was inserted. This was aspirated and flushed with heparinized saline. ACT at that time was 323. Using micropuncture technique the common carotid artery was punctured. The micro sheath was inserted to 3 cm. Injection was then done showing the bifurcation. There was a significant lesion seen just beyond the origin of the internal carotid artery on the left side which was irregular. We then inserted the J-wire left and short of the lesion. The micro sheath was removed and the TCAR sheath was inserted. Once it was in place and held against the artery it was sutured to the chest wall and the incision edge. We then flushed the tubing appropriately. The venous return to was clamped onto the TCAR sheath. It was flushed through and then attached to the venous inflow sheath in the right groin. Sheath was checked for flow. The saline cleared nicely. The common carotid artery was then clamped. Flow reversal was instituted. We inserted a 6 x 35 balloon backloaded on the wire. The wire was passed through the lesion into the petrous portion of the internal carotid. The 6 balloon was then advanced to the lesion. Lesion was then predilated with a 6 mm balloon. Ba lloon was removed. We then inserted the 10 x 40 stent. This was deployed across the lesion without difficulty. The catheter was removed. The carotid was allowed to go 2 minutes with flow reversal. Completion angiogram was done at that time which showed a widely patent carotid stent but there was still some irregularity seen with the midportion of the stent. It was decided that point to post dilate the stent with another 6 x 35 balloon. The balloon was reinserted and the area was postdilated. We then waited another 2 minutes and then another completion arteriogram which showed the stent to be smoother and widely patent. At that point the common carotid artery was unclamped. The venous return tubing was clamped and removed from the TCAR sheath. The blood was allowed to flow back into the venous system. Once this was completed the sheath was pulled from the groin and pressure was applied. The TCAR sheath was then removed and the 5-0 Prolene suture securely tied. Hemostasis was noted of the puncture site. Wound was irrigated with Ancef solution. Adequate hemostasis was obtained of the wound. Once this was noted the wound was closed in usual fashion using a 3-0 Vicryl suture for the subcutaneous layer and a 4-0 subcuticular Vicryl suture for the skin edges. Dermabond was used for dressing.The patient left the operation room in satisfactory condition and tolerated the procedure well. All needle and sponge counts were correct at the end of the procedure. Shabana Reyes Pac assisted due to lack of resident availability and was necessary for positioning, draping, retraction, wound closure deep layers, subcutaneous tissue, and skin closure and was necessary for assisting with the case. I attest to the content of the Intraoperative Record and any orders documented therein. Any exceptions are noted below.
--- NOTE | 2023-05-06 10:28 | Anesthesiology Progress Note ---
Date of Service May 06, 2023 Anesthesia Post Procedure Vital Signs Vital Signs: Temp Pulse Pulse Resp BP BP BP 05/06/23 10:25 36.1 C L 74 15 110/61 128/56 L 05/06/23 10:15 82 15 108/61 121/54 L 05/06/23 10:05 83 14 109/61 119/53 L 05/06/23 09:55 93 H 15 121/62 121/52 L 05/06/23 09:49 36 C L 96 H 21 105/58 L 05/06/23 06:50 36.5 C 96 H 18 165/90 H Pulse Ox O2 Del Method O2 Flow Rate 05/06/23 10:25 92 Room Air 05/06/23 10:15 95 Oxymask 2 05/06/23 10:05 98 Oxymask 12 05/06/23 09:55 98 Oxymask 12 05/06/23 09:49 96 Oxymask 12 05/06/23 06:50 96 Room Air Transfer of Care Handoff Completed per policy Notes Mental Status: alert / awake / arousable Patient Amnestic to Procedure: Yes Nausea / Vomiting: adequately controlled Pain: adequately controlled Airway Patency, RR, SpO2: stable & adequate BP & HR: stable & adequate Hydration State: stable & adequate Anesthetic Complications: no major complications apparent
[2023-05-06] MEDS ORDERED: CYCLOBENZAPRINE HCL 5 MG TAB PO PRN (10:54)
[2023-05-06] MEDS ORDERED: IBUPROFEN 200 MG TAB PO PRN (10:54)
[2023-05-06] MEDS ORDERED: MoRPHine SULFATE 4 MG/ML 1 ML CARP\\VIAL IV PRN (10:54)
[2023-05-06] MEDS ORDERED: oxyCODONE/ACETAMINOPHEN 5mg/325mg TAB PO PRN (10:54)
[2023-05-06] MEDS ORDERED: POLYETHYLENE (MIRALAX) 17 GM PACK PO PRN (10:54)
--- NOTE | 2023-05-06 11:15 | Critical Care Consultation ---
Date of Consultation May 06, 2023 Assessment & Plan (1) Stenosis of left internal carotid artery: (2) Recent cerebrovascular accident (CVA): Plan 87-year-old male status post left TCAR with recent CVA. BP and pain management parameters per vascular surgical team. Patient on chronic prednisone at 5 mg daily and theophylline for asthma. We will continue these medications throughout his hospital stay and upon discharge. No signs of adrenal insufficiency at this time. Continue dual antiplatelet therapy per vascular surgery. Thank you for allowing us to participate in the care of the patient. We will continue to monitor him while he remains under ICU status. 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 He was discharged from the hospital 04/23/2023 due to a CVA requiring TNKase. He was found to have left internal carotid artery stenosis during that hospital admission on a CTA of the neck. Currently in the ICU in stable condition. Arterial line in place. Hemodynamics appropriate. No significant oxygen requirements. Denies complaints at this time. Family at bedside including and son. Allergies Allergy/AdvReac Type Severity Reaction Status Date / Time No Known Drug Allergies Allergy Verified 05/06/23 06:58 Home Medications Medication Instructions Recorded Confirmed Type polyethylene glycol 3350 17 gram 17 g PO DAILY PRN constipation #30 07/26/22 05/06/23 Rx oral powder packet (Miralax) ea cyclobenzaprine 5 mg tablet 5 mg PO TID PRN Muscle Spasm 09/27/22 05/06/23 History gabapentin 300 mg capsule 300 mg PO BID #60 caps 11/28/22 05/06/23 Rx theophylline 300 mg 300 mg PO BID 01/23/23 05/06/23 History tablet,extended release,12 hr levothyroxine 88 mcg tablet 88 mcg PO QAM 01/24/23 05/06/23 History potassium chloride 20 mEq 20 meq PO QAM 01/24/23 05/06/23 History tablet,extended release(part/cryst) prednisone 5 mg tablet 5 mg PO QAM 01/24/23 05/06/23 History ibuprofen 200 mg tablet (Advil) 200 mg PO Q6H PRN Pain 02/05/23 05/06/23 History tramadol 50 mg tablet 50 mg PO Q6H PRN Pain #30 tabs 04/17/23 05/06/23 Rx aspirin 81 mg tablet,delayed 81 mg PO QAM #21 tabs 04/23/23 05/06/23 Rx release rosuvastatin 5 mg tablet (Crestor) 5 mg PO QAM 04/30/23 05/06/23 History tamsulosin 0.4 mg capsule 0.4 mg PO QPM #90 caps 05/02/23 05/06/23 Rx clopidogrel 75 mg tablet (Plavix) See Rx Instructions .Route .COMPLEX 05/06/23 05/06/23 History Patient History Medical History (Updated 05/06/23 @ 11:14 by Pepe Vogel MD) Acid reflux 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 Last treatment November 2020 per records History of skin cancer HLD (hyperlipidemia) [place] (hard of hearing) Hypertension Hypothyroidism Insufficiency, adrenal On Prednisone 5mg daily for asthma per PCP records Mention of possible adrenal insufficiency due to chronic steroid use per 09/15/20 PCP note- but at visit 10/05/20- patient had no difference in symptoms with increased steroid and directed to go back on Prednisone 5mg daily Lumbar disc disease with radiculopathy Meningioma Dural based calcification along the inner table at the vertex is 14 x 8mm, likely a small meningioma per 04/22/23 brain MRI Followed by neurology per PCP records 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 per brain MRI 04/21/23 and head/neck CTA 04/21/23 Surgical History History of bowel resection w/ colostomy History of colonoscopy History of colostomy reversal History of hemorrhoidectomy History of neck surgery for cancer with radiation Hx of parotidectomy Status post Mohs surgery 07/04/2020 - left face/preauricular area Family History Unknown Coronary heart disease Cancer Father Cancer Hypertension Son Diabetes Mother Benign neoplasm of head Brother Heart disease Brother Liver disease Heart disease Valve replacement Denies family history of Stroke Social History Smoking Status: Never smoker Cigarettes Per Day: 1960; Second Hand Exposure: No; Do You Dip or Chew Tobacco: No; Tobacco Cessation Education Requested by Patient: No Hx Alcohol Use: Yes Alcohol type: beer Alcohol Intake Frequency: 2-3 x/Week Hx Substance Use: No Preferred Language: [place] Communication Ability: Effective Visual Impairment: No Limitations Hearing Ability: 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 Vitals: As noted below. Skin: Skin changes noted on his hands. Left TCAR incision site noted. Head: Normocephalic atraumatic. Neck: Supple without nuchal rigidity or adenopathy. Lungs: Clear without wheezes, rales, or rhonchi. No accessary muscle use. Heart: Regular rate and rhythm without murmur, rub, or gallop. Abdomen: Soft, nondistended, positive bowel sounds x4, nontender without masses. Musculoskeletal: All extremities intact. Moves them well. Extremities: No cyanosis, edema, or calf tenderness bilaterally. Neuro: A&O, speech coherent without slurring, CN II-XII grossly intact. Right- sided facial droop noted which family notes is chronic. Results & Data Results & Data Vital Signs (Past 12 Hours) Vital Signs Temp Pulse Pulse Resp BP BP BP 05/06/23 10:25 36.1 C L 74 15 110/61 128/56 L 05/06/23 10:15 82 15 108/61 121/54 L 05/06/23 10:05 83 14 109/61 119/53 L 05/06/23 09:55 93 H 15 121/62 121/52 L 05/06/23 09:49 36 C L 96 H 21 105/58 L 05/06/23 06:50 36.5 C 96 H 18 165/90 H Pulse Ox O2 Del Method O2 Flow Rate 05/06/23 10:25 92 Room Air 05/06/23 10:15 95 Oxymask 2 05/06/23 10:05 98 Oxymask 12 05/06/23 09:55 98 Oxymask 12 05/06/23 09:49 96 Oxymask 12 05/06/23 06:50 96 Room Air Coding Level of Care Code 29100 IN/OBS CONSULT LVL 3,45M Diagnoses Stenosis of left internal carotid artery I65.22 Recent cerebrovascular accident (CVA) Z86.73
[2023-05-06] MEDS: LACTATED RINGER'S 1,000 ML IV SCH ×2 (11:48→20:40)
[2023-05-06] MEDS ORDERED: PHENYLEPHRINE/NSS 25 MG/250 ML BAG IV PRN (14:07)
[2023-05-06] MEDS: ceFAZolin 2000MG 2,000 MG/15 ML SYR IV SCH ×2 (15:47→23:06)
[2023-05-06] MEDS: PANTOprazole 40 MG in SYRINGE 0 ML IV SCH (19:33)
[2023-05-06] MEDS: GABAPENTIN 300 MG CAP PO SCH (19:33)
[2023-05-06] MEDS: THEOPHYLLINE 300MG EXTENDED REL TAB PO SCH (19:35)
[2023-05-06] MEDS ORDERED: TAMSULOSIN HCL 0.4 MG CAP PO SCH (21:00)
[2023-05-07 03:16] VITALS: RESP 10; O2SAT 95
[2023-05-07] MEDS ORDERED: LEVOTHYROXINE SODIUM 88 MCG TABLET PO SCH (06:30)
[2023-05-07] MEDS ORDERED: PSEUDOEPHEDRINE HCL 30 MG TAB PO PRN (08:04)
--- NOTE | 2023-05-07 08:17 | Surgery Progress Note ---
Date of Service May 07, 2023 Assessment & Plan (1) Stenosis of left internal carotid artery: Plan: Patient doing well. No neuro deficits post op. (2) Postoperative hypotension: Plan: Patient started on alice last pm. Still on low dose. BP noin the 120's Will wean off alice and start on sudafed. If BP stays up, then can be d/c later today. Admission and Anticipated Discharge Date Admission Date: May 06, 2023 Subjective Awake and alert. He has no complaints Physical Exam Constitutional: WD/WN, vitals as above Neck: trachea midline Respiratory: normal respiratory effort; no respiratory distress Cardiovascular: Rate/Rhythm: regular rate and regular rhythm Extremities: normal capillary refill Musculoskeletal: Extremities: strength 5/5 throughout Skin: + incision (dry and clean with minimal swelling but surrounding ecchymosis) Neurologic: CN's II-XI intact bilaterally and moves all extremities Psychiatric: Orientation: alert and oriented x 3 Results & Data Vital Signs (Past 12 Hours) Vital Signs Temp Pulse Resp BP Pulse Ox 05/07/23 03:10 47 L 10 L 95 05/07/23 03:00 51 L 16 95 05/07/23 03:00 115/53 L 05/07/23 02:50 49 L 16 94 05/07/23 02:40 46 L 14 95 05/07/23 02:30 50 L 16 93 05/07/23 02:30 117/51 L 05/07/23 02:20 46 L 16 93 05/07/23 02:10 46 L 14 93 05/07/23 02:00 46 L 14 92 05/07/23 02:00 100/49 L 05/07/23 01:50 45 L 13 94 05/07/23 01:40 49 L 13 94 05/07/23 01:30 46 L 12 93 05/07/23 01:30 103/51 L 05/07/23 01:20 49 L 10 L 95 05/07/23 01:10 54 L 16 93 05/07/23 01:00 60 19 93 05/07/23 01:00 124/60 05/07/23 03:16 36.7 C 05/07/23 00:50 54 L 20 93 05/07/23 00:40 55 L 19 93 05/07/23 00:30 55 L 15 92 05/07/23 00:30 101/55 L 05/07/23 00:20 55 L 17 92 05/07/23 00:10 60 15 95 05/07/23 00:00 69 21 97 05/07/23 00:00 131/86 05/06/23 23:50 49 L 16 93 05/06/23 23:40 48 L 16 92 05/06/23 23:30 50 L 18 93 05/06/23 23:30 118/55 L 05/06/23 23:20 50 L 14 93 05/06/23 23:10 50 L 15 95 05/06/23 23:00 56 L 15 92 05/06/23 23:00 108/55 L 05/06/23 22:50 56 L 23 93 05/06/23 22:40 52 L 15 94 05/06/23 22:30 51 L 16 93 05/06/23 22:30 103/55 L 05/06/23 22:20 48 L 16 96 05/06/23 22:10 54 L 18 94 05/07/23 00:00 36.6 C 05/06/23 22:00 51 L 17 93 05/06/23 22:00 99/51 L 05/06/23 21:50 59 L 21 93 05/06/23 21:40 50 L 12 94 05/06/23 21:30 54 L 14 95 05/06/23 21:30 104/51 L 05/06/23 21:20 70 20 95 05/06/23 21:10 81 21 94 05/06/23 21:00 57 L 16 93 05/06/23 21:00 108/59 L 05/06/23 20:50 64 14 94 05/06/23 20:40 54 L 16 93 05/06/23 20:30 57 L 27 H 94 05/06/23 20:30 110/54 L 05/06/23 20:20 57 L 14 95
--- NOTE | 2023-05-07 08:24 | Critical Care Progress Note ---
Date of Service May 07, 2023 Assessment & Plan (1) Stenosis of left internal carotid artery: (2) Recent cerebrovascular accident (CVA): (3) Postoperative hypotension: Plan 87-year-old male status post left TCAR with recent CVA. BP and pain management parameters per vascular surgical team. Patient on chronic prednisone at 5 mg daily and theophylline for asthma. We will continue these medications throughout his hospital stay and upon discharge. Continue dual antiplatelet therapy per vascular surgery. Dispo per primary team. Thank you for allowing us to participate in the care of the patient. We will continue to monitor him while he remains under ICU status. Admission and Anticipated Discharge Date Admission Date: May 06, 2023 Subjective Patient eating breakfast. Denies any significant complaints. No shortness of breath. Minimal pain. Currently requiring low-dose phenylephrine drip. Surgery notes reviewed. Likely transition to Sudafed later today. Review of Systems Review of Systems: All systems reviewed & are unremarkable except as noted in HPI & below Physical Exam Physical Exam: General: Patient presents appearing well and in no distress. Vitals: As noted below. Skin: Skin changes noted on his hands. Left TCAR incision site noted. Head: Normocephalic atraumatic. Neck: Supple without nuchal rigidity or adenopathy. Lungs: Clear without wheezes, rales, or rhonchi. No accessary muscle use. Heart: Regular rate and rhythm without murmur, rub, or gallop. Abdomen: Soft, nondistended, positive bowel sounds x4, nontender without masses. Musculoskeletal: All extremities intact. Moves them well. Extremities: No cyanosis, edema, or calf tenderness bilaterally. Neuro: A&O, speech coherent without slurring, CN II-XII grossly intact. Right-sided facial droop noted which family notes is chronic. Results & Data Results & Data Vital Signs (Past 12 Hours) Vital Signs Temp Pulse Resp BP Pulse Ox 05/07/23 03:10 47 L 10 L 95 05/07/23 03:00 51 L 16 95 05/07/23 03:00 115/53 L 05/07/23 02:50 49 L 16 94 05/07/23 02:40 46 L 14 95 05/07/23 02:30 50 L 16 93 05/07/23 02:30 117/51 L 05/07/23 02:20 46 L 16 93 05/07/23 02:10 46 L 14 93 05/07/23 02:00 46 L 14 92 05/07/23 02:00 100/49 L 05/07/23 01:50 45 L 13 94 05/07/23 01:40 49 L 13 94 05/07/23 01:30 46 L 12 93 05/07/23 01:30 103/51 L 05/07/23 01:20 49 L 10 L 95 05/07/23 01:10 54 L 16 93 05/07/23 01:00 60 19 93 05/07/23 01:00 124/60 05/07/23 03:16 36.7 C 05/07/23 00:50 54 L 20 93 05/07/23 00:40 55 L 19 93 05/07/23 00:30 55 L 15 92 05/07/23 00:30 101/55 L 05/07/23 00:20 55 L 17 92 05/07/23 00:10 60 15 95 05/07/23 00:00 69 21 97 05/07/23 00:00 131/86 05/06/23 23:50 49 L 16 93 05/06/23 23:40 48 L 16 92 05/06/23 23:30 50 L 18 93 05/06/23 23:30 118/55 L 05/06/23 23:20 50 L 14 93 05/06/23 23:10 50 L 15 95 05/06/23 23:00 56 L 15 92 05/06/23 23:00 108/55 L 05/06/23 22:50 56 L 23 93 05/06/23 22:40 52 L 15 94 05/06/23 22:30 51 L 16 93 05/06/23 22:30 103/55 L 05/06/23 22:20 48 L 16 96 05/06/23 22:10 54 L 18 94 05/07/23 00:00 36.6 C 05/06/23 22:00 51 L 17 93 05/06/23 22:00 99/51 L 05/06/23 21:50 59 L 21 93 05/06/23 21:40 50 L 12 94 05/06/23 21:30 54 L 14 95 05/06/23 21:30 104/51 L 05/06/23 21:20 70 20 95 05/06/23 21:10 81 21 94 05/06/23 21:00 57 L 16 93 05/06/23 21:00 108/59 L 05/06/23 20:50 64 14 94 05/06/23 20:40 54 L 16 93 05/06/23 20:30 57 L 27 H 94 05/06/23 20:30 110/54 L Coding Level of Care Code 26509 SUB INP/OBS CARE 08/15MIN Diagnoses Stenosis of left internal carotid artery I65.22 Recent cerebrovascular accident (CVA) Z86.73 Postoperative hypotension I95.81
[2023-05-07] MEDS: GABAPENTIN 300 MG CAP PO SCH (08:32)
[2023-05-07] MEDS: THEOPHYLLINE 300MG EXTENDED REL TAB PO SCH (08:32)
[2023-05-07] MEDS: PANTOprazole 40 MG in SYRINGE 0 ML IV SCH (08:33)
[2023-05-07] MEDS ORDERED: POTASSIUM CHLORIDE CRTAB 20 MEQ TABCR PO SCH (09:00)
[2023-05-07] MEDS ORDERED: CLOPIDOGREL BISULFATE 75 MG TAB PO SCH (09:00)
[2023-05-07] MEDS ORDERED: ASPIRIN 81 MG ECTAB PO SCH (09:00)
[2023-05-07] MEDS ORDERED: ROSUVASTATIN CALCIUM 5 MG TAB PO SCH (09:00)
[2023-05-07] MEDS ORDERED: predniSONE 5 MG TAB PO SCH (09:00)
[2023-05-07 09:25] VITALS: TEMP 97.2
[2023-05-07 12:58] VITALS: BP 102/54; PULSE 49
== END 2023-05-07 14:49 | disposition home health service (06) | DRG 36 ==
LOC: ASU 06:05 → 1E 09:20
PROC: EV.TCAR (2023-05-06 08:00)

== ENCOUNTER 2023-09-01 04:30 | Inpatient (IN) ==
--- OUTSIDE RECORDS SUMMARY | 2023-09-01 04:33 | External Medical Summary | Summary of Care ---
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; Basal cell carcinoma (BCC) of left forearm Allergies Active Allergy Reactions Criticality Noted Date Comments Doxycycline 07/20/2016 Allergy is listed in PCP notes but patient can't remember ever having a problem documented as of this encounter (statuses as of 08/29/2023) Medications Medication Sig Dispensed Refills Start Date End Date Status AMILORIDE-HYDROCHLOROT HIAZIDE 5-50 MG OR TABS 1 tablet daily 0 08/28/2004 Active THEOPHYLLINE ER 300 MG PO TB12 neda e2 daily 0 Active PROAIR HFA 108 (90 BASE) MCG/ACT IN AERS use as needed 0 Active Potassium Chloride Anny ER 20 MEQ Oral Tablet Extended Release Take 1 Tablet by mouth in the morning. 0 Active Budesonide 180 MCG/ACT Inhalation Aerosol Powder Breath Activated Inhale 2 Puffs by mouth in the morning and 2 Puffs before bedtime. 0 Active levothyroxine (LEVOXYL) 88 MCG Tablet 1 tab daily 0 12/07/2016 Active rosuvastatin (CRESTOR) 5 MG Tablet 1 tab daily 0 12/25/2017 Active tamsulosin (FLOMAX) 0.4 MG Capsule Take 1 Capsule by mouth in the morning. 0 04/05/2018 Active fluorouracil (EFUDEX) 5 % creamIndications:AK (actinic keratosis) Bring to Mohs appt for wraps as directed 80 g 1 08/28/2018 Active Cyclobenzaprine HCl 5 MG Oral Tablet (FLEXERIL) 0 06/13/2020 Active predniSONE 10 MG Oral Tablet (Deltasone) 0 12/22/2020 Active Promethazine HCl 25 MG Oral Tablet (Phenergan) 0 10/18/2020 Active Clopidogrel Bisulfate 75 MG Oral Tablet (pLAVix) 0 10/14/2020 Active Triamcinolone Acetonide 0.1 % External Cream (Aristocort) Apply to plaques behind ears and on legs twice daily as needed for itching 453.6 g 2 03/20/2021 Active Triamcinolone Acetonide 0.1 % External Ointment (Aristocort)Indication s:Dermatitis Apply to neck as needed for rash up to twice daily 15 g 1 05/23/2021 Active Betamethasone Dipropionate Aug 0.05 % External Ointment (Diprolene AF) Use on affected areas behind ears twice daily for no more than 1 week at a time. Use on itchy areas on body twice daily as needed for itching, no more than 2 weeks at a time. 45 g 1 05/23/2021 Active Mupirocin 2 % External Ointment (Bactroban) Apply to wound on left arm at least twice daily 22 g 1 06/14/2021 Active Fluorouracil 5 % External Cream (Efudex) Apply thin layer to right dorsal hand and scaly plaques on fingers of right hand twice daily for 4-6 weeks. 40 g 1 07/07/2021 Active Mupirocin 2 % External Ointment (Bactroban) Apply to affected areas on hands at least twice daily until healed 22 g 2 04/25/2022 Active documented as of this encounter (statuses as of 08/29/2023) Active Problems Problem Noted Date Diagnosed Date Cancer of skin, squamous cell 08/31/2020 Cancer Staging:Pathologic stage from 04/19/2021:Stage III(pT2, pN1, cM0) - Unsigned Hx of actinic keratosis 07/03/2018 Postoperative nausea 02/18/2014 Ileostomy status 02/16/2014 Asthma, moderate persistent 02/15/2014 Heartburn 10/14/2013 Rectal cancer 08/04/2013 HX-SKIN MALIGNANCY NEC multiple - most recently: 03/22/2011 Overview: SCCIS L upper arm/SCC L chest/SCC R jawline near preauricular 04/2019, BCC L inner forearm 11/2018, SCCIS R upper hoffmann and L wrist 08/2018, SCC L forearm near elbow 08/2018,SCCIS L neck, L knee, R hoffmann; SCC R lateral knee 04/2018,SCC R lateralsuperiorknee 03/2018,SCC L superior helical rim 10/2017, SCCIS R rastafari 04/2017, SCC upper midline back, BCC R lateral leg, SCCIS R lateral calf all 03/2017, SCCIS L 5th finger 2014, SCCIS R knee x 2, BCC R shoulder, L upper back, SCCIS R forearm, L elbow, L forearm 2013, BCC R upper back 2012, SCC L ventral forearm 06/2012, Nate R lateral neck 04/2012, SCC L cheek 10/2010; BCC L&R posterior arm, ant neck, L scapula, R pop fossa; SCC R lower lip, IS L neck- 2009; SCC R neck/XRT, R cheek- 2007, and many previously. ADVANCE DIRECTIVE INFORMATION 02/06/2010 Overview: No, Advance Directive brochure offered , patient declined. documented as of this encounter (statuses as of 08/29/2023) Social History Tobacco Use Types Packs/Day Years Used Date Smoking Tobacco: Former Smokeless Tobacco: Never Quit: 07/22/1966 Alcohol Use Standard Drinks/Week Comments Yes 5.8 (1 standard drink = 0.6 oz p ure alcohol) Sex and Gender Information Value Date Recorded Sex Assigned at Not on file Gender Identity Not on file Sexual Orientation Not on file Job Start Date Occupation Industry Not on file Not on file Not on file documented as of this encounter Functional Status Functional Status Response Date of Assess ment Are you deaf or do you have serious difficulty hearing? No-Uses hearing aids 09/01/2020 Are you blind or do you have serious difficulty seeing, even when wearing glasses? No 09/01/19 Do you have serious difficul ty walking or climbing stairs? (5 years old or older) No 09/01/2020 Do you have difficulty dress ing or bathing? (5 years old or older) No 09/01/2020 Because of a physical, menta l, or emotional condition, do you have difficulty doing errands alone such as visiting a doctor s office or shopping? (15 years old or older) No 09/01/19 21 Cognitive Status Response Date of Assessm ent Because of a physical, menta l, or emotional condition, do you have serious difficulty concentrating, remembering, or making decisions? (5 years old or older) No 09/01/2020 documented as of this encounter Progress Notes * Lillie Ortiz MD - 08/23/2023 3:59 PM EST SUBJECTIVE: History of Present Illness: Geovanni Redmond is a 88 year old male seen today for recheck of biopsy sites and also additional biopsies. He reports the area behind his right ear feels much better and vinegar soaks help a lot. He recently had a procedure for evaluation of bladder cancer at [facility] and reports there areno plans for surgery or chemotherapy, he has another follow-up appt in a few months. Records have been requested from [facility], still waiting to receive the records. MEDICA TIONS: Current Outpatient Medications Medication Sig Dispense Refill AMILORIDE-HYDROCHLOROTHIAZIDE 5-50 MG OR TABS 1 tablet daily 0 THEOPHYLLINE ER 300 MG PO TB12 neda e2 daily PROAIR HFA 108 (90 BASE) MCG/ACT IN AERS use as needed Potassium Chloride Anny ER 20 MEQ Oral Tablet Extended Release Take 20 mEq by mouth daily. Budesonide 180 MCG/ACT Inhalation Aerosol Powder Breath Activated Inhale 2 Puffs by mouth 2 times aday. levothyroxine (LEVOXYL) 88 MCG Tablet 1 tab daily rosuvastatin (CRESTOR) 5 MG Tablet 1 tab daily tamsulosin (FLOMAX) 0.4 MG Capsule Take 0.4 mg by mouth daily. fluorouracil (EFUDEX) 5 % cream Bring to [facility] appt for wraps as directed 80 g 1 Cyclobenzaprine HCl 5 MG Oral Tablet (FLEXERIL) predniSONE 10 MG Oral Tablet (Deltasone) Promethazine HCl 25 MG Oral Tablet (Phenergan) Clopidogrel Bisulfate 75 MG Oral Tablet (pLAVix) Triamcinolone Acetonide 0.1 % External Cream (Aristocort) Apply to plaques behind ears and on legs twice daily as needed for itching 453.6 g 2 Triamcinolone Acetonide 0.1 % External Ointment (Aristocort) Apply to neck as needed for rash up totwice daily 15 g 1 Betamethasone Dipropionate Aug 0.05 % External Ointment (Diprolene AF) Use on affected areas behindears twice daily for no more than 1 week at a time. Use on itchy areas on body twice daily as needed for itching, no more than 2 weeks at a time. 45 g 1 Mupirocin 2 % External Ointment (Bactroban) Apply to wound on left arm at least twice daily 22 g 1 Fluorouracil 5 % External Cream (Efudex) Apply thin layer to right dorsal hand and scaly plaques onfingers of right hand twice daily for 4-6 weeks. 40 g 1 Mupirocin 2 % External Ointment (Bactroban) Apply to affected areas on hands at least twice daily until healed 22 g 2 No current facility-administered medications for this visit. ALLERG IES: Vibramycin [doxycycline] OBJECTIVE: GEN: Healthy, alert, no distress, appears oriented, pleasant, and cooperative. SKIN: Problem focused exam completed: A.left forearm, distal: ~ 1.8 ulcerated plaque B.left forearm, proximal: ~2 cm ulcerated plaque C.right thigh, superior to knee: ~ 2 cm red exophytic plaque - biopsy sites on right dorsal hand, left volar forearm, and bilateral lower extremities healing well, no active bleeding, no evidence of infection ASSESS MENT/PLAN: 1. Lesion A.left forearm, distal. R/o squamous cell carcinoma Shave of the lesion noted above to remove and confirm diagnosis. The procedure, risks, benefits, alternatives and expected outcomes were discussed with the patient and consent was obtained. Time out called. Patient identified, procedure verified, site identified and verified. Patient and staff present in agreement. Area prepped with alcohol and anesthetized using 0.5% lidocaine with epinephrine at 1:200,000 concentration. Shave of lesion performed. 20% AlCl and bandaging applied. Specimen sent to pathology. Patient instructed in routine post-op care. The lesion was curetted for cure. Size of lesion: 1.8 cm Size of wound after curettage: 2.4 cm (Update: diagnosed as squamous cell carcinoma in situ on path, treated with curettage) 2. Lesion B.left forearm, proximal. R/o squamous cell carcinoma. Shave of the lesion noted above to remove and confirm diagnosis. The procedure, risks, benefits, alternatives and expected outcomes were discussed with the patient and consent was obtained. Time out called. Patient identified, procedure verified, site identified and verified. Patient and staff present in agreement. Area prepped with alcohol and anesthetized using 0.5% lidocaine with epinephrine at 1:200,000 concentration. Shave of lesion performed. 20% AlCl and bandaging applied. Specimen sent to pathology. Patient instructed in routine post-op care. The lesion was curetted for cure. Size of lesion: 2 cm Size of wound after curettage: 2.6 cm (Update: diagnosed as nodular basal cell carcinoma on path, treated with curettage) 3. Lesion C.right thigh, superior to knee. Favor squamous cell carcinoma. Shave Biopsy of the lesion noted above to establish and confirm diagnosis. The procedure, risks, benefits, alternatives and expected outcomes were discussed with the patient and consent was obtained.Time out called. Patient identified, procedure verified, site identified and verified. Patient and staff present in agreement. Area prepped with alcohol and anesthetized with 0.5% lidocaine with epinephrine at 1:200,000 concentration. Biopsy of lesion performed. 20% AlCl and bandaging applied. Specimen sent to pathology. Patient instructed in routine post-op care. *continue Vaseline and bandage to all other biopsy sites Follow-up: will adjust with lab/path results The patient was encouraged to contact me with any further questions or concerns. Lillie Ortiz MD 08/23/2023 documented in this encounter Nursing Notes * Enedina Younger LPN - 08/23/2023 12:47 PM EST Chief Complaint Patient presents with Re-Check Pt presents today for recheck on wounds on extremeties documented in this encounter Plan of Treatment Upcoming Encounters Date Type Department Care Team (Late st Contact Info) Description 09/27/2023 3:00 PM EST Office Visit [facility] [address] [place] [address] Lillie Ortiz MD [address] [place] [address] [place] [id number] Health Maintenance Due Date Last Done Comments Pneumococcal Vaccine: 65+ Years (1 - PCV) 1941 Depression Screening 1949 TSH 1955 DTaP,Tdap,and Td Vaccines (1 - Tdap) 1956 Zoster Vaccines (1 of 2) 1987 *SPIROMETRY ONCE FOR ASTHMA-ADULT 09/09/2016 COLONOSCOPY-ANNUAL AGES 18-100 08/01/2017 08/01/2016, 08/01/2016, 08/17/2014, Additional history exists COVID-19 Vaccine (4 - 2022-24 season) 2023 05/29/2021, 11/03/2020, 10/13/2020 Influenza Vaccine (FLU shot) (#1) 2023 GARDASIL-HPV IMMUNIZATION SERIES Aged Out No longer eligible based on patient's age to complete this topic Hepatitis B Aged Out No longer eligi ble based on patient's age to complete this topic MENINGOCOCCAL (MENACTRA/MENVEO) Aged Out No longer eligible based on patient's age to complete this topic documented as of this encounter Medical Devices Not on filedocumented as of this encounter Procedures Procedure Name Priority Date/Time Associated Diagnosis Comments SURGICAL PATHOLOGY Routine 08/23/2023 4: 02 PM EST Skin lesion documented in this encounter Results * SURGICAL PATHOLOGY (08/23/2023 4:02 PM EST) Final Diagnosis A. 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 B. Skin, left forearm, proximal, shave: Nodular basal cell carcinoma, transected. C. 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 Comment: Neither lymphovascular nor perineural invasion is seen. The lesion is focally transected. 08/27/2023 11:51 AM EST [facility] Clinical History See Order Comments 08/27/2023 11:51 AM EST [facility] Order Comments A.left forearm, distal: r/o squamous cell carcinoma. Shave biopsy and curettage B.left forearm, proximal: r/o squamous cell carcinoma. Shave biopsy and curettage C.right thigh, superior to knee: favor squamous cell carcinoma. Shave biopsy 08/27/2023 11:51 AM EST LABORATORY [facility] Gross Description A. Skin. Received in formalin with a container labeled with "Geovanni Redmond", "[id number]", "1935" and " left forearm distal". Received is a 1.7 x 1.4 cm skin shave. The skin surface is brown to evangelista unevenly raised focally roughened hair-bearing flaky and remarkable for a somewhat centrally located hemorrhagic area measuring 0.5 x 0.5 cm, extending 0.2 cm from the nearest margin. The underlying tissue is inked. The specimen is serially sectioned into 4 and submitted in cassettes A1 and A2. Gross By: MR Loza Skin. Received in formalin with a container labeled with "Geovanni Redmond", "[id number]", "1935" and " left forearm proximal". Received is a 1.8 x 1.7 cm skin shave. The skin surface is carrizales-white firm hair-bearing and remarkable for a somewhat centrally located red to pink firm glistening area measuring 1.5 x 1.3 cm, extending less than 0.1 cm from the nearest margin. The underlying tissue is inked. The specimen is serially sectioned into 5 and submitted in cassettes B1 and B2. Gross By: MR Gamboa Skin. Received in formalin with a container labeled with "Geovanni Redmond", "[id number]", "1935" and " right thigh superior to shiny". Received is a 2.2 x 2.0 cm skin shave. The skin surface is carrizales and remarkable for a somewhat centrally located raised focally roughened firm shiny carrizales to red to pink area measuring 1.8 x 1.7 cm, extending to the nearest margin. The underlying tissue is inked. The specimen is serially sectioned into 6 and submitted in cassettes C1 through C3. Gross By: 08/27/2023 11:51 AM EST LABORATORY [facility] Sign Out Location Pathologist sign out performed at [facility] ([facility]), [address] [place] [id number]. 08/27/2023 11:51 AM EST LABORATORY [facility] Photographic images and diagrams represent russell findings in this case; they are not intended to replace a complete review of the final diagnostic report. The following statement applies to Flow Cytometry, Histology, In situ Hybridization Assays and Molecular Genetics. This test was developed and performed at [facility] and its performance characteristics determined by [facility]. It has not been cleared or approved by the U.S. Food and Drug Administration. The FDA has determined that such clearance or approval is not necessary. This test is used for clinical purposes. It should not be regarded as investigational or for research. Special stains, including histochemical stains, and studies using immunologic and PATIENCE methodology (where applicable) are performed with appropriate positive and negative control reactions. 08/27/2023 11:51 AM EST LABORATORY [facility] Tissue Skin structure / Unknown 08/23/2023 4:02 PM EST 08/23/2023 4:02 PM EST Comment:A.left forearm, dist al: r/o squamous cell carcinoma. Shave biopsy and curettage B.left forearm, proximal: r/o squamous cell carcinoma. Shave biopsy and curettage C.right thigh, superior to knee: favor squamous cell carcinoma. Shave biopsy Specimen from wound (specimen) Skin structure / Unknown 08/23/2023 4:02 PM EST 08/23/2023 4:02 PM EST Comment:A.left forearm, dist al: r/o squamous cell carcinoma. Shave biopsy and curettage B.left forearm, proximal: r/o squamous cell carcinoma. Shave biopsy and curettage C.right thigh, superior to knee: favor squamous cell carcinoma. Shave biopsy Specimen from wound (specimen) Skin structure / Unknown 08/23/2023 4:02 PM EST 08/23/2023 4:02 PM EST Comment:A.left forearm, dist al: r/o squamous cell carcinoma. Shave biopsy and curettage B.left forearm, proximal: r/o squamous cell carcinoma. Shave biopsy and curettage C.right thigh, superior to knee: favor squamous cell carcinoma. 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 Code Status History Code Status Date Activated Date Inactivated Comments Full Code 02/15/2014 5:59 AM 02/18/2014 4:01 PM This order reflects the patients wishes and were consensually agreed upon. Full Code 10/12/2013 2:56 PM 10/15/2013 6:31 PM This order reflects the patients wishes and were consensually agreed upon. Question Answer Comments Discussion of Advance Directives occurred with: Not Discussed Does the patient have a Living Will? No Does the patient have Health Care Power of Push Button Switch Assembler? No Care Teams Tree Feller Operator Relationship Specialty Start Date End Date Giles Galan MD [address] [address] PCP - General Pulmonary Diseases 02/27/17 documented as of this encounter
[2023-09-01] MEDS: OPTIRAY 320 125ml IV ONE (04:39)
--- NOTE | 2023-09-01 04:43 | Emergency Department Note ---
Impression & Plan Aphasia, Stroke-like symptoms ED Provider Note Provider: Morris Jones MD DATE OF SERVICE: 09/01/2023 CHIEF COMPLAINT: Strokelike symptoms HISTORY OF PRESENT ILLNESS: Patient is a 88-year-old gentleman history of CVA, hypertension, hypothyroidism, bladder cancer status post surgery on August 12 of this year currently on Plavix presenting via ambulance this evening with strokelike symptoms. Initial EMS report where the patient had developed significant right-sided weakness and facial droop and slurred speech. Patient upon arrival immediately taken to CT scan as stroke alert. Reevaluation so significant deficits of the right arm and leg and dysarthria/slurred speech. Discussion with the who was at home with the patient states went to bed around 03/30/1930 last evening okay. Was otherwise well. Woke around 330 and went to the bathroom under his own power. Came back from the bathroom and laid down and when she was going to talk to them at that time he began to mumble. This was just before 4 AM. No seizure-like activity or trauma reported. Normally has good strength of the right side as well as intact speech by the 's report. Does have a history of a left-sided TCAR this past April for stenosis here. PAST MEDICAL HISTORY: As noted above MEDICATIONS: Reviewed home medications includes Plavix SOCIAL HISTORY: Lives at home with PHYSICAL EXAM: GENERAL: Looking around the room mumbling at time Head: normocephalic and atraumatic EYES: No injection, discharge or icterus. PERRL, EOMI. no gaze preference NECK: Trachea midline. Supple. ENT: Mucous membranes pink and moist. Pharynx without erythema or exudate. LUNGS: Airway patent. No retractions. Breath sounds clear with good air entry bilaterally. HEART: Regular rate and rhythm. No chest wall tenderness ABDOMEN: Soft and non-tender, without guarding or rebound. SKIN: Acyanotic, warm, dry, without rashes EXTREMITIES: Without swelling, tenderness or deformity NEUROLOGICAL: Patient able to stand. Moving extremities fluently. No gaze preference. Tongue midline. Maybe a trace slight facial droop. Significant aphasia. Unable to answer simple questions or describe objects such as watch or pen. EK bpm sinus rhythm first-degree AV block. Left axis. Some LVH changes without clear acute ST segment elevation or depression. QTc 472. CONTINUOUS CARDIAC MONITORING: was ordered and showed a heart rate of 70s to 80s bpm in normal sinus rhythm Patient's laboratory studies and imaging reviewed. Differential includes Infection, dehydration, metabolic abnormality, hypo/hyperglycemia, electrolyte disturbance, anemia, hypoxia, cardiac sources, intracerebral event, toxicologic, neurologic, as well as other pathologies. IMPRESSION/MEDICAL DECISION MAKING: Patient presents with strokelike symptoms. Stroke alert upon arrival. Immediately taken to CT. Some initial question based on EMS reports and history is whether the patient's last known well was last evening around 9 PM or just before 4 AM. Did reach out to [place] [facility]. CT of the head completed without evidence of acute intracranial bleed. CT angiograms completed. Significant right-sided deficits on exam here. No seizure-like activity reported. No trauma reported. does not report the patient's had any urinary symptoms. Will attempt to check a UA however. Unable to examine the patient fully upon entering room B1 from CT scan, the patient is able to stand and seems to fluently move extremities but has significant aphasia. Further discussion with the patient has not talked normally since 9 PM and again was first noted to have speech issues just before 4 AM. As such I feel that he would be outside the window for TNK and to be at high risk for negative adverse reaction such as life-threatening bleeding. Discussion with telestroke as well. CT angiograms completed without obvious large vessel occlusion. In discussion with telestroke there is questions if this could have represented possible seizure given the focal aphasia issues and history of MRI negative similar events in the past. No recommendation for TNK at this time especially with last known well time frame not being confirmed is within the window. Will bring into the hospital for further evaluation. Some IV fluid given per stroke recommendations. Urinalysis will be sent to exclude infection here and UA appears negative for this. Per 's request discussed with their son Yair via phone plan of care and findings. DIAGNOSIS: Strokelike symptoms/aphasia DISPOSITION: Hospitalist will evaluate Patient was agreeable with this plan. 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 History of skin cancer Benign prostatic hyperplasia with urinary obstruction Meningioma Status post placement of implantable loop recorder Ventral hernia Acid reflux Hypothyroidism Hypertension Surgical History History of urologic surgery Hx of surgical procedure History of colonoscopy History of colostomy reversal History of bowel resection Hx of parotidectomy Status post Mohs surgery History of neck surgery History of hemorrhoidectomy Family History Unknown Coronary heart disease Cancer Father Cancer Hypertension Son Diabetes Mother Benign neoplasm of head Brother Heart disease Brother Liver disease Heart disease Denies family history of Stroke Social History Smoking Status: Unknown if ever smoked Cigarettes Per Day: 1960; Second Hand Exposure: No; Do You Dip or Chew Tobacco: No; Hx Alcohol Use: No Hx Substance Use: No Preferred Language: [place] Communication Ability: Effective Visual Impairment: No Limitations Hearing Ability: Hard of Hearing Lokie Driver Required: No Beliefs That Will Affect Care: None marital status: Current Living Situation: Spouse current occupational status: retired Feels Safe at Home: Yes caffeine: No Dental Care, Regularly: Yes Physical Activity Frequency: Daily Seatbelt Use: always Assistive Devices: Cane and Hearing Aid - Right Allergies Allergies Allergy/AdvReac Type Severity Reaction Status Date / Time No Known Drug Allergies Allergy Verified 08/28/23 12:58 Home Meds Home Medications Medication Instructions Recorded Confirmed cyclobenzaprine 5 mg tablet 5 mg PO TID PRN Muscle Spasm 09/27/22 08/28/23 levothyroxine 88 mcg tablet 88 mcg PO QAM 01/24/23 08/28/23 potassium chloride 20 mEq 20 meq PO QAM 01/24/23 08/28/23 tablet,extended release(part/cryst) prednisone 5 mg tablet 5 mg PO QAM 01/24/23 08/28/23 ibuprofen 200 mg tablet (Advil) 200 mg PO Q6H PRN Pain 02/05/23 08/28/23 rosuvastatin 5 mg tablet (Crestor) 5 mg PO QAM 04/30/23 08/28/23 clopidogrel 75 mg tablet (Plavix) See Rx Instructions .Route .COMPLEX 05/06/23 08/28/23 pseudoephedrine HCl 30 mg tablet 30 mg PO Q6H PRN Cold Symptoms 08/05/23 08/28/23 (Sudafed) Previous Rx's Medication Instructions Recorded polyethylene glycol 3350 17 gram 17 g PO DAILY PRN constipation #30 07/26/22 oral powder packet (Miralax) ea gabapentin 300 mg capsule 300 mg PO BID #60 caps 11/28/22 tramadol 50 mg tablet 50 mg PO Q6H PRN Pain #30 tabs 04/17/23 aspirin 81 mg tablet,delayed 81 mg PO QAM #21 tabs 04/23/23 release tamsulosin 0.4 mg capsule 0.4 mg PO QPM #90 caps 05/02/23 theophylline 300 mg See Rx Instructions .Route 06/27/23 tablet,extended release,12 hr .COMPLEX #180 tabs Results & Data (ED) Vital Signs Vital Signs - 24 hr 09/01/23 04:45 09/01/23 04:46 09/01/23 04:48 Temperature Temperature Source Pulse Rate 85 79 75 Pulse Rate from SpO2 Sensor 86 Respiratory Rate 14 18 Respiratory Effort / Characteristics Non-Labored Spontaneous Respiratory Depth Normal Respiratory Pattern Regular Blood Pressure 152/76 H 152/76 H Blood Pressure Mean 101 101 Blood Pressure Position Semi-fowlers Pulse Oximetry 95 90 Oxygen Delivery Method Nasal Cannula Room Air Oxygen Flow Rate 2 Sepsis Recent Fever Within 48 Hours No Sepsis New/Unexplained Change in Mental Status N/A Sepsis Action Taken by Nursing No Action Required 09/01/23 05:00 09/01/23 05:10 09/01/23 05:24 Temperature Temperature Source Pulse Rate 76 88 Pulse Rate from SpO2 Sensor 76 87 Respiratory Rate 16 19 Respiratory Effort / Characteristics Respiratory Depth Respiratory Pattern Blood Pressure 141/71 H 142/78 H Blood Pressure Mean 94 99 Blood Pressure Position Pulse Oximetry 97 96 96 Oxygen Delivery Method Nasal Cannula Nasal Cannula Nasal Cannula Oxygen Flow Rate 2 2 2 Sepsis Recent Fever Within 48 Hours Sepsis New/Unexplained Change in Mental Status Sepsis Action Taken by Nursing 09/01/23 05:30 09/01/23 05:48 Temperature 36.4 C L Temperature Source Oral Pulse Rate 78 Pulse Rate from SpO2 Sensor 78 Respiratory Rate 15 Respiratory Effort / Characteristics Respiratory Depth Respiratory Pattern Blood Pressure 156/78 H Blood Pressure Mean 104 Blood Pressure Position Pulse Oximetry 95 Oxygen Delivery Method Nasal Cannula Oxygen Flow Rate 2 Sepsis Recent Fever Within 48 Hours Sepsis New/Unexplained Change in Mental Status Sepsis Action Taken by Nursing Laboratory Data 09/01/23 04:48 09/01/23 04:48 Lab Results 09/01/23 09/01/23 Range/Units 04:48 05:32 WBC 4.37 L (4.8-10.8) K/ul RBC 4.24 L (4.70-6.10) M/uL Hgb 12.5 L (14.0-18.0) g/dl Hct 38.0 L (42.0-52.0) % MCV 89.6 (80.0-100.0) fL MCH 29.5 (25.0-34.0) pg MCHC 32.9 (32.0-36.0) g/dL RDW Std Deviation 45.4 (36.4-46.3) fL RDW Coeff of Celestino 14.1 (11.5-14.5) % Plt Count 109 L (130-400) K/uL MPV 10.2 (9.4-12.4) fL Immature Gran % (Auto) 0.5 % Neut % (Auto) 64.9 % Lymph % (Auto) 21.3 % Waller % (Auto) 10.5 % Eos % (Auto) 2.3 % Baso % (Auto) 0.5 % Neut # (Auto) 2.84 (1.40-6.50) K/uL Lymph # (Auto) 0.93 L (1.20-3.40) K/uL Waller # (Auto) 0.46 (0.11-0.59) K/uL Eos # (Auto) 0.10 (0.00-0.50) K/uL Baso # (Auto) 0.02 (0.00-0.20) K/uL Immature Gran # (Auto) 0.02 (0.01-0.20) K/uL PT 11.7 (9.0-12.0) Seconds INR 1.1 (0.9-1.1) APTT 25 (21-31) Seconds PTT Ratio 0.9 Sodium 135 L (136-145) mmol/L Potassium 3.1 L (3.5-5.1) mmol/L Chloride 103 (98-107) mmol/L Carbon Dioxide 22 (21-32) mmol/L Anion Gap 10 (3-11) BUN 19 (6-23) mg/dl Creatinine 1.00 (0.6-1.4) mg/dl Est Cr Clr Drug Dosing 54.2 ml/min Est GFR ( Amer) 78.6 ml/min Est GFR (Non-Af Amer) 67.8 ml/min BUN/Creatinine Ratio 19.0 (10-20) Glucose 182 H (70-99(Fasting)) mg/dl Calcium 8.3 L (8.6-10.3) mg/dl Magnesium 2.0 (1.7-2.4) mg/dl Total Bilirubin 0.3 (0.2-1.0) mg/dl AST 12 L (13-39) U/L ALT 7 (7-52) U/L Alkaline Phosphatase 60 (34-104) U/L Troponin I High Sens 7.6 (0-20) pg/ml Total Protein 5.1 L (6.0-8.3) gm/dl Albumin 2.9 L (3.4-5.0) gm/dl Globulin 2.2 L (2.5-4.0) gm/dl Albumin/Globulin Ratio 1.3 (0.9-2) Urine Color Yellow Urine Appearance Clear (Clear) Urine pH 5.5 (4.5-7.5) Ur Specific [place] 1.026 (1.000-1.030) Urine Protein 1+ H (Negative) Urine Glucose (UA) Negative (Negative) Urine Ketones Negative (Negative) Urine Blood Trace H (Negative) Urine Nitrite Negative (Negative) Urine Bilirubin Negative (Negative) Urine Urobilinogen Negative (Negative) Ur Leukocyte Esterase Negative (Negative) Urine WBC (Auto) 1-5 (0-5) /hpf Urine RBC (Auto) 10-30 H (0-4) /hpf U Hyaline Cast (Auto) 1-5 (0-5) /lpf U Epithel Cells (Auto) 0-5 (0-5) /lpf Urine Bacteria (Auto) Negative (Negative) Administered Medications Discontinued Medications Sodium Chloride (Nss) 500 mls @ 999 mls/hr IV .Q31M ONE Stop: 09/01/23 05:46 Last Admin: 09/01/23 05:53 Dose: 999 mls/hr Documented By: Ioversol (Optiray 320 125ml) 117 ml IV ONCE ONE Stop: 09/01/23 04:38 Last Admin: 09/01/23 04:39 Dose: 117 ml Documented By: ARIEL Imaging Data Radiologist's Impression: Head CT 09/01/23 04:20 CR Exam(s): CT HEAD Without Contrast EXAM: CT Head Without Intravenous Contrast CLINICAL HISTORY: Reason for exam: neuro deficit, acute stroke suspected. TECHNIQUE: Axial computed tomography images of the head/brain without intravenous contrast. CTDI is 47.15 mGy and DLP is 774.27 mGy-cm. Automated exposure control was utilized for the study. A dose lowering technique was utilized adhering to the principles of ALARA. COMPARISON: 04/22/23 FINDINGS: Brain: Chronic periventricular ischemic demyelination changes seen due to small vessel disease. Stable 1.3 cm calcific extra-axial calcific density seen at the level of superior interhemispheric fissure. No hemorrhage. Ventricles: Ventricular size is similar to 04/22/23 CT. Bones/joints: Mucosal thickening and calcification seen in the left maxillary size. No acute fracture. Soft tissues: Unremarkable. Sinuses: Unremarkable as visualized. No acute sinusitis. Mastoid air cells: Unremarkable as visualized. No mastoid effusion. IMPRESSION: No acute intracranial abnormality identified Communications: Call Doctor Stroke Electronically signed by: Tariq Mendoza MD 09/01/23 05:06 AM Head CTA 09/01/23 04:20 CR Exam(s): CTA HEAD With Contrast IV Amt: 117 ml EXAM: CT Angiography Head With Intravenous Contrast CLINICAL HISTORY: Reason for exam: neuro deficit, acute stroke suspected. TECHNIQUE: Axial computed tomographic angiography images of the head with intravenous contrast. CTDI is 47.15 mGy and DLP is 774.27 mGy-cm. Automated exposure control was utilized for the study. A dose lowering technique was utilized adhering to the principles of ALARA. MIP reconstructed images were created and reviewed. CONTRAST: Patient received 117 ml of IV contrast COMPARISON: No relevant prior studies available. FINDINGS: Right internal carotid artery: No acute findings. Intracranial segment is patent with no significant stenosis. No aneurysm. Right anterior cerebral artery: Unremarkable. No occlusion or significant stenosis. No aneurysm. Right middle cerebral artery: Unremarkable. No occlusion or significant stenosis. No aneurysm. Right posterior cerebral artery: Unremarkable. No occlusion or significant stenosis. No aneurysm. Right vertebral artery: There is severe narrowing of the intracranial right vertebral artery. Left internal carotid artery: No acute findings. Intracranial segment is patent with no significant stenosis. No aneurysm. Left anterior cerebral artery: Unremarkable. No occlusion or significant stenosis. No aneurysm. Left middle cerebral artery: Unremarkable. No occlusion or significant stenosis. No aneurysm. Left posterior cerebral artery: Unremarkable. No occlusion or significant stenosis. No aneurysm. Left vertebral artery: Left vertebral artery is dominant Basilar artery: The basilar artery is predominantly supplied by the left vertebral artery. No occlusion or significant stenosis. No aneurysm. IMPRESSION: 1. No evidence of occlusion of the anterior, middle or posterior cerebral arteries 2. 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 TECHNIQUE: Routine carotid CT angiography protocol was performed with intravenous contrast. NASCET criteria using the distal ICAs for comparison were used for evaluation of stenoses. CTDI is 47.15 mGy and DLP is 774.27 mGy-cm. Automated exposure control was utilized for the study. A dose lowering technique was utilized adhering to the principles of ALARA. MIP reconstructed images were created and reviewed. CONTRAST: Patient received 117 ml of IV contrast COMPARISON: 04/21/23 FINDINGS: VASCULATURE: Right common carotid artery: Unremarkable. No occlusion or significant stenosis. No dissection. Right internal carotid artery: Moderate atherosclerotic calcifications are seen in the right bulb and right proximal cervical internal carotid artery causing up to 60% luminal narrowing. Right external carotid artery: Unremarkable. No occlusion. Right vertebral artery: There is diminutive vertebral artery seen extending from the C6 to C1 vertebra. The right vertebral artery is not identified caudal to the level of the C6 vertebra. There is progressive severe narrowing of the right vertebral artery at the level of C1. Left common carotid artery: There is a vascular stent identified in the left common carotid artery as well as the left proximal cervical internal carotid artery. No occlusion or significant stenosis. No dissection. Left internal carotid artery: See above. Left external carotid artery: Unremarkable. No occlusion. Left vertebral artery: Unremarkable. No occlusion or significant stenosis. No dissection. NECK: Bones/joints: Unremarkable. No acute fracture. Soft tissues: Unremarkable. Lung apices: Clear. CAROTID STENOSIS REFERENCE USING NASCET CRITERIA: % ICA stenosis = (1 - narrowest ICA diameter/diameter of distal cervical ICA) x 100. Mild - <50% stenosis. Moderate - 50-69% stenosis. Severe - 70-94% stenosis. Near occlusion - 95-99% stenosis. Occluded - 100% stenosis. IMPRESSION: 1. No evidence of hemodynamically significant carotid stenosis 2. Diminutive right cervical vertebral artery with progressive narrowing at the level of C1 , compared to prior study from 04/21/23 Communications: Call Doctor Stroke Electronically signed by: Tariq Mendoza MD 09/01/23 05:17 AM Discharge Plan Visit Data Chief Complaint: Stroke Alert ED Provider: Morris Jones Discharge Problem: Aphasia, Stroke-like symptoms Patient Disposition: Being Evaluated by Hospitalist Forms Stand Alone Forms: [facility] Prescriptions Prescriptions: No Action cyclobenzaprine 5 mg tablet 5 mg PO TID PRN (Reason: Muscle Spasm) gabapentin 300 mg capsule 300 mg PO BID Qty: 60 5RF tramadol 50 mg tablet 50 mg PO Q6H PRN (Reason: Pain) Qty: 30 5RF tamsulosin 0.4 mg capsule 0.4 mg PO QPM Qty: 90 3RF theophylline 300 mg tablet extended release 12 hr See Rx Instructions .ROUTE .COMPLEX Qty: 180 3RF Dose Instruction: TAKE TWO TABLETS BY MOUTH DAILY Rx Instructions: TAKE TWO TABLETS BY MOUTH DAILY polyethylene glycol 3350 [Miralax] 17 gram Powder In Packet 17 g PO DAILY PRN (Reason: constipation) Qty: 30 0RF prednisone 5 mg tablet 5 mg PO QAM levothyroxine 88 mcg tablet 88 mcg PO QAM Rx Instructions: TAKE ONE TABLET BY MOUTH DAILY potassium chloride 20 mEq tablet,ER particles/crystals 20 meq PO QAM Rx Instructions: TAKE ONE TABLET BY MOUTH ONE TIME DAILY ibuprofen [Advil] 200 mg Tablet 200 mg PO Q6H PRN (Reason: Pain) aspirin 81 mg Tablet,Delayed Release (Dr/Ec) 81 mg PO QAM Qty: 21 0RF rosuvastatin [Crestor] 5 mg tablet 5 mg PO QAM clopidogrel [Plavix] 75 mg tablet See Rx Instructions .ROUTE .COMPLEX Hold Instructions: Resume on 08/13/23. Rx Instructions: TAKE ONE TABLET BY MOUTH EVERY MORNING pseudoephedrine HCl [Sudafed] 30 mg tablet 30 mg PO Q6H PRN (Reason: Cold Symptoms) Referrals Referrals: Giles Galan MD [Primary Care Provider] -
--- NOTE | 2023-09-01 05:07 | CT Scan Report ---
Exam(s): CT HEAD Without Contrast EXAM: CT Head Without Intravenous Contrast CLINICAL HISTORY: Reason for exam: neuro deficit, acute stroke suspected. TECHNIQUE: Axial computed tomography images of the head/brain without intravenous contrast. CTDI is 47.15 mGy and DLP is 774.27 mGy-cm. Automated exposure control was utilized for the study. A dose lowering technique was utilized adhering to the principles of ALARA. COMPARISON: 04/22/23 FINDINGS: Brain: Chronic periventricular ischemic demyelination changes seen due to small vessel disease. Stable 1.3 cm calcific extra-axial calcific density seen at the level of superior interhemispheric fissure. No hemorrhage. Ventricles: Ventricular size is similar to 04/22/23 CT. Bones/joints: Mucosal thickening and calcification seen in the left maxillary size. No acute fracture. Soft tissues: Unremarkable. Sinuses: Unremarkable as visualized. No acute sinusitis. Mastoid air cells: Unremarkable as visualized. No mastoid effusion. IMPRESSION: No acute intracranial abnormality identified Communications: Call Doctor Stroke Electronically signed by: Tariq Mendoza MD 09/01/23 05:06 AM
[2023-09-01 05:09] LABS: Basophils # (auto) 0.02 K/uL (0.00-0.20); Basophils % (auto) 0.5 %; Eosinophils % (auto) 2.3 %; Hemoglobin 12.5 g/dl (14.0-18.0); Immature Granulocytes # (auto) 0.02 K/uL (0.01-0.20); Immature Granulocytes % (auto) 0.5 %; Lymphocytes # (auto) 0.93 K/uL (1.20-3.40); Lymphocytes % (auto) 21.3 %; Mean Corpuscular Hemoglobin 29.5 pg (25.0-34.0); Mean Corpuscular Hgb Conc 32.9 g/dL (32.0-36.0); Mean Corpuscular Volume 89.6 fL (80.0-100.0); Mean Platelet Volume 10.2 fL (9.4-12.4); Monocytes # (auto) 0.46 K/uL (0.11-0.59); Monocytes % (auto) 10.5 %; Neutrophils # (auto) 2.84 K/uL (1.40-6.50); Neutrophils % (auto) 64.9 %; Platelet Count 109 K/uL (130-400); RDW Coefficient of Variation 14.1 % (11.5-14.5); RDW Standard Deviation 45.4 fL (36.4-46.3); Red Blood Count 4.24 M/uL (4.70-6.10); White Blood Count 4.37 K/ul (4.8-10.8)
--- NOTE | 2023-09-01 05:10 | CT Scan Report ---
Exam(s): CTA HEAD With Contrast IV Amt: 117 ml EXAM: CT Angiography Head With Intravenous Contrast CLINICAL HISTORY: Reason for exam: neuro deficit, acute stroke suspected. TECHNIQUE: Axial computed tomographic angiography images of the head with intravenous contrast. CTDI is 47.15 mGy and DLP is 774.27 mGy-cm. Automated exposure control was utilized for the study. A dose lowering technique was utilized adhering to the principles of ALARA. MIP reconstructed images were created and reviewed. CONTRAST: Patient received 117 ml of IV contrast COMPARISON: No relevant prior studies available. FINDINGS: Right internal carotid artery: No acute findings. Intracranial segment is patent with no significant stenosis. No aneurysm. Right anterior cerebral artery: Unremarkable. No occlusion or significant stenosis. No aneurysm. Right middle cerebral artery: Unremarkable. No occlusion or significant stenosis. No aneurysm. Right posterior cerebral artery: Unremarkable. No occlusion or significant stenosis. No aneurysm. Right vertebral artery: There is severe narrowing of the intracranial right vertebral artery. Left internal carotid artery: No acute findings. Intracranial segment is patent with no significant stenosis. No aneurysm. Left anterior cerebral artery: Unremarkable. No occlusion or significant stenosis. No aneurysm. Left middle cerebral artery: Unremarkable. No occlusion or significant stenosis. No aneurysm. Left posterior cerebral artery: Unremarkable. No occlusion or significant stenosis. No aneurysm. Left vertebral artery: Left vertebral artery is dominant Basilar artery: The basilar artery is predominantly supplied by the left vertebral artery. No occlusion or significant stenosis. No aneurysm. IMPRESSION: 1. No evidence of occlusion of the anterior, middle or posterior cerebral arteries 2. 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
--- NOTE | 2023-09-01 05:18 | CT Scan Report ---
Exam(s): CTA NECK With Contrast IV Amt: 117 ml EXAM: CT Angiography Neck With Intravenous Contrast CLINICAL HISTORY: Reason for exam: neuro deficit, acute stroke suspected. TECHNIQUE: Routine carotid CT angiography protocol was performed with intravenous contrast. NASCET criteria using the distal ICAs for comparison were used for evaluation of stenoses. CTDI is 47.15 mGy and DLP is 774.27 mGy-cm. Automated exposure control was utilized for the study. A dose lowering technique was utilized adhering to the principles of ALARA. MIP reconstructed images were created and reviewed. CONTRAST: Patient received 117 ml of IV contrast COMPARISON: 04/21/23 FINDINGS: VASCULATURE: Right common carotid artery: Unremarkable. No occlusion or significant stenosis. No dissection. Right internal carotid artery: Moderate atherosclerotic calcifications are seen in the right bulb and right proximal cervical internal carotid artery causing up to 60% luminal narrowing. Right external carotid artery: Unremarkable. No occlusion. Right vertebral artery: There is diminutive vertebral artery seen extending from the C6 to C1 vertebra. The right vertebral artery is not identified caudal to the level of the C6 vertebra. There is progressive severe narrowing of the right vertebral artery at the level of C1. Left common carotid artery: There is a vascular stent identified in the left common carotid artery as well as the left proximal cervical internal carotid artery. No occlusion or significant stenosis. No dissection. Left internal carotid artery: See above. Left external carotid artery: Unremarkable. No occlusion. Left vertebral artery: Unremarkable. No occlusion or significant stenosis. No dissection. NECK: Bones/joints: Unremarkable. No acute fracture. Soft tissues: Unremarkable. Lung apices: Clear. CAROTID STENOSIS REFERENCE USING NASCET CRITERIA: % ICA stenosis = (1 - narrowest ICA diameter/diameter of distal cervical ICA) x 100. Mild - <50% stenosis. Moderate - 50-69% stenosis. Severe - 70-94% stenosis. Near occlusion - 95-99% stenosis. Occluded - 100% stenosis. IMPRESSION: 1. No evidence of hemodynamically significant carotid stenosis 2. Diminutive right cervical vertebral artery with progressive narrowing at the level of C1 , compared to prior study from 04/21/23 Communications: Call Doctor Stroke Electronically signed by: Tariq Mendoza MD 09/01/23 05:17 AM
[2023-09-01 05:23] LABS: Albumin Globulin Ratio 1.3 (0.9-2); Albumin Level 2.9 gm/dl (3.4-5.0); Bilirubin,Total 0.3 mg/dl (0.2-1.0); Calcium 8.3 mg/dl (8.6-10.3); Creatinine Clr Calc Pharmacy 54.2 ml/min; Est GFR (African American) 78.6 ml/min; Est GFR (Non-African American) 67.8 ml/min; Globulin 2.2 gm/dl (2.5-4.0); Potassium 3.1 mmol/L (3.5-5.1); Total Protein 5.1 gm/dl (6.0-8.3)
[2023-09-01 05:29] LABS: Troponin I High Sensitivity 7.6 pg/ml (0-20)
[2023-09-01 05:34] LABS: INR 1.1 (0.9-1.1); Partial Thromboplastin Ratio 0.9; Partial Thromboplastin Time 25 Seconds (21-31); Prothrombin Time 11.7 Seconds (9.0-12.0)
[2023-09-01] MEDS: SODIUM CHLORIDE 0.9% 500 ML IV ONE (05:53)
[2023-09-01 06:12] LABS: Appearance Urine Clear (Clear); Bacteria Urine Automated Negative (Negative); Bilirubin Urine Negative (Negative); Blood Urine Trace (Negative); Color Urine Yellow; Epithelial Cell Urine Auto 0-5 /lpf (0-5); Glucose Urine UA Negative (Negative); Ketones Urine Negative (Negative); Leukocyte Esterase Urine Negative (Negative); Nitrite Urine Negative (Negative); Protein Urine 1+ (Negative); Specific Gravity Urine 1.026 (1.000-1.030); Urobilinogen Urine Negative (Negative); pH Urine 5.5 (4.5-7.5)
--- NOTE | 2023-09-01 06:29 | History & Physical Report ---
Date of Service September 01, 2023 Assessment & Plan (1) Stroke-like symptoms: (2) Aphasia: (3) Recent cerebrovascular accident (CVA): (4) Symptomatic stenosis of left carotid artery: (5) Occlusion of right vertebral artery: (6) Vertebral artery narrowing: (7) Asthma: (8) Hypertension: (9) HLD (hyperlipidemia): (10) Bladder carcinoma: Plan Strokelike symptoms/previous CVA/narrowing of the artery/history of seizure-like activity/aphasia- Stroke without tPA order set CT head without contrast negative CTA head shows severe stenosis of intracranial right vertebral artery CTA neck showed right cervical vertebral artery progressive narrowing at C1 level Imaging not significantly different from previous CVA Stroke alert protocol with [facility] telestroke determined no TNK due to time of last known well. Recomendation for admission for MRI Brain with and without contrast, and EEG Last ECHO 05/13 will not be repeated consult to PT/OT/Speech and Neurology NPO until cleared by Speech, does not qualify now Permissive HTN Hypokalemia- K 3.1 NSS +KCl 10 MEQ at 80 mls/hr, after 2 K riders History of Present Illness Chief Complaint: The patient presented to the emergency department via ambulance after his became concerned that he is having a stroke. He was last known to be normal around 9:00 in the evening when he went to bed, however, when he went to the bathroom at 3:30 in the morning, and went back to bed, as she tried to talk to him he was only mumbling. These were symptoms similar to his previous stroke, she became concerned, and called 911. EMS reports that upon arrival, he had significant right-sided weakness, a facial droop and slurred speech. Upon arrival to the emergency department, he was taken immediately to CT scanner as a stroke alert. By the time the patient returned from the CT scanner, he had no significant deficits in right-sided, and his speech was somewhat improved, per family, but still not as good as it had been after he recovered from previous stroke. His reports that he had been in his usual state health prior to this event, and had no symptoms as far as respiratory GI or urinary involvement. Primary Care Provider: Giles Galan MD The patient is an 88-year-old male with a past medical history including bladder carcinoma, recent CVA, symptomatic stenosis of left carotid artery, occlusion of right vertebral artery, lumbosacral radiculopathy, moderate persistent asthma, thoracic aortic aneurysm, malignant neoplasm of parotid gland, hypercholesterolemia, hypertension, hypothyroidism and BPH with LUTS. He presents to the emergency department with symptoms as noted above as a stroke alert. Due to time from last known well, patient was not considered a candidate for TNK, which she had had with his previous stroke, and patient did significantly improve while in the emergency department. His primary remaining symptom was that of garbled speech Allergies Allergy/AdvReac Type Severity Reaction Status Date / Time No Known Drug Allergies Allergy Verified 08/28/23 12:58 Home Medications Medication Instructions Recorded Confirmed Type polyethylene glycol 3350 17 gram 17 g PO DAILY PRN constipation #30 07/26/22 08/28/23 Rx oral powder packet (Miralax) ea cyclobenzaprine 5 mg tablet 5 mg PO TID PRN Muscle Spasm 09/27/22 08/28/23 History gabapentin 300 mg capsule 300 mg PO BID #60 caps 11/28/22 08/28/23 Rx levothyroxine 88 mcg tablet 88 mcg PO QAM 01/24/23 08/28/23 History potassium chloride 20 mEq 20 meq PO QAM 01/24/23 08/28/23 History tablet,extended release(part/cryst) prednisone 5 mg tablet 5 mg PO QAM 01/24/23 08/28/23 History ibuprofen 200 mg tablet (Advil) 200 mg PO Q6H PRN Pain 02/05/23 08/28/23 History tramadol 50 mg tablet 50 mg PO Q6H PRN Pain #30 tabs 04/17/23 08/28/23 Rx aspirin 81 mg tablet,delayed 81 mg PO QAM #21 tabs 04/23/23 08/28/23 Rx release rosuvastatin 5 mg tablet (Crestor) 5 mg PO QAM 04/30/23 08/28/23 History tamsulosin 0.4 mg capsule 0.4 mg PO QPM #90 caps 05/02/23 08/28/23 Rx clopidogrel 75 mg tablet (Plavix) See Rx Instructions .Route .COMPLEX 05/06/23 08/28/23 History theophylline 300 mg See Rx Instructions .Route 06/27/23 08/28/23 Rx tablet,extended release,12 hr .COMPLEX #180 tabs pseudoephedrine HCl 30 mg tablet 30 mg PO Q6H PRN Cold Symptoms 08/05/23 08/28/23 History (Sudafed) Past Med/Surg History Medical History (Updated 09/01/23 @ 08:03 by Kilo Newsome MD) Occlusion of right vertebral artery Seizure-like activity pt unaware PFO (patent foramen ovale) Possible per records Subclavian artery stenosis 40% stenosis of the origin of the left subclavian artery per 04/21/23 neck CTA Vertebral artery occlusion chronic occlusion of right vertebral artery per brain MRI 04/21/23 and head/neck CTA 04/21/23 Carotid artery stenosis - 60-70% stenosis right ICA; s/p left TCAR 05/07/23 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 Lumbar disc disease with radiculopathy History of skin cancer Benign prostatic hyperplasia with urinary obstruction Meningioma Dural based calcification along the inner table at the vertex is 14 x 8mm, likely a small meningioma per 04/22/23 brain MRI Followed by neurology per PCP records Status post placement of implantable loop recorder Explanted February 2022 Ventral hernia Acid reflux Hypothyroidism Hypertension Surgical History History of urologic surgery Cystolithopaxy (Bladder Stone Fragmentation and Removal) Transurethral resection of bladder tumor) Hx of surgical procedure 04/2023 [place] > Left Transcarotid Artery Revascularization, Right Common Femoral Vein ultrasound History of colonoscopy History of colostomy reversal History of bowel resection w/ colostomy (pt unaware) Hx of parotidectomy Status post Mohs surgery sees dermatology on 08/09/23 for follow up/ possible procedure History of neck surgery for cancer with radiation History of hemorrhoidectomy Family History Unknown Coronary heart disease Cancer Father Cancer Hypertension Son Diabetes Mother Benign neoplasm of head Brother Heart disease Brother Liver disease Heart disease Denies family history of Stroke Social History Smoking Status: Unknown if ever smoked Cigarettes Per Day: 1960; Second Hand Exposure: No; Do You Dip or Chew Tobacco: No; Hx Alcohol Use: No Hx Substance Use: No Preferred Language: Belarusian Communication Ability: Effective Visual Impairment: No Limitations Hearing Ability: Hard of Hearing An/Ssn 2 4 Operator Required: No Beliefs That Will Affect Care: None marital status: Current Living Situation: Spouse current occupational status: retired Feels Safe at Home: Yes caffeine: No Dental Care, Regularly: Yes Physical Activity Frequency: Daily Seatbelt Use: always Assistive Devices: Cane and Hearing Aid - Right Review of Systems Review of Systems: Review of symptoms primarily provided by family, his and son in attendance. Physical Exam Physical Exam: The patient is awake, and somewhat difficult to understand due to mildly speech. normocephalic and atraumatic, lying in bed and in no acute distress. HEENT--PERRL, EOMI, mucous membranes and oropharynx mildly dry. Neck--supple. No JVD. No bruits. Thyroid normal, trachea midline, no adenopathy. Heart--normal S1 and S2. No murmurs, rubs or gallops. Lungs--clear bilaterally, no respiratory distress, no accessory muscle use. Abdomen--normal bowel sounds and soft. Nontender. Nondistended, no hernias or masses, no organomegaly. Extremities--no cyanosis or clubbing. No edema. There are good distal pulses b/l. Dermatologic--normal skin turgor, normal color, no abnormal lymph nodes, no rash. Neurologic--significant difficulty with speech, mumbling. No significant facial droop. Patient difficult to understand and unable to answer questions appropriately. No significant motor deficits. Unable to test sensation due to patient responses Rheumatologic--normal range of motion. Psychiatric--confused Results & Data Results & Data Vital Signs (Past 12 Hours) Vital Signs Temp Pulse Resp BP Pulse Ox O2 Del Method O2 Flow Rate 09/01/23 06:00 75 19 166/81 H 95 Nasal Cannula 2 09/01/23 05:48 36.4 C L 09/01/23 05:30 78 15 156/78 H 95 Nasal Cannula 2 09/01/23 05:24 96 Nasal Cannula 2 09/01/23 05:10 88 19 142/78 H 96 Nasal Cannula 2 09/01/23 05:00 76 16 141/71 H 97 Nasal Cannula 2 09/01/23 04:48 75 18 152/76 H 90 Room Air 09/01/23 04:46 79 09/01/23 04:45 85 14 152/76 H 95 Nasal Cannula 2 Laboratory Results Laboratory Results WBC 4.37 K/ul (4.8-10.8) L 09/01/23 04:48 RBC 4.24 M/uL (4.70-6.10) L 09/01/23 04:48 Hgb 12.5 g/dl (14.0-18.0) L 09/01/23 04:48 Hct 38.0 % (42.0-52.0) L 09/01/23 04:48 MCV 89.6 fL (80.0-100.0) 09/01/23 04:48 MCH 29.5 pg (25.0-34.0) 09/01/23 04:48 MCHC 32.9 g/dL (32.0-36.0) 09/01/23 04:48 RDW Std Deviation 45.4 fL (36.4-46.3) 09/01/23 04:48 RDW Coeff of Celestino 14.1 % (11.5-14.5) 09/01/23 04:48 Plt Count 109 K/uL (130-400) L 09/01/23 04:48 MPV 10.2 fL (9.4-12.4) 09/01/23 04:48 Immature Gran % (Auto) 0.5 % 09/01/23 04:48 Neut % (Auto) 64.9 % 09/01/23 04:48 Lymph % (Auto) 21.3 % 09/01/23 04:48 [place] % (Auto) 10.5 % 09/01/23 04:48 Eos % (Auto) 2.3 % 09/01/23 04:48 Baso % (Auto) 0.5 % 09/01/23 04:48 Neut # (Auto) 2.84 K/uL (1.40-6.50) 09/01/23 04:48 Lymph # (Auto) 0.93 K/uL (1.20-3.40) L 09/01/23 04:48 [place] # (Auto) 0.46 K/uL (0.11-0.59) 09/01/23 04:48 Eos # (Auto) 0.10 K/uL (0.00-0.50) 09/01/23 04:48 Baso # (Auto) 0.02 K/uL (0.00-0.20) 09/01/23 04:48 Immature Gran # (Auto) 0.02 K/uL (0.01-0.20) 09/01/23 04:48 PT 11.7 Seconds (9.0-12.0) 09/01/23 04:48 INR 1.1 (0.9-1.1) 09/01/23 04:48 APTT 25 Seconds (21-31) 09/01/23 04:48 PTT Ratio 0.9 09/01/23 04:48 Sodium 135 mmol/L (136-145) L 09/01/23 04:48 Potassium 3.1 mmol/L (3.5-5.1) L 09/01/23 04:48 Chloride 103 mmol/L (98-107) 09/01/23 04:48 Carbon Dioxide 22 mmol/L (21-32) 09/01/23 04:48 Anion Gap 10 (3-11) 09/01/23 04:48 BUN 19 mg/dl (6-23) 09/01/23 04:48 Creatinine 1.00 mg/dl (0.6-1.4) 09/01/23 04:48 Est Cr Clr Drug Dosing 54.2 ml/min 09/01/23 04:48 Est GFR ( Amer) 78.6 ml/min 09/01/23 04:48 Est GFR (Non-Af Amer) 67.8 ml/min 09/01/23 04:48 BUN/Creatinine Ratio 19.0 (10-20) 09/01/23 04:48 Glucose 182 mg/dl (70-99(Fasting)) H 09/01/23 04:48 Calcium 8.3 mg/dl (8.6-10.3) L 09/01/23 04:48 Magnesium 2.0 mg/dl (1.7-2.4) 09/01/23 04:48 Total Bilirubin 0.3 mg/dl (0.2-1.0) 09/01/23 04:48 AST 12 U/L (13-39) L 09/01/23 04:48 ALT 7 U/L (7-52) 09/01/23 04:48 Alkaline Phosphatase 60 U/L (34-104) 09/01/23 04:48 Troponin I High Sens 7.6 pg/ml (0-20) 09/01/23 04:48 Total Protein 5.1 gm/dl (6.0-8.3) L 09/01/23 04:48 Albumin 2.9 gm/dl (3.4-5.0) L 09/01/23 04:48 Globulin 2.2 gm/dl (2.5-4.0) L 09/01/23 04:48 Albumin/Globulin Ratio 1.3 (0.9-2) 09/01/23 04:48 Urine Color Yellow 09/01/23 05:32 Urine Appearance Clear (Clear) 09/01/23 05:32 Urine pH 5.5 (4.5-7.5) 09/01/23 05:32 Ur Specific [place] 1.026 (1.000-1.030) 09/01/23 05:32 Urine Protein 1+ (Negative) H 09/01/23 05:32 Urine Glucose (UA) Negative (Negative) 09/01/23 05:32 Urine Ketones Negative (Negative) 09/01/23 05:32 Urine Blood Trace (Negative) H 09/01/23 05:32 Urine Nitrite Negative (Negative) 09/01/23 05:32 Urine Bilirubin Negative (Negative) 09/01/23 05:32 Urine Urobilinogen Negative (Negative) 09/01/23 05:32 Ur Leukocyte Esterase Negative (Negative) 09/01/23 05:32 Urine WBC (Auto) 1-5 /hpf (0-5) 09/01/23 05:32 Urine RBC (Auto) 10-30 /hpf (0-4) H 09/01/23 05:32 U Hyaline Cast (Auto) 1-5 /lpf (0-5) 09/01/23 05:32 U Epithel Cells (Auto) 0-5 /lpf (0-5) 09/01/23 05:32 Urine Bacteria (Auto) Negative (Negative) 09/01/23 05:[address] 09/01/23 04:20 CR Exam(s): CT HEAD Without Contrast EXAM: CT Head Without Intravenous Contrast CLINICAL HISTORY: Reason for exam: neuro deficit, acute stroke suspected. TECHNIQUE: Axial computed tomography images of the head/brain without intravenous contrast. CTDI is 47.15 mGy and DLP is 774.27 mGy-cm. Automated exposure control was utilized for the study. A dose lowering technique was utilized adhering to the principles of ALARA. COMPARISON: 04/22/23 FINDINGS: Brain: Chronic periventricular ischemic demyelination changes seen due to small vessel disease. Stable 1.3 cm calcific extra-axial calcific density seen at the level of superior interhemispheric fissure. No hemorrhage. Ventricles: Ventricular size is similar to 04/22/23 CT. Bones/joints: Mucosal thickening and calcification seen in the left maxillary size. No acute fracture. Soft tissues: Unremarkable. Sinuses: Unremarkable as visualized. No acute sinusitis. Mastoid air cells: Unremarkable as visualized. No mastoid effusion. IMPRESSION: No acute intracranial abnormality identified Communications: Call Doctor Stroke Electronically signed by: Tariq Mendoza MD 09/01/23 05:06 AM Head CTA 09/01/23 04:20 CR Exam(s): CTA HEAD With Contrast IV Amt: 117 ml EXAM: CT Angiography Head With Intravenous Contrast CLINICAL HISTORY: Reason for exam: neuro deficit, acute stroke suspected. TECHNIQUE: Axial computed tomographic angiography images of the head with intravenous contrast. CTDI is 47.15 mGy and DLP is 774.27 mGy-cm. Automated exposure control was utilized for the study. A dose lowering technique was utilized adhering to the principles of ALARA. MIP reconstructed images were created and reviewed. CONTRAST: Patient received 117 ml of IV contrast COMPARISON: No relevant prior studies available. FINDINGS: Right internal carotid artery: No acute findings. Intracranial segment is patent with no significant stenosis. No aneurysm. Right anterior cerebral artery: Unremarkable. No occlusion or significant stenosis. No aneurysm. Right middle cerebral artery: Unremarkable. No occlusion or significant stenosis. No aneurysm. Right posterior cerebral artery: Unremarkable. No occlusion or significant stenosis. No aneurysm. Right vertebral artery: There is severe narrowing of the intracranial right vertebral artery. Left internal carotid artery: No acute findings. Intracranial segment is patent with no significant stenosis. No aneurysm. Left anterior cerebral artery: Unremarkable. No occlusion or significant stenosis. No aneurysm. Left middle cerebral artery: Unremarkable. No occlusion or significant stenosis. No aneurysm. Left posterior cerebral artery: Unremarkable. No occlusion or significant stenosis. No aneurysm. Left vertebral artery: Left vertebral artery is dominant Basilar artery: The basilar artery is predominantly supplied by the left vertebral artery. No occlusion or significant stenosis. No aneurysm. IMPRESSION: 1. No evidence of occlusion of the anterior, middle or posterior cerebral arteries 2. 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 TECHNIQUE: Routine carotid CT angiography protocol was performed with intravenous contrast. NASCET criteria using the distal ICAs for comparison were used for evaluation of stenoses. CTDI is 47.15 mGy and DLP is 774.27 mGy-cm. Automated exposure control was utilized for the study. A dose lowering technique was utilized adhering to the principles of ALARA. MIP reconstructed images were created and reviewed. CONTRAST: Patient received 117 ml of IV contrast COMPARISON: 04/21/23 FINDINGS: VASCULATURE: Right common carotid artery: Unremarkable. No occlusion or significant stenosis. No dissection. Right internal carotid artery: Moderate atherosclerotic calcifications are seen in the right bulb and right proximal cervical internal carotid artery causing up to 60% luminal narrowing. Right external carotid artery: Unremarkable. No occlusion. Right vertebral artery: There is diminutive vertebral artery seen extending from the C6 to C1 vertebra. The right vertebral artery is not identified caudal to the level of the C6 vertebra. There is progressive severe narrowing of the right vertebral artery at the level of C1. Left common carotid artery: There is a vascular stent identified in the left common carotid artery as well as the left proximal cervical internal carotid artery. No occlusion or significant stenosis. No dissection. Left internal carotid artery: See above. Left external carotid artery: Unremarkable. No occlusion. Left vertebral artery: Unremarkable. No occlusion or significant stenosis. No dissection. NECK: Bones/joints: Unremarkable. No acute fracture. Soft tissues: Unremarkable. Lung apices: Clear. CAROTID STENOSIS REFERENCE USING NASCET CRITERIA: % ICA stenosis = (1 - narrowest ICA diameter/diameter of distal cervical ICA) x 100. Mild - <50% stenosis. Moderate - 50-69% stenosis. Severe - 70-94% stenosis. Near occlusion - 95-99% stenosis. Occluded - 100% stenosis. IMPRESSION: 1. No evidence of hemodynamically significant carotid stenosis 2. Diminutive right cervical vertebral artery with progressive narrowing at the level of C1 , compared to prior study from 04/21/23 Communications: Call Doctor Stroke Electronically signed by: Tariq Mendoza MD 09/01/23 05:17 AM Code Status & VTE Plan Code Status DNR/DNI VTE Prophylaxis Plan VTE Prophylaxis will be ordered: Yes PG Care Time/CCT Total # of Minutes Spent Total Time Spent with Patient: Total time spent is greater than 50% in coordination of care (as documented) at patient's floor/unit and/or counseling patient: Coding Level of Care Code 53343 INT INP/OBS CARE 3/75MIN Diagnoses Stroke-like symptoms R29.90 Aphasia R47.01 Recent cerebrovascular accident (CVA) Z86.73 Symptomatic stenosis of left carotid artery I65.22 Occlusion of right vertebral artery I65.01 Vertebral artery narrowing I65.09 Asthma J45.909 Primary hypertension I10 Hypertension type: primary hypertension HLD (hyperlipidemia) E78.5 Bladder carcinoma C67.9 (8) Hypertension Hypertension type: primary hypertension Qualified Code(s): I10 - Essential (primary) hypertension
--- NOTE | 2023-09-01 07:15 | Electrocardiogram Report ---
Test Reason : Blood Pressure : / mmHG Vent. Rate : 079 BPM Atrial Rate : 079 BPM P-R Int : 238 ms QRS Dur : 134 ms QT Int : 412 ms P-R-T Axes : 049 -54 081 degrees QTc Int : 472 ms Sinus rhythm with 1st degree A-V block Left axis deviation Left ventricular hypertrophy with QRS widening and repolarization abnormality Abnormal ECG When compared with ECG of 24-JUL-2023 14:07, MI interval has increased QRS duration has increased Confirmed by Duke Vizcaino ([id number]) on 09/01/2023 7:15:33 AM Referred By: REFERRED SELF Confirmed By:Amari Vizcaino
--- NOTE | 2023-09-01 08:08 | Hospitalist Progress Note ---
Date of Service September 01, 2023 Assessment & Plan (1) Occlusion of right vertebral artery: (2) Stroke-like symptoms: (3) Aphasia: (4) Bladder carcinoma: (5) Recent cerebrovascular accident (CVA): (6) Symptomatic stenosis of left carotid artery: (7) Vertebral artery narrowing: Plan (1) Stroke-like symptoms/Aphasia: (2) Recent cerebrovascular accident (CVA): (3) Symptomatic stenosis of left carotid artery: (4) Occlusion of right vertebral artery: (5) R. vertebral artery narrowing: (6) Bladder carcinoma: (7) Hypothyroidism: (8) Hypertension: (9) HLD (hyperlipidemia): Plan (1) Stroke-like symptoms/Aphasia and Recent cerebrovascular accident (CVA) (05/13)/Symptomatic stenosis of left carotid artery--S/P TCAR of l. carotid artery: Occlusion of right vertebral artery/R. vertebral artery narrowing: Strokelike symptoms/previous CVA/narrowing of the artery/history of seizure-like activity/aphasia- Stroke without tPA order set, -CT head w/o contrast negative CTA head showed severe stenosis of intracranial right vertebral artery CTA neck showed right cervical vertebral artery progressive narrowing at C1 level Imaging not significantly different from previous imaging during past CVA Stroke [place] [facility] [place] determined no TNK due to time of last known well. MRI Brain with and without contrast: EEG for tomorrow Last ECHO 05/13 will not be repeated consult to PT/OT/Speech and Neurology; NPO until cleared by Speech, does not qualify now Permissive HTN 6) Bladder carcinoma/papillary tumor of bladder - patient says he was Dx'ed w/ bladder cancer, follows w/ urologist Chinmay Yen (08/12/23), next Tx and F/U in a month - UA (09/01/23): Ur blood trace, Ur RBC 10-30 - urinary retention, Kim catheter ordered, blood clot noted by nurse upon evacuation - Hgb, 7) Hypothyroidism - levothyroxine, 88 mcg, PO, daily, QAM 8) Hypertension - permissive HTN for 24-48 hrs 9) Hyperlipidemia - rosuvastatin, 20 mg, PO, daily (increased from 5 mg as outpt) 10) Asthma - pt does not currently take meds for this Hypokalemia- K 3.1 NSS +KCl 10 MEQ at 80 mls/hr, after 2 K riders - repeat BMP in AM Supervising Physician Co-Signing Physician Notes Attending Physician Supervision Note: I independently interviewed and examined the patient and verified the russell history and physical, reviewed labs and image studies and agree with findings and care plan noted above. hard of hearing. and son at bedside. no new concerns. speech clear this am. no focal deficiet. Stroke like symptoms - (slurred speech and facial droop). No acute stroke noted on MRI. CTA head and neck noted. -Neuro eval done - considering outpatient cardiac monitoring and EEG. -On dual antiplatelet -Will increase creator dose. Last LDL 90 -PT/OT/Speech. -Permissive Htn Urinary retention and Hematuria - h/o bladder ca - recent scrapping. kim placed. -follow h/h. consider follow up with urology in am Hyperlipidemia - see above Thrombocytopenia - follow cbc Malnutrition - dietary consult placed. Subjective Chief Complaint: The patient presented to the emergency department via ambulance after his became concerned that he is having a stroke. He was last known to be normal around 9:00 in the evening when he went to bed, however, when he went to the bathroom at 3:30 in the morning, and went back to bed, as she tried to talk to him he was only mumbling. These were symptoms similar to his previous stroke, she became concerned, and called 911. EMS reports that upon arrival, he had significant right-sided weakness, a facial droop and slurred speech. Upon arrival to the emergency department, he was taken immediately to CT scanner as a stroke alert. By the time the patient returned from the CT scanner, he had no significant deficits in right-sided, and his speech was somewhat improved, per family, but still not as good as it had been after he recovered from previous stroke. His reports that he had been in his usual state health prior to this event, and had no symptoms as far as respiratory GI or urinary involvement. Primary Care Provider: Giles Galan MD The patient is an 88-year-old male with a past medical history including bladder carcinoma, recent CVA, symptomatic stenosis of left carotid artery, occlusion of right vertebral artery, lumbosacral radiculopathy, moderate persistent asthma, thoracic aortic aneurysm, malignant neoplasm of parotid gland, squamous cell carcinoma lesions of skin, hypercholesterolemia, hypertension, hypothyroidism and BPH with LUTS. He presents to the emergency department with symptoms as noted above as a stroke alert. Due to time from last known well, patient was not considered a candidate for TNK, which he had had with his previous stroke, and patient did significantly improve while in the emergency department. His primary remaining symptom was that of garbled speech Review of Systems Constitutional: + fatigue; no fever and no chills Respiratory: no cough and no dyspnea Cardiovascular: no chest pain and no radiating jaw, neck or arm pain Gastrointestinal: no abdominal pain, no nausea and no vomiting Genitourinary: + difficulty urinating and + problem rep orted (recent TURBT procedure, 08/12/23, prob. residual bleeding since then) Physical Exam Constitutional: + ill appearing ENMT: Ears: + hearing impairment Respiratory: normal respiratory effort, lungs clear to auscultation Cardiovascular: RRR, no murmur, no edema Gastrointestinal (Abdomen): normal bowel sounds, soft, nontender, no hepatosplenomegaly Neurologic: CN's II-XI intact bilaterally, deep tendon reflexes 2+ bilaterally, moves all extremities and awake; no focal motor deficits Speech / Cognition: no anomia and no expressive aphasia Coordination: normal zymjse-kg-[id number] test and normal rapid alternating movements Psychiatric: A+Ox3, euthymic affect Speech: normal rate/rhythm/volume of speech Results & Data Results & Data Vital Signs (Past 12 Hours) Vital Signs Temp Pulse Resp BP Pulse Ox O2 Del Method O2 Flow Rate 09/01/23 06:00 75 19 166/81 H 95 Nasal Cannula 2 09/01/23 05:48 36.4 C L 09/01/23 05:30 78 15 156/78 H 95 Nasal Cannula 2 09/01/23 05:24 96 Nasal Cannula 2 09/01/23 05:10 88 19 142/78 H 96 Nasal Cannula 2 09/01/23 05:00 76 16 141/71 H 97 Nasal Cannula 2 09/01/23 04:48 75 18 152/76 H 90 Room Air 09/01/23 04:46 79 09/01/23 04:45 85 14 152/76 H 95 Nasal Cannula 2 Resident Activity Tracking Resident Involvement: Resident Care Provided Care Provided: Adult Hospital Medicine
[2023-09-01] MEDS: POTASSIUM CHLORIDE / WTR 10 MEQ/100 ML PLCT IV SCH (08:16)
[2023-09-01] MEDS ORDERED: CARBOHYDRATES FOR HYPOGLYCEMIA PO PRN (09:11)
[2023-09-01] MEDS ORDERED: GLUCOSE 10 TAB/TUBE PO PRN (09:11)
[2023-09-01] MEDS ORDERED: PHARMACIST DISCHARGE MED REC CONSULT PRN (09:11)
[2023-09-01] MEDS ORDERED: ONDANSETRON INJ 2 MG/ML 2 ML VIAL IV PRN (09:11)
[2023-09-01] MEDS ORDERED: GLUCOSE 40% GEL 15 GM TUBE PO PRN (09:11)
[2023-09-01] MEDS ORDERED: GLUCAGON FOR INJ 1 MG VIAL SQ PRN (09:11)
[2023-09-01] MEDS ORDERED: DEXTROSE 50% 50 ML SYRINGE IV PRN (09:11)
[2023-09-01] MEDS: GADOBUTROL 30ML VIAL IV ONE (10:25)
--- NOTE | 2023-09-01 10:37 | Magnetic Resonance Report ---
MRI OF THE BRAIN WITHOUT AND WITH IV CONTRAST CLINICAL HISTORY: CVA. Right-sided weakness. Facial droop. COMPARISON STUDY: MRI of the brain April 30, 2023. Head CT and CTA of the head September 01, 2023. TECHNIQUE: Utilizing a 1.5 Rosalie magnet and dedicated coil, multiplanar, multiecho imaging of the br ain was performed pre and postcontrast administration. IV administration of 7.5 mL of Gadavist contr ast was uneventful. FINDINGS: There are no foci of restricted diffusion to suggest acute infarct. No acute intracranial h emorrhage, midline shift or mass effect is present. Mild ventricular dilatation is due to central atr ophy. There are no extra-axial collections. Basal cisterns are patent. Flow-voids for the major intra cranial vessels are present. A 1 cm enhancing extra-axial right parafalcine lesion on coronal T1 post contrast sequence image 16 is similar to MRI of April 04, 2018. No additional intracranial masses are present. White matter T2 hyperintense foci are similar to MRI of April 21, 2023. Favor sm all vessel disease. Chronic left maxillary sinus opacification is again noted. IMPRESSION: 1. No acute intracranial findings. 2. No change in appearance of the brain since MRI of April 21, 2023. ACT 112: Negative or not required by law. Electronically signed by: Pablo Samuels M.D. 09/01/2023 10:35 AM
--- NOTE | 2023-09-01 11:05 | Neurology Consultation ---
Date of Consultation September 01, 2023 Assessment & Plan (1) Stroke-like symptoms: (2) TIA (transient ischemic attack): (3) Seizure-like activity: Plan 88-year-old male presenting with recurrent neurologic symptoms localizing to the left cerebral hemisphere. Reported symptoms seem most consistent with a TIA. He underwent a left transcarotid artery revascularization on May 06, 2023 to address an approximate 50% stenosis of the proximal left ICA that was felt to be symptomatic. There is no evidence of in-stent restenosis of the left ICA. He does have residual 60% stenosis of the proximal cervical internal carotid artery which would not be symptomatic in the context of his current presentation. He did have an implanted loop recorder for about 4 years, was explanted in February 2022. He had an unremarkable echocardiogram on April 22, 2023, without evidence of cardioembolic source. In light of his recurrent presentations localizing to the left cerebral hemisphere, this past April, and currently, I continue to have some concern for possible occult atrial fibrillation with associated cardioembolic TIA. Would again recommend 30-day mobile cardiac outpatient telemetry. Further, because he did have associated shaking with the episode this past April, occult seizures are also possible. I note that he had seen [facility] neurology in 2018, Dr. Cervantes In the context of confusion and possible expressive aphasia at that time. An EEG completed April 04, 2018 revealed encephalopathy, no epileptiform abnormalities, however. Because this patient continues to experience recurrent, fairly similar episodes, I think a repeat EEG is not unreasonable. Would also consider ambulatory EEG monitoring. However, given that his current presentation was not characterized by any witnessed seizure-like activity, I would hold off on starting an antiseizure medication at this time. Would like to first review EEG results. I had also previously considered the possibility of a radiation-induced vasculopathy, given his history of left-sided head and neck radiation to address a parotid gland neoplasm. Patient's MRI and CT angiography results would be nonspecific in this regard, however. Would continue with aspirin, Plavix, and Crestor. Consider increasing his Crestor dosage as an LDL from this past April was 90. Typical LDL goal would be 70 or less in individuals with a history of TIA or stroke. Continue medical management of hypertension per protocol. Please call with any questions. History of Present Illness Reason for Consultation: stroke? Requesting Physician: Jerod Attending Physician: Kilo Newsome MD History of Present Illness The patient is an 88-year-old male who presented to the emergency department overnight with right-sided weakness, right facial droop, and slurred speech. He had awoken with the symptoms at around 3:30 in the morning, otherwise last known well the previous night, prior to going to bed. He did have a telestroke consultation although was not a TNKase candidate as last known well not entirely known. During his initial emergency department examination he was noted to have aphasia, but otherwise no associated hemiparesis or gaze preference. There was no report of any seizure activity. A CT of the head was negative for hemorrhage or acute process, revealing chronic small vessel ischemic disease. A CTA of the neck revealed no evidence of hemodynamically significant stenosis of the carotid arteries. There is moderate atherosclerotic plaque within the right carotid bulb and right proximal cervical internal carotid artery causing up to 60% luminal narrowing. There was evidence of progressive narrowing of the cervical right vertebral artery compared with a previous CT angiogram done in April 2023. Patient's left carotid stent is also visualized although not specifically commented on in the radiology report. A follow-up brain MRI has been completed this morning as well. This study is negative for acute process, no evidence of acute or subacute stroke, no hemorrhage. Again noted is age-related atrophy and chronic small vessel ischemic disease, unchanged from patient's previous MRI done April 21, 2023. I independently reviewed these images. This morning, the patient appears to be back at his baseline. He is very hard of hearing. He does not exhibit any signs of aphasia at this time. No facial droop or right hemiparesis. He denies headache or vision loss. He has been taking aspirin, Plavix, and Crestor as an outpatient. I had previously evaluated this patient on April 22, 2023 in consultation during a hospitalization at that time. Patient had presented with aphasia, dysarthria, left gaze preference, right visual field deficit, and mild right- sided weakness. I had felt that his symptoms localized to the left cerebral hemisphere. He had received TNKase in the emergency department. His symptoms had resolved by the time I had evaluated him that morning. As with his recent episode, there was no evidence of acute or subacute stroke on MRI at that time. The chronic occlusion of the proximal right vertebral artery with distal reconstitution have been observed. I noted at that time that patient had previously had a loop recorder for about 4 years, was explanted in February 2022, no evidence of atrial fibrillation. I also noted his history of head and neck radiation for treatment of a left parotid squamous cell carcinoma previously and had considered the possibility of radiation-induced vasculopathy. I had suggested potentially pursuing 30-day mobile cardiac outpatient telemetry, as his loop recorder had previously been explanted. I had also considered potentially obtaining an outpatient EEG as his previous presentation was also characterized by shaking. Of note, his previous CTA of the neck, completed April 21, 2023 has suggested a 40 to 50% stenosis of the proximal left internal carotid artery and a 60 to 70% stenosis of the proximal right internal carotid artery. He did see Dr. Cordova, vascular surgery on April 29, 2023 regarding his bilateral carotid stenosis and history of strokelike episode potentially lo calized to the left cerebral hemisphere. It was felt that the left internal carotid artery plaque was symptomatic based on his clinical presentation and ulcerated nature of the plaque. The patient underwent left transcarotid artery revascularization on May 06, 2023. He was discharged on May 07, 2023. He had a follow-up appointment with Dr. Cordova on May 23, 2023, and was advised to continue with both aspirin and clopidogrel. He will need to remain on dual antiplatelet therapy for 1 year, after which aspirin could potentially be discontinued. He had another follow-up appointment with vascular on June 20, 2023, patient was stable, no changes were made in his medication regimen at that time. He has been following with [facility] urology as well and underwent transure thral section of a bladder tumor on July 23, 2023. Allergies Allergy/AdvReac Type Severity Reaction Status Date / Time No Known Drug Allergies Allergy Verified 08/28/23 12:58 Home Medications Medication Instructions Recorded Confirmed Type polyethylene glycol 3350 17 gram 17 g PO DAILY PRN constipation #30 07/26/22 08/28/23 Rx oral powder packet (Miralax) ea cyclobenzaprine 5 mg tablet 5 mg PO TID PRN Muscle Spasm 09/27/22 08/28/23 History gabapentin 300 mg capsule 300 mg PO BID #60 caps 11/28/22 08/28/23 Rx levothyroxine 88 mcg tablet 88 mcg PO QAM 01/24/23 08/28/23 History potassium chloride 20 mEq 20 meq PO QAM 01/24/23 08/28/23 History tablet,extended release(part/cryst) prednisone 5 mg tablet 5 mg PO QAM 01/24/23 08/28/23 History ibuprofen 200 mg tablet (Advil) 200 mg PO Q6H PRN Pain 02/05/23 08/28/23 History tramadol 50 mg tablet 50 mg PO Q6H PRN Pain #30 tabs 04/17/23 08/28/23 Rx aspirin 81 mg tablet,delayed 81 mg PO QAM #21 tabs 04/23/23 08/28/23 Rx release rosuvastatin 5 mg tablet (Crestor) 5 mg PO QAM 04/30/23 08/28/23 History tamsulosin 0.4 mg capsule 0.4 mg PO QPM #90 caps 05/02/23 08/28/23 Rx clopidogrel 75 mg tablet (Plavix) See Rx Instructions .Route .COMPLEX 05/06/23 08/28/23 History theophylline 300 mg See Rx Instructions .Route 06/27/23 08/28/23 Rx tablet,extended release,12 hr .COMPLEX #180 tabs pseudoephedrine HCl 30 mg tablet 30 mg PO Q6H PRN Cold Symptoms 08/05/23 08/28/23 History (Sudafed) Patient History Medical History (Updated 09/01/23 @ 11:26 by Bala Garrido MD) Occlusion of right vertebral artery Seizure-like activity pt unaware PFO (patent foramen ovale) Possible per records Subclavian artery stenosis 40% stenosis of the origin of the left subclavian artery per 04/21/23 neck CTA Vertebral artery occlusion chronic occlusion of right vertebral artery per brain MRI 04/21/23 and head/neck CTA 04/21/23 Carotid artery stenosis - 60-70% stenosis right ICA; s/p left TCAR 05/07/23 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 Lumbar disc disease with radiculopathy History of skin cancer Benign prostatic hyperplasia with urinary obstruction Meningioma Dural based calcification along the inner table at the vertex is 14 x 8mm, likely a small meningioma per 04/22/23 brain MRI Followed by neurology per PCP records Status post placement of implantable loop recorder Explanted February 2022 Ventral hernia Acid reflux Hypothyroidism Hypertension Surgical History History of urologic surgery Cystolithopaxy (Bladder Stone Fragmentation and Removal) Transurethral resection of bladder tumor) Hx of surgical procedure 04/2023 [place] > Left Transcarotid Artery Revascularization, Right Common Femoral Vein ultrasound History of colonoscopy History of colostomy reversal History of bowel resection w/ colostomy (pt unaware) Hx of parotidectomy Status post Mohs surgery sees dermatology on 08/09/23 for follow up/ possible procedure History of neck surgery for cancer with radiation History of hemorrhoidectomy Family History Unknown Coronary heart disease Cancer Father Cancer Hypertension Son Diabetes Mother Benign neoplasm of head Brother Heart disease Brother Liver disease Heart disease Denies family history of Stroke Social History Smoking Status: Former smoker Cigarettes Per Day: 1960; Second Hand Exposure: No; Do You Dip or Chew Tobacco: No; Hx Alcohol Use: No Hx Substance Use: No Preferred Language: Kinyarwanda Communication Ability: Effective Visual Impairment: No Limitations Hearing Ability: Hard of Hearing Pie Icer Machine Required: No Beliefs That Will Affect Care: None marital status: Current Living Situation: Spouse current occupational status: retired Other Information That Helps Us Care for You: No Feels Safe at Home: Yes Safety Concerns: Feels Safe At This Time caffeine: No Dental Care, Regularly: Yes Physical Activity Frequency: Daily Seatbelt Use: always Assistive Devices: None Review of Systems Constitutional: no fever and no chills Eyes: no blind spots and no diplopia Ear, Nose, Mouth, Throat: + hearing loss Respiratory: no cough and no dyspnea Cardiovascular: no chest pain and no palpitations Gastrointestinal: no nausea and no vomiting Genitourinary: no dysuria Musculoskeletal: no neck pain and no myalgia Integumentary: + dry skin; no rash Neurologic: as per Subjective / HPI, + localized weakness and + abnormal speech; no headache(s) Psychiatric: no depression and no anxiety Hematologic / Lymphatic: no easy bleeding and no easy bruising Exam (Neuro) Constitutional: well developed; no acute distress Eyes: normal visual arango by confrontation, PERRL and EOM intact bilaterally; no nystagmus ENMT: Ears: + hearing impairment Neurologic: Oriented to:: Person, Place and Time Memory: Short Term Intact and Remote Intact Attention: Span Intact and Concentration Intact Speech Fluency: negative Dysarthria or Dysfluency Speech Aphasia: negative Aphasia Fund of Knowledge: Current Events, Past History and Vocabulary Cranial Nerves: Normal II, III, IV, , V, VII, IX, X, XI and XII; Abnorm VIII Motor Strength: Normal Lower Extremities and Normal Upper Extremities Motor Tone: Normal Lower Extremities and Normal Upper Extremities Muscle Bulk/Involuntary Movements: No Involuntary Movements; negative Muscle Atrophy Sensation: Light Touch Intact, Pain/Temperature Intact and Proprioception Intact Coordination: Normal; negative Limited Balance, Dysdiadochokinesia, Finger-Nose Abnormal or Heel-Zabala Abnormal Deep Tendon Reflexes: Rt Triceps: 1+, Lt Triceps: 1+, Rt Biceps: 1+, Lt Biceps: 1+, Rt Brachioradialis: 1+, Lt Brachioradialis: 1+, Rt Patellar: 1+, Lt Patellar: 1+, Rt Ankle: 1+ and Lt Ankle: 1+ Special Tests: negative Babinski Present Results & Data Vital Signs (Past 12 Hours) Vital Signs Temp Pulse Pulse Resp BP BP Pulse Ox 09/01/23 09:11 36.4 C L 73 16 159/82 H 95 09/01/23 09:11 09/01/23 08:34 78 19 156/82 H 95 09/01/23 07:54 94 H 17 183/112 H 95 09/01/23 06:00 75 19 166/81 H 95 09/01/23 05:48 36.4 C L 09/01/23 05:30 78 15 156/78 H 95 09/01/23 05:24 96 09/01/23 05:10 88 19 142/78 H 96 09/01/23 05:00 76 16 141/71 H 97 09/01/23 04:48 75 18 152/76 H 90 09/01/23 04:46 79 09/01/23 04:45 85 14 152/76 H 95 Pulse Ox O2 Del Method O2 Del Method O2 Flow Rate 09/01/23 09:11 Room Air 09/01/23 09:11 95 Room Air 09/01/23 08:34 Room Air 09/01/23 07:54 Room Air 09/01/23 06:00 Nasal Cannula 2 09/01/23 05:48 09/01/23 05:30 Nasal Cannula 2 09/01/23 05:24 Nasal Cannula 2 09/01/23 05:10 Nasal Cannula 2 09/01/23 05:00 Nasal Cannula 2 09/01/23 04:48 Room Air 09/01/23 04:46 09/01/23 04:45 Nasal Cannula 2 Laboratory Results WBC 4.37, hemoglobin 12.5, hematocrit 38.0, platelet count 109, sodium 135, potassium 3.1, BUN 19, creatinine 1.00, glucose 182, calcium 8.3, magnesium 2.0, AST 12, ALT 7, urinalysis unremarkable. A hemoglobin A1c from this past April was 5.4. A lipid panel from this past April was reviewed as well. Triglycerides 142, cholesterol 155, LDL 90, VLDL 28, HDL 37. An electrocardiogram completed today revealed a sinus rhythm with first-degree AV block, left ventricular hypertrophy with QRS widening and repolarization abnormality, 79 bpm. An echocardiogram completed April 22, 2023 revealed borderline concentric LVH, proximal septal thickening, EF 50 to 55%, normal left ventricular systolic function, normal left ventricular wall motion, left atrium normal size, no embolic source identified. Coding Level of Care Code 60802 INT INP/OBS CARE 3/75MIN Diagnoses Stroke-like symptoms R29.90 TIA (transient ischemic attack) G45.9 Seizure-like activity R56.9 Time Spent (min) 90 Comment Total time includes patient contact, chart review, counseling, note preparation
[2023-09-01] MEDS: NSS + 20MEQ KCL 20 MEQ/1,000 ML BAG IV SCH ×2 (11:08→11:59)
[2023-09-01] MEDS: POTASSIUM CHLORIDE / WTR 10 MEQ/100 ML PLCT IV ONE (11:08)
[2023-09-01] MEDS: INSULIN ASPART PER UNIT CHARGE SC SCH (11:09)
[2023-09-01] MEDS: ENOXAPARIN INJ 40 MG/0.4 ML SYR SQ SCH (11:09)
--- NOTE | 2023-09-01 12:25 | Pharmacy Report ---
- Date of Service September 01, 2023 - Pharmacy CVA/TIA Medication Review Medications to Prevent Stroke handout has been added to the patients discharge packet. Antiplatelet(s) * Aspirin 81 mg daily * Plavix 75 mg daily Cholesterol * High intensity statin: rosuvastatin 20 mg daily DVT Prophylaxis * Enoxaparin SQ Therapeutic Anticoagulation * No history of Afib/Aflutter noted Type 2 Diabetes * Patient does not have T2DM
[2023-09-01] MEDS: CLOPIDOGREL BISULFATE 75 MG TAB PO SCH (14:09)
[2023-09-01] MEDS: ROSUVASTATIN CALCIUM 20 MG TAB PO SCH (14:09)
[2023-09-01] MEDS: LIDOCAINE 2% JELLY 5 ML TUBE EXT ONE (14:09)
[2023-09-01] MEDS: ASPIRIN 81 MG ECTAB PO SCH (14:09)
[2023-09-01 15:40] LABS: Hematocrit (blood only) 43.1 % (42.0-52.0); Hemoglobin 14.5 g/dl (14.0-18.0)
[2023-09-01 18:05] LABS: Hematocrit (blood only) 39.7 % (42.0-52.0); Hemoglobin 13.5 g/dl (14.0-18.0)
--- NOTE | 2023-09-02 06:55 | Hospitalist Progress Note ---
Date of Service September 02, 2023 Assessment & Plan (1) Occlusion of right vertebral artery: (2) Stroke-like symptoms: (3) Aphasia: (4) Bladder carcinoma: (5) Recent cerebrovascular accident (CVA): (6) Symptomatic stenosis of left carotid artery: (7) Vertebral artery narrowing: Plan (1) Stroke-like symptoms/Aphasia: (2) Recent cerebrovascular accident (CVA): (3) Symptomatic stenosis of left carotid artery: (4) Occlusion of right vertebral artery: (5) R. vertebral artery narrowing: (6) Bladder carcinoma: (7) Hypothyroidism: (8) Hypertension: (9) HLD (hyperlipidemia): (10) hematuria Plan (1) Stroke-like symptoms/Aphasia and Recent cerebrovascular accident (CVA) (05/13)/Symptomatic stenosis of left carotid artery--S/P TCAR of l. carotid artery: Occlusion of right vertebral artery/R. vertebral artery narrowing: Strokelike symptoms/previous CVA/narrowing of the artery/history of seizure-like activity/aphasia- Stroke without tPA order set, -CT head w/o contrast negative CTA head showed severe stenosis of intracranial right vertebral artery CTA neck showed right cervical vertebral artery progressive narrowing at C1 level Imaging not significantly different from previous imaging during past CVA Stroke alert protocol with [facility] [place] determined no TNK due to time of last known well. MRI Brain with and without contrast: There are no foci of restricted diffusion to suggest acute infarct. EEG: EEG was normal during wakefulness and light sleep. No focal abnormalities, potentially epileptogenic discharges, or abnormal slow activity were seen "The absence of potentially epileptogenic activity does not exclude a seizure disorder, since interictally, EEGs can be normal. Clinical correlation required". Last ECHO 05/13 will not be repeated consult to PT/OT/Speech and Neurology; NPO until cleared by Speech, does not qualify now Permissive HTN 6) Bladder carcinoma/papillary tumor of bladder - patient says he was Dx'ed w/ bladder cancer, follows w/ urologist Chinmay Yen (08/12/23), next Tx and F/U in a month - UA on admission (09/01/23): Ur blood trace, Ur RBC 10-30 - urinary retention, Smith catheter ordered, blood clot noted by nurse upon evacuation - Hgb, 13.2 - UA (02/12/24): Ur RBC > 30, Ur WBC > 30, Ur albino 0, Ur Cx pending 7) Hypothyroidism - levothyroxine, 88 mcg, PO, daily, QAM 8) Hypertension - permissive HTN for 24-48 hrs 9) Hyperlipidemia - rosuvastatin, 20 mg, PO, daily (increased from 5 mg as outpt) 10) Asthma - pt does not currently take meds for this Admission and Anticipated Discharge Date Admission Date: September 01, 2023 Supervising Physician Co-Signing Physician Notes I personally examined the patient and verified all russell points of history and exam, discussed case, and agree with decision making with Dr Ferraro Feeling okay. Smith draining bloody urine. Awaiting rehab placement. Discus sed plans. Vitals noted, in general he is awake and alert hard of hearing but no distress. HEENT normocephalic atraumatic mucous membranes moist. Breathing unlabored no accessory muscle use good effort. Skin shows no rashes no pallor or icterus. Neuro without focal deficits. Stroke like symptoms - (slurred speech and facial droop)(probable TIA). No acute stroke noted on MRI. CTA head and neck noted. -Neuro eval done - Med management and secondary risk reductionMain intervention being increasing his statin to high intensity, continue dual antiplatelets, continue anticonvulsants. Working on rehab placement, permissive hypertension for now. Urinary retention and Hematuria - h/o bladder ca - recent scrapping. Differential being an area that has not quite healed from recent bladder resection and now being on uninterrupted dual antiplatelets, versus cystitis with a degree of hemorrhage, versus othertreat as infectious, follow closelyif does not clear or recurs, then urology for cystoscopy. hold lovenox Hyperlipidemia - see above Thrombocytopenia - follow cbc Malnutrition - dietary consult. Subjective Chief Complaint: The patient presented to the emergency department via ambulance after his became concerned that he is having a stroke. He was last known to be normal around 9:00 in the evening when he went to bed, however, when he went to the bathroom at 3:30 in the morning, and went back to bed, as she tried to talk to him he was only mumbling. These were symptoms similar to his previous stroke, she became concerned, and called 911. EMS reports that upon arrival, he had significant right-sided weakness, a facial droop and slurred speech. Upon arrival to the emergency department, he was taken immediately to CT scanner as a stroke alert. By the time the patient returned from the CT scanner, he had no significant deficits in right-sided, and his speech was somewhat improved, per family, but still not as good as it had been after he recovered from previous stroke. His reports that he had been in his usual state health prior to this event, and had no symptoms as far as respiratory GI or urinary involvement. Primary Care Provider: Giles Galan MD The patient is an 88-year-old male with a past medical history including bladder carcinoma, recent CVA, symptomatic stenosis of left carotid artery, occlusion of right vertebral artery, lumbosacral radiculopathy, moderate persistent asthma, thoracic aortic aneurysm, malignant neoplasm of parotid gland, squamous cell carcinoma lesions of skin, hypercholesterolemia, hypertension, hypothyroidism and BPH with LUTS. He presents to the emergency department with symptoms as noted above as a stroke alert. Due to time from last known well, patient was not considered a candidate for TNK, which he had had with his previous stroke, and patient did significantly improve while in the emergency department. His primary remaining symptom was that of garbled speech Review of Systems Constitutional: + fatigue; no fever and no chills Respiratory: no cough and no dyspnea Cardiovascular: no chest pain and no radiating jaw, neck or arm pain Gastrointestinal: no abdominal pain, no nausea and no vomiting Genitourinary: + difficulty urinating and + problem rep orted (recent TURBT procedure, 08/12/23, prob. residual bleeding since then) Physical Exam Constitutional: + ill appearing ENMT: Ears: + hearing impairment Respiratory: normal respiratory effort, lungs clear to auscultation Auscultation: breath sounds present (but coarse) Cardiovascular: RRR, no murmur, no edema Gastrointestinal (Abdomen): normal bowel sounds, soft, nontender, no hepatosplenomegaly Neurologic: CN's II-XI intact bilaterally, deep tendon reflexes 2+ bilaterally, moves all extremities and awake; no focal motor deficits Speech / Cognition: no anomia and no expressive aphasia Coordination: normal [id number] test and normal rapid alternating movements Psychiatric: A+Ox3, euthymic affect Speech: normal rate/rhythm/volume of speech Results & Data Results & Data Vital Signs (Past 12 Hours) Vital Signs Temp Pulse Pulse Resp BP Pulse Ox O2 Del Method 09/02/23 02:52 36.5 C 82 18 152/72 H 95 Room Air 09/01/23 23:00 66 09/01/23 22:23 37.1 C 64 16 153/67 H 95 Room Air 09/01/23 19:14 36.8 C 62 20 151/74 H 95 Room Air Resident Activity Tracking Resident Involvement: Resident Care Provided Care Provided: Adult Hospital Medicine
[2023-09-02 08:29] LABS: Basophils # (auto) 0.02 K/uL (0.00-0.20); Basophils % (auto) 0.4 %; Eosinophils # (auto) 0.12 K/uL (0.00-0.50); Eosinophils % (auto) 2.3 %; Hematocrit (blood only) 38.9 % (42.0-52.0); Hemoglobin 13.2 g/dl (14.0-18.0); Immature Granulocytes # (auto) 0.02 K/uL (0.01-0.20); Immature Granulocytes % (auto) 0.4 %; Lymphocytes # (auto) 0.77 K/uL (1.20-3.40); Lymphocytes % (auto) 14.6 %; Mean Corpuscular Hemoglobin 29.7 pg (25.0-34.0); Mean Corpuscular Hgb Conc 33.9 g/dL (32.0-36.0); Mean Corpuscular Volume 87.6 fL (80.0-100.0); Mean Platelet Volume 10.9 fL (9.4-12.4); Monocytes # (auto) 0.55 K/uL (0.11-0.59); Monocytes % (auto) 10.4 %; Neutrophils # (auto) 3.79 K/uL (1.40-6.50); Neutrophils % (auto) 71.9 %; Platelet Count 119 K/uL (130-400); RDW Coefficient of Variation 14.4 % (11.5-14.5); Red Blood Count 4.44 M/uL (4.70-6.10); White Blood Count 5.27 K/ul (4.8-10.8)
--- NOTE | 2023-09-02 08:30 | Electroencephalogram ---
EEG Procedure Note Date of Service September 02, 2023 Start / End Times Start Time: 608 End Time: [address] Newsome History 88-year-old with history of seizure-like activity Home Medication List Medication Instructions Recorded Confirmed Type polyethylene glycol 3350 17 gram 17 g PO DAILY PRN constipation #30 07/26/22 08/28/23 Rx oral powder packet (Miralax) ea cyclobenzaprine 5 mg tablet 5 mg PO TID PRN Muscle Spasm 09/27/22 08/28/23 History gabapentin 300 mg capsule 300 mg PO BID #60 caps 11/28/22 08/28/23 Rx levothyroxine 88 mcg tablet 88 mcg PO QAM 01/24/23 08/28/23 History potassium chloride 20 mEq 20 meq PO QAM 01/24/23 08/28/23 History tablet,extended release(part/cryst) prednisone 5 mg tablet 5 mg PO QAM 01/24/23 08/28/23 History ibuprofen 200 mg tablet (Advil) 200 mg PO Q6H PRN Pain 02/05/23 08/28/23 History tramadol 50 mg tablet 50 mg PO Q6H PRN Pain #30 tabs 04/17/23 08/28/23 Rx aspirin 81 mg tablet,delayed 81 mg PO QAM #21 tabs 04/23/23 08/28/23 Rx release rosuvastatin 5 mg tablet (Crestor) 5 mg PO QAM 04/30/23 08/28/23 History tamsulosin 0.4 mg capsule 0.4 mg PO QPM #90 caps 05/02/23 08/28/23 Rx clopidogrel 75 mg tablet (Plavix) See Rx Instructions .Route .COMPLEX 05/06/23 08/28/23 History theophylline 300 mg See Rx Instructions .Route 06/27/23 08/28/23 Rx tablet,extended release,12 hr .COMPLEX #180 tabs pseudoephedrine HCl 30 mg tablet 30 mg PO Q6H PRN Cold Symptoms 08/05/23 08/28/23 History (Sudafed) Inpatient Medication List Aspirin (Aspirin 81 Mg Ectab) 81 mg PO DAILY RICCI Stop: 10/01/23 12:59 Last Admin: 09/01/23 14:09 Dose: 81 mg Documented By: CA Clopidogrel Bisulfate (Clopidogrel Bisulfate 75 Mg Tab) 75 mg PO DAILY RICCI Stop: 10/01/23 12:59 Last Admin: 09/01/23 14:09 Dose: 75 mg Documented By: NAVA Enoxaparin Sodium (Enoxaparin Inj 40 Mg/0.4 Ml Syr) 40 mg SQ DAILY RICCI Stop: 10/01/23 09:29 Last Admin: 09/01/23 11:09 Dose: 40 mg Documented By: NAVA Potassium Chloride/Sodium Chloride (Normal Saline W/20 Meq Kcl) 20 meq in 1,000 mls @ 100 mls/hr IV .Q10H RICCI Stop: 10/01/23 09:29 Last Admin: 09/01/23 22:57 Dose: 100 mls/hr Documented By: Infusion: 09/01/23 21:08 Dose: Infused Documented By: Admin: 09/01/23 11:08 Dose: 100 mls/hr Documented By: NAVA Insulin Aspart (Insulin Aspart Per Unit Charge) 0 units SC ACHS RICCI Stop: 10/01/23 09:29 Last Admin: 09/01/23 20:19 Dose: Not Given Documented By: Admin: 09/01/23 17:11 Dose: Not Given Documented By: Admin: 09/01/23 12:11 Dose: Not Given Documented By: Admin: 09/01/23 11:09 Dose: Not Given Documented By: NAVA Rosuvastatin Calcium (Rosuvastatin Calcium 20 Mg Tab) 20 mg PO DAILY RICCI Stop: 10/01/23 12:59 Last Admin: 09/01/23 14:09 Dose: 20 mg Documented By: NAVA Discontinued Medications Gadobutrol (Gadobutrol 30ml Vial) 7.5 ml IV ONCE ONE Stop: 09/01/23 10:26 Last Admin: 09/01/23 10:25 Dose: 7.5 ml Documented By: MEAGAN Sodium Chloride (Nss) 500 mls @ 999 mls/hr IV .Q31M ONE Stop: 09/01/23 05:46 Last Infusion: 09/01/23 08:16 Dose: Infused Documented By: Admin: 09/01/23 05:53 Dose: 999 mls/hr Documented By: Potassium Chloride (K Fahad / Wtr) 10 meq in 100 mls @ 100 mls/hr IV Q1H RICCI Stop: 09/01/23 11:00 Last Admin: 09/01/23 12:10 Dose: Not Given Documented By: Admin: 09/01/23 12:10 Dose: Not Given Documented By: Admin: 09/01/23 12:00 Dose: Not Given Documented By: Admin: 09/01/23 10:54 Dose: Not Given Documented By: Infusion: 09/01/23 10:00 Dose: Infused Documented By: Admin: 09/01/23 08:16 Dose: 100 mls/hr Documented By: NADJA Potassium Chloride/Sodium Chloride (Normal Saline W/20 Meq Kcl) 20 meq in 1,000 mls @ 80 mls/hr IV .[id number] RICCI; Protocol Stop: 10/01/23 08:14 Last Admin: 09/01/23 11:59 Dose: Not Given Documented By: NAVA Potassium Chloride (K F[place]ad / Wtr) 10 meq in 100 mls @ 100 mls/hr IV NOW ONE Stop: 09/01/23 11:29 Last Infusion: 09/01/23 14:12 Dose: Infused Documented By: Admin: 09/01/23 11:08 Dose: 50 mls/hr Documented By: NAVA Ioversol (Optiray 320 125ml) 117 ml IV ONCE ONE Stop: 09/01/23 04:38 Last Admin: 09/01/23 04:39 Dose: 117 ml Documented By: ARIEL Lidocaine HCl (Lidocaine 2% Jelly 5 Ml Tube) Confirm Administered Dose 5 ml EXT .STK-MED ONE Stop: 09/01/23 13:23 Last Admin: 09/01/23 14:09 Dose: 5 ml Documented By: NAVA Description This is a 21 electrode EEG with a single channel dedicated to limited EKG. The electrodes were placed in accordance with the International 10-20 system. Interpretation The predominant background activity consists of an irregular 10 Hz activity, of up to 30 mV in amplitude,seen symmetrically distributed over the posterior head regions bilaterally. This activity attenuates some with eye-opening and other al erting procedures. Photic stimulation was performed and elicited no change in the background activity and no abnormal responses were seen. Hyperventilation was not performed. A mild amount of muscle and movement artifact activity contaminated the recording, yet did not hinder interpretation to any significant degree. Throughout the waking portion of the recording, no focal abnormalities, abnormal slow activity, or potentially epileptogenic discharges were seen. The patient entered the drowsy state and brief periods of stage II sleep with no further activation. In summary, this EEG was normal during wakefulness and light sleep. No focal abnormalities, potentially epileptogenic discharges, or abnormal slow activity were seen. Clinical Correlation The abscence of potentially epileptogenic activity does not exclude a seizure disorder, since interictally, EEGs can be normal. Clinical correlation is required. [facility] EEG Procedure Codes Indication for Procedure (1) Seizure-like activity: Neurology Neurology: 98164 EEG include record awake & sleepy
[2023-09-02 08:49] LABS: Estimated Average Glucose 108 mg/dl; Hemoglobin A1C 5.4 % (4.5-5.6)
[2023-09-02 08:50] LABS: Albumin Globulin Ratio 1.3 (0.9-2); Bilirubin,Total 0.6 mg/dl (0.2-1.0); Calcium 8.2 mg/dl (8.6-10.3); Chol HDL Ratio 3.7 (0-5); Creatinine Clr Calc Pharmacy 71.6 ml/min; Est GFR (African American) 96.3 ml/min; Est GFR (Non-African American) 83.1 ml/min; Globulin 2.3 gm/dl (2.5-4.0); Potassium 3.7 mmol/L (3.5-5.1); Total Protein 5.3 gm/dl (6.0-8.3)
[2023-09-02] MEDS: LEVOTHYROXINE SODIUM 88 MCG TABLET PO SCH (09:46)
[2023-09-02 15:04] LABS: Appearance Urine Cloudy (Clear); Color Urine Red; Specific Gravity Urine 1.023 (1.000-1.030)
[2023-09-02 15:08] LABS: RBC Urine >30 /hpf (0-4); WBC Urine >30 /hpf (0-5)
[2023-09-02 15:09] LABS: Bacteria Urine Negative (Negative)
--- NOTE | 2023-09-02 18:26 | Billing Data ---
Date of Service September 02, 2023 Coding Level of Care Code 56871 SUB INP/OBS CARE MIN
[2023-09-02] MEDS: cefTRIAXone SODIUM 1,000 MG in DEXTROSE 5 % MINI-B 50 ML IV SCH (18:40)
--- NOTE | 2023-09-02 19:11 | Electrocardiogram Report ---
Test Reason : Blood Pressure : / mmHG Vent. Rate : 073 BPM Atrial Rate : 073 BPM P-R Int : 186 ms QRS Dur : 122 ms QT Int : 382 ms P-R-T Axes : 011 -48 021 degrees QTc Int : 420 ms Normal sinus rhythm Left anterior fascicular block Left ventricular hypertrophy with QRS widening Abnormal ECG When compared with ECG of 01-SEP-2023 04:46, MS interval has decreased Confirmed by Arvind Dewey ([id number]) on 09/02/2023 7:10:29 PM Referred By: REFERRED SELF Confirmed By:Arvind Dewey
--- NOTE | 2023-09-03 06:54 | Hospitalist Progress Note ---
Date of Service September 03, 2023 Assessment & Plan (1) Occlusion of right vertebral artery: (2) Stroke-like symptoms: (3) Aphasia: (4) Bladder carcinoma: (5) Recent cerebrovascular accident (CVA): (6) Symptomatic stenosis of left carotid artery: (7) Vertebral artery narrowing: Plan (1) Stroke-like symptoms/Aphasia: (2) Recent cerebrovascular accident (CVA): (3) Symptomatic stenosis of left carotid artery: (4) Occlusion of right vertebral artery: (5) R. vertebral artery narrowing: (6) Bladder carcinoma: (7) Hypothyroidism: (8) Hypertension: (9) HLD (hyperlipidemia): (10) hematuria Plan (1) Stroke-like symptoms/Aphasia and Recent cerebrovascular accident (CVA) (05/13)/Symptomatic stenosis of left carotid artery--S/P TCAR of l. carotid artery: Occlusion of right vertebral artery/R. vertebral artery narrowing: Strokelike symptoms/previous CVA/narrowing of the artery/history of seizure-like activity/aphasia- Stroke without tPA order set, -CT head w/o contrast negative CTA head showed severe stenosis of intracranial right vertebral artery CTA neck showed right cervical vertebral artery progressive narrowing at C1 level Imaging not significantly different from previous imaging during past CVA Stroke alert protocol with [facility] [place] telestroke determined no TNK due to time of last known well. MRI Brain with and without contrast: There are no foci of restricted diffusion to suggest acute infarct. EEG: EEG was normal during wakefulness and light sleep. No focal abnormalities, potentially epileptogenic discharges, or abnormal slow activity were seen "The absence of potentially epileptogenic activity does not exclude a seizure disorder, since interictally, EEGs can be normal. Clinical correlation required". Last ECHO 05/13 will not be repeated consult to PT/OT/Speech and Neurology; NPO until cleared by Speech, does not qualify now Permissive HTN, will be discharged to [facility] for rehab 6) Bladder carcinoma/papillary tumor of bladder - patient says he was Dx'ed w/ bladder cancer, follows w/ urologist Chinmay Yen (08/12/23), next Tx and F/U in a month - UA on admission (09/01/23): Ur blood trace, Ur RBC 10-30 - urinary retention, Smith catheter ordered, blood clot noted by nurse upon ev acuation - Hgb, 13.2 - UA (09/02/23): Ur RBC > 30, Ur WBC > 30, Ur albino 0 but Ur Cx negative 7) Hypothyroidism - levothyroxine, 88 mcg, PO, daily, QAM 8) Hypertension - permissive HTN for 24-48 hr - patient continues to be hypertensive, will need to F/U with PCP to gauge whether chronic or acute HTN 9) Hyperlipidemia - rosuvastatin, 20 mg, PO, daily (increased from 5 mg as outpt) 10) Asthma - pt does not currently take meds for this Admission and Anticipated Discharge Date Admission Date: September 01, 2023 Supervising Physician Co-Signing Physician Notes I personally examined the patient and verified all russell points of history and exam, discussed case, and agree with decision making with Dr Ferraro Feels okay. Awaiting rehab. Urine has cleared. Answered all questions to the best my ability and to his satisfaction. Vitals noted, in general he is awake and alert hard of hearing but no distress. HEENT normocephalic atraumatic mucous membranes moist. Breathing unlabored no accessory muscle use good effort. Skin shows no rashes no pallor or icterus. Neuro without focal deficits. Stroke like symptoms - (slurred speech and facial droop). No acute stroke noted on MRI. CTA head and neck noted. -Neuro eval done - Med management and secondary risk reductionMain intervention being increasing his statin to high intensity, continue dual antiplatelets, No need for ongoing anticonvulsants. Working on rehab placement, permissive hypertension for now. Urinary retention and Hematuria - h/o bladder ca - recent scrapping. Differential being an area that has not quite healed from recent bladder resection and now being on uninterrupted dual antiplatelets, versus cystitis with a degree of hemorrhage, versus other clearing nicely. Treated as infectious, Lovenox held, try to DC Smith and follow. Hyperlipidemia - see above Thrombocytopenia - follow cbc; plt 114 today Malnutrition - dietary consult. Subjective Chief Complaint: The patient presented to the emergency department via ambulance after his became concerned that he is having a stroke. He was last known to be normal around 9:00 in the evening when he went to bed, however, when he went to the bathroom at 3:30 in the morning, and went back to bed, as she tried to talk to him he was only mumbling. These were symptoms similar to his previous stroke, she became concerned, and called 911. EMS reports that upon arrival, he had significant right-sided weakness, a facial droop and slurred speech. Upon arrival to the emergency department, he was taken immediately to CT scanner as a stroke alert. By the time the patient returned from the CT scanner, he had no significant deficits in right-sided, and his speech was somewhat improved, per family, but still not as good as it had been after he recovered from previous stroke. His reports that he had been in his usual state health prior to this event, and had no symptoms as far as respiratory GI or urinary involvement. Primary Care Provider: Giles Galan MD The patient is an 88-year-old male with a past medical history including bladder carcinoma, recent CVA, symptomatic stenosis of left carotid artery, occlusion of right vertebral artery, lumbosacral radiculopathy, moderate persistent asthma, thoracic aortic aneurysm, malignant neoplasm of parotid gland, squamous cell carcinoma lesions of skin, hypercholesterolemia, hypertension, hypothyroidism and BPH with LUTS. He presents to the emergency department with symptoms as noted above as a stroke alert. Due to time from last known well, patient was not considered a candidate for TNK, which he had had with his previous stroke, and patient did significantly improve while in the emergency department. His primary remaining symptom was that of garbled speech Review of Systems Constitutional: + fatigue; no fever and no chills Respiratory: no cough and no dyspnea Cardiovascular: no chest pain and no radiating jaw, neck or arm pain Gastrointestinal: no abdominal pain, no nausea and no vomiting Genitourinary: + difficulty urinating and + problem rep orted (recent TURBT procedure, 08/12/23, prob. residual bleeding since then) Physical Exam Constitutional: + ill appearing ENMT: Ears: + hearing impairment Respiratory: normal respiratory effort, lungs clear to auscultation Auscultation: breath sounds present (but coarse) Cardiovascular: RRR, no murmur, no edema Gastrointestinal (Abdomen): normal bowel sounds, soft, nontender, no hepatosplenomegaly Neurologic: CN's II-XI intact bilaterally, deep tendon reflexes 2+ bilaterally, moves all extremities and awake; no focal motor deficits Speech / Cognition: no anomia and no expressive aphasia Coordination: normal [id number] test and normal rapid alternating movements Psychiatric: A+Ox3, euthymic affect Speech: normal rate/rhythm/volume of speech Results & Data Results & Data Vital Signs (Past 12 Hours) Vital Signs Temp Pulse Pulse Resp BP Pulse Ox O2 Del Method 09/03/23 03:14 36.8 C 71 18 157/77 H 94 09/02/23 22:05 36.7 C 68 18 161/70 H 92 Room Air 09/02/23 22:00 63 09/02/23 19:12 36.8 C 70 16 162/72 H 94 Room Air Resident Activity Tracking Resident Involvement: Resident Care Provided Care Provided: Adult Hospital Medicine
[2023-09-03 07:40] LABS: Bilirubin,Total 0.5 mg/dl (0.2-1.0); Calcium 8.1 mg/dl (8.6-10.3); Magnesium 1.9 mg/dl (1.7-2.4)
[2023-09-03 07:44] LABS: Albumin Globulin Ratio 1.3 (0.9-2); BUN Creatinine Ratio 14.3 (10-20); Est GFR (African American) 103.4 ml/min; Est GFR (Non-African American) 89.2 ml/min; Globulin 2.4 gm/dl (2.5-4.0); Total Protein 5.4 gm/dl (6.0-8.3)
[2023-09-03 07:53] LABS: Hematocrit (blood only) 40.9 % (42.0-52.0); Hemoglobin 13.8 g/dl (14.0-18.0); Mean Corpuscular Hemoglobin 29.6 pg (25.0-34.0); Mean Corpuscular Hgb Conc 33.7 g/dL (32.0-36.0); Mean Corpuscular Volume 87.8 fL (80.0-100.0); Mean Platelet Volume 10.3 fL (9.4-12.4); Platelet Count 114 K/uL (130-400); RDW Coefficient of Variation 14.2 % (11.5-14.5); RDW Standard Deviation 45.5 fL (36.4-46.3); Red Blood Count 4.66 M/uL (4.70-6.10); White Blood Count 6.65 K/ul (4.8-10.8)
[2023-09-03 07:54] LABS: Basophils # (auto) 0.02 K/uL (0.00-0.20); Basophils % (auto) 0.3 %; Eosinophils # (auto) 0.12 K/uL (0.00-0.50); Eosinophils % (auto) 1.8 %; Immature Granulocytes # (auto) 0.03 K/uL (0.01-0.20); Immature Granulocytes % (auto) 0.5 %; Lymphocytes # (auto) 0.59 K/uL (1.20-3.40); Lymphocytes % (auto) 8.9 %; Monocytes # (auto) 0.88 K/uL (0.11-0.59); Monocytes % (auto) 13.2 %; Neutrophils # (auto) 5.01 K/uL (1.40-6.50); Neutrophils % (auto) 75.3 %
--- NOTE | 2023-09-03 18:29 | Billing Data ---
Date of Service September 03, 2023 Coding Level of Care Code 24821 SUB INP/OBS CARE
--- NOTE | 2023-09-04 06:57 | Discharge Summary ---
Date of Service September 04, 2023 Admission HPI Per Admitting Provider The patient is an 88-year-old male with a past medical history including bladder carcinoma, recent CVA, symptomatic stenosis of left carotid artery, occlusion of right vertebral artery, lumbosacral radiculopathy, moderate persistent asthma, thoracic aortic aneurysm, malignant neoplasm of parotid gland, hypercholesterolemia, hypertension, hypothyroidism and BPH with LUTS. He presents to the emergency department with symptoms as noted above as a stroke alert. Due to time from last known well, patient was not considered a candidate for TNK, which he had had with previous stroke, and patient did significantly i mprove while in the emergency department. His primary remaining symptom was that of aphasia/garbled speech. Patient has continued to improve since admission, but even after permissive hypertension period he has continued to show hypertension. Other concern has been the blood in his urine, which initially decreased after Smith insertion and clot removal but was noticed again last night by the patient. Admission Exam Per Admitting Provider Physical Exam: The patient is awake, and somewhat difficult to understand due to mildly speech. normocephalic and atraumatic, lying in bed and in no acute distress. HEENT--PERRL, EOMI, mucous membranes and oropharynx mildly dry. Neck--supple. No JVD. No bruits. Thyroid normal, trachea midline, no adenopathy. Heart--normal S1 and S2. No murmurs, rubs or gallops. Lungs--clear bilaterally, no respiratory distress, no accessory muscle use. Abdomen--normal bowel sounds and soft. Nontender. Nondistended, no hernias or masses, no organomegaly. Extremities--no cyanosis or clubbing. No edema. There are good distal pulses b/l. Dermatologic--normal skin turgor, normal color, no abnormal lymph nodes, no rash. Neurologic--significant difficulty with speech, mumbling. No significant facial droop. Patient difficult to understand and unable to answer questions appropriately. No significant motor deficits. Unable to test sensation due to patient responses Rheumatologic--normal range of motion. Psychiatric--confused Principal Diagnosis TIA (transient ischemic attack) Discharge Exam Constitutional + ill appearing ENMT Ears: + hearing impairment Respiratory normal respiratory effort, lungs clear to auscultation Auscultation: breath sounds present (but coarse) Cardiovascular RRR, no murmur, no edema Gastrointestinal (Abdomen) normal bowel sounds, soft, nontender, no hepatosplenomegaly Neurologic CN's II-XI intact bilaterally, deep tendon reflexes 2+ bilaterally, moves all extremities and awake; no focal motor deficits Speech / Cognition: no anomia and no expressive aphasia Coordination: normal ybvzkh-dl-cedp test and normal rapid alternating movements Psychiatric A+Ox3, euthymic affect Speech: normal rate/rhythm/volume of speech Discharge Data Allergies Allergy/AdvReac Type Severity Reaction Status Date / Time No Known Drug Allergies Allergy Verified 08/28/23 12:58 Consultations 09/01/23 05:28 ED Decision to Admit Stat 09/01/23 09:11 Consult Neurology Routine Ordered Studies 09/01/23 04:20 CT angio head w con Stat CT angio neck with con Stat CT head/brain wo con Stat 09/01/23 07:11 MRI Brain [MR brain wo/w con] Routine Hospital Course (1) Occlusion of right vertebral artery: (2) Stroke-like symptoms: (3) Aphasia: (4) Bladder carcinoma: (5) Recent cerebrovascular accident (CVA): (6) Symptomatic stenosis of left carotid artery: (7) Vertebral artery narrowing: Plan (1) Stroke-like symptoms/Aphasia: (2) Recent cerebrovascular accident (CVA): (3) Symptomatic stenosis of left carotid artery: (4) Occlusion of right vertebral artery: (5) R. vertebral artery narrowing: (6) Bladder carcinoma: (7) Hypothyroidism: (8) Hypertension: (9) HLD (hyperlipidemia): (10) hematuria Plan (1) Stroke-like symptoms/Aphasia and Recent cerebrovascular accident (CVA) (05/13)/Symptomatic stenosis of left carotid artery--S/P TCAR of l. carotid artery: Occlusion of right vertebral artery/R. vertebral artery narrowing: Strokelike symptoms/previous CVA/narrowing of the artery/history of seizure-like activity/aphasia- Stroke without tPA order set, -CT head w/o contrast negative CTA head showed severe stenosis of intracranial right vertebral artery CTA neck showed right cervical vertebral artery progressive narrowing at C1 level Imaging not significantly different from previous imaging during past CVA Stroke alert protocol with [facility] telestroke determined no TNK due to time of last known well. MRI Brain with and without contrast: There are no foci of restricted diffusion to suggest acute infarct. EEG: EEG was normal during wakefulness and light sleep. No focal abnormalities, potentially epileptogenic discharges, or abnormal slow activity were seen. "The absence of potentially epileptogenic activity does not exclude a seizure disorder, since interictally, EEGs can be normal. Clinical correlation required". Last ECHO 05/13 will not be repeated consulted to PT/OT/Speech and Neurology; NPO until cleared by Speech, does not qualify now Permissive HTN, 48 hrs after TIA, hypertensive readings after that, should be evaluated by PCP for HTN Discharged to [facility] for rehab 6) Bladder carcinoma/papillary tumor of bladder - patient says he was Dx'ed w/ bladder cancer, follows w/ urologist Chinmay Yen (08/12/23), next Tx and F/U in a month - UA on admission (09/01/23): Ur blood trace, Ur RBC 10-30 - urinary retention, Smith catheter ordered, blood clot noted by nurse upon evacuation - Hgb, 13.2 - UA (09/02/23): Ur RBC > 30, Ur WBC > 30, Ur albino 0 but Ur Cx negative, stopped Ceftriaxone 7) Hypothyroidism - levothyroxine, 88 mcg, PO, daily, QAM 8) Hypertension - permissive HTN for 24-48 hr post TIA - patient continues to be hypertensive, will need to F/U with PCP to gauge wh ether chronic or acute HTN 9) Hyperlipidemia - rosuvastatin, 20 mg, PO, daily (increased from 5 mg as outpt) 10) Asthma - pt does not currently take meds for this Total Time Total Time Spent Total Time Spent (In Minutes): see attending attestation Discharge Plan Discharge Items Patient Disposition: Transfer Inpatient Rehab Fac Reason For Visit: CVA Discharge Diagnosis: temporary aphasia, TIA Activity: Resume your previous activity Activity Comment: perform the rehabilitative exercises as recommended during and after rehab Non-emergency contact: Primary Care Provider Call non-emergency contact if: you have any medication questions and your symptoms worsen Follow-up/Referrals: Giles Galan MD [Primary Care Provider] - Diet: Regular Addtl Attending Provider Instructions: You were admitted to the hospital for TIA (transient ischemic attack). You were treated with your home medications along with an increase in your cholesterol- lowering med, rosuvastatin. A discharge summary will be sent to your primary care physician to ensure continuity of care. Please bring this discharge summary with you to your next office appointment so that your provider can review it at that time. Follow-up appointments: We have requested a follow-up appointment with your primary care physician within one week of discharge. Please call their office if you do not hear from them. We have requested a follow-up appointment with your urologist within one week of discharge. Please call their office if you do not hear from them. Keep all your follow-up appointments as already scheduled. If you cannot make an appointment, notify your provider. Medications: Your medication list has been reviewed and reconciled upon discharge to ensure accuracy and continuity of care. An updated list of all your medications is included with your hospital discharge paperwork. Please review this list closely, and make note of any changes. We sent a new medication called rosuvastatin to your pharmacy. Take rosuvastatin, 20 mg/one tablet daily regularly. Take your medications as instructed; do not skip a dose of your medicines. Make sure all of your doctors know every medicine you are taking (including spcj-bgn-uocybmr medicines, vitamins, and supplements). Call your primary care provider before taking any new medicines (including yuht-kai-kxkmamt medicines, vitamins, and supplements), because some of these may interact with your current medications, or may make your symptoms worse. Tell your primary care provider if you cannot afford your medications. CONTACT YOUR PRIMARY CARE PROVIDER if you experience any of the following: aphasia (talking problems), weakness or lack of sensation dizziness, Difficulty following your treatment plan, or difficulty taking medications CALL 911 OR GO TO THE EMERGENCY DEPARTMENT if you experience any of the following: Sudden, severe abdominal pain or nausea/vomiting Severe chest pain, or chest pain that radiates (moves) to your jaw or arm Sudden, severe shortness of breath or difficulty breathing Thank you for allowing us to participate in your care Pending Studies at Discharge: No Stand-Alone Forms: My Platypi, Medications to Prevent Stroke Skilled Items Patient informed of condition?: Yes DNR: Yes Discharge Level of Care: Acute rehab Communicable Disease: No Discharge Prognosis: Stable Lines: None Urinary Catheter: No Medications and DC Order Prescriptions: New rosuvastatin 20 mg tablet 20 mg PO DAILY Qty: 30 0RF Continued cyclobenzaprine 5 mg tablet 5 mg PO TID PRN (Reason: Muscle Spasm) gabapentin 300 mg capsule 300 mg PO BID Qty: 60 5RF tramadol 50 mg tablet 50 mg PO Q6H PRN (Reason: Pain) Qty: 30 5RF tamsulosin 0.4 mg capsule 0.4 mg PO QPM Qty: 90 3RF theophylline 300 mg tablet extended release 12 hr See Rx Instructions .ROUTE .COMPLEX Qty: 180 3RF Dose Instruction: TAKE TWO TABLETS BY MOUTH DAILY Rx Instructions: TAKE TWO TABLETS BY MOUTH DAILY polyethylene glycol 3350 [Miralax] 17 gram Powder In Packet 17 g PO DAILY PRN (Reason: constipation) Qty: 30 0RF prednisone 5 mg tablet 5 mg PO QAM levothyroxine 88 mcg tablet 88 mcg PO QAM Rx Instructions: TAKE ONE TABLET BY MOUTH DAILY potassium chloride 20 mEq tablet,ER particles/crystals 20 meq PO QAM Rx Instructions: TAKE ONE TABLET BY MOUTH ONE TIME DAILY ibuprofen [Advil] 200 mg Tablet 200 mg PO Q6H PRN (Reason: Pain) aspirin 81 mg Tablet,Delayed Release (Dr/Ec) 81 mg PO QAM Qty: 21 0RF clopidogrel [Plavix] 75 mg tablet See Rx Instructions .ROUTE .COMPLEX Hold Instructions: Resume on 08/13/23. Rx Instructions: TAKE ONE TABLET BY MOUTH EVERY MORNING pseudoephedrine HCl [Sudafed] 30 mg tablet 30 mg PO Q6H PRN (Reason: Cold Symptoms) Discontinued rosuvastatin [Crestor] 5 mg tablet 5 mg PO QAM Discharge Orders: Discharge Order (Routine); Ordered 09/04/23 Ordered By: Duke Ferraro Admission Data Admit Date/Time: 09/01/23 06:28 Attending Provider: Prasanna Nash Admit Provider: Kilo Newsome Primary Care Provider: Giles Galan Other Providers: Kilo Newsome; Bala Garrido; [facility]; [place]; [facility], Other Interventions: Discharge Summary Assessment (RN) Last Done: 09/04/23 10:51 Supervising Physician Co-Signing Physician Notes chart reviewed, case d/w dr ferraro and nursing. Unfortunately was discharged prior to my being able to see him. Passed a clot in his urine last night, but has been clear yellow since. Stroke like symptoms - (slurred speech and facial droop)(probable TIA). No acute stroke noted on MRI. CTA head and neck noted. -Neuro eval done - Med management and secondary risk reductionMain intervention being increasing his statin to high intensity, continue dual antiplatelets, continue anticonvulsants. For rehabstill in the window of pe rmissive hypertension, but slowly tighten blood pressure control over the coming weeks if it does not correct itself. Urinary retention and Hematuria - h/o bladder ca - recent scrapping. Differential being an area that has not quite healed from recent bladder resection and now being on uninterrupted dual antiplatelets, versus cystitis with a degree of hemorrhage, versus othertreated as infectious, follow closelyif does not clear or recurs, then urology for cystoscopy. Informed his urologist of the situation so that he is aware. Hyperlipidemia - see above Thrombocytopenia - follow cbc periodically Malnutrition - dietary consult. Resident Activity Tracking Resident Involvement: Resident Care Provided Care Provided: Adult Hospital Medicine
[2023-09-04 07:16] VITALS: BP 154/71; RESP 18; TEMP 97.9; O2SAT 97
[2023-09-04 08:11] LABS: Basophils # (auto) 0.02 K/uL (0.00-0.20); Basophils % (auto) 0.3 %; Eosinophils # (auto) 0.12 K/uL (0.00-0.50); Eosinophils % (auto) 1.9 %; Hematocrit (blood only) 42.8 % (42.0-52.0); Hemoglobin 14.4 g/dl (14.0-18.0); Immature Granulocytes # (auto) 0.03 K/uL (0.01-0.20); Immature Granulocytes % (auto) 0.5 %; Lymphocytes # (auto) 0.66 K/uL (1.20-3.40); Lymphocytes % (auto) 10.4 %; Mean Corpuscular Hemoglobin 29.6 pg (25.0-34.0); Mean Corpuscular Hgb Conc 33.6 g/dL (32.0-36.0); Mean Corpuscular Volume 88.1 fL (80.0-100.0); Mean Platelet Volume 10.4 fL (9.4-12.4); Monocytes % (auto) 14.2 %; Neutrophils # (auto) 4.61 K/uL (1.40-6.50); Neutrophils % (auto) 72.7 %; Platelet Count 117 K/uL (130-400); RDW Coefficient of Variation 14.3 % (11.5-14.5); RDW Standard Deviation 46.1 fL (36.4-46.3); Red Blood Count 4.86 M/uL (4.70-6.10); White Blood Count 6.34 K/ul (4.8-10.8)
[2023-09-04 08:46] LABS: Albumin Level 2.9 gm/dl (3.4-5.0); Bilirubin,Total 0.5 mg/dl (0.2-1.0); Calcium 8.6 mg/dl (8.6-10.3); Magnesium 1.8 mg/dl (1.7-2.4); Potassium 3.8 mmol/L (3.5-5.1)
[2023-09-04 08:52] LABS: Albumin Globulin Ratio 1.2 (0.9-2); BUN Creatinine Ratio 13.8 (10-20); Creatinine Clr Calc Pharmacy 88.2 ml/min; Est GFR (Non-African American) 92.3 ml/min; Globulin 2.5 gm/dl (2.5-4.0); Total Protein 5.4 gm/dl (6.0-8.3)
[2023-09-04 10:52] VITALS: PULSE 86
[2023-09-04 11:39] LABS: iSTAT Creatinine 1.1 mg/dl (0.6-1.3); iSTAT Hemoglobin 11.6 g/dl (14.0-18.0); iSTAT Ionized Calcium 1.22 mmol/l (1.12-1.32); iSTAT Potassium 3.1 mmol/L (3.3-5.0)
== END 2023-09-04 11:17 | DRG 69 ==
LOC: SUATTDRO → ED 04:30 → 2S 06:28 → SUATTDRO 06:28 → 2S 08:31

== ENCOUNTER 2023-12-16 09:45 | Inpatient (IN) ==
--- OUTSIDE RECORDS SUMMARY | 2023-12-16 09:49 | External Medical Summary | Summary of Care ---
Author Name Unknown Organization [facility] Address [address] [place] [address] Phone [phone] Care Team Providers Care Visual Merchandising Associate Name Role Phone Giles Galan MD Primary Care Provider [phone] Encounter Details Date Type Department Care Team (Late st Contact Info) Description 12/12/2023 Population Health External Data Unspecified Department Allergies Active Allergy Reactions Criticality Noted Date Comments Doxycycline 07/20/2016 Allergy is listed in PCP notes but patient can't remember ever having a problem documented as of this encounter (statuses as of 12/12/2023) Medications Medication Sig Dispensed Refills Start Date End Date Status AMILORIDE-HYDROCHLOROT HIAZIDE 5-50 MG OR TABS 1 tablet daily 0 08/28/2004 Active THEOPHYLLINE ER 300 MG PO TB12 neda e2 daily Active PROAIR HFA 108 (90 BASE) MCG/ACT IN AERS use as needed Active Potassium Chloride Anny ER 20 MEQ Oral Tablet Extended Release Take 1 Tablet by mouth in the morning. Active Budesonide 180 MCG/ACT Inhalation Aerosol Powder Breath Activated Inhale 2 Puffs by mouth in the morning and 2 Puffs before bedtime. Active levothyroxine (LEVOXYL) 88 MCG Tablet 1 tab daily 12/07/2016 Active rosuvastatin (CRESTOR) 5 MG Tablet 1 tab daily 12/25/2017 Active tamsulosin (FLOMAX) 0.4 MG Capsule Take 1 Capsule by mouth in the morning. 04/05/2018 Active fluorouracil (EFUDEX) 5 % creamIndications:AK (actinic keratosis) [facility] 80 g 1 08/28/2018 Active Cyclobenzaprine HCl 5 MG Oral Tablet (FLEXERIL) 06/13/2020 Active predniSONE 10 MG Oral Tablet (Deltasone) 12/22/2020 Active Promethazine HCl 25 MG Oral Tablet (Phenergan) 10/18/2020 Active Clopidogrel Bisulfate 75 MG Oral Tablet (pLAVix) 10/14/2020 Active Triamcinolone Acetonide 0.1 % External [...] as of this encounter (statuses as of 12/12/2023) Active Problems Problem Noted Date Diagnosed Date [...] 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 ADVANCE DIRECTIVE INFORMATION 02/06/2010 Overview: No, Advance Directive brochure offered , patient declined. documented as of this encounter (statuses as of 12/12/2023) Social History Tobacco Use Types Packs/Day Years [...] seeing, even when wearing glasses? No 09/01/19 21 Do you have serious difficul ty walking [...] No 09/01/2020 documented as of this encounter Plan of Treatment Upcoming Encounters Date Type Department Care Team (Late st Contact Info) Description 12/24/2023 1:30 PM EDT Office Visit [facility] Surgery [facility] [address] [place] [address] Lillie Ortiz MD [address] [place] [address] Health Maintenance Due Date Last Done Comments Pneumococcal Vaccine: 65+ Years (1 of 2 - PCV) 1941 Depression Screening 1949 DTaP,Tdap,and Td Vaccines (1 - Tdap) 1956 Zoster Vaccines (1 of 2) 1987 *SPIROMETRY ONCE FOR ASTHMA-ADULT 09/09/2016 Colonoscopy 08/01/2017 08/01/2016, 07/22, 08/17/2014, Additional history exists COVID-19 Vaccine (2022- season) 2023 05/29/2021, 11/03/2020, 10/13/2020 Influenza Vaccine (FLU shot) (Season Ended) 2024 TSH 09/10/2024 09/10/2023 RETIRED - COLONOSCOPY-ANNUAL AGES 18-100 Discontinued 08/01/2016, 08/01/2016, 08/17/2014, Additional history exists GARDASIL-HPV IMMUNIZATION SERIES Aged Out No longer eligible based on patient's age to complete this topic Hepatitis B Aged Out No longer eligi ble based on patient's age to complete this topic MENINGOCOCCAL (MENACTRA/MENVEO) Aged Out No longer eligible based on patient's age to complete this topic documented as of this encounter Medical Devices Not on filedocumented as of this encounter Advance Directives * Full Code (Latest Code Status on File) Date Activated Date Inactivated Comments 09/01/2020 6:55 PM 09/03/2020 5:11 PM This order r eflects the patients wishes and were consensually agreed upon. * Full Code Date Activated Date Inactivated Comments 02/15/2014 5:59 AM 02/18/2014 4:01 PM This order r eflects the patients wishes and were consensually agreed upon. * Full Code Date Activated Date Inactivated Comments 10/12/2013 2:56 PM 10/15/2013 6:31 PM This order r eflects the patients wishes and were consensually agreed upon. Question Answer Comments Discussion of Advance Directives occurred with: Not Discussed Does the patient have a Living Will? No Does the patient have Health Care Power of Attor jorge? No Care Teams Visual Merchandising Associate Relationship Specialty Start Date End Date Giles Galan MD [address] [address] PCP - General Pulmonary Diseases 02/27/17 documented as of this encounter
[2023-12-16 10:09] LABS: iSTAT Hemoglobin 15.3 g/dl (14.0-18.0); iSTAT Ionized Calcium 1.27 mmol/l (1.12-1.32); iSTAT Potassium 3.6 mmol/L (3.3-5.0)
[2023-12-16 10:17] LABS: Appearance Urine Clear (Clear); Bacteria Urine Automated None Seen (None Seen); Bilirubin Urine Negative (Negative); Blood Urine 1+ (Negative); Cast Urine Automated 0-2 /lpf (0-2); Color Urine Yellow; Epithelial Cell Urine Auto 0-2 /hpf (0-2); Glucose Urine UA Negative (Negative); Ketones Urine Negative (Negative); Leukocyte Esterase Urine Negative (Negative); Nitrite Urine Negative (Negative); Protein Urine Negative (Negative); RBC Urine Automated >20 /hpf (0-2); Specific Gravity Urine 1.013 (1.000-1.030); Urobilinogen Urine Negative (Negative); WBC Urine Automated 0-5 /hpf (0-5)
[2023-12-16 10:17] LABS: Basophils # (auto) 0.02 K/uL (0.00-0.20); Basophils % (auto) 0.3 %; Eosinophils # (auto) 0.08 K/uL (0.00-0.50); Eosinophils % (auto) 1.2 %; Hematocrit (blood only) 46.5 % (42.0-52.0); Hemoglobin 15.6 g/dl (14.0-18.0); Immature Granulocytes # (auto) 0.04 K/uL (0.01-0.20); Immature Granulocytes % (auto) 0.6 %; Lymphocytes # (auto) 0.62 K/uL (1.20-3.40); Mean Corpuscular Hemoglobin 30.1 pg (25.0-34.0); Mean Corpuscular Hgb Conc 33.5 g/dL (32.0-36.0); Mean Corpuscular Volume 89.6 fL (80.0-100.0); Mean Platelet Volume 10.7 fL (9.4-12.4); Monocytes # (auto) 0.73 K/uL (0.11-0.59); Monocytes % (auto) 10.6 %; Neutrophils % (auto) 78.3 %; Platelet Count 119 K/uL (130-400); RDW Coefficient of Variation 14.8 % (11.5-14.5); RDW Standard Deviation 48.5 fL (36.4-46.3); Red Blood Count 5.19 M/uL (4.70-6.10); White Blood Count 6.89 K/ul (4.8-10.8)
[2023-12-16 10:19] LABS: Albumin Globulin Ratio 1.3 (0.9-2); Albumin Level 3.8 gm/dl (3.4-5.0); BUN Creatinine Ratio 17.2 (10-20); Bilirubin,Total 0.5 mg/dl (0.2-1.0); Calcium 9.8 mg/dl (8.6-10.3); Creatinine Clr Calc Pharmacy 51.6 ml/min; Est GFR (African American) 79.6 ml/min; Est GFR (Non-African American) 68.7 ml/min; Potassium 3.6 mmol/L (3.5-5.1); Total Protein 6.8 gm/dl (6.0-8.3)
[2023-12-16] MEDS: OPTIRAY 320 125ml IV ONE (10:55)
--- NOTE | 2023-12-16 10:55 | Emergency Department Note ---
Impression & Plan Stroke-like symptoms ED Provider Note NAME: BARON ZAMORA AGE: 88 SEX: M : 1935 ARRIVES VIA: Ambulance INFORMANT: Patient, ED PROVIDER(S): Albaro Carson MD CHIEF COMPLAINT: Word finding difficulty HPI: This is an 88-year-old male presenting for word finding difficulties. Patient's had numerous strokes in the past and currently has Plavix/aspirin. His states that his last seen normal at 2100 yesterday. He states this morning when they woke up around 9 AM patient was not making sense with his words. For example when asked his hide he kept saying "10, 10". As per nursing. Otherwise he would have similar difficulty finding the appropriate words and repeating similar words. At this time he does appear to be somewhat improved from the initial assessment. He otherwise has no focal neurodeficits. No vision changes, nausea or vomiting ROS: See above HPI for pertinent positives & negatives. A total of 10 systems reviewed and were otherwise negative. PHYSICAL EXAMINATION: General: resting comfortably in no acute distress Head: Normocephalic and atraumatic Eyes: Normal inspection, extraocular muscles intact Ear, nose, throat: Normal external exam Neck: Normal range of motion Respiratory: lungs clear to auscultation bilaterally Cardiovascular: Regular rate/rhythm, no murmur GI: soft, nontender, no guarding or rebound Extremities: nontender, moves all extremities Neuro: Awake, moves ostomy spontaneously, strength intact, no motor drift, right facial droop baseline Skin: Warm, dry, and intact MEDICAL DECISION MAKING: This is a 88-year-old male presenting for word finding difficulties. Last known well 2099, outside window for thrombolytic, patient was on Plavix/aspirin. -Blood was reviewed showed no significant leukocytosis or anemia. Electrolytes within normal limits. Lactate is elevated which is downtrending. TSH high with low free T4. Urinalysis reveals no signs UTI. COVID/flu/viral panel negative -Patient CT/CTAs do not reveal any acute new changes -With patient's borderline difficulty, will admit for TIA/stroke workup Differential diagnosis: TIA, stroke, meningitis,, sepsis ER treatment provided: See below Diagnostics interpreted by me: ECG: ECG independently interpreted by me with normal sinus rhythm, rate of 81, left axis deviation, first-degree AV block, normal QRS, normal QTc, no ST segment elevations consistent with STEMI criteria Cardiac Monitoring: An order was placed for continuous cardiac monitoring. The monitor shows a rate of 108 with sinus rhythm. Laboratory studies: As stated above and show below. Imaging studies: See below. Past Med/Surg History Problem List Hospital discharge follow-up Decrease in appetite TIA (transient ischemic attack) Occlusion of right vertebral artery Stroke-like symptoms (Acute) Aphasia (Acute) Bladder carcinoma Postoperative hypotension Recent cerebrovascular accident (CVA) Symptomatic stenosis of left carotid artery Vertebral artery narrowing CVA (cerebral vascular accident) Seizure-like activity Lumbosacral radiculopathy Moderate persistent asthma, uncomplicated Renal cyst, right Left leg pain (Acute) Lumbar disc herniation (Acute) Weakness (Acute) Bladder stone History of loop recorder Thoracic aortic aneurysm Nephrolithiasis Lung nodule 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, cerebrovascular Hypercholesterolemia Asthma Stenosis of left internal carotid artery Hypertension HLD (hyperlipidemia) Carotid artery stenosis - 60-70% stenosis right ICA; s/p left TCAR 05/07/23 Spinal stenosis of lumbar region Benign prostatic hyperplasia with urinary obstruction Hypothyroidism Status post Mohs surgery sees dermatology on 08/09/23 for follow up/ possible procedure Medical History Occlusion of right vertebral artery Seizure-like activity PFO (patent foramen ovale) Subclavian artery stenosis Vertebral artery occlusion Carotid artery stenosis Ascending aorta dilatation Cancer of intestinal tract HLD (hyperlipidemia) Back problem History of CVA (cerebrovascular accident) Poor historian Asthma [place] BAND (hard of hearing) History of radiation therapy Spinal stenosis of lumbar region Lung nodule Insufficiency, 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 History of skin cancer Benign prostatic hyperplasia with urinary obstruction Meningioma Status post placement of implantable loop recorder Ventral hernia Acid reflux Hypothyroidism Hypertension Surgical History History of urologic surgery Hx of surgical procedure History of colonoscopy History of colostomy reversal History of bowel resection Hx of parotidectomy Status post Mohs surgery History of neck surgery History of hemorrhoidectomy Family History Unknown Coronary heart disease Cancer Father Cancer Hypertension Son Diabetes Mother Benign neoplasm of head Brother Heart disease Brother Liver disease Heart disease Denies family history of Stroke Social History Smoking Status: Former smoker Tobacco Type: Cigarettes Smoking End Date: 1959; Second Hand Exposure: No; Do You Dip or Chew Tobacco: No; Hx Alcohol Use: No Hx Substance Use: No Preferred Language: Montserratian Communication Ability: Impaired Communication Ability Comment: Mild expressive aphasia Visual Impairment: No Limitations Hearing Ability: Hard of Hearing Shadowgraph Operator Required: No Beliefs That Will Affect Care: None marital status: Current Living Situation: Spouse Current Living Situation Comment: with spouse current occupational status: retired Other Information That Helps Us Care for You: No Feels Safe at Home: Yes Safety Concerns: Feels Safe At This Time caffeine: No Dental Care, Regularly: Yes Physical Activity Frequency: Daily Seatbelt Use: always Assistive Devices: Cane and Glasses Allergies Allergies Allergy/AdvReac Type Severity Reaction Status Date / Time No Known Drug Allergies Allergy Verified 09/18/23 08:54 Home Meds Home Medications Medication Instructions Recorded Confirmed cyclobenzaprine 5 mg tablet 5 mg PO UD PRN Muscle Spasm 09/27/22 12/16/23 levothyroxine 88 mcg tablet 100 mcg PO UD 01/24/23 12/16/23 clopidogrel 75 mg tablet (Plavix) See Rx Instructions .Route .COMPLEX 05/06/23 12/16/23 pseudoephedrine HCl 30 mg tablet 30 mg PO Q6H PRN Cold Symptoms 08/05/23 12/16/23 (Sudafed) acetaminophen 500 mg capsule 500 mg PO Q6H PRN Pain 09/18/23 12/16/23 potassium chloride 20 mEq 20 meq PO DAILY 12/16/23 12/16/23 tablet,extended release(part/cryst) prednisone 5 mg tablet 5 mg PO DAILY 12/16/23 12/16/23 tramadol 50 mg tablet 50 mg PO UD PRN Pain 12/16/23 12/16/23 Previous Rx's Medication Instructions Recorded aspirin 81 mg tablet,delayed 81 mg PO QAM #21 tabs 04/23/23 release tamsulosin 0.4 mg capsule 0.4 mg PO QPM #90 caps 05/02/23 gabapentin 300 mg capsule 300 mg PO BID #60 caps 10/09/23 rosuvastatin 20 mg tablet 20 mg PO DAILY #90 tabs 11/18/23 Results & Data (ED) Vital Signs Vital Signs - 24 hr 12/16/23 09:49 12/16/23 10:05 12/16/23 10:30 Temperature 36.8 C Temperature Source Oral Pulse Rate 80 Pulse Rate from SpO2 Sensor 80 Respiratory Rate 19 16 Respiratory Effort / Characteristics Non-Labored Respiratory Depth Normal Respiratory Pattern Regular Blood Pressure 186/92 H 135/75 Blood Pressure Mean 123 95 Blood Pressure Position Sitting Pulse Oximetry 98 98 94 Oxygen Delivery Method Room Air Room Air Room Air Sepsis Recent Fever Within 48 Hours No Sepsis New/Unexplained Change in Mental Status No Sepsis Action Taken by Nursing No Action Required 12/16/23 10:31 12/16/23 10:34 12/16/23 10:58 Temperature Temperature Source Pulse Rate 83 97 H Pulse Rate from SpO2 Sensor Respiratory Rate 15 Respiratory Effort / Characteristics Respiratory Depth Respiratory Pattern Blood Pressure 154/93 H Blood Pressure Mean 128 Blood Pressure Position Pulse Oximetry Oxygen Delivery Method Sepsis Recent Fever Within 48 Hours Sepsis New/Unexplained Change in Mental Status Sepsis Action Taken by Nursing 12/16/23 10:59 12/16/23 11:00 12/16/23 11:00 Temperature Temperature Source Pulse Rate 83 89 Pulse Rate from SpO2 Sensor 90 Respiratory Rate 12 14 Respiratory Effort / Characteristics Respiratory Depth Respiratory Pattern Blood Pressure 154/80 H Blood Pressure Mean 102 Blood Pressure Position Pulse Oximetry 93 Oxygen Delivery Method Sepsis Recent Fever Within 48 Hours Sepsis New/Unexplained Change in Mental Status Sepsis Action Taken by Nursing 12/16/23 11:10 12/16/23 11:20 12/16/23 11:28 Temperature Temperature Source Pulse Rate 85 91 H 96 H Pulse Rate from SpO2 Sensor 78 81 Respiratory Rate 17 14 15 Respiratory Effort / Characteristics Respiratory Depth Respiratory Pattern Blood Pressure Blood Pressure Mean Blood Pressure Position Pulse Oximetry 95 94 Oxygen Delivery Method Sepsis Recent Fever Within 48 Hours Sepsis New/Unexplained Change in Mental Status Sepsis Action Taken by Nursing 12/16/23 11:28 12/16/23 11:30 12/16/23 11:30 Temperature Temperature Source Pulse Rate 91 H Pulse Rate from SpO2 Sensor 88 Respiratory Rate 33 H Respiratory Effort / Characteristics Respiratory Depth Respiratory Pattern Blood Pressure 141/90 H 143/90 H Blood Pressure Mean 111 122 Blood Pressure Position Pulse Oximetry 95 Oxygen Delivery Method Sepsis Recent Fever Within 48 Hours Sepsis New/Unexplained Change in Mental Status Sepsis Action Taken by Nursing 12/16/23 11:40 12/16/23 11:50 12/16/23 12:00 Temperature Temperature Source Pulse Rate 95 H 92 H 90 Pulse Rate from SpO2 Sensor 94 H 91 H 86 Respiratory Rate 18 29 H 18 Respiratory Effort / Characteristics Respiratory Depth Respiratory Pattern Blood Pressure Blood Pressure Mean Blood Pressure Position Pulse Oximetry 97 93 89 L Oxygen Delivery Method Sepsis Recent Fever Within 48 Hours Sepsis New/Unexplained Change in Mental Status Sepsis Action Taken by Nursing 12/16/23 12:00 12/16/23 12:10 12/16/23 12:20 Temperature Temperature Source Pulse Rate 91 H 93 H Pulse Rate from SpO2 Sensor 77 83 Respiratory Rate 17 19 Respiratory Effort / Characteristics Respiratory Depth Respiratory Pattern Blood Pressure 140/80 Blood Pressure Mean 113 Blood Pressure Position Pulse Oximetry 93 92 Oxygen Delivery Method Sepsis Recent Fever Within 48 Hours Sepsis New/Unexplained Change in Mental Status Sepsis Action Taken by Nursing Laboratory Data 12/16/23 09:50 12/16/23 09:50 Lab Results 12/16/23 12/16/23 12/16/23 Range/Units 09:50 09:54 09:56 WBC 6.89 (4.8-10.8) K/ul RBC 5.19 (4.70-6.10) M/uL Hgb 15.6 (14.0-18.0) g/dl POC Hgb 15.3 (14.0-18.0) g/dl Hct 46.5 (42.0-52.0) % POC Hct 45 (42-52) % MCV 89.6 (80.0-100.0) fL MCH 30.1 (25.0-34.0) pg MCHC 33.5 (32.0-36.0) g/dL RDW Std Deviation 48.5 H (36.4-46.3) fL RDW Coeff of [place]est[place] 14.8 H (11.5-14.5) % Plt Count 119 L (130-400) K/uL MPV 10.7 (9.4-12.4) fL Immature Gran % (Auto) 0.6 % Neut % (Auto) 78.3 % Lymph % (Auto) 9.0 % [place] % (Auto) 10.6 % Eos % (Auto) 1.2 % Baso % (Auto) 0.3 % Neut # (Auto) 5.40 (1.40-6.50) K/uL Lymph # (Auto) 0.62 L (1.20-3.40) K/uL [place] # (Auto) 0.73 H (0.11-0.59) K/uL Eos # (Auto) 0.08 (0.00-0.50) K/uL Baso # (Auto) 0.02 (0.00-0.20) K/uL Immature Gran # (Auto) 0.04 (0.01-0.20) K/uL POC Sodium 139 (135-144) mmol/L Sodium 138 (136-145) mmol/L POC Potassium 3.6 (3.3-5.0) mmol/L Potassium 3.6 (3.5-5.1) mmol/L POC Chloride 101 (101-112) mmol/L Chloride 102 (98-107) mmol/L Carbon Dioxide 28 (21-32) mmol/L POC Total CO2 27 (24-31) mmol/L Anion Gap 8 (3-11) POC Anion Gap 15.0 L (16-25) mmol/L POC BUN 16 (7-18) mg/dl BUN 17 (6-23) mg/dl Creatinine 0.99 (0.6-1.4) mg/dl POC Creatinine 1.0 (0.6-1.3) mg/dl Est Cr Clr Drug Dosing 51.6 ml/min Est GFR ( Amer) 79.6 ml/min Est GFR (Non-Af Amer) 68.7 ml/min BUN/Creatinine Ratio 17.2 (10-20) Glucose 119 H (70-99(Fasting)) mg/dl POC Glucose 123 H (70-99) mg/dl POC Glucose (other) 122 H (70-99) mg/dl Lactate (0.4-2.0) mmol/L Calcium 9.8 (8.6-10.3) mg/dl POC Ioniz Calcium Frank 1.27 (1.12-1.32) mmol/l Total Bilirubin 0.5 (0.2-1.0) mg/dl AST 29 (13-39) U/L ALT 26 (7-52) U/L Alkaline Phosphatase 158 H (34-104) U/L Troponin I High Sens 12.0 (0-20) pg/ml Total Protein 6.8 (6.0-8.3) gm/dl Albumin 3.8 (3.4-5.0) gm/dl Globulin 3.0 (2.5-4.0) gm/dl Albumin/Globulin Ratio 1.3 (0.9-2) TSH 60.259 H (0.300-4.500) uIu/ml Free T4 0.59 L (0.61-1.60) ng/dl Urine Color Urine Appearance (Clear) Urine pH (4.5-7.5) Ur Specific [place] (1.000-1.030) Urine Protein (Negative) Urine Glucose (UA) (Negative) Urine Ketones (Negative) Urine Blood (Negative) Urine Nitrite (Negative) Urine Bilirubin (Negative) Urine Urobilinogen (Negative) Ur Leukocyte Esterase (Negative) Urine WBC (Auto) (0-5) /hpf Urine RBC (Auto) (0-2) /hpf U Hyaline Cast (Auto) (0-2) /lpf U Epithel Cells (Auto) (0-2) /hpf Urine Bacteria (Auto) (None Seen) 12/16/23 12/16/23 12/16/23 Range/Units 10:00 10:05 11:41 WBC (4.8-10.8) K/ul RBC (4.70-6.10) M/uL Hgb (14.0-18.0) g/dl POC Hgb (14.0-18.0) g/dl Hct (42.0-52.0) % POC Hct (42-52) % MCV (80.0-100.0) fL MCH (25.0-34.0) pg MCHC (32.0-36.0) g/dL RDW Std Deviation (36.4-46.3) fL RDW Coeff of [place] (11.5-14.5) % Plt Count (130-400) K/uL MPV (9.4-12.4) fL Immature Gran % (Auto) % Neut % (Auto) % Lymph % (Auto) % [place] % (Auto) % Eos % (Auto) % Baso % (Auto) % Neut # (Auto) (1.40-6.50) K/uL Lymph # (Auto) (1.20-3.40) K/uL [place] # (Auto) (0.11-0.59) K/uL Eos # (Auto) (0.00-0.50) K/uL Baso # (Auto) (0.00-0.20) K/uL Immature Gran # (Auto) (0.01-0.20) K/uL POC Sodium (135-144) mmol/L Sodium (136-145) mmol/L POC Potassium (3.3-5.0) mmol/L Potassium (3.5-5.1) mmol/L POC Chloride (101-112) mmol/L Chloride (98-107) mmol/L Carbon Dioxide (21-32) mmol/L POC Total CO2 (24-31) mmol/L Anion Gap (3-11) POC Anion Gap (16-25) mmol/L POC BUN (7-18) mg/dl BUN (6-23) mg/dl Creatinine (0.6-1.4) mg/dl POC Creatinine (0.6-1.3) mg/dl Est Cr Clr Drug Dosing ml/min Est GFR ( Amer) ml/min Est GFR (Non-Af Amer) ml/min BUN/Creatinine Ratio (10-20) Glucose (70-99(Fasting)) mg/dl POC Glucose (70-99) mg/dl POC Glucose (other) (70-99) mg/dl Lactate 2.3 H* 1.4 (0.4-2.0) mmol/L Calcium (8.6-10.3) mg/dl POC Ioniz Calcium Frank (1.12-1.32) mmol/l Total Bilirubin (0.2-1.0) mg/dl AST (13-39) U/L ALT (7-52) U/L Alkaline Phosphatase (34-104) U/L Troponin I High Sens (0-20) pg/ml Total Protein (6.0-8.3) gm/dl Albumin (3.4-5.0) gm/dl Globulin (2.5-4.0) gm/dl Albumin/Globulin Ratio (0.9-2) TSH (0.300-4.500) uIu/ml Free T4 (0.61-1.60) ng/dl Urine Color Yellow Urine Appearance Clear (Clear) Urine pH 7.0 (4.5-7.5) Ur Specific [place] 1.013 (1.000-1.030) Urine Protein Negative (Negative) Urine Glucose (UA) Negative (Negative) Urine Ketones Negative (Negative) Urine Blood 1+ H (Negative) Urine Nitrite Negative (Negative) Urine Bilirubin Negative (Negative) Urine Urobilinogen Negative (Negative) Ur Leukocyte Esterase Negative (Negative) Urine WBC (Auto) 0-5 (0-5) /hpf Urine RBC (Auto) >20 H (0-2) /hpf U Hyaline Cast (Auto) 0-2 (0-2) /lpf U Epithel Cells (Auto) 0-2 (0-2) /hpf Urine Bacteria (Auto) None Seen (None Seen) Administered Medications Discontinued Medications Aspirin (Aspirin 81 Mg Chew) 243 mg PO NOW STA Stop: 12/16/23 12:51 Last Admin: 12/16/23 14:14 Dose: 243 mg Documented By: JOURDAN Ioversol (Optiray 320 125ml) 120 ml IV ONCE ONE Stop: 12/16/23 10:55 Last Admin: 12/16/23 10:55 Dose: 120 ml Documented By: DONTE Levothyroxine Sodium (Levothyroxine Sodium 25 Mcg Tablet) 25 mcg PO NOW STA Stop: 12/16/23 12:57 Last Admin: 12/16/23 14:13 Dose: 25 mcg Documented By: JOURDAN Imaging Data Radiologist's Impression: Chest X-Ray 12/16/23 09:54 XR chest 1V portable CLINICAL HISTORY: weakness COMPARISON STUDY: Chest CT October 10, 2022. Chest radiograph July 24, 2023. FINDINGS: Lung volumes are normal. Lungs are clear. There is no pneumothorax or pleural effusion. Cardiac size is normal. Mediastinal contours are normal. There is no evidence for pulmonary edema. IMPRESSION: No acute cardiopulmonary findings. ACT 112: Negative or not required by law. Electronically signed by: Pablo Sameuls M.D. 12/16/2023 12:[address] 12/16/23 10:05 CT OF THE HEAD WITHOUT CONTRAST CLINICAL HISTORY: stroke, word finding difficulty COMPARISON STUDY: Head CT and MRI of the brain September 01, 2023. TECHNIQUE: Helical axial images of the head were obtained without IV contrast. Automated exposure control was utilized for the study. A dose lowering technique was utilized adhering to the principles of ALARA. FINDINGS: No acute intracranial hemorrhage, midline shift or mass effect is present. Jugular system is stable. Basal cisterns are patent. There are no extra-axial collections. There are no findings to suggest acute dural sinus thrombosis or acute territorial infarct. White matter hypodensities are unchanged. A calcified 1.4 cm right parafalcine focus remains unchanged. This is benign. There are no calvarial fractures. Left mastoid effusion is again noted. IMPRESSION: No acute intracranial findings. No change in appearance of the brain. ACT 112: Negative or not required by law. Electronically signed by: Pablo Samuels M.D. 12/16/2023 11:04 AM Head CTA 12/16/23 10:05 CTA ANGIOGRAPHY OF THE HEAD CLINICAL HISTORY: stroke, word finding difficulty COMPARISON STUDY: CTA of the head September 01, 2023. TECHNIQUE: Helical axial images of the head were obtained following uneventful intravenous administration of 120 cc of Optiray. Sagittal and coronal reconstructions were viewed as well as maximal intensity projections on an independent 3-D workstation. Automated exposure control was utilized for the study. A dose lowering technique was utilized adhering to the principles of ALARA. FINDINGS: No acute intracranial hemorrhage is identified on the head CT which will be reported separately. Ventricular system is stable. Basal cisterns are patent. White matter hypodensities are unchanged and favor small vessel disease. As before, the left maxillary sinus is opacified. Left mastoid effusion is unchanged. The bilateral M1, M2, A1 and A2 segments are patent. There is no intracranial aneurysm. No acute large vessel occlusion is present. As before, the right vertebral artery is diminutive with severe multifocal stenoses within the intracranial portion of the right vertebral artery. This is unchanged. Basilar artery is patent. The bilateral posterior cerebral arteries are patent. No acute vessel occlusion is identified on this exam. IMPRESSION: 1. No acute vessel occlusion. No intracranial aneurysm. 2. No change in severe multifocal stenoses within the intracranial portion of the right vertebral artery since prior CTA. ACT 112: Negative or not required by law. Electronically signed by: Pablo Samuels M.D. 12/16/2023 11:28 AM Neck CTA 12/16/23 10:05 CT ANGIOGRAPHY OF THE NECK WITH CONTRAST CLINICAL HISTORY: stroke, word finding difficulty COMPARISON STUDY: CTA of the neck September 01, 2023. Technique: CT angiography of the carotid and vertebral arteries was obtained using Optiray and 3D reconstruction on an independent workstation. NASCET criteria was utilized. Automated exposure control was utilized for the study. A dose lowering technique was utilized adhering to the principles of ALARA. CT DOSE: 1427.8 mGy.cm Findings: Visualized portions of the lung apices are unremarkable. There is no cervical lymphadenopathy. Minimal prevertebral edema similar to CTA of September 01, 2023. No cervical spine fracture. Calcified plaque at the origin of the left vertebral artery results 70% stenosis, unchanged and CT of September 01, 2023. As before, the proximal right vertebral artery is occluded with distal reconstitution. The mid to distal cervical portion of the right vertebral artery is diminutive. No definite flow within the distal right cervical vertebral artery, unchanged. Distal reconstitution is noted. Severe multifocal stenoses within the intracranial portion of the right vertebral artery are also unchanged. A left carotid stent is patent. Extensive calcified plaque at the origin of the right internal carotid arteries results in 60-70% stenosis, similar to prior CTA. CTA of the head will be reported separately. Left maxillary sinus opacification is unchanged. Left mastoid effusion is also unchanged. IMPRESSION: 1. Patent left carotid stent. 2. 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 3. 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 4. Diminutive right vertebral artery with chronic multifocal occlusion, unchanged since CTA of September 01, 2023. ACT 112: Negative or not required by law. Electronically signed by: Pablo Samuels M.D. 12/16/2023 11:22 AM Discharge Plan Visit Data Chief Complaint: Weakness Stated Complaint: TIA SX ED Provider: Albaro Carson Discharge Problem: Stroke-like symptoms Patient Disposition: Admitted As Inpatient Discharge Instructions Interventions: ED Discharge Assessment Last Done: 12/16/23 13:21
[2023-12-16 11:00] LABS: Adenovirus PCR Not Detected (NotDetected); Bordetella parapertussis PCR Not Detected (NotDetected); Bordetella pertussis PCR Not Detected (NotDetected); Chlamydia pneumoniae PCR Not Detected (NotDetected); Coronavirus 229E PCR Not Detected (NotDetected); Coronavirus CoV-2 (COVID19)PCR Not Detected (NotDetected); Coronavirus HKU1 PCR Not Detected (NotDetected); Coronavirus NL63 PCR Not Detected (NotDetected); Coronavirus OC43PCR Not Detected (NotDetected); Human Metapneumovirus PCR Not Detected (NotDetected); Influenza A PCR Not Detected (NotDetected); Influenza B PCR Not Detected (NotDetected); Mycoplasma pneumoniae PCR Not Detected (NotDetected); Parainfluenza Virus 1 PCR Not Detected (NotDetected); Parainfluenza Virus 2 PCR Not Detected (NotDetected); Parainfluenza Virus 3 PCR Not Detected (NotDetected); Parainfluenza Virus 4 PCR Not Detected (NotDetected); Respiratory Syncytial VirusPCR Not Detected (NotDetected); Rhinovirus/Enterovirus PCR Not Detected (NotDetected)
--- NOTE | 2023-12-16 11:05 | CT Scan Report ---
CT OF THE HEAD WITHOUT CONTRAST CLINICAL HISTORY: stroke, word finding difficulty COMPARISON STUDY: Head CT and MRI of the brain September 01, 2023. TECHNIQUE: Helical axial images of the head were obtained without IV contrast. Automated exposure con trol was utilized for the study. A dose lowering technique was utilized adhering to the principles o f ALARA. FINDINGS: No acute intracranial hemorrhage, midline shift or mass effect is present. Jugular system i s stable. Basal cisterns are patent. There are no extra-axial collections. There are no findings to s uggest acute dural sinus thrombosis or acute territorial infarct. White matter hypodensities are unch anged. A calcified 1.4 cm right parafalcine focus remains unchanged. This is benign. There are no yeyo varial fractures. Left mastoid effusion is again noted. IMPRESSION: No acute intracranial findings. No change in appearance of the brain. ACT 112: Negative or not required by law. Electronically signed by: Pablo Samuels M.D. 12/16/2023 11:04 AM
[2023-12-16 11:07] LABS: Thyroid Stimulating Hormone 60.259 uIu/ml (0.300-4.500)
--- NOTE | 2023-12-16 11:14 | Electrocardiogram Report ---
Test Reason : Blood Pressure : / mmHG Vent. Rate : 081 BPM Atrial Rate : 081 BPM P-R Int : 216 ms QRS Dur : 130 ms QT Int : 358 ms P-R-T Axes : 052 -57 078 degrees QTc Int : 415 ms Sinus rhythm with 1st degree A-V block with occasional Premature ventricular complexes Left axis deviation Left ventricular hypertrophy with QRS widening Poor R wave progression, consider anterior OK vs. lead placement vs. LVH Abnormal ECG When compared with ECG of 01-SEP-2023 15:49, Premature ventricular complexes are now Present TX interval has increased T wave inversion no longer evident in Inferior leads Confirmed by Duke Vizcaino ([id number] on 12/16/2023 11:14:30 AM Referred By: REFERRED SELF Confirmed By:Amari Vizcaino
--- NOTE | 2023-12-16 11:25 | CT Scan Report ---
CT ANGIOGRAPHY OF THE NECK WITH CONTRAST CLINICAL HISTORY: stroke, word finding difficulty COMPARISON STUDY: CTA of the neck September 01, 2023. Technique: CT angiography of the carotid and vertebral arteries was obtained using Optiray and 3D rec onstruction on an independent workstation. NASCET criteria was utilized. Automated exposure control was utilized for the study. A dose lowering technique was utilized adhering to the principles of ALA RA. CT DOSE: 1427.8 mGy.cm Findings: Visualized portions of the lung apices are unremarkable. There is no cervical lymphadenopat hy. Minimal prevertebral edema similar to CTA of September 01, 2023. No cervical spine fracture. Calci fied plaque at the origin of the left vertebral artery results 70% stenosis, unchanged and CT of 2023. As before, the proximal right vertebral artery is occluded with distal reconstitution. The mid to distal cervical portion of the right vertebral artery is diminutive. No definite flow wit hin the distal right cervical vertebral artery, unchanged. Distal reconstitution is noted. Severe mul tifocal stenoses within the intracranial portion of the right vertebral artery are also unchanged. A left carotid stent is patent. Extensive calcified plaque at the origin of the right internal carotid arteries results in 60-70% stenosis, similar to prior CTA. CTA of the head will be reported separatel y. Left maxillary sinus opacification is unchanged. Left mastoid effusion is also unchanged. IMPRESSION: 1. Patent left carotid stent. 2. 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 3. 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 4. 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 ACT 112: Negative or not required by law. Electronically signed by: Pablo Samuels M.D. 12/16/2023 11:22 AM
--- NOTE | 2023-12-16 11:30 | CT Scan Report ---
CTA ANGIOGRAPHY OF THE HEAD CLINICAL HISTORY: stroke, word finding difficulty COMPARISON STUDY: CTA of the head September 01, 2023. TECHNIQUE: Helical axial images of the head were obtained following uneventful intravenous administr ation of 120 cc of Optiray. Sagittal and coronal reconstructions were viewed as well as maximal inten sity projections on an independent 3-D workstation. Automated exposure control was utilized for the study. A dose lowering technique was utilized adhering to the principles of ALARA. FINDINGS: No acute intracranial hemorrhage is identified on the head CT which will be reported separa tely. Ventricular system is stable. Basal cisterns are patent. White matter hypodensities are unchang ed and favor small vessel disease. As before, the left maxillary sinus is opacified. Left mastoid eff usion is unchanged. The bilateral M1, M2, A1 and A2 segments are patent. There is no intracranial ane urysm. No acute large vessel occlusion is present. As before, the right vertebral artery is diminutiv e with severe multifocal stenoses within the intracranial portion of the right vertebral artery. This is unchanged. Basilar artery is patent. The bilateral posterior cerebral arteries are patent. No acu te vessel occlusion is identified on this exam. IMPRESSION: 1. No acute vessel occlusion. No intracranial aneurysm. 2. No change in severe multifocal stenoses within the intracranial portion of the right vertebral art qiana since prior CTA. ACT 112: Negative or not required by law. Electronically signed by: Pablo Samuels M.D. 12/16/2023 11:28 AM
[2023-12-16 11:43] LABS: T4 Free Thyroxine 0.59 ng/dl (0.61-1.60)
--- NOTE | 2023-12-16 12:09 | XRay Report ---
XR chest 1V portable CLINICAL HISTORY: weakness COMPARISON STUDY: Chest CT October 10, 2022. Chest radiograph July 24, 2023. FINDINGS: Lung volumes are normal. Lungs are clear. There is no pneumothorax or pleural effusion. Car diac size is normal. Mediastinal contours are normal. There is no evidence for pulmonary edema. IMPRESSION: No acute cardiopulmonary findings. ACT 112: Negative or not required by law. Electronically signed by: Pablo Samuels M.D. 12/16/2023 12:08 PM
--- NOTE | 2023-12-16 12:23 | History & Physical Report ---
Date of Service December 16, 2023 Assessment & Plan (1) Stroke-like symptoms: Plan: -Admit to the PCU on tele/pulse oximetry -Currently stable, non-toxic appearing, and near his neurologic baseline -Presented to the ED after experiencing dizziness and aphasia after waking around 0900 today -Last known well was approximately 2100 last night (12/14), therefore, not a TNK Candidate -CT of the head/brain and CTA of the head/neck are without acute changes but patient again is noted to have severe multivessel atherosclerotic disease -TSH is elevated today at 60, Free T4 mildly decreased at 0.59 -No reported seizure-like activity -No signs/symptoms of infection at this time -At this time the etiology of his symptoms are most consistent with CVA/TIA due to his known severe atherosclerotic disease, cannot rule out his hypothyroidism contributing -Will obtain MRI of the head/brain wo con and TTE for further evaluation >Will speak with Neurology/Vascular surgery if acute findings are noted -Will give 243 mg PO aspirin now as he had his am aspirin and plavix -Continue home Aspirin, Eliquis, and statin -Fall/aspiration precautions, dysphagia scree, PT/OT consults -Will allow permissive HTN until MRI results are back -Q4h neuro checks, seizure precautions -BL BELIA's for DVT PPX -AM CBC, BMP, mag, PT/INR, A1c, fasting lipid panel (2) Hypothyroidism: Plan: -TSH elevated at 60 with free T4 mildly low at 0.59 -Patient has a known hx of hypothyroidism and is on 100 mcg of daily levothyroxine -Patient and confirmed patient has been taking his levothyroxine daily -Will give an additional 25 mcg PO levothyroxine now as he had not eaten today -Would continue with 125 mcg Levothyroxine daily tomorrow -Patient should have follow-up TSH and free T4 by PCP after discharge (3) Moderate persistent asthma, uncomplicated: Plan: -Patient and his believe this is why he is on chronic, low-dose prednisone daily -They confirm he has been on this dose, "for years" -Stable on RA today, without wheezing or respiratory distress -Continue daily prednisone -Incentive spirometry (4) Hypertension: Plan: -Stable -Patient is not on antihypertensives outpatient -Will continue to allow persistent HTN until MRI results are back Plan The patient was discussed with Dr. Baresel at the time of the admission History of Present Illness Chief Complaint: Aphasia Primary Care Provider: Giles Galan MD Geovanni is an 88-year-old male with a past medical history including bladder carcinoma, multiple previous CVA/TIA's, symptomatic stenosis of left carotid artery S/P TCAR with Dr. 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 The patient's reported time of LKW was 2100 on 12/15/23. He was noted to be hypertensive on arrival at 186/92 and tachycardic at 97 but was otherwise stab le. Labs were significant for a stable thrombocytopenia of 119, glucose of 119, initial lactate of 2.3 --> 1.4, TSH of 60 with free T4 of 0.59, UA without signs of infection, and full respiratory biofire negative. Chest xray was read as negative for acute findings. CT and CTA of the head/brain were read as negative for acute changes. CTA of the neck was read as "1. Patent left carotid stent. 2. 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 3. 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 4. 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 We were asked to admit the patient for ongoing workup and treatment of his neurologic symptoms. At the time of the exam the patient was sitting in bed in no acute distress with his bedside, history was obtained from both. They confirm the patient had been in his normal state of health when he went to bed at approximately 2100 on 12/14. When asked about his baseline facial droop, they explain that he has had left-sided facial droop since he underwent left parotid gland surgery for parotid malignancy. This am he noticed he was dizzy after waking. He denies the room spinning or other initial focal neuro defects. He went to the kitchen and took his am medications, including his Levothyroxine, aspirin, and Plavix. His noticed that the patient was having difficulty speaking and appeared to be using words in correct places while trying to speak, this is not normal for him. The patient states that he also noticed he was doing this and was unsure why. His aphasia started at approximately 0900 this am. His is still dizzy at the time of the exam, he and his feel as though his speech is almost back to baseline, although he is still having difficulties as times during the exam. He states that he has chronic paresthesias in the BL LE's which are unchanged today. Denies recent fever, chills, chest pain, unilateral weakness, changes in vision, hearing, taste, smell, SOB, cough, abd pain, nausea, vomiting, diarrhea, dysuria, hematuria, melena, LE swelling, and recent trauma. He is a DNR/DNI and their son is his POA. Please refer to Dr. Robles's attestation for any changes to the treatment plan Allergies Allergy/AdvReac Type Severity Reaction Status Date / Time No Known Drug Allergies Allergy Verified 09/18/23 08:54 Home Medications Medication Instructions Recorded Confirmed Type cyclobenzaprine 5 mg tablet 5 mg PO UD PRN Muscle Spasm 09/27/22 12/16/23 History levothyroxine 88 mcg tablet 100 mcg PO UD 01/24/23 12/16/23 History aspirin 81 mg tablet,delayed 81 mg PO QAM #21 tabs 04/23/23 12/16/23 Rx release tamsulosin 0.4 mg capsule 0.4 mg PO QPM #90 caps 05/02/23 12/16/23 Rx clopidogrel 75 mg tablet (Plavix) See Rx Instructions .Route .COMPLEX 05/06/23 12/16/23 History pseudoephedrine HCl 30 mg tablet 30 mg PO Q6H PRN Cold Symptoms 08/05/23 12/16/23 History (Sudafed) acetaminophen 500 mg capsule 500 mg PO Q6H PRN Pain 09/18/23 12/16/23 History gabapentin 300 mg capsule 300 mg PO BID #60 caps 10/09/23 12/16/23 Rx rosuvastatin 20 mg tablet 20 mg PO DAILY #90 tabs 11/18/23 12/16/23 Rx potassium chloride 20 mEq 20 meq PO DAILY 12/16/23 12/16/23 History tablet,extended release(part/cryst) prednisone 5 mg tablet 5 mg PO DAILY 12/16/23 12/16/23 History tramadol 50 mg tablet 50 mg PO UD PRN Pain 12/16/23 12/16/23 History Past Med/Surg History Problem List Hospital discharge follow-up Decrease in appetite TIA (transient ischemic attack) Occlusion of right vertebral artery Stroke-like symptoms (Acute) Aphasia (Acute) Bladder carcinoma Postoperative hypotension Recent cerebrovascular accident (CVA) Symptomatic stenosis of left carotid artery Vertebral artery narrowing CVA (cerebral vascular accident) Seizure-like activity Lumbosacral radiculopathy Moderate persistent asthma, uncomplicated Renal cyst, right Left leg pain (Acute) Lumbar disc herniation (Acute) Weakness (Acute) Bladder stone History of loop recorder Thoracic aortic aneurysm Nephrolithiasis Lung nodule 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, cerebrovascular Hypercholesterolemia Asthma Stenosis of left internal carotid artery Hypertension HLD (hyperlipidemia) Carotid artery stenosis - 60-70% stenosis right ICA; s/p left TCAR 05/07/23 Spinal stenosis of lumbar region Benign prostatic hyperplasia with urinary obstruction Hypothyroidism Status post Mohs surgery sees dermatology on 08/09/23 for follow up/ possible procedure Medical History Occlusion of right vertebral artery Seizure-like activity PFO (patent foramen ovale) Subclavian artery stenosis Vertebral artery occlusion Carotid artery stenosis Ascending aorta dilatation Cancer of intestinal tract HLD (hyperlipidemia) Back problem History of CVA (cerebrovascular accident) Poor historian Asthma [place] (hard of hearing) History of radiation therapy Spinal stenosis of lumbar region Lung nodule Insufficiency, 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 History of skin cancer Benign prostatic hyperplasia with urinary obstruction Meningioma Status post placement of implantable loop recorder Ventral hernia Acid reflux Hypothyroidism Hypertension Surgical History History of urologic surgery Hx of surgical procedure History of colonoscopy History of colostomy reversal History of bowel resection Hx of parotidectomy Status post Mohs surgery History of neck surgery History of hemorrhoidectomy Family History Unknown Coronary heart disease Cancer Father Cancer Hypertension Son Diabetes Mother Benign neoplasm of head Brother Heart disease Brother Liver disease Heart disease Denies family history of Stroke Social History Smoking Status: Never smoker Cigarettes Per Day: 1960; Second Hand Exposure: No; Do You Dip or Chew Tobacco: No; Hx Alcohol Use: No Hx Substance Use: No Preferred Language: Romansh Communication Ability: Effective Visual Impairment: No Limitations Hearing Ability: Hard of Hearing [employer] Required: No Beliefs That Will Affect Care: None marital status: Current Living Situation: Spouse current occupational status: retired Feels Safe at Home: Yes caffeine: No Dental Care, Regularly: Yes Physical Activity Frequency: Daily Seatbelt Use: always Assistive Devices: Cane Physical Exam Physical Exam: Physical Exam: General: In no acute distress, stated age, chronically ill appearing but non- toxic HEENT: atraumatic, baseline left-sided facial droop noted, no scleral icterus, pupils around round, symmetrical, and reactive to light, moist mucus membranes, trachea midline, no thyromegaly Chest/Pulm: No respiratory distress, symmetrical chest expansion, clear andres th sounds throughout Cardiac: RRR, no murmurs noted Abdomen: Negative for ascites and bruising, normoactive bowel sounds, soft, non-tender to palpation throughout Musculoskeletal: Symmetrical and without signs of acute trauma, upper and lower extremities with full ROM, no atrophy, spasticity, or flaccidity Extremities: Radial, dorsalis pedis, and posterior tibial pulses are intact and symmetrical, no edema noted in the BL LE's Skin: Warm, dry, no rashes , lesions, or scars noted Neuro: Alert and oriented to person, place, month, year, and president, baseline left-sided facial droop noted, patient with intermittent slurring of words but is answering questions appropriately, CN II-XII tested and are otherwise intact, RUE with coordination difficulties and LUE with positive pronator drift with cerebellar and pronator drift testing, no tremors noted Psych: No acute distress, calm and cooperative during the exam Results & Data Results & Data Vital Signs (Past 12 Hours) Vital Signs Temp Pulse Resp BP Pulse Ox O2 Del Method 12/16/23 11:20 91 H 14 94 12/16/23 11:10 85 17 95 12/16/23 11:00 89 14 93 12/16/23 11:00 154/80 H 12/16/23 10:59 83 12 12/16/23 10:58 154/93 H 12/16/23 10:34 97 H 15 12/16/23 10:31 83 12/16/23 10:30 80 16 135/75 94 Room Air 12/16/23 10:05 98 Room Air 12/16/23 09:49 36.8 C 19 186/92 H 98 Room Air Laboratory Results Abnormal lab results 12/16/23 12/16/23 12/16/23 Range/Units 09:50 09:54 09:56 RDW Std Deviation 48.5 H (36.4-46.3) fL RDW Coeff of Celestino 14.8 H (11.5-14.5) % Plt Count 119 L (130-400) K/uL Lymph # (Auto) 0.62 L (1.20-3.40) K/uL [place] # (Auto) 0.73 H (0.11-0.59) K/uL POC Anion Gap 15.0 L (16-25) mmol/L Glucose 119 H (70-99(Fasting)) mg/dl POC Glucose 123 H (70-99) mg/dl POC Glucose (other) 122 H (70-99) mg/dl Lactate (0.4-2.0) mmol/L Alkaline Phosphatase 158 H (34-104) U/L TSH 60.259 H (0.300-4.500) uIu/ml Free T4 0.59 L (0.61-1.60) ng/dl Urine Blood (Negative) Urine RBC (Auto) (0-2) /hpf 12/16/23 12/16/23 Range/Units 10:00 10:05 RDW Std Deviation (36.4-46.3) fL RDW Coeff of [place] (11.5-14.5) % Plt Count (130-400) K/uL Lymph # (Auto) (1.20-3.40) K/uL [place] # (Auto) (0.11-0.59) K/uL POC Anion Gap (16-25) mmol/L Glucose (70-99(Fasting)) mg/dl POC Glucose (70-99) mg/dl POC Glucose (other) (70-99) mg/dl Lactate 2.3 H* (0.4-2.0) mmol/L Alkaline Phosphatase (34-104) U/L TSH (0.300-4.500) uIu/ml Free T4 (0.61-1.60) ng/dl Urine Blood 1+ H (Negative) Urine RBC (Auto) >20 H (0-2) /hpf Diagnostic Findings Chest X-Ray 12/16/23 09:54 XR chest 1V portable CLINICAL HISTORY: weakness COMPARISON STUDY: Chest CT October 10, 2022. Chest radiograph July 24, 2023. FINDINGS: Lung volumes are normal. Lungs are clear. There is no pneumothorax or pleural effusion. Cardiac size is normal. Mediastinal contours are normal. There is no evidence for pulmonary edema. IMPRESSION: No acute cardiopulmonary findings. ACT 112: Negative or not required by law. Electronically signed by: Pablo Samuels M.D. 12/16/2023 12:[address] 12/16/23 10:05 CT OF THE HEAD WITHOUT CONTRAST CLINICAL HISTORY: stroke, word finding difficulty COMPARISON STUDY: Head CT and MRI of the brain September 01, 2023. TECHNIQUE: Helical axial images of the head were obtained without IV contrast. Automated exposure control was utilized for the study. A dose lowering technique was utilized adhering to the principles of ALARA. FINDINGS: No acute intracranial hemorrhage, midline shift or mass effect is present. Jugular system is stable. Basal cisterns are patent. There are no extra-axial collections. There are no findings to suggest acute dural sinus thrombosis or acute territorial infarct. White matter hypodensities are unchanged. A calcified 1.4 cm right parafalcine focus remains unchanged. This is benign. There are no calvarial fractures. Left mastoid effusion is again noted. IMPRESSION: No acute intracranial findings. No change in appearance of the brain. ACT 112: Negative or not required by law. Electronically signed by: Pablo Samuels M.D. 12/16/2023 11:04 AM Head CTA 12/16/23 10:05 CTA ANGIOGRAPHY OF THE HEAD CLINICAL HISTORY: stroke, word finding difficulty COMPARISON STUDY: CTA of the head September 01, 2023. TECHNIQUE: Helical axial images of the head were obtained following uneventful intravenous administration of 120 cc of Optiray. Sagittal and coronal reconstructions were viewed as well as maximal intensity projections on an independent 3-D workstation. Automated exposure control was utilized for the study. A dose lowering technique was utilized adhering to the principles of ALARA. FINDINGS: No acute intracranial hemorrhage is identified on the head CT which will be reported separately. Ventricular system is stable. Basal cisterns are p atent. White matter hypodensities are unchanged and favor small vessel disease. As before, the left maxillary sinus is opacified. Left mastoid effusion is unchanged. The bilateral M1, M2, A1 and A2 segments are patent. There is no intracranial aneurysm. No acute large vessel occlusion is present. As before, the right vertebral artery is diminutive with severe multifocal stenoses within the intracranial portion of the right vertebral artery. This is unchanged. Basilar artery is patent. The bilateral posterior cerebral arteries are patent. No acute vessel occlusion is identified on this exam. IMPRESSION: 1. No acute vessel occlusion. No intracranial aneurysm. 2. No change in severe multifocal stenoses within the intracranial portion of the right vertebral artery since prior CTA. ACT 112: Negative or not required by law. Electronically signed by: Pablo Samuels M.D. 12/16/2023 11:28 AM Neck CTA 12/16/23 10:05 CT ANGIOGRAPHY OF THE NECK WITH CONTRAST CLINICAL HISTORY: stroke, word finding difficulty COMPARISON STUDY: CTA of the neck September 01, 2023. Technique: CT angiography of the carotid and vertebral arteries was obtained u [employer] and 3D reconstruction on an independent workstation. NASCET criteria was utilized. Automated exposure control was utilized for the study. A dose lowering technique was utilized adhering to the principles of ALARA. CT DOSE: 1427.8 mGy.cm Findings: Visualized portions of the lung apices are unremarkable. There is no cervical lymphadenopathy. Minimal prevertebral edema similar to CTA of September 01, 2023. No cervical spine fracture. Calcified plaque at the origin of the left vertebral artery results 70% stenosis, unchanged and CT of September 01, 2023. As before, the proximal right vertebral artery is occluded with distal reconstitution. The mid to distal cervical portion of the right vertebral artery is diminutive. No definite flow within the distal right cervical vertebral artery, unchanged. Distal reconstitution is noted. Severe multifocal stenoses within the intracranial portion of the right vertebral artery are also unchanged. A left carotid stent is patent. Extensive calcified plaque at the origin of the right internal carotid arteries results in 60-70% stenosis, similar to prior CTA. CTA of the head will be reported separately. Left maxillary sinus opacification is unchanged. Left mastoid effusion is also unchanged. IMPRESSION: 1. Patent left carotid stent. 2. 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 3. 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 4. Diminutive right vertebral artery with chronic multifocal occlusion, unchange d since CTA of September 01, 2023. ACT 112: Negative or not required by law. Electronically signed by: Pablo Samuels M.D. 12/16/2023 11:22 AM ECG Additional Comments: Sinus rhythm with 1st degree A-V block with occasional Premature ventricular complexes Left axis deviation Left ventricular hypertrophy with QRS widening Poor R wave progression, consider anterior IA vs. lead placement vs. LVH Abnormal ECG When compared with ECG of 01-SEP-2023 15:49, Premature ventricular complexes are now Present AK interval has increased T wave inversion no longer evident in Inferior leads Confirmed by Duke Vizcaino ([id number]) on 12/16/2023 11:14:30 AM Code Status & VTE Plan Code Status DNR/DNI VTE Prophylaxis Plan VTE Prophylaxis will be ordered: Yes Supervising Physician Co-Signing Physician Notes Patient seen and examined, chart reviewed, case discussed with Tyrone Mccormick PA-C and I agree with the assessment and plan as above except as otherwise noted Labs and images reviewed Geovanni is a 88-year-old male who presented with word finding difficulties. He has a history of numerous strokes and vascular disease on dual antiplatelet therapy with Plavix/aspirin. Last normal was before going to sleep yesterday, woke up confused and repeating words/having difficulty finding appropriate words to form sentences. Did not have any reported strength or sensory deficits. Does have a chronic LEFT-sided facial droop without change. In the ER CMP was without significant abnormality, he was not hypoglycemic. CBC was with a normal white count and a normal hemoglobin. His lactate was elevated at 2.3. TSH is markedly elevated at 60 with a suppressed free T4 of 0.59. He is not hypotensive, he is tachycardic on admission. Lactate normalized on recheck without any treatment. CTA of the head and neck shows a patent left carotid stent, calcified right internal carotid artery plaque similar to prior, 70% stenosis at left vertebral artery unchanged from prior, unchanged diminutive right vertebral artery with multifocal occlusion stable compared to 08/2019, no acute vessel occlusion intracranially, and head CT with and without acute finding. At time of hospitalist assessment he is nondistressed. Speech with some increased latency and patient is slightly hard of hearing, but answers questions appropriately. Distal extremity strength is intact without strength or sensory deficits, has some qualitative numbness/tingling in his lower extremities at baseline without change. He does have a chronic left facial droop due to parotid surgery however smile, eyebrow raise, squint are all with symmetrical active facial muscle engagement. Pupils are equal and reactive to light, vision and hearing are grossly intact. He denies fever, chills, cough, difficulty urinating, pain or any recent infectious symptoms Patient given full dose aspirin (3x81mg as already had AM baby aspirin) and continued on dual antiplatelet therapy. MRI pending. Patient is also with a history of hypothyroidism. TSH is markedly elevated with suppressed T4. He is not hypotensive, hyponatremic, or hypothermic to suggest myxedema coma. Given marked elevation of TSH with low T4 agree with increasing Synthroid as noted. Bio fire is negative. No signs of infectious encephalopathy. Agree with above PG Care Time/CCT Total # of Minutes Spent Total Time Spent with Patient: Total time spent is greater than 50% in coordination of care (as documented) at patient's floor/unit and/or counseling patient: C[place] [address] INT INP/OBS CARE 3MIN Patient Type Established History Comprehensive Exam Comprehensive Medical Decision Making High Complexity Diagnoses Stroke-like symptoms R29.90 Hypothyroidism E03.9 Moderate persistent asthma, uncomplicated J45.40 Primary hypertension I10 Hypertension type: primary hypertension (4) Hypertension Hypertension type: primary hypertension Qualified Code(s): I10 - Essential (primary) hypertension
[2023-12-16] MEDS ORDERED: PHARMACIST DISCHARGE MED REC CONSULT PRN (12:26)
[2023-12-16] MEDS: LEVOTHYROXINE SODIUM 25 MCG TABLET PO STA (14:13)
[2023-12-16] MEDS: ASPIRIN 81 MG CHEW PO STA (14:14)
[2023-12-16] MEDS: GABAPENTIN 300 MG CAP PO SCH (20:29)
[2023-12-16] MEDS: TAMSULOSIN HCL 0.4 MG CAP PO SCH (20:29)
[2023-12-16] MEDS: ACETAMINOPHEN 500 MG TAB PO PRN (21:10)
[2023-12-17 06:54] LABS: Basophils # (auto) 0.02 K/uL (0.00-0.20); Basophils % (auto) 0.4 %; Eosinophils # (auto) 0.11 K/uL (0.00-0.50); Eosinophils % (auto) 2.1 %; Hematocrit (blood only) 41.5 % (42.0-52.0); Immature Granulocytes # (auto) 0.03 K/uL (0.01-0.20); Immature Granulocytes % (auto) 0.6 %; Lymphocytes # (auto) 0.99 K/uL (1.20-3.40); Lymphocytes % (auto) 18.8 %; Mean Corpuscular Hemoglobin 30.1 pg (25.0-34.0); Mean Corpuscular Hgb Conc 33.7 g/dL (32.0-36.0); Mean Corpuscular Volume 89.2 fL (80.0-100.0); Mean Platelet Volume 10.5 fL (9.4-12.4); Monocytes # (auto) 0.79 K/uL (0.11-0.59); Neutrophils # (auto) 3.32 K/uL (1.40-6.50); Neutrophils % (auto) 63.1 %; Platelet Count 114 K/uL (130-400); RDW Coefficient of Variation 14.8 % (11.5-14.5); RDW Standard Deviation 47.5 fL (36.4-46.3); Red Blood Count 4.65 M/uL (4.70-6.10); White Blood Count 5.26 K/ul (4.8-10.8)
[2023-12-17 07:25] LABS: Estimated Average Glucose 108 mg/dl; Hemoglobin A1C 5.4 % (4.5-5.6)
[2023-12-17 07:34] LABS: BUN Creatinine Ratio 17.1 (10-20); Calcium 9.2 mg/dl (8.6-10.3); Creatinine Clr Calc Pharmacy 48.1 ml/min; Est GFR (African American) 74.1 ml/min; Magnesium 2.1 mg/dl (1.7-2.4); Potassium 4.1 mmol/L (3.5-5.1)
--- NOTE | 2023-12-17 09:03 | XCELERA ---
[id number]
[2023-12-17] MEDS: CLOPIDOGREL BISULFATE 75 MG TAB PO SCH (09:07)
[2023-12-17] MEDS: ASPIRIN 81 MG ECTAB PO SCH (09:07)
[2023-12-17] MEDS: ROSUVASTATIN CALCIUM 20 MG TAB PO SCH (09:07)
[2023-12-17] MEDS: LEVOTHYROXINE SODIUM 125 MCG TABLET PO SCH (09:08)
[2023-12-17] MEDS: predniSONE 5 MG TAB PO SCH (09:08)
--- NOTE | 2023-12-17 14:27 | Hospitalist Progress Note ---
Date of Service December 17, 2023 Assessment & Plan (1) Stroke-like symptoms: Plan: -Currently stable, non-toxic appearing, and near his neurologic baseline -Presented to the ED after experiencing dizziness and aphasia after waking around 0900 on the day of admission -CT of the head/brain and CTA of the head/neck are without acute changes but patient again is noted to have severe multivessel atherosclerotic disease -TSH is elevated today at 60, Free T4 mildly decreased at 0.59 -No reported seizure-like activity -No signs/symptoms of infection at this time -At this time the etiology of his symptoms are most consistent with CVA/TIA due to his known severe atherosclerotic disease, cannot rule out his hypothyroidism contributing -MRI pending >Will speak with Neurology/Vascular surgery if acute findings are noted TTE reviewed. -Continue aspirin and plavix -Continue statin -Fall/aspiration precautions, dysphagia scree, PT/OT consults -Will allow permissive HTN until MRI results are back -Q4h neuro checks, seizure precautions -BL SCDs for DVT PPX A1c normal (2) Hypothyroidism: Plan: -TSH elevated at 60 with free T4 mildly low at 0.59 -Patient has a known hx of hypothyroidism and is on 100 mcg of daily levothyroxine -Patient and confirmed patient has been taking his levothyroxine daily Went up on the dose of levothyroxine to 125 mg. Continue -Patient should have follow-up TSH and free T4 by PCP after discharge (3) Moderate persistent asthma, uncomplicated: Plan: -Patient and his believe this is why he is on chronic, low-dose prednisone daily -They confirm he has been on this dose, "for years" -Stable on RA today, without wheezing or respiratory distress -Continue daily prednisone -Incentive spirometry (4) Hypertension: Plan: -Stable -Patient is not on antihypertensives outpatient -Will continue to allow persistent HTN until MRI results are back Plan CODE STATUS: DNR/DNI DVT prophylaxis: SCDs Admission and Anticipated Discharge Date Admission Date: December 16, 2023 Subjective Patient feels well. Denies chest pain or shortness of breath. Waiting for the MRI to be done Review of Systems Review of Systems: All systems reviewed & are unremarkable except as noted in Subjective Physical Exam Physical Exam: General: Awake, conversant Heart: S1, S2/regular rate and rhythm, no murmur rubs or gallops Lungs: Clear to auscultation bilaterally. Normal effort Abdomen: Soft/nontender/nondistended. No hepatosplenomegaly Extremities: No clubbing/cyanosis. No edema Behavior: Appropriate, cooperative Results & Data Results & Data Vital Signs (Past 12 Hours) Vital Signs Temp Pulse Pulse Resp BP Pulse Ox O2 Del Method 12/17/23 10:41 36.4 C L 56 L 17 132/52 L 93 Room Air 12/17/23 08:00 72 12/17/23 07:36 36.5 C 59 L 17 146/63 H 93 Room Air 12/17/23 03:43 36.5 C 59 L 16 130/75 92 Room Air Laboratory Results Abnormal lab results 12/17/23 Range/Units 05:57 RBC 4.65 L (4.70-6.10) M/uL Hct 41.5 L (42.0-52.0) % RDW Std Deviation 47.5 H (36.4-46.3) fL RDW Coeff of Celestino 14.8 H (11.5-14.5) % Plt Count 114 L (130-400) K/uL Lymph # (Auto) 0.99 L (1.20-3.40) K/uL [place] # (Auto) 0.79 H (0.11-0.59) K/uL PG Care Time/CCT Total # of Minutes Spent Total Time Spent with Patient: Total time spent is greater than 50% in coordination of care (as documented) at patient's floor/unit and/or counseling patient: Coding Level of Care Code 78879 SUB INP/OBS CARE 2/35MIN Diagnoses Stroke-like symptoms R29.90 Hypothyroidism E03.9 Moderate persistent asthma, uncomplicated J45.40 Primary hypertension I10 Hypertension type: primary hypertension (4) Hypertension Hypertension type: primary hypertension Qualified Code(s): I10 - Essential (primary) hypertension
--- NOTE | 2023-12-17 14:31 | Magnetic Resonance Report ---
MRI OF THE BRAIN WITHOUT IV CONTRAST CLINICAL HISTORY: Strokelike symptoms. COMPARISON STUDY: CT of the brain dated 12/16/2023. MRI of the brain dated 09/01/2023. TECHNIQUE: MRI of the brain was performed utilizing various T1 and T2-weighted sequences in the axial , sagittal, and coronal planes. IV contrast was not administered for this examination. FINDINGS: Brain parenchyma: There is age-related involutional change noting moderate to advanced confluent subc ortical and periventricular microangiopathic disease. There is no hemorrhage or mass effect. There is no restricted diffusion to suggest acute ischemia. Max-white matter differentiation is preserved. N o extra-axial fluid collection is seen. The cerebellar tonsils are normal in configuration. Ventricles, sulci, and cisterns: Prominent secondary to positional change. Pituitary and sella: Partially empty sella is incidentally noted. Intracranial vasculature: Normal flow voids are maintained at the skull base. Orbits: The bony orbits are grossly intact. Orbital contents are normal in appearance noting bilatera l ocular lens implants. Sinuses and mastoids: There is opacification of the left maxillary antrum. Mild mucosal thickening is seen within the right maxillary sinus and ethmoid sinuses. The mastoid air cells are clear. Calvarium: Unremarkable. Cervical cord: Partially visualized cervical spinal cord is normal in morphology and signal intensity . IMPRESSION: No acute intracranial abnormality is identified. ACT 112: Negative or not required by law. Electronically signed by: Holden Sloan M.D. 12/17/2023 2:30 PM
[2023-12-18 07:47] LABS: Basophils # (auto) 0.03 K/uL (0.00-0.20); Basophils % (auto) 0.6 %; Eosinophils # (auto) 0.11 K/uL (0.00-0.50); Hematocrit (blood only) 42.3 % (42.0-52.0); Hemoglobin 14.3 g/dl (14.0-18.0); Immature Granulocytes # (auto) 0.03 K/uL (0.01-0.20); Immature Granulocytes % (auto) 0.6 %; Lymphocytes # (auto) 0.83 K/uL (1.20-3.40); Lymphocytes % (auto) 15.4 %; Mean Corpuscular Hemoglobin 30.1 pg (25.0-34.0); Mean Corpuscular Hgb Conc 33.8 g/dL (32.0-36.0); Mean Corpuscular Volume 89.1 fL (80.0-100.0); Mean Platelet Volume 10.9 fL (9.4-12.4); Monocytes % (auto) 14.8 %; Neutrophils % (auto) 66.6 %; Platelet Count 110 K/uL (130-400); RDW Coefficient of Variation 14.8 % (11.5-14.5); RDW Standard Deviation 48.3 fL (36.4-46.3); Red Blood Count 4.75 M/uL (4.70-6.10)
[2023-12-18 08:08] LABS: BUN Creatinine Ratio 23.2 (10-20); Calcium 9.3 mg/dl (8.6-10.3); Creatinine Clr Calc Pharmacy 51.6 ml/min; Est GFR (African American) 79.6 ml/min; Est GFR (Non-African American) 68.7 ml/min; Magnesium 2.1 mg/dl (1.7-2.4); Potassium 3.5 mmol/L (3.5-5.1)
--- NOTE | 2023-12-18 11:53 | Pharmacy Report ---
- Date of Service December 18, 2023 - Pharmacy CVA/TIA Medication Review Unclear if patient had CVA/TIA this admission, but has had multiple prior CVA's/TIA's Medications to Prevent Stroke handout has been added to the patients discharge packet. Antiplatelet(s) * Aspirin and clopidogrel Cholesterol * High intensity statin: rosuvastatin 20 mg daily DVT Prophylaxis * SCD knee Therapeutic Anticoagulation * No history of Afib/Aflutter noted Type 2 Diabetes * Patient does not have T2DM
--- NOTE | 2023-12-18 11:54 | Neurology Consultation ---
Date of Consultation December 18, 2023 Assessment & Plan (1) TIA (transient ischemic attack): (2) Aphasia: (3) Vertebral artery narrowing: (4) Carotid artery stenosis: Plan This is a complicated patient with multiple TIAs in the last 9 months, with history of previous stroke. 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 MRIs do show mild to moderate old small vessel ischemic disease I believe the etiology to his symptoms is more a decrease cerebral perfusion from his multiple large vessel stenoses, than a classic small vessel TIA. The patient has received radiation therapy to the right parotid and neck in 2008 and the left parotid and neck area in 2020. Radiation therapy can create vascular problems such as stenoses. He has risk factors for stroke and TIA including hypertension and dyslipidemia. He quit cigarette smoking in 1966. He is on rosuvastatin 20 mg for dyslipidemia. His most recent neurologic event was in the morning of December 15 and was consistent with a TIA, despite being on 81 mg aspirin and 75 mg clopidogrel. Currently, he seems near baseline this morning without any residual speech issues or other neurologic problems. In addition the patient had a significantly elevated TSH. Although hypothyroidism typically causes a generalized weakness or confusion, it rarely has been associated with focal neurologic deficits including cranial nerves Recommendations: 1. Continue 81 mg aspirin and 75 mg clopidogrel daily. I am not certain there is any better antiplatelet medication regimen to use on this patient. There is no indication for anticoagulants. 2. Agree with increasing levothyroxine monitor TSH over time. 3. Control blood pressure as you are doing avoid overcorrection (keep mean arterial pressure approximately 100) 4. Vascular surgery consultation. 5. I see no indication for an EEG or other neurologic testing at this time. 6. Increase activity as able. Consider physical therapy for gait and balance training (and this could be done as an outpatient as well. 7. After hospitalization, he could follow-up with Dr. Garrido as an outpatient for further recommendations. Overall, I spent a total of 60 minutes with this case including review of records, review of MRI films, direct evaluation the patient, and discussing the case with the patient and RN at bedside and Dr. Hopkins including differential diagnosis and treatment options. History of Present Illness Reason for Consultation: Patient is an 88-year-old, who I was asked to see at the request of Dr. Hopkins, for neurologic consultation regarding acute onset speech problems with other issues Requesting Physician: Dr. Hopkins Attending Physician: Kavitha Hopkins MD History of Present Illness This patient had the acute onset of expressive aphasia and confusion back in March 2018. At that time, MRI of the brain revealed some mild generalized atrophy and old small vessel ischemic change and CT angiography of the head and neck revealed some plaque without significant stenosis, except for an unchanged right vertebral occlusion. The patient had a small stroke in December 2017 in the left temporal head region. Vascular surgery was consulted at that time and they agreed to follow as an outpatient. 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 Apparently the patient had received 5000 cGy radiation therapy in 2008 to his right parotid gland. He has a history of multiple skin cancers of the face. In April 2023 the patient presented with aphasia, dysarthria, left gaze preference, right visual field deficit and right-sided weakness. He was given TN K. Apparently the patient had been on clopidogrel but this was held because of a pending epidural steroid injection. MRI of the brain showed no stroke but CT angiography showed a 50% stenosis of the left internal carotid artery and a proximal left internal carotid artery stenosis of 60 to 70%. There was 70% stenosis of the origin of the left vertebral and the multifocal occlusion of the right vertebral was noted again. He was put back on clopidogrel. In April 2023 he underwent a left internal carotid artery stent placement by Dr. Cordova. In August 2023 he presented with right-sided weakness, facial droop, and slurred speech. Again, he cleared his symptoms and an MRI of the brain showed n o change compared to April 2023. An EEG was normal. He was on 81 mg aspirin +75 mg clopidogrel. Patient presented on December 15 with word finding difficulty. Apparently he went to bed 2100 on December 14 feeling baseline. He then awoke on December 15 and had word finding difficulty, nonsense words, and repeating phrases. He arrived to the emergency room at 0 949 with a temperature of 36.8, respiratory rate 19, blood pressure 186/92, and O2 saturation 98%. There was concern about right facial droop on exam. He had left sided asymmetry from previous. CBC and CHEM profile were unremarkable the alk phos was 158. TSH was 60 Free T4 was low at 0.59. Urinalysis was unremarkable Chest x-ray was unremarkable. CT scan of the head showed no acute changes. CT angiography of the head and neck were unchanged compared to previous studies of August and April. There was a patent left carotid stent and 6070% stenosis of the proximal right internal carotid artery. The left vertebral artery origin had 70% stenosis and the right vertebral was small with multifocal occlusion. Echocardiogram showed decreased left ventricular function compared to previous. MRI of the brain showed no acute changes and there was mild to moderate old small vessel ischemic disease. It was unchanged compared to previous studies. Nursing reports no new issues overnight and no symptoms or spells. The patient himself feels back to baseline and has been this way for at least a day. Allergies Allergy/AdvReac Type Severity Reaction Status Date / Time No Known Drug Allergies Allergy Verified 09/18/23 08:54 Home Medications Medication Instructions Recorded Confirmed Type cyclobenzaprine 5 mg tablet 5 mg PO UD PRN Muscle Spasm 09/27/22 12/16/23 History levothyroxine 88 mcg tablet 100 mcg PO UD 01/24/23 12/16/23 History aspirin 81 mg tablet,delayed 81 mg PO QAM #21 tabs 04/23/23 12/16/23 Rx release tamsulosin 0.4 mg capsule 0.4 mg PO QPM #90 caps 05/02/23 12/16/23 Rx clopidogrel 75 mg tablet (Plavix) See Rx Instructions .Route .COMPLEX 05/06/23 12/16/23 History pseudoephedrine HCl 30 mg tablet 30 mg PO Q6H PRN Cold Symptoms 08/05/23 12/16/23 History (Sudafed) acetaminophen 500 mg capsule 500 mg PO Q6H PRN Pain 09/18/23 12/16/23 History gabapentin 300 mg capsule 300 mg PO BID #60 caps 10/09/23 12/16/23 Rx rosuvastatin 20 mg tablet 20 mg PO DAILY #90 tabs 11/18/23 12/16/23 Rx potassium chloride 20 mEq 20 meq PO DAILY 12/16/23 12/16/23 History tablet,extended release(part/cryst) prednisone 5 mg tablet 5 mg PO DAILY 12/16/23 12/16/23 History tramadol 50 mg tablet 50 mg PO UD PRN Pain 12/16/23 12/16/23 History Patient History Medical History Seizure-like activity pt unaware PFO (patent foramen ovale) Possible per records Subclavian artery stenosis 40% stenosis of the origin of the left subclavian artery per 04/21/23 neck CTA 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 Lumbar disc disease with radiculopathy History of skin cancer Meningioma Dural based calcification along the inner table at the vertex is 14 x 8mm, likely a small meningioma per 04/22/23 brain MRI Followed by neurology per PCP records Status post placement of implantable loop recorder Explanted February 2022 Ventral hernia Acid reflux Surgical History History of urologic surgery Cystolithopaxy (Bladder Stone Fragmentation and Removal) Transurethral resection of bladder tumor) Hx of surgical procedure 04/2023 [place] > Left Transcarotid Artery Revascularization, Right Common Femoral Vein ultrasound History of colonoscopy History of colostomy reversal History of bowel resection w/ colostomy (pt unaware) Hx of parotidectomy History of neck surgery for cancer with radiation History of hemorrhoidectomy Family History Unknown Coronary heart disease Cancer Father Cancer Hypertension Son Diabetes Mother Benign neoplasm of head Brother Heart disease Brother Liver disease Heart disease Valve replacement Denies family history of Stroke Social History Smoking Status: Former smoker Tobacco Type: Cigarettes Smoking End Date: 1959; Second Hand Exposure: No; Do You Dip or Chew Tobacco: No; Hx Alcohol Use: No Hx Substance Use: No Preferred Language: Tristanian Communication Ability Comment: Mild expressive aphasia Visual Impairment: No Limitations Hearing Ability: Hard of Hearing [employer] Lecturer Required: No Beliefs That Will Affect Care: None marital status: Current Living Situation: Spouse Current Living Situation Comment: with spouse current occupational status: retired Other Information That Helps Us Care for You: No Feels Safe at Home: Yes Safety Concerns: Feels Safe At This Time caffeine: No Dental Care, Regularly: Yes Physical Activity Frequency: Daily Seatbelt Use: always Assistive Devices: Cane and Glasses Review of Systems Constitutional: no fever, no fatigue and no weakness Eyes: no diplopia, no eye pain and no worsening vision Ear, Nose, Mouth, Throat: + hearing loss; no ear pain, no tinnitus , no dizz iness, no snoring, no hoarseness and no dysphagia Respiratory: no cough and no dyspnea Cardiovascular: no chest pain, no palpitations and no lightheadedness Gastrointestinal: no abdominal pain, no nausea and no vomiting Musculoskeletal: no back pain, no neck pain, no radicular pain, no joint pain and no myalgia Integumentary: no rash and no lesions Neurologic: + gait abnormality; no localized weaknes s, no generalized weakness, no tingling, no numbness, no tremor(s), no abnormal movements, no headache(s), no abnormal speech, no confusion and no memory loss Psychiatric: no depression, no irritability, no anxiety, no difficulty concentrating, no confusion and no hallucinations Endocrine: no fatigue and no flushing Hematologic / Lymphatic: no easy bleeding and no easy bruising Allergy / Immunological: no urticaria and no problem reported Exam (Neuro) Physical Exam: The patient is right-handed. The patient is awake, alert, and attentive. Speech is normal without any aphasia or dysarthria. Mentation and thought processes are intact, with full orientation and normal fund of knowledge. Mood and affect are normal and appropriate. Appearance and grooming are normal. Short and long-term memory are intact to conversation. Pupils are 3 mm bilaterally and reactive to light. Extraocular eye muscles are intact without nystagmus. Visual acuity and visual arango seem normal grossly to confrontation. There are no deficits to sensation in the face in all 3 distributions of the fifth cranial nerve bilaterally. Corneal reflexes are positive bilaterally. There is some facial asymmetry on the left side of the face compared to the right but both sides moved. Hearing is decreased bilaterally. Palate moves well without asymmetry. There is normal sternocleidomastoid and trapezius strength bilaterally. Tongue is midline with good strength bilaterally. Neck has a full range of motion without discomfort. Cervical, thoracic, and lumbar spine are nontender to palpation. Gait reveals narrow base with slight limp and caution but otherwise fairly smooth with reasonable turns. Stance with feet together and eyes open is reasonable. With outstretched arms there is no drift. There are no resting, postural, or action tremors. There is no ataxia with finger to nose testing. There is good facility in the hands. No other abnormal involuntary movements are noted. Motor strength is 5/5 diffusely in the arms bilaterally including deltoids, biceps, triceps, brachioradialis, wrist flexors and extensors, winder fixer, and intrinsic hand muscles. Motor strength is 5/5 diffusely in the legs bilaterally including hip flexors, quadriceps, hamstrings, gastrocnemius, tibialis anterior, tibialis posterior, and Peroneii muscles bilaterally. Toe extensors are normal and there is good bulk in the extensor digitorum brevis muscles bilaterally. The limbs have good tone without rigidity or spasticity. There is no atrophy noted in the muscles. Muscle bulk is normal, there is no tenderness to palpation, no myotonia to percussion, and no fasciculations seen. Sensory examination is largely unremarkable. Reflexes are 0/4 in the brachioradialis and Achilles tendons bilaterally. Reflexes are 1/4 in the biceps, triceps, and quadriceps tendons bilaterally. Toes are downgoing with plantar stimulation bilaterally. There is no peripheral edema noted in the limbs. Results & Data Vital Signs (Past 12 Hours) Vital Signs Temp Pulse Pulse Resp BP Pulse Ox O2 Del Method 12/18/23 09:31 66 12/18/23 08:00 Room Air 12/18/23 07:23 36.4 C L 64 17 156/74 H 95 Room Air 12/18/23 02:48 36.9 C 54 L 18 105/55 L 91 Room Air PG Care Time/CCT Total # of Minutes Spent Total Time Spent with Patient: Total time spent is greater than 50% in coordination of care (as documented) at patient's floor/unit and/or counseling patient: Coding Level of Care Code 43695 INT INP/OBS CARE 3/75MIN Diagnoses TIA (transient ischemic attack) G45.9 Aphasia R47.01 Vertebral artery narrowing I65.09 Carotid artery stenosis I65.29 Time Spent (min) 60
--- NOTE | 2023-12-18 14:37 | Hospitalist Progress Note ---
Date of Service December 18, 2023 Assessment & Plan (1) Stroke-like symptoms: Plan: -Currently stable, non-toxic appearing, and near his neurologic baseline -Presented to the ED after experiencing dizziness and aphasia after waking around 0900 on the day of admission -CT of the head/brain and CTA of the head/neck are without acute changes but patient again is noted to have severe multivessel atherosclerotic disease -TSH is elevated at 60, Free T4 mildly decreased at 0.59 -No reported seizure-like activity -No signs/symptoms of infection at this time -At this time the etiology of his symptoms are most consistent with CVA/TIA due to his known severe atherosclerotic disease, cannot rule out his hypothyroidism contributing -MRI negative for stroke Consulted neurology Neurology did not recommend EEG. EEG canceled. Neurology was concerned about ICA stenosis leading to cerebral hypoperfusion leading to recurrent TIA symptoms Vascular surgery was consulted. However vascular surgery is not available until next Saturday. I thus initiated transfer to [facility]. I had a detailed conversation with Dr. Ring from stroke neurology Dr. Simons from vascular surgery at [facility] along with Dr. Schafer from neurology at [facility]. After detailed discussion, it was decided that the patient most likely does not have significant ICA stenosis that is responsible for his symptoms. Moreover the patient is hemodynamically and neurologically stable at this point. The plan is to keep the patient at [facility] and to make medication adjustments. He will be switched from Plavix to Brilinta. Aspirin and Brilinta will be continued for 3 weeks. After that, aspirin will be discontinued. TTE reviewed. -Continue statin -Fall/aspiration precautions, dysphagia scree, PT/OT consults -Q4h neuro checks, seizure precautions -BL SCDs for DVT PPX A1c normal (2) Hypothyroidism: Plan: -TSH elevated at 60 with free T4 mildly low at 0.59 -Patient has a known hx of hypothyroidism and is on 100 mcg of daily levothyroxine -Patient and confirmed patient has been taking his levothyroxine daily Went up on the dose of levothyroxine to 125 mg. Continue -Patient should have follow-up TSH and free T4 by PCP after discharge (3) Moderate persistent asthma, uncomplicated: Plan: -Patient and his believe this is why he is on chronic, low-dose prednisone daily -They confirm he has been on this dose, "for years" -Stable on RA today, without wheezing or respiratory distress -Continue daily prednisone -Incentive spirometry (4) Hypertension: Plan: -Stable -Patient is not on antihypertensives outpatient Plan CODE STATUS: DNR/DNI DVT prophylaxis: SCDs Admission and Anticipated Discharge Date Admission Date: December 16, 2023 Subjective Patient feels well today. Denies chest pain, shortness of breath. Denies dizziness. No more aphasia or difficulty speaking. Review of Systems Review of Systems: All systems reviewed & are unremarkable except as noted in Subjective Physical Exam Physical Exam: General: Awake, conversant Heart: S1, S2/regular rate and rhythm, no murmur rubs or gallops Lungs: Clear to auscultation bilaterally. Normal effort Abdomen: Soft/nontender/nondistended. No hepatosplenomegaly Extremities: No clubbing/cyanosis. No edema Behavior: Appropriate, cooperative Results & Data Results & Data Vital Signs (Past 12 Hours) Vital Signs Temp Pulse Pulse Resp BP Pulse Ox O2 Del Method 12/18/23 11:29 36.4 C L 70 16 155/75 H 93 Room Air 12/18/23 09:31 66 12/18/23 08:00 Room Air 12/18/23 07:23 36.4 C L 64 17 156/74 H 95 Room Air 12/18/23 02:48 36.9 C 54 L 18 105/55 L 91 Room Air Laboratory Results Abnormal lab results 12/18/23 Range/Units 07:08 RDW Std Deviation 48.3 H (36.4-46.3) fL RDW Coeff of Celestino 14.8 H (11.5-14.5) % Plt Count 110 L (130-400) K/uL Lymph # (Auto) 0.83 L (1.20-3.40) K/uL Childress # (Auto) 0.80 H (0.11-0.59) K/uL BUN/Creatinine Ratio 23.2 H (10-20) PG Care Time/CCT Total # of Minutes Spent Total Time Spent with Patient: Total time spent is greater than 50% in coordination of care (as documented) at patient's floor/unit and/or counseling patient: Coding Level of Care Code 70038 SUB INP/OBS CARE 2/35MIN Diagnoses Stroke-like symptoms R29.90 Hypothyroidism E03.9 Moderate persistent asthma, uncomplicated J45.40 Primary hypertension I10 Hypertension type: primary hypertension (4) Hypertension Hypertension type: primary hypertension Qualified Code(s): I10 - Essential (primary) hypertension
[2023-12-19 06:55] LABS: Basophils # (auto) 0.03 K/uL (0.00-0.20); Basophils % (auto) 0.6 %; Eosinophils % (auto) 1.8 %; Hematocrit (blood only) 39.5 % (42.0-52.0); Hemoglobin 13.2 g/dl (14.0-18.0); Immature Granulocytes # (auto) 0.04 K/uL (0.01-0.20); Immature Granulocytes % (auto) 0.7 %; Lymphocytes # (auto) 0.88 K/uL (1.20-3.40); Lymphocytes % (auto) 16.2 %; Mean Corpuscular Hemoglobin 29.9 pg (25.0-34.0); Mean Corpuscular Hgb Conc 33.4 g/dL (32.0-36.0); Mean Corpuscular Volume 89.4 fL (80.0-100.0); Mean Platelet Volume 10.6 fL (9.4-12.4); Monocytes # (auto) 0.87 K/uL (0.11-0.59); Neutrophils # (auto) 3.51 K/uL (1.40-6.50); Neutrophils % (auto) 64.7 %; Platelet Count 111 K/uL (130-400); RDW Coefficient of Variation 14.9 % (11.5-14.5); Red Blood Count 4.42 M/uL (4.70-6.10); White Blood Count 5.43 K/ul (4.8-10.8)
[2023-12-19 07:17] LABS: BUN Creatinine Ratio 21.4 (10-20); Calcium 8.9 mg/dl (8.6-10.3); Creatinine Clr Calc Pharmacy 49.5 ml/min; Est GFR (African American) 75.9 ml/min; Est GFR (Non-African American) 65.5 ml/min; Magnesium 2.2 mg/dl (1.7-2.4); Potassium 3.9 mmol/L (3.5-5.1)
[2023-12-19 07:21] VITALS: TEMP 97.7
[2023-12-19] MEDS: TICAGRELOR 90 MG TAB PO ONE (08:45)
[2023-12-19] MEDS ORDERED: TICAGRELOR 90 MG TAB PO SCH (09:00)
[2023-12-19] MEDS ORDERED: STROKE PATIENT DISCHARGE STA (10:27)
--- NOTE | 2023-12-19 10:30 | Discharge Summary ---
Date of Service December 19, 2023 Admission HPI Per Admitting Provider Geovanni is an 88-year-old male with a past medical history including bladder carcinoma, multiple previous CVA/TIA's, symptomatic stenosis of left carotid artery S/P TCAR with Dr. 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 The patient's reported time of LKW was 2100 on 12/15/23. He was noted to be hypertensive on arrival at 186/92 and tachycardic at 97 but was otherwise stable. Labs were significant for a stable thrombocytopenia of 119, glucose of 119, initial lactate of 2.3 --> 1.4, TSH of 60 with free T4 of 0.59, UA without signs of infection, and full respiratory biofire negative. Chest xray was read as negative for acute findings. CT and CTA of the head/brain were read as negative for acute changes. CTA of the neck was read as "1. Patent left carotid stent. 2. 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 3. 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 4. 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 We were asked to admit the patient for ongoing workup and treatment of his neurologic symptoms. At the time of the exam the patient was sitting in bed in no acute distress with his bedside, history was obtained from both. They confirm the patient had been in his normal state of health when he went to bed at approximately 2100 on 12/14. When asked about his baseline facial droop, they explain that he has had left-sided facial droop since he underwent left parotid gland surgery for parotid malignancy. This am he noticed he was dizzy after waking. He denies the room spinning or other initial focal neuro defects. He went to the kitchen and took his am medications, including his Levothyroxine, aspirin, and Plavix. His noticed that the patient was having difficulty speaking and appeared to be using words in correct places while trying to speak, this is not normal for him. The patient states that he also noticed he was doing this and was unsure why. His aphasia started at approximately 0900 this am. His is still dizzy at the time of the exam, he and his feel as though his speech is almost back to baseline, although he is still having difficulties as times during the exam. He states that he has chronic paresthesias in the BL LE's which are unchanged t jasmine. Denies recent fever, chills, chest pain, unilateral weakness, changes in vision, hearing, taste, smell, SOB, cough, abd pain, nausea, vomiting, diarrhea, dysuria, hematuria, melena, LE swelling, and recent trauma. He is a DNR/DNI and their son is his POA. Please refer to Dr. Robles's attestation for any changes to the treatment plan Admission Exam Per Admitting Provider General: In no acute distress, stated age, chronically ill appearing but non- toxic HEENT: atraumatic, baseline left-sided facial droop noted, no scleral icterus, pupils around round, symmetrical, and reactive to light, moist mucus membranes, trachea midline, no thyromegaly Chest/Pulm: No respiratory distress, symmetrical chest expansion, clear breath sounds throughout Cardiac: RRR, no murmurs noted Abdomen: Negative for ascites and bruising, normoactive bowel sounds, soft, non- tender to palpation throughout Musculoskeletal: Symmetrical and without signs of acute trauma, upper and lower extremities with full ROM, no atrophy, spasticity, or flaccidity Extremities: Radial, dorsalis pedis, and posterior tibial pulses are intact and symmetrical, no edema noted in the BL LE's Skin: Warm, dry, no rashes , lesions, or scars noted Neuro: Alert and oriented to person, place, month, year, and president, baseline left-sided facial droop noted, patient with intermittent slurring of words but is answering questions appropriately, CN II-XII tested and are otherwise intact, RUE with coordination difficulties and LUE with positive pronator drift with cerebellar and pronator drift testing, no tremors noted Psych: No acute distress, calm and cooperative during the exam Principal Diagnosis Stroke-like symptoms, possibly due to intermittent cerebral hypoperfusion versus vascular dementia - Hypothyroidism Discharge Exam General: Awake, conversant Heart: S1, S2/regular rate and rhythm, no murmur rubs or gallops Lungs: Clear to auscultation bilaterally. Normal effort Abdomen: Soft/nontender/nondistended. No hepatosplenomegaly Extremities: No clubbing/cyanosis. No edema Behavior: Appropriate, cooperative Discharge Data Allergies Allergy/AdvReac Type Severity Reaction Status Date / Time No Known Drug Allergies Allergy Verified 09/18/23 08:54 Consultations 12/16/23 12:19 ED Decision to Admit Stat 12/18/23 07:56 Consult Neurology Routine 12/18/23 11:18 Consult Vascular Surgery Routine 12/18/23 12:44 Burn CD for patient Stat Ordered Studies 12/16/23 10:05 CT head/brain wo con Stat CTA head w con [CT angio head w con] Stat CTA neck with con [CT angio neck with con] Stat 12/17/23 06:49 MR brain wo con Stat Hospital Course (1) Stroke-like symptoms: -Currently stable, non-toxic appearing, and near his neurologic baseline -Presented to the ED after experiencing dizziness and aphasia after waking around 0900 on the day of admission -CT of the head/brain and CTA of the head/neck are without acute changes but patient again is noted to have severe multivessel atherosclerotic disease -TSH is elevated at 60, Free T4 mildly decreased at 0.59 -No reported seizure-like activity -At this time the etiology of his symptoms are most consistent with CVA/TIA due to his known severe atherosclerotic disease, cannot rule out his hypothyroidism contributing -MRI negative for stroke Consulted neurology Neurology did not recommend EEG. EEG canceled. Neurology was concerned about ICA stenosis leading to cerebral hypoperfusion leading to recurrent TIA symptoms Vascular surgery was consulted. However vascular surgery is not available until next Saturday. I thus initiated transfer to [facility]. I had a detailed conversation with Dr. Ring from stroke neurology Dr. Simons from vascular surgery at [facility] along with Dr. Schafer from neurology at [facility]. After detailed discussion, it was decided that the patient most likely does not have significant ICA stenosis that is responsible for his symptoms and that needed surgery. Moreover the patient is hemodynamically and neurologically stable at this point. The plan was medical management. He was switched from Plavix to Brilinta. Aspirin and Brilinta will be continued for 3 weeks. After that, aspirin will be discontinued. TTE reviewed. -Continue statin A1c normal Follow-up with primary neurologist outpatient Follow-up with vascular surgery outpatient (2) Hypothyroidism: -TSH elevated at 60 with free T4 mildly low at 0.59 -Patient has a known hx of hypothyroidism and is on 100 mcg of daily levothyroxine -Patient and confirmed patient has been taking his levothyroxine daily Went up on the dose of levothyroxine to 125 mg. Continue -Patient should have follow-up TSH and free T4 by PCP after discharge (3) Moderate persistent asthma, uncomplicated: -Patient and his believe this is why he is on chronic, low-dose prednisone daily -They confirm he has been on this dose, "for years" -Stable on RA today, without wheezing or respiratory distress -Continue daily prednisone -Incentive spirometry (4) Hypertension: -Stable -Patient is not on antihypertensives outpatient Plan CODE STATUS: DNR/DNI DVT prophylaxis: SCDs Total Time Total Time Spent Total Time Spent (In Minutes): 35 Discharge Plan Discharge Items Patient Disposition: Home - Self-Care Reason For Visit: aphasia Discharge Diagnosis: Stroke-like symptoms, possibly due to intermittent cerebral hypoperfusion versus vascular dementia - Hypothyroidism Activity: Resume your previous activity Non-emergency contact: Primary Care Provider Call non-emergency contact if: you have any medication questions and your symptoms worsen Follow-up/Referrals: Bala Garrido MD [Physician] - (Dr. Garrido's office will call Pt to schedule follow up.) Giles Galan MD [Primary Care Provider] - 12/23/23 1:00 pm (PCP hospital follow up scheduled with Angela Mederos on December 22 at 1:00) Rodrigue Cordova MD [Physician] - (Dr. Cordova's office will call Pt to schedule once they receive the discharge note. ) Diet: Heart Healthy Addtl Attending Provider Instructions: Advised to follow-up with PCP in 1 week Advised to follow-up with neurology in 1 month Advised to follow-up with vascular surgery in 1 month Advised to note that you have been switched from Plavix to Brilinta. The plan is for you to be on aspirin and Brilinta for 3 weeks. After 3 weeks aspirin should be discontinued and Brilinta will be continued. Pending Studies at Discharge: No Stand-Alone Forms: My [facility] [employer], Medications to Prevent Stroke Medications and DC Order Prescriptions: New Brilinta 90 mg Tablet 90 mg PO BID 30 Days Qty: 60 0RF levothyroxine [Synthroid] 125 mcg Tablet 125 mcg PO DAILY 30 Days Qty: 30 0RF Continued cyclobenzaprine 5 mg tablet 5 mg PO UD PRN (Reason: Muscle Spasm) Rx Instructions: not on file with pharmacy tamsulosin 0.4 mg capsule 0.4 mg PO QPM Qty: 90 3RF gabapentin 300 mg capsule 300 mg PO BID Qty: 60 5RF rosuvastatin 20 mg tablet 20 mg PO DAILY Qty: 90 3RF acetaminophen 500 mg capsule 500 mg PO Q6H PRN (Reason: Pain) Rx Instructions: otc unable to verify aspirin 81 mg Tablet,Delayed Release (Dr/Ec) 81 mg PO QAM Qty: 21 0RF Rx Instructions: otc unable to verify prednisone 5 mg tablet 5 mg PO DAILY Rx Instructions: TAKE 1 TABLET BY MOUTH ONCE DAILY tramadol 50 mg tablet 50 mg PO UD PRN (Reason: Pain) Rx Instructions: last filled 05/2023 potassium chloride 20 mEq tablet,ER particles/crystals 20 meq PO DAILY Rx Instructions: TAKE 1 TABLET BY MOUTH ONCE DAILY Discontinued levothyroxine 88 mcg tablet 100 mcg PO UD Rx Instructions: last filled 09/12/23 for 100 mcg po daily clopidogrel [Plavix] 75 mg tablet See Rx Instructions .ROUTE .COMPLEX Hold Instructions: Resume on 08/13/23. Rx Instructions: TAKE ONE TABLET BY MOUTH EVERY MORNING pseudoephedrine HCl [Sudafed] 30 mg tablet 30 mg PO Q6H PRN (Reason: Cold Symptoms) Rx Instructions: otc unable to verify Discharge Orders: Discharge Order (Routine); Ordered 12/19/23 Ordered By: Kavitha Hu/Other Patient Handouts: Ticagrelor Oral Tablet, What Is Aphasia?, Symptoms of Stroke, What Is a TIA?, Stroke: Taking Medicines Admission Data Admit Date/Time: 12/16/23 12:25 Attending Provider: Kavitha Hopkins Admit Provider: Shun Robles Primary Care Provider: Giles Galan Other Providers: Shun Robles; Chaim Schafer; Rodrigue Cordova Other Interventions: Discharge Summary Assessment (RN) Last Done: 12/19/23 10:42 Coding Level of Care Code 07289 INP/OBS DISCH >30 MIN Diagnoses Stroke-like symptoms R29.90 Hypothyroidism E03.9 Moderate persistent asthma, uncomplicated J45.40 Primary hypertension I10 Hypertension type: primary hypertension
[2023-12-19 10:42] VITALS: BP 123/69; PULSE 68; RESP 17; O2SAT 96
--- NOTE | 2023-12-19 11:20 | Neurology Progress Note ---
Date of Service December 19, 2023 Assessment & Plan (1) TIA (transient ischemic attack): (2) Aphasia: (3) Vertebral artery narrowing: (4) Carotid artery stenosis: Plan This is a complicated patient with multiple TIAs in the last 9 months, with history of previous stroke. 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 MRIs do show mild to moderate old small vessel ischemic disease I believe the etiology to his symptoms is more a decrease cerebral perfusion from his multiple large vessel stenoses, than a classic small vessel TIA. The patient has received radiation therapy to the right parotid and neck in 2008 and the left parotid and neck area in 2020. Radiation therapy can create vascular problems such as stenoses. He has risk factors for stroke and TIA including hypertension and dyslipidemia. He quit cigarette smoking in 1966. He is on rosuvastatin 20 mg for dyslipidemia. His most recent neurologic event was in the morning of December 15 and was consistent with a TIA, despite being on 81 mg aspirin and 75 mg clopidogrel. Currently, he seems near baseline this morning without any residual speech issues or other neurologic problems. In addition the patient had a significantly elevated TSH. Although hypothyroidism typically causes a generalized weakness or confusion, it rarely has been associated with focal neurologic deficits including cranial nerves Vascular surgery consult was obtained in formally yesterday by Dr. Simons [facility] and no surgical intervention was warranted at this time. Recommendations: 1. Continue with Brilinta 90 mg twice daily, as well as 81 mg aspirin tablet daily. Do the combination for 3 weeks then drop the aspirin and stay on Brilinta. This may help better than clopidogrel hopefully. 2. Agree with increasing levothyroxine, monitor TSH over time. 3. Control blood pressure as you are doing avoid overcorrection (keep mean arterial pressure approximately 100) 4. I see no indication for an EEG or other neurologic testing at this time. 5. Increase activity as able. Consider physical therapy for gait and balance training (and this could be done as an outpatient as well. 6. After hospitalization, he could follow-up with Dr. Garrido as an outpatient for further recommendations. Overall, I spent a total of 35 minutes with this case including review of records, direct evaluation the patient, and discussion of the case with the patient and RN at bedside and Dr. Hopkins including differential diagnosis and treatment options. Admission and Anticipated Discharge Date Admission Date: December 16, 2023 Subjective Patient denies pain or headache. He is not dizzy and feels back to baseline. He denies any significant weakness or numbness. He is very hard of hearing and his hearing aid battery ran low. Nursing reports no new issues. Blood pressure is 123/69 and he is afebrile. CBC was largely unremarkable and CHEM profile was normal as well. Results & Data Vital Signs (Past 12 Hours) Vital Signs Temp Pulse Pulse Resp BP Pulse Ox O2 Del Method 12/19/23 10:42 36.5 C 68 17 123/69 96 12/19/23 10:41 36.5 C 68 17 123/69 96 Room Air 12/19/23 08:00 63 12/19/23 07:20 36.5 C 67 16 136/60 91 Room Air 12/19/23 03:15 36.6 C 66 18 130/88 94 Room Air Exam (Neuro) Physical Exam: He is awake and alert. Speech is without aphasia or dysarthria. Mood is reasonable and affect is appropriate. Thought processes are reasonable to conversation. The patient is very hard of hearing and does not have his hearing aid and. He can understand if I raise my voice. Coordination seems normal in the arms without obvious tremor or ataxia. Strength is symmetrical in all 4 limbs. No abnormal involuntary movements were noted. Extraocular eye muscles are intact without nystagmus. There is no facial droop. PG Care Time/CCT Total # of Minutes Spent Total Time Spent with Patient: Total time spent is greater than 50% in coordination of care (as documented) at patient's floor/unit and/or counseling patient: Coding Level of Care Code 41816 SUB INP/OBS CARE 2/35MIN Diagnoses TIA (transient ischemic attack) G45.9 Aphasia R47.01 Vertebral artery narrowing I65.09 Carotid artery stenosis I65.29 Time Spent (min) 35
[2023-12-20] MEDS ORDERED: TICAGRELOR 90 MG TAB PO SCH (09:00)
== END 2023-12-19 12:40 | disposition home or self-care (01) | DRG 69 ==
LOC: ED 09:45 → SUATTDRO 12:25 → 2S 12:25

== ENCOUNTER 2025-02-12 06:21 | Inpatient (IN) ==
--- NOTE | 2025-02-12 06:35 | Emergency Department Note ---
Impression & Plan DAWNA (acute kidney injury), Bilateral hydronephrosis, Right distal ureteral calculus, Diverticulitis, Pleural effusion ED Provider Note NAME: BARON ZAMORA AGE: 89 SEX: M : 1935 ARRIVES VIA: Walk-In INFORMANT: Patient ED PROVIDER(S): Prasanna Sesay DO CHIEF COMPLAINT: Abdominal pain HPI: Patient is an 89-year-old male with a past medical history of hyperlipidemia, CVA, dizziness who presents ER for lower abdominal pain. Per daughter who is present at bedside and provides additional history he had a stent placed on Saturday by urology for kidney stone. Belly pain started within the past 24 hours. He denies any headache or change in vision. No chest pain or shortness of breath. No nausea, vomiting or diarrhea. No dysuria, urgency or frequency but just admits to belly pain he does feel weak. ADDITIONAL HISTORY OBTAINED: Per HPI Chronic Medical/Social Conditions Affecting Care: Per HPI PAST MEDICAL HISTORY:See Below PAST SURGICAL HISTORY:See Below FAMILY HISTORY:See Below SOCIAL HISTORY:See Below HOME MEDICATIONS:See Below ALLERGIES:See Below VITALS:See Below PHYSICAL EXAMINATION: GENERAL: Sitting up in bed, alert, well appearing, well nourished, no distress, non-toxic EYE EXAM: normal conjunctiva. PERRL and EOM's intact. OROPHARYNX: mucous membranes are moist NECK: supple, no nuchal rigidity, no adenopathy, non-tender LUNGS: Clear to auscultation. Normal chest wall mechanics HEART: no murmurs, S1 normal and S2 normal ABDOMEN: abdomen soft, mild diffuse tenderness throughout the lower belly, normo-active bowel sounds, no masses, no rebound or guarding. UPPER EXTREMITIES: upper extremities are grossly normal. LOWER EXTREMITIES: No pitting edema. NEURO EXAM: Normal sensorium, cranial nerves II-XII grossly intact, normal speech, no gross weakness of arms, no gross weakness of legs. MEDICAL DECISION MAKING: Patient is an 89-year-old male who presents ER for the above-stated complaint. IV was established and blood work was obtained. Labs show leukocytosis of nearly 18,000. No significant anemia. BMP with mild hyponatremia at 133. Creatinine at 2 up from 0.8. Lactate at 2.5. LFT's is and troponin was negative. Lipase normal. UA with leuks whites but no bacteria. CT showed pleural effusions, diverticulitis and bilateral hydro with a stent in the right and a ureteral stone. External records were reviewed on 02/10/[address] Yen patient had bladder mass which was resected and felt to be cancerous and he had a stent placed as he found the stone in the distal ureter. Case was discussed with urology who saw the patient at bedside and recommended a Smith. Patient was initially given Rocephin upon arrival as well as IV fluids and switched to Zosyn following diverticulitis showing on CT. Patient was discussed with the hospitalist for further evaluation management treatment. Consults/Care Managements Discussions: Per MDM Triage Nursing notes reviewed. Limited review of prior medical records performed Vital Signs: reviewed and remarkable for hypotensive Differential diagnosis: Differential diagnoses includes but is not limited to gastritis, peptic ulcer disease, GERD, gallbladder disease, pancreatitis, small bowel obstruction, appendicitis, diverticulitis, hernia, urinary tract infection, torsion, perforation, trauma, infectious. ER treatment provided: See below Diagnostics interpreted by me include EKG and cardiac monitoring as listed below: -Cardiac Monitoring: An order was placed for continuous cardiac monitoring. The monitor shows a rate of 90 with sinus rhythm. -ECG: none -Laboratory studies:Interpreted by me as stated above in MDM and shown below. Imaging studies: Xrays: As interpreted by me:none CTs show: CT abdomen pelvis per my pulmonary and capitation showed no obvious obstruction CT abdomen pelvis per radiologist described above Procedures:none Critical Care: None Past Med/Surg History Problem List (Updated 02/12/25 @ 12:39 by Prasanna Sesay DO) Pleural effusion (Acute) Diverticulitis (Acute) DAWNA (acute kidney injury) (Acute) Right distal ureteral calculus (Acute) Bilateral hydronephrosis (Acute) Dizziness Decrease in appetite TIA (transient ischemic attack) multiple: 04/2023, 09/01/23, 12/16/23 Stroke-like symptoms (Acute) 09/01/23 Aphasia (Acute ~06/02/24) 09/01/23 Bladder carcinoma Postoperative hypotension Recent cerebrovascular accident (CVA) 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; possible TIA 04/2023, 09/01/23, and 12/16/23 Symptomatic stenosis of left carotid artery Occlusion of right vertebral artery Vertebral artery narrowing CVA (cerebral vascular accident) (~06/02/24) Seizure-like activity 04/21/23 Lumbosacral radiculopathy Carotid artery stenosis - 60-70% stenosis right ICA; s/p left TCAR 05/07/23 HLD (hyperlipidemia) Moderate persistent asthma, uncomplicated Renal cyst, right Spinal stenosis of lumbar region Left leg pain (Acute) 07/24/22 Lumbar disc herniation (Acute) Weakness (Acute) 07/24/22 Bladder stone History of loop recorder Thoracic aortic aneurysm Nephrolithiasis Lung nodule Malignant neoplasm of parotid gland (Chronic) hx Squamous cell carcinoma Status post Mohs surgery sees dermatology on 08/09/23 for follow up/ possible procedure 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 Per neuro note 01/2024: pt had normal EEG 08/2023 Hx of carotid stenosis s/p L left TCAR 04/2023; R ICA 60-70% at origin, prox L vertebral artery stenosis of 70%, and an essentially occluded right vertebral artery of a chronic nature Hx of hypotension post operative, per records Small vessel disease, cerebrovascular Spinal stenosis of lumbar region History of TIAs (11/2023) multiple, most recent admit to [facility] 11/2023, follows with Dr. Schafer Malignant neoplasm of parotid gland (2020) Hx -left parotid neoplasm 2020- treated with surgical excision and radiation. Last treatment November 2020 per records Lung nodule per chart, pt. unaware Lumbosacral radiculopathy Hypothyroidism PCP closely monitoring Hypercholesteremia HLD (hyperlipidemia) History of asthma no symptoms for > 20 years per pt. Bladder carcinoma PFO (patent foramen ovale) per chart review, 'Possible PFO'; however 12/17/23 showed no evidence for an atrial septal defect. 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 History of CVA (cerebrovascular accident) 2018 - no residual Probably TIA 04/21/23- treated with TNK- admitted at [facility] Admitted to [facility] 09/01/23 and 12/16/23 with TIA sx - follows with neuro,(Dr. 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 Lumbar disc disease with radiculopathy History of skin cancer Meningioma Dural based calcification along the inner table at the vertex is 14 x 8mm, likely a small meningioma per 04/22/23 brain MRI Followed by neurology per PCP records Status post placement of implantable loop recorder Explanted February 2022 Ventral hernia Acid reflux Surgical History History of anesthesia reaction Hard time waking up>did well with last TURBT History of tooth extraction History of cataract surgery right/left History of bladder surgery multiple TURBT procedures; most recent: 06/23/24 Status post Mohs surgery History of transcarotid artery revascularization (TCAR) (05/06/23) left ICA shunt, [facility] History of loop recorder (2021) removed 03/12, no current parts remover per pt. History of urologic surgery Cystolithopaxy (Bladder Stone Fragmentation and Removal) Transurethral resection of bladder tumor) History of colonoscopy History of colostomy reversal History of bowel resection (2016) due to cancer, w/ colostomy & reversal Hx of parotidectomy due to ca History of hemorrhoidectomy Family History (Updated 02/03/25 @ 08:57 by Joelle Jones RN) Unknown Coronary heart disease Cancer Father Cancer Hypertension Son Diabetes Mother Benign neoplasm of head Brother Heart disease Brother Liver disease Heart disease Valve replacement Other No family history of adverse response to anesthesia Denies family history of Stroke Social History Smoking Status: Former smoker Tobacco Type: Cigarettes Age Started Using Tobacco: 20; Age Quit Using Tobacco: 30; packs per day: 1; Second Hand Exposure: No; Do You Dip or Chew Tobacco: No; Hx Alcohol Use: Yes Alcohol type: beer Alcohol Intake Frequency: 2-3 x/Week Hx Substance Use: No Preferred Language: Burkinan Communication Ability: Effective Communication Ability Comment: Mild expressive aphasia Visual Impairment: No Limitations Hearing Ability: Hard of Hearing Guidance Consultant Required: No Beliefs That Will Affect Care: None marital status: Current Living Situation: Spouse Current Living Situation Comment: with spouse current occupational status: retired Feels Safe at Home: Yes Childhood Exposure to Second-Hand Smoke: No caffeine: No Dental Care, Regularly: No Physical Activity Frequency: Daily Seatbelt Use: always Sunscreen Use: No Assistive Devices: Cane, Glasses and Hearing Aid - Right Allergies Allergies Allergy/AdvReac Type Severity Reaction Status Date / Time No Known Drug Allergies Allergy Verified 02/10/25 09:28 Home Meds Home Medications Medication Instructions Recorded Confirmed acetaminophen 500 mg capsule 500 mg PO Q6H PRN Pain 09/18/23 02/12/25 levothyroxine 100 mcg tablet 100 mcg PO QAM 02/03/25 02/12/25 rosuvastatin 20 mg tablet (Crestor) 20 mg PO DAILY 02/10/25 02/12/25 amoxicillin 500 mg-potassium 1 tab PO BID 02/12/25 02/12/25 clavulanate 125 mg tablet gabapentin 300 mg capsule 300 mg PO BID 02/12/25 02/12/25 mirtazapine 15 mg tablet 15 mg PO DAILY 02/12/25 02/12/25 tamsulosin 0.4 mg capsule 0.4 mg PO QPM 02/12/25 02/12/25 theophylline 300 mg 600 mg PO DAILY 02/12/25 02/12/25 tablet,extended release,12 hr ticagrelor 90 mg tablet (Brilinta) 0 mg PO QAM 02/12/25 02/12/25 Previous Rx's Medication Instructions Recorded amiloride 5 mg-hydrochlorothiazide 0.5 tab PO QAM #90 tabs 08/04/24 50 mg tablet prednisone 5 mg tablet 5 mg PO QAM #90 tabs 10/12/24 potassium chloride 20 mEq 20 meq PO BID #60 tabs 12/22/24 tablet,extended release(part/cryst) Results & Data (ED) Vital Signs Vital Signs - 24 hr 02/12/25 06:22 02/12/25 06:35 02/12/25 06:36 Temperature 36.8 C Temperature Source Temporal Artery Scan Pulse Rate 90 109 H 108 H Pulse Rate from SpO2 Sensor 109 H Pulse Rhythm Respiratory Rate 20 15 Respiratory Effort / Characteristics Non-Labored Accessory Muscle Use Respiratory Depth Normal Blood Pressure 90/62 L 120/73 Blood Pressure Mean 71 88 Pulse Oximetry 97 91 Oxygen Delivery Method Room Air Oxygen Flow Rate Sepsis Recent Fever Within 48 Hours No Sepsis New/Unexplained Change in Mental Status N/A Sepsis Action Taken by Nursing No Action Required Oxygen Flow Rate - Titration Pulse Oximetry Post Tiitration 02/12/25 06:45 02/12/25 06:45 02/12/25 07:15 Temperature Temperature Source Pulse Rate 103 H 103 H 98 H Pulse Rate from SpO2 Sensor 102 H Pulse Rhythm Regular Respiratory Rate 18 18 22 Respiratory Effort / Characteristics Respiratory Depth Blood Pressure 95/65 L 129/66 Blood Pressure Mean 75 86 Pulse Oximetry 92 91 91 Oxygen Delivery Method Room Air Room Air Room Air Oxygen Flow Rate Sepsis Recent Fever Within 48 Hours Sepsis New/Unexplained Change in Mental Status Sepsis Action Taken by Nursing Oxygen Flow Rate - Titration Pulse Oximetry Post Tiitration 02/12/25 08:00 02/12/25 08:30 02/12/25 09:00 Temperature Temperature Source Pulse Rate 116 H 105 H 102 H Pulse Rate from SpO2 Sensor Pulse Rhythm Respiratory Rate 22 20 20 Respiratory Effort / Characteristics Respiratory Depth Blood Pressure 151/86 H 134/76 115/64 Blood Pressure Mean 126 96 94 Pulse Oximetry 90 90 90 Oxygen Delivery Method Room Air Room Air Room Air Oxygen Flow Rate Sepsis Recent Fever Within 48 Hours Sepsis New/Unexplained Change in Mental Status Sepsis Action Taken by Nursing Oxygen Flow Rate - Titration Pulse Oximetry Post Tiitration 02/12/25 09:30 02/12/25 09:30 02/12/25 10:00 Temperature Temperature Source Pulse Rate 103 H 100 H 105 H Pulse Rate from SpO2 Sensor Pulse Rhythm Respiratory Rate 18 20 20 Respiratory Effort / Characteristics Respiratory Depth Blood Pressure 120/64 120/64 111/63 Blood Pressure Mean 81 81 78 Pulse Oximetry 90 90 90 Oxygen Delivery Method Room Air Room Air Room Air Oxygen Flow Rate Sepsis Recent Fever Within 48 Hours Sepsis New/Unexplained Change in Mental Status Sepsis Action Taken by Nursing Oxygen Flow Rate - Titration Pulse Oximetry Post Tiitration 02/12/25 10:30 02/12/25 10:36 02/12/25 10:55 Temperature Temperature Source Pulse Rate 113 H 103 H Pulse Rate from SpO2 Sensor Pulse Rhythm Respiratory Rate 20 Respiratory Effort / Characteristics Respiratory Depth Blood Pressure 131/74 Blood Pressure Mean 88 Pulse Oximetry 90 88 L Oxygen Delivery Method Room Air Room Air Oxygen Flow Rate 0 Sepsis Recent Fever Within 48 Hours Sepsis New/Unexplained Change in Mental Status Sepsis Action Taken by Nursing Oxygen Flow Rate - Titration 2 Pulse Oximetry Post Tiitration 94 02/12/25 11:00 02/12/25 12:00 Temperature Temperature Source Pulse Rate 98 H 98 H Pulse Rate from SpO2 Sensor Pulse Rhythm Respiratory Rate 20 20 Respiratory Effort / Characteristics Respiratory Depth Blood Pressure 91/55 L 103/56 L Blood Pressure Mean 70 70 Pulse Oximetry 94 94 Oxygen Delivery Method Nasal Cannula Nasal Cannula Oxygen Flow Rate 2 2 Sepsis Recent Fever Within 48 Hours Sepsis New/Unexplained Change in Mental Status Sepsis Action Taken by Nursing Oxygen Flow Rate - Titration Pulse Oximetry Post Tiitration Laboratory Data 02/12/25 06:40 02/12/25 06:40 Lab Results 02/12/25 02/12/25 02/12/25 Range/Units 06:40 06:55 08:50 WBC 17.85 H (4.8-10.8) K/ul RBC 5.12 (4.70-6.10) M/uL Hgb 15.4 (14.0-18.0) g/dl Hct 45.3 (42.0-52.0) % MCV 88.5 (80.0-100.0) fL MCH 30.1 (25.0-34.0) pg MCHC 34.0 (32.0-36.0) g/dL RDW Std Deviation 50.1 H (36.4-46.3) fL RDW Coeff of Celestino 15.6 H (11.5-14.5) % Plt Count 134 (130-400) K/uL MPV 10.4 (9.4-12.4) fL Immature Gran % (Auto) 2.1 % Neut % (Auto) 87.9 % Lymph % (Auto) 1.5 % Stark % (Auto) 8.2 % Eos % (Auto) 0.1 % Baso % (Auto) 0.2 % Neut # (Auto) 15.71 H (1.40-6.50) K/uL Lymph # (Auto) 0.26 L (1.20-3.40) K/uL Stark # (Auto) 1.47 H (0.11-0.59) K/uL Eos # (Auto) 0.01 (0.00-0.50) K/uL Baso # (Auto) 0.03 (0.00-0.20) K/uL Immature Gran # (Auto) 0.37 H (0.01-0.20) K/uL Sodium 133 L (136-145) mmol/L Potassium 4.2 (3.5-5.1) mmol/L Chloride 99 (98-107) mmol/L Carbon Dioxide 22 (21-32) mmol/L Anion Gap 12 H (3-11) BUN 26 H (6-23) mg/dl Creatinine 2.06 H (0.6-1.4) mg/dl Est Cr Clr Drug Dosing 22.9 ml/min eGFR 30.60 BUN/Creatinine Ratio 12.6 (10-20) Glucose 123 H (70-99(Fasting)) mg/dl Lactate 2.5 H* 2.4 H* (0.4-2.0) mmol/L Calcium 9.1 (8.6-10.3) mg/dl Total Bilirubin 1.3 H (0.2-1.0) mg/dl AST 19 (13-39) U/L ALT 7 (7-52) U/L Alkaline Phosphatase 110 H (34-104) U/L Total Protein 6.2 (6.0-8.3) gm/dl Albumin 3.3 L (3.4-5.0) gm/dl Globulin 2.9 (2.5-4.0) gm/dl Albumin/Globulin Ratio 1.1 (0.9-2) Lipase 11 (11-82) U/L Prolactin 9.85 ng/ml Urine Color Urine Appearance (Clear) Urine pH (4.5-7.5) Ur Specific [place] (1.000-1.030) Urine Protein (Negative) Urine Glucose (UA) (Negative) Urine Ketones (Negative) Urine Blood (Negative) Urine Nitrite (Negative) Urine Bilirubin (Negative) Urine Urobilinogen (Negative) Ur Leukocyte Esterase (Negative) Urine WBC (Auto) (0-5) /hpf Urine RBC (Auto) (0-2) /hpf U Hyaline Cast (Auto) (0-2) /lpf U Epithel Cells (Auto) (0-2) /hpf Urine Bacteria (Auto) (None Seen) Amorphous Sediment (None Prsent) Urine Comment 02/12/25 Range/Units 10:28 WBC (4.8-10.8) K/ul RBC (4.70-6.10) M/uL Hgb (14.0-18.0) g/dl Hct (42.0-52.0) % MCV (80.0-100.0) fL MCH (25.0-34.0) pg MCHC (32.0-36.0) g/dL RDW Std Deviation (36.4-46.3) fL RDW Coeff of Celestino (11.5-14.5) % Plt Count (130-400) K/uL MPV (9.4-12.4) fL Immature Gran % (Auto) % Neut % (Auto) % Lymph % (Auto) % Stark % (Auto) % Eos % (Auto) % Baso % (Auto) % Neut # (Auto) (1.40-6.50) K/uL Lymph # (Auto) (1.20-3.40) K/uL Stark # (Auto) (0.11-0.59) K/uL Eos # (Auto) (0.00-0.50) K/uL Baso # (Auto) (0.00-0.20) K/uL Immature Gran # (Auto) (0.01-0.20) K/uL Sodium (136-145) mmol/L Potassium (3.5-5.1) mmol/L Chloride (98-107) mmol/L Carbon Dioxide (21-32) mmol/L Anion Gap (3-11) BUN (6-23) mg/dl Creatinine (0.6-1.4) mg/dl Est Cr Clr Drug Dosing ml/min eGFR BUN/Creatinine Ratio (10-20) Glucose (70-99(Fasting)) mg/dl Lactate (0.4-2.0) mmol/L Calcium (8.6-10.3) mg/dl Total Bilirubin (0.2-1.0) mg/dl AST (13-39) U/L ALT (7-52) U/L Alkaline Phosphatase (34-104) U/L Total Protein (6.0-8.3) gm/dl Albumin (3.4-5.0) gm/dl Globulin (2.5-4.0) gm/dl Albumin/Globulin Ratio (0.9-2) Lipase (11-82) U/L Prolactin ng/ml Urine Color [place] Urine Appearance Turbid A (Clear) Urine pH 5.0 (4.5-7.5) Ur Specific [place] 1.017 (1.000-1.030) Urine Protein 2+ H (Negative) Urine Glucose (UA) Negative (Negative) Urine Ketones Trace H (Negative) Urine Blood 3+ H (Negative) Urine Nitrite Negative (Negative) Urine Bilirubin Negative (Negative) Urine Urobilinogen Negative (Negative) Ur Leukocyte Esterase 2+ H (Negative) Urine WBC (Auto) 11-20 H (0-5) /hpf Urine RBC (Auto) >20 H (0-2) /hpf U Hyaline Cast (Auto) 0-2 (0-2) /lpf U Epithel Cells (Auto) 6-10 H (0-2) /hpf Urine Bacteria (Auto) None Seen (None Seen) Amorphous Sediment Present A (None Prsent) Urine Comment Administered Medications Discontinued Medications Sodium Chloride (Nss) 1,000 mls @ 999 mls/hr IV .Q1H1M RICCI Stop: 02/12/25 08:45 Last Infusion: 02/12/25 09:32 Dose: Infused Documented By: Admin: 02/12/25 07:49 Dose: 999 mls/hr Documented By: Infusion: 02/12/25 07:41 Dose: Infused Documented By: Admin: 02/12/25 06:40 Dose: 999 mls/hr Documented By: SUSANNE Ceftriaxone Sodium (Rocephin) 2,000 mg in 50 mls @ 100 mls/hr IV NOW STA Stop: 02/12/25 07:04 Last Infusion: 02/12/25 07:32 Dose: Infused Documented By: Admin: 02/12/25 07:02 Dose: 100 mls/hr Documented By: Infusion: 02/12/25 07:02 Dose: Infused Documented By: Admin: 02/12/25 06:40 Dose: 100 mls/hr Documented By: SUSANNE Piperacillin Sod/Tazobactam Sod (Zosyn) 4.5 gm in 100 mls @ 200 mls/hr IV NOW ONE; Protocol Stop: 02/12/25 09:29 Last Infusion: 02/12/25 10:24 Dose: Infused Documented By: Admin: 02/12/25 09:19 Dose: 200 mls/hr Documented By: NAHUN Imaging Data Radiologist's Impression: Abdomen/Pelvis CT 02/12/25 07:01 EXAM: CT abd pelvis wo con CLINICAL HISTORY: lower abd pain TECHNIQUE: Non-contrast CT of the abdomen and pelvis was performed, with the following protocol: axial images and reconstructed coronal and sagittal images. One of the following dose reduction techniques was utilized for this exam: Automated exposure control, adjustment of the mA and/or kV according to patient size, and use of iterative reconstruction. COMPARISON: Comparison is made with CT dated 06/27/2022. FINDINGS: Visualised thorax shows a new finding of mild bilateral pleural effusion and stable mild pericardial effusion. Abdomen: Liver: Normal in size, shape, and density. Unchanged hypodense lesion of 17 mm size, likely cyst in left lobe of the liver. Gallbladder and Biliary System: The gallbladder is normal in size and shape. Unchanged two calculi of 7-8 mm in the lumen. No wall thickening, pericholecystic fluid was identified. Pancreas: Pancreatic head, body, and tail are visualized and appear normal in size and density. No pancreatic masses or calcifications were noted. Spleen: Normal in size, shape, and density. Small calcified granuloma in the parenchyma, stable. Appendix: Not visualised. Kidneys and Adrenal Glands: Interval increase in size of exophytic cyst measuring 10.5 x 10.5 cm in the right kidney (prior size 9.7 x 8.7 cm). No significant interval change in the number and size of bilateral renal calculi measuring 3-4 mm. New finding of obstructive calculus of 8.4 mm in right distal ureter just proximal to the vesicoureteric junction and causing upstream mild to moderate hydroureteronephrosis. New finding of right DJ stent. New finding of mild left hydroureteronephrosis. Both kidneys are normal in size, shape, and position. Cortical thickness is within normal limits. Adrenal glands are unremarkable. Abdominal Aorta and Vessels: Atherosclerotic changes in abdominal aorta and its branches. Pelvis: Urinary Bladder: Normal in contour and wall thickness. No intraluminal lesions. Two vesical calculi in prior scan not seen in current CT. Prostate: Interval progression of prostatomegaly. Seminal Vesicles: Normal appearance without abnormal enlargement or mass. Peritoneal and Retroperitoneal Structures: New finding of significant fat stranding in the perivesical space and multiple small foci of free air on the right. New finding of mild ascites. No lymphadenopathy was noted. Bowel: Unchanged multiple diverticulae in the colon. New finding of mild fat stranding surrounding sigmoid colon is concerning for acute diverticulitis. Unchanged anastomotic sutures in right colon and rectum. Rest of the visualized bowel loops are normal in caliber and appearance. No evidence of bowel obstruction or wall thickening. Bones and Soft Tissues: Moderate spondylotic changes in the lumbar spine. Degenerative changes in bilateral hip joints. Pelvic bones and soft tissues are unremarkable. No fractures or abnormal masses were identified. IMPRESSION: 1. Interval increase in size of exophytic cyst measuring 10.5 x 10.5 cm in right kidney (prior size 9.7 x 8.7 cm). 2. No significant interval change in the number and size of bilateral renal calculi measuring 3-4 mm. 3. New finding of obstructive calculus of 8.4 mm in right distal ureter just proximal to the vesicoureteric junction and causing upstream mild to moderate hydroureteronephrosis. 4. New finding of the right DJ stent. 5. New finding of mild left hydroureteronephrosis. 6. Interval progression of prostatomegaly. 7. New finding of significant fat stranding in the perivesical space and multiple small foci of free air on the right likely acute inflammatory changes. 8. New finding of mild ascites. 9. Unchanged multiple diverticulae in the colon. 10. New finding of mild fat stranding surrounding the sigmoid colon is concerning for acute diverticulitis. 11. Unchanged cholelithiasis without cholecystitis. 12. New finding of mild bilateral pleural effusion and stable mild pericardial effusion. Clinical correlation is recommended. Electronically signed by Rober Zaragoza 02-12-2025 08:52 AM Discharge Plan Visit Data Chief Complaint: Flank Pain Stated Complaint: flank pain ED Provider: Prasanna Sesay Discharge Problem: DAWNA (acute kidney injury), Bilateral hydronephrosis, Right distal ureteral calculus, Diverticulitis, Pleural effusion Patient Disposition: Admitted As Inpatient Condition: Fair Discharge Instructions Interventions: ED Discharge Assessment Last Done: 02/12/25 12:17 Forms Stand Alone Forms: [facility] [employer] Prescriptions Prescriptions: No Action amiloride-hydrochlorothiazide 5-50 mg tablet 0.5 tab PO QAM Qty: 90 3RF prednisone 5 mg tablet 5 mg PO QAM Qty: 90 1RF Rx Instructions: TAKE 1 TABLET BY MOUTH ONCE DAILY potassium chloride 20 mEq tablet,ER particles/crystals 20 meq PO BID Qty: 60 1RF acetaminophen 500 mg capsule 500 mg PO Q6H PRN (Reason: Pain) Rx Instructions: otc unable to verify levothyroxine 100 mcg tablet 100 mcg PO QAM rosuvastatin [Crestor] 20 mg tablet 20 mg PO DAILY Patient Comments: takes qam Rx Instructions: TAKE 1 TABLET BY MOUTH ONCE DAILY theophylline 300 mg tablet extended release 12 hr 600 mg PO DAILY Rx Instructions: TAKE TWO TABLETS BY MOUTH DAILY tamsulosin 0.4 mg capsule 0.4 mg PO QPM Rx Instructions: TAKE 1 CAPSULE BY MOUTH IN THE EVENING gabapentin 300 mg capsule 300 mg PO BID Rx Instructions: TAKE 1 CAPSULE BY MOUTH TWICE DAILY ticagrelor [Brilinta] 90 mg tablet 0 mg PO QAM Patient Comments: Currently on hold, set to resume on 02/12/25. Unable to verify when pt started holding medication. Original Directions: 90mg by mouth once daily in the morning mirtazapine 15 mg tablet 15 mg PO DAILY amoxicillin-pot clavulanate 500-125 mg tablet 1 tab PO BID Rx Instructions: Start Date 02/06/25 x7 day supply (confirmed w/ pharmacy pt picked up on 02/06/25) Referrals Referrals: Manuela Lundberg MD [Primary Care Provider] -
[2025-02-12] MEDS: SODIUM CHLORIDE 0.9% 1,000 ML IV SCH ×2 (06:40→13:19)
[2025-02-12] MEDS: cefTRIAXone SODIUM 2,000 MG/50 ML BAG IV STA (06:40)
[2025-02-12 07:01] LABS: Hematocrit (blood only) 45.3 % (42.0-52.0); Hemoglobin 15.4 g/dl (14.0-18.0); Immature Granulocytes # (auto) 0.37 K/uL (0.01-0.20); Immature Granulocytes % (auto) 2.1 %; Mean Corpuscular Hemoglobin 30.1 pg (25.0-34.0); Mean Corpuscular Volume 88.5 fL (80.0-100.0); Platelet Count 134 K/uL (130-400); RDW Standard Deviation 50.1 fL (36.4-46.3); Red Blood Count 5.12 M/uL (4.70-6.10); White Blood Count 17.85 K/ul (4.8-10.8)
[2025-02-12 07:21] LABS: Alanine Aminotransferase 7.0 U/L (7-52); Albumin Globulin Ratio 1.1 (0.9-2); Alkaline Phosphatase 110.0 U/L (34-104); Anion Gap 12.0 (3-11); Bilirubin,Total 1.3 mg/dl (0.2-1.0); Blood Urea Nitrogen 26.0 mg/dl (6-23); Calcium 9.1 mg/dl (8.6-10.3); Carbon Dioxide 22.0 mmol/L (21-32); Chloride 99.0 mmol/L (98-107); Creatinine Clr Calc Pharmacy 22.9 ml/min; Globulin 2.9 gm/dl (2.5-4.0); Glucose 123.0 mg/dl (70-99(Fasting)); Lipase 11.0 U/L (11-82); Potassium 4.2 mmol/L (3.5-5.1); Sodium 133.0 mmol/L (136-145); Total Protein 6.2 gm/dl (6.0-8.3)
--- NOTE | 2025-02-12 08:52 | CT Scan Report ---
EXAM: CT abd pelvis wo con CLINICAL HISTORY: lower abd pain TECHNIQUE: Non-contrast CT of the abdomen and pelvis was performed, with the following protocol: axial images and reconstructed coronal and sagittal images. One of the following dose reduction techniques was utilized for this exam: Automated exposure control, adjustment of the mA and/or kV according to patient size, and use of iterative reconstruction. COMPARISON: Comparison is made with CT dated 06/27/2022. FINDINGS: Visualised thorax shows a new finding of mild bilateral pleural effusion and stable mild pericardial effusion. Abdomen: Liver: Normal in size, shape, and density. Unchanged hypodense lesion of 17 mm size, likely cyst in left lobe of the liver. Gallbladder and Biliary System: The gallbladder is normal in size and shape. Unchanged two calculi of 7-8 mm in the lumen. No wall thickening, pericholecystic fluid was identified. Pancreas: Pancreatic head, body, and tail are visualized and appear normal in size and density. No pancreatic masses or calcifications were noted. Spleen: Normal in size, shape, and density. Small calcified granuloma in the parenchyma, stable. Appendix: Not visualised. Kidneys and Adrenal Glands: Interval increase in size of exophytic cyst measuring 10.5 x 10.5 cm in the right kidney (prior size 9.7 x 8.7 cm). No significant interval change in the number and size of bilateral renal calculi measuring 3-4 mm. New finding of obstructive calculus of 8.4 mm in right distal ureter just proximal to the vesicoureteric junction and causing upstream mild to moderate hydroureteronephrosis. New finding of right DJ stent. New finding of mild left hydroureteronephrosis. Both kidneys are normal in size, shape, and position. Cortical thickness is within normal limits. Adrenal glands are unremarkable. Abdominal Aorta and Vessels: Atherosclerotic changes in abdominal aorta and its branches. Pelvis: Urinary Bladder: Normal in contour and wall thickness. No intraluminal lesions. Two vesical calculi in prior scan not seen in current CT. Prostate: Interval progression of prostatomegaly. Seminal Vesicles: Normal appearance without abnormal enlargement or mass. Peritoneal and Retroperitoneal Structures: New finding of significant fat stranding in the perivesical space and multiple small foci of free air on the right. New finding of mild ascites. No lymphadenopathy was noted. Bowel: Unchanged multiple diverticulae in the colon. New finding of mild fat stranding surrounding sigmoid colon is concerning for acute diverticulitis. Unchanged anastomotic sutures in right colon and rectum. Rest of the visualized bowel loops are normal in caliber and appearance. No evidence of bowel obstruction or wall thickening. Bones and Soft Tissues: Moderate spondylotic changes in the lumbar spine. Degenerative changes in bilateral hip joints. Pelvic bones and soft tissues are unremarkable. No fractures or abnormal masses were identified. IMPRESSION: 1. Interval increase in size of exophytic cyst measuring 10.5 x 10.5 cm in right kidney (prior size 9.7 x 8.7 cm). 2. No significant interval change in the number and size of bilateral renal calculi measuring 3-4 mm. 3. New finding of obstructive calculus of 8.4 mm in right distal ureter just proximal to the vesicoureteric junction and causing upstream mild to moderate hydroureteronephrosis. 4. New finding of the right DJ stent. 5. New finding of mild left hydroureteronephrosis. 6. Interval progression of prostatomegaly. 7. New finding of significant fat stranding in the perivesical space and multiple small foci of free air on the right likely acute inflammatory changes. 8. New finding of mild ascites. 9. Unchanged multiple diverticulae in the colon. 10. New finding of mild fat stranding surrounding the sigmoid colon is concerning for acute diverticulitis. 11. Unchanged cholelithiasis without cholecystitis. 12. New finding of mild bilateral pleural effusion and stable mild pericardial effusion. Clinical correlation is recommended. Electronically signed by Rober Zaragoza 02-12-2025 08:52 AM
[2025-02-12] MEDS: PIPERACILLIN/TAZOBACTAM 4.5 GM/100 ML BAG IV ONE (09:19)
--- NOTE | 2025-02-12 09:47 | History & Physical Report ---
Date of Service February 12, 2025 History of Present Illness Primary Care Provider: Manuela Lundberg MD Patient is a 89 year old M with a past medical history of bladder cancer s/p with reoccurrence presenting with back pain. Complaining of increasing bilateral flank pain since cystoscopy with stent placement on 02/10/25. Tylenol at home without improvement. Also with nausea and vomiting without fever. Symptoms began____ to____ lasting . Treated with . Also having symptoms. 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 Transurethral Resection Bladder Tumor, Right ureteral stent placement for malignant neoplasm of the bladder with a large distal stone in ureter on 02/10/[address] Yen. In the emergency department, patient was hemodynamically stable with . +signs of sepsis with leukocytosis WBC 15.85, elevated lactate 2.4, tachycardia to 100's and mild hypoxia with sats 90% on room air. Blood cultures pending. EKG: Imaging: Chest Xray showed Head CT revealed CT abdomen/pelvis showed new finding of mild bilateral pleural effusion and stable mild pericardial effusion. Treatment: As per external chart review, patient was seen by on ____. As per visit record History obtained primarily from the patient and via hospitalization record. The patient's family was/was not att he bedside and assisted with . External chart review obtained from [facility]. Allergies Allergy/AdvReac Type Severity Reaction Status Date / Time No Known Drug Allergies Allergy Verified 02/10/25 09:28 Home Medications Medication Instructions Recorded Confirmed Type acetaminophen 500 mg capsule 500 mg PO Q6H PRN Pain 09/18/23 02/12/25 History amiloride 5 mg-hydrochlorothiazide 0.5 tab PO QAM #90 tabs 08/04/24 02/12/25 Rx 50 mg tablet prednisone 5 mg tablet 5 mg PO QAM #90 tabs 10/12/24 02/12/25 Rx potassium chloride 20 mEq 20 meq PO BID #60 tabs 12/22/24 02/12/25 Rx tablet,extended release(part/cryst) levothyroxine 100 mcg tablet 100 mcg PO QAM 02/03/25 02/12/25 History rosuvastatin 20 mg tablet (Crestor) 20 mg PO DAILY 02/10/25 02/12/25 History amoxicillin 500 mg-potassium 1 tab PO BID 02/12/25 02/12/25 History clavulanate 125 mg tablet gabapentin 300 mg capsule 300 mg PO BID 02/12/25 02/12/25 History mirtazapine 15 mg tablet 15 mg PO DAILY 02/12/25 02/12/25 History tamsulosin 0.4 mg capsule 0.4 mg PO QPM 02/12/25 02/12/25 History theophylline 300 mg 600 mg PO DAILY 02/12/25 02/12/25 History tablet,extended release,12 hr ticagrelor 90 mg tablet (Brilinta) 0 mg PO QAM 02/12/25 02/12/25 History Past Med/Surg History Problem List Dizziness Decrease in appetite TIA (transient ischemic attack) multiple: 04/2023, 09/01/23, 12/16/23 Stroke-like symptoms (Acute) 09/01/23 Aphasia (Acute ~06/02/24) 09/01/23 Bladder carcinoma Postoperative hypotension Recent cerebrovascular accident (CVA) 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; possible TIA 04/2023, 09/01/23, and 12/16/23 Symptomatic stenosis of left carotid artery Occlusion of right vertebral artery Vertebral artery narrowing CVA (cerebral vascular accident) (~06/02/24) Seizure-like activity 04/21/23 Lumbosacral radiculopathy Carotid artery stenosis - 60-70% stenosis right ICA; s/p left TCAR 05/07/23 HLD (hyperlipidemia) Moderate persistent asthma, uncomplicated Renal cyst, right Spinal stenosis of lumbar region Left leg pain (Acute) 07/24/22 Lumbar disc herniation (Acute) Weakness (Acute) 07/24/22 Bladder stone History of loop recorder Thoracic aortic aneurysm Nephrolithiasis Lung nodule Malignant neoplasm of parotid gland (Chronic) hx Squamous cell carcinoma Status post Mohs surgery sees dermatology on 08/09/23 for follow up/ possible procedure 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 Per neuro note 01/2024: pt had normal EEG 08/2023 Hx of carotid stenosis s/p L left TCAR 04/2023; R ICA 60-70% at origin, prox L vertebral artery stenosis of 70%, and an essentially occluded right vertebral artery of a chronic nature Hx of hypotension post operative, per records Small vessel disease, cerebrovascular Spinal stenosis of lumbar region History of TIAs (11/2023) multiple, most recent admit to [facility] 11/2023, follows with Dr. Schafer Malignant neoplasm of parotid gland (2020) Hx -left parotid neoplasm 2020- treated with surgical excision and radiation. Last treatment November 2020 per records Lung nodule per chart, pt. unaware Lumbosacral radiculopathy Hypothyroidism PCP closely monitoring Hypercholesteremia HLD (hyperlipidemia) History of asthma no symptoms for > 20 years per pt. Bladder carcinoma PFO (patent foramen ovale) per chart review, 'Possible PFO'; however 12/17/23 showed no evidence for an atrial septal defect. 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 History of CVA (cerebrovascular accident) 2018 - no residual Probably TIA 04/21/23- treated with TNK- admitted at [facility] Admitted to [facility] 09/01/23 and 12/16/23 with TIA sx - follows with neuro,(Dr. 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 Lumbar disc disease with radiculopathy History of skin cancer Meningioma Dural based calcification along the inner table at the vertex is 14 x 8mm, likely a small meningioma per 04/22/23 brain MRI Followed by neurology per PCP records Status post placement of implantable loop recorder Explanted February 2022 Ventral hernia Acid reflux Surgical History History of anesthesia reaction Hard time waking up>did well with last TURBT History of tooth extraction History of cataract surgery right/left History of bladder surgery multiple TURBT procedures; most recent: 06/23/24 Status post Mohs surgery History of transcarotid artery revascularization (TCAR) (05/06/23) left ICA shunt, [facility] History of loop recorder (2021) removed 03/12, no current reflector driller and deburrer per pt. History of urologic surgery Cystolithopaxy (Bladder Stone Fragmentation and Removal) Transurethral resection of bladder tumor) History of colonoscopy History of colostomy reversal History of bowel resection (2015) due to cancer, w/ colostomy & reversal Hx of parotidectomy due to ca History of hemorrhoidectomy Family History (Updated 02/03/25 @ 08:57 by Joelle Jones RN) Unknown Coronary heart disease Cancer Father Cancer Hypertension Son Diabetes Mother Benign neoplasm of head Brother Heart disease Brother Liver disease Heart disease Valve replacement Other No family history of adverse response to anesthesia Denies family history of Stroke Social History Smoking Status: Former smoker Tobacco Type: Cigarettes Age Started Using Tobacco: 20; Age Quit Using Tobacco: 30; packs per day: 1; Second Hand Exposure: No; Do You Dip or Chew Tobacco: No; Hx Alcohol Use: Yes Alcohol type: beer Alcohol Intake Frequency: 2-3 x/Week Hx Substance Use: No Preferred Language: [place] Communication Ability: Effective Communication Ability Comment: Mild expressive aphasia Visual Impairment: No Limitations Hearing Ability: Hard of Hearing Refrigerator Repairman Required: No Beliefs That Will Affect Care: None marital status: Current Living Situation: Spouse Current Living Situation Comment: with spouse current occupational status: retired Feels Safe at Home: Yes Childhood Exposure to Second-Hand Smoke: No caffeine: No Dental Care, Regularly: No Physical Activity Frequency: Daily Seatbelt Use: always Sunscreen Use: No Assistive Devices: Cane, Glasses and Hearing Aid - Right Review of Systems Review of Systems: All systems reviewed & are unremarkable except as noted in HPI & below Results & Data Results & Data Vital Signs (Past 12 Hours) Vital Signs Temp Pulse Resp BP Pulse Ox O2 Del Method 02/12/25 08:30 105 H 20 134/76 90 Room Air 02/12/25 08:00 116 H 22 151/86 H 90 Room Air 02/12/25 07:15 98 H 22 129/66 91 Room Air 02/12/25 06:45 103 H 18 95/65 L 91 Room Air 02/12/25 06:45 103 H 18 92 Room Air 02/12/25 06:36 108 H 15 120/73 91 Room Air 02/12/25 06:35 109 H 02/12/25 06:22 36.8 C 90 20 90/62 L 97 Laboratory Results Short CBC 02/12/25 Range/Units 06:40 WBC 17.85 H (4.8-10.8) K/ul Hgb 15.4 (14.0-18.0) g/dl Hct 45.3 (42.0-52.0) % Plt Count 134 (130-400) K/uL BMP 02/12/25 06:40 Sodium 133 L Potassium 4.2 Chloride 99 Carbon Dioxide 22 BUN 26 H Creatinine 2.06 H Glucose 123 H Calcium 9.1 Liver Function 02/12/25 Range/Units 06:40 Total Bilirubin 1.3 H (0.2-1.0) mg/dl AST 19 (13-39) U/L ALT 7 (7-52) U/L Alkaline Phosphatase 110 H (34-104) U/L Albumin 3.3 L (3.4-5.0) gm/dl Diagnostic Findings Abdomen/Pelvis CT 02/12/25 07:01 EXAM: CT abd pelvis wo con CLINICAL HISTORY: lower abd pain TECHNIQUE: Non-contrast CT of the abdomen and pelvis was performed, with the following protocol: axial images and reconstructed coronal and sagittal images. One of the following dose reduction techniques was utilized for this exam: Automated exposure control, adjustment of the mA and/or kV according to patient size, and use of iterative reconstruction. COMPARISON: Comparison is made with CT dated 06/27/2022. FINDINGS: Visualised thorax shows a new finding of mild bilateral pleural effusion and stable mild pericardial effusion. Abdomen: Liver: Normal in size, shape, and density. Unchanged hypodense lesion of 17 mm size, likely cyst in left lobe of the liver. Gallbladder and Biliary System: The gallbladder is normal in size and shape. Unchanged two calculi of 7-8 mm in the lumen. No wall thickening, pericholecystic fluid was identified. Pancreas: Pancreatic head, body, and tail are visualized and appear normal in size and density. No pancreatic masses or calcifications were noted. Spleen: Normal in size, shape, and density. Small calcified granuloma in the parenchyma, stable. Appendix: Not visualised. Kidneys and Adrenal Glands: Interval increase in size of exophytic cyst measuring 10.5 x 10.5 cm in the right kidney (prior size 9.7 x 8.7 cm). No significant interval change in the number and size of bilateral renal calculi measuring 3-4 mm. New finding of obstructive calculus of 8.4 mm in right distal ureter just proximal to the vesicoureteric junction and causing upstream mild to moderate hydroureteronephrosis. New finding of right DJ stent. New finding of mild left hydroureteronephrosis. Both kidneys are normal in size, shape, and position. Cortical thickness is within normal limits. Adrenal glands are unremarkable. Abdominal Aorta and Vessels: Atherosclerotic changes in abdominal aorta and its branches. Pelvis: Urinary Bladder: Normal in contour and wall thickness. No intraluminal lesions. Two vesical calculi in prior scan not seen in current CT. Prostate: Interval progression of prostatomegaly. Seminal Vesicles: Normal appearance without abnormal enlargement or mass. Peritoneal and Retroperitoneal Structures: New finding of significant fat stranding in the perivesical space and multiple small foci of free air on the right. New finding of mild ascites. No lymphadenopathy was noted. Bowel: Unchanged multiple diverticulae in the colon. New finding of mild fat stranding surrounding sigmoid colon is concerning for acute diverticulitis. Unchanged anastomotic sutures in right colon and rectum. Rest of the visualized bowel loops are normal in caliber and appearance. No evidence of bowel obstruction or wall thickening. Bones and Soft Tissues: Moderate spondylotic changes in the lumbar spine. Degenerative changes in bilateral hip joints. Pelvic bones and soft tissues are unremarkable. No fractures or abnormal masses were identified. IMPRESSION: 1. Interval increase in size of exophytic cyst measuring 10.5 x 10.5 cm in right kidney (prior size 9.7 x 8.7 cm). 2. No significant interval change in the number and size of bilateral renal calculi measuring 3-4 mm. 3. New finding of obstructive calculus of 8.4 mm in right distal ureter just proximal to the vesicoureteric junction and causing upstream mild to moderate hydroureteronephrosis. 4. New finding of the right DJ stent. 5. New finding of mild left hydroureteronephrosis. 6. Interval progression of prostatomegaly. 7. New finding of significant fat stranding in the perivesical space and multiple small foci of free air on the right likely acute inflammatory changes. 8. New finding of mild ascites. 9. Unchanged multiple diverticulae in the colon. 10. New finding of mild fat stranding surrounding the sigmoid colon is concerning for acute diverticulitis. 11. Unchanged cholelithiasis without cholecystitis. 12. New finding of mild bilateral pleural effusion and stable mild pericardial effusion. Clinical correlation is recommended. Electronically signed by Rober Zaragoza 02-12-2025 08:52 AM
--- NOTE | 2025-02-12 10:13 | Urology Consultation ---
<Statement entered by Ezra Mary MD - 02/12/25 12:33> 89-year-old male s/p right ureteral stent placement and transurethral section of bladder tumor, found to have leukocytosis, suggestion of incomplete bladder emptying, elevated creatinine, elevated lactate. CT scan demonstrated mild hydronephrosis of the left kidney and a full bladder, small amount of gas in the perivesicular tissue. I suspect the gas is related to his recent surgery, although potentially could indicate underlying infection. Would recommend maximal bladder drainage with Smith catheter in place. Maintain his right ureteral stent. We will hold off surgical intervention on the left for now, however if he fails to improve clinically, could revisit left ureteral stent placement. Continue broad-spectrum antibiotics, narrow coverage as culture data becomes available. Date of Consultation February 12, 2025 Assessment & Plan (1) Bladder carcinoma: (2) Bilateral hydronephrosis: (3) Right distal ureteral calculus: Plan 89-year-old male who underwent TURBT was also found to have a right distal stone and had a right ureteral stent placement on 02/10/2025. Findings: Vital signs stable, afebrile Labs reviewed: WBC 17.85, Glucose 123, Cr 2.06, Hemoglobin 15.4, Lactate 2.4 CT with 8 mm right distal ureteral stone proximal to the UPJ with mild to moderate hydronephrosis, right ureteral stent in place, new mild left-sided hydronephrosis -other CT findings per report Patient with lower mid abdominal pain-could be postoperative, due to new right stent, distended bladder or another cause in origin From a urological perspective we recommend: Recommend Smith catheter for maximum decompression, may obtain urine culture when Smith is placed Recommend broad-spectrum antibiotics and trend according to culture data Recommend analgesics or antiemetics as needed Would recommend admission for continued supportive care and monitoring If patient would decompensate, become febrile, or clinically worsen would consider left ureteral stent placement Briefly discussed surgical procedure if it were to be necessary with patient including cystoscopy, left retrograde pyelogram, left ureteral stent placement - for now we will hold off on procedure Urology will follow along Please contact our service for any urological questions and/or concerns Case was discussed with on-call urologist Dr. Mary History of Present Illness History of Present Illness 89-year-old male who presented to the ER for acute abdominal pain. History of bladder stones, nephrolithiasis and bladder cancer. Patient recently underwent TURBT and was found to have a right distal stone in which a right stent was also placed on 02/10/2025. He was to be scheduled for outpatient stone follow-up for stone removal. Labs reviewed: WBC 17.85 Glucose 123 Cr 2.06 Hemoglobin 15.4 Lactate 2.4 Blood cultures currently pending, No UA or urine culture completed as of yet CT 02/12/2025: IMPRESSION: 1. Interval increase in size of exophytic cyst measuring 10.5 x 10.5 cm in right kidney (prior size 9.7 x 8.7 cm). 2. No significant interval change in the number and size of bilateral renal calculi measuring 3-4 mm. 3. New finding of obstructive calculus of 8.4 mm in right distal ureter just proximal to the vesicoureteric junction and causing upstream mild to moderate hydroureteronephrosis. 4. New finding of the right DJ stent. 5. New finding of mild left hydroureteronephrosis. 6. Interval progression of prostatomegaly. 7. New finding of significant fat stranding in the perivesical space and multiple small foci of free air on the right likely acute inflammatory changes. 8. New finding of mild ascites. 9. Unchanged multiple diverticulae in the colon. 10. New finding of mild fat stranding surrounding the sigmoid colon is concerning for acute diverticulitis. 11. Unchanged cholelithiasis without cholecystitis. 12. New finding of mild bilateral pleural effusion and stable mild pericardial effusion. Patient seen and examined at bedside. He reports pain that hurts with breathing, it is located lower middle abdominal area. Unable to give exact time when pain began but sometime since his surgery. He denied any problems with urination including urgency, frequency, dysuria, gross hematuria. He denied recent fevers, chills, nausea, vomiting. He does have history of nephrolithiasis. He has had a Smith catheter in the past and noted discomfort with placing catheter. He is alert and oriented x 3 although there is some noted confusion. Allergies Allergy/AdvReac Type Severity Reaction Status Date / Time No Known Drug Allergies Allergy Verified 02/10/25 09:28 Home Medications Medication Instructions Recorded Confirmed Type acetaminophen 500 mg capsule 500 mg PO Q6H PRN Pain 09/18/23 02/12/25 History amiloride 5 mg-hydrochlorothiazide 0.5 tab PO QAM #90 tabs 08/04/24 02/12/25 Rx 50 mg tablet prednisone 5 mg tablet 5 mg PO QAM #90 tabs 10/12/24 02/12/25 Rx potassium chloride 20 mEq 20 meq PO BID #60 tabs 12/22/24 02/12/25 Rx tablet,extended release(part/cryst) levothyroxine 100 mcg tablet 100 mcg PO QAM 02/03/25 02/12/25 History rosuvastatin 20 mg tablet (Crestor) 20 mg PO DAILY 02/10/25 02/12/25 History amoxicillin 500 mg-potassium 1 tab PO BID 02/12/25 02/12/25 History clavulanate 125 mg tablet gabapentin 300 mg capsule 300 mg PO BID 02/12/25 02/12/25 History mirtazapine 15 mg tablet 15 mg PO DAILY 02/12/25 02/12/25 History tamsulosin 0.4 mg capsule 0.4 mg PO QPM 02/12/25 02/12/25 History theophylline 300 mg 600 mg PO DAILY 02/12/25 02/12/25 History tablet,extended release,12 hr ticagrelor 90 mg tablet (Brilinta) 0 mg PO QAM 02/12/25 02/12/25 History Patient History Medical History (Updated 02/12/25 @ 10:05 by GLORIA Henriquez) History of seizure last one 04/2023 > unaware of details/type, pt reports, "just talked funny" went to ED, no meds per pt. Per neuro note 01/2024: pt had normal EEG 08/2023 Hx of carotid stenosis s/p L left TCAR 04/2023; R ICA 60-70% at origin, prox L vertebral artery stenosis of 70%, and an essentially occluded right vertebral artery of a chronic nature Hx of hypotension post operative, per records Small vessel disease, cerebrovascular Spinal stenosis of lumbar region History of TIAs (11/2023) multiple, most recent admit to [facility] 11/2023, follows with Dr. Schafer Malignant neoplasm of parotid gland (2020) Hx -left parotid neoplasm 2020- treated with surgical excision and radiation. Last treatment November 2020 per records Lung nodule per chart, pt. unaware Lumbosacral radiculopathy Hypothyroidism PCP closely monitoring Hypercholesteremia HLD (hyperlipidemia) History of asthma no symptoms for > 20 years per pt. Bladder carcinoma PFO (patent foramen ovale) per chart review, 'Possible PFO'; however 12/17/23 showed no evidence for an atrial septal defect. 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 History of CVA (cerebrovascular accident) 2017 - no residual Probably TIA 04/21/23- treated with TNK- admitted at [facility] Admitted to [facility] 09/01/23 and 12/16/23 with TIA sx - follows with neuro,(Dr. 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 Lumbar disc disease with radiculopathy History of skin cancer Meningioma Dural based calcification along the inner table at the vertex is 14 x 8mm, likely a small meningioma per 04/22/23 brain MRI Followed by neurology per PCP records Status post placement of implantable loop recorder Explanted February 2022 Ventral hernia Acid reflux Surgical History History of anesthesia reaction Hard time waking up>did well with last TURBT History of tooth extraction History of cataract surgery right/left History of bladder surgery multiple TURBT procedures; most recent: 06/23/24 Status post Mohs surgery History of transcarotid artery revascularization (TCAR) (05/06/23) left ICA shunt, [facility] History of loop recorder (2021) removed 03/12, no current phosphoric acid supervisor per pt. History of urologic surgery Cystolithopaxy (Bladder Stone Fragmentation and Removal) Transurethral resection of bladder tumor) History of colonoscopy History of colostomy reversal History of bowel resection (2015) due to cancer, w/ colostomy & reversal Hx of parotidectomy due to ca History of hemorrhoidectomy Family History (Updated 02/03/25 @ 08:57 by Joelle Jones RN) Unknown Coronary heart disease Cancer Father Cancer Hypertension Son Diabetes Mother Benign neoplasm of head Brother Heart disease Brother Liver disease Heart disease Valve replacement Other No family history of adverse response to anesthesia Denies family history of Stroke Social History Smoking Status: Former smoker Tobacco Type: Cigarettes Age Started Using Tobacco: 20; Age Quit Using Tobacco: 30; packs per day: 1; Second Hand Exposure: No; Do You Dip or Chew Tobacco: No; Hx Alcohol Use: Yes Alcohol type: beer Alcohol Intake Frequency: 2-3 x/Week Hx Substance Use: No Preferred Language: Azerbaijani Communication Ability: Effective Communication Ability Comment: Mild expressive aphasia Visual Impairment: No Limitations Hearing Ability: Hard of Hearing Mine Surveyor Required: No Beliefs That Will Affect Care: None marital status: Current Living Situation: Spouse Current Living Situation Comment: with spouse current occupational status: retired Feels Safe at Home: Yes Childhood Exposure to Second-Hand Smoke: No caffeine: No Dental Care, Regularly: No Physical Activity Frequency: Daily Seatbelt Use: always Sunscreen Use: No Assistive Devices: Cane, Glasses and Hearing Aid - Right Review of Systems Constitutional: as per Subjective / HPI Genitourinary: + as per Subjective / HPI Physical Exam Constitutional: + thin; no acute distress Chronically ill-appearing Respiratory: normal respiratory effort and able to speak in complete sentences Musculoskeletal: Extremities: + limited ROM of extremities Psychiatric: Orientation: alert and oriented x 3 Results & Data Vital Signs (Past 12 Hours) Vital Signs Temp Pulse Resp BP Pulse Ox O2 Del Method 02/12/25 09:30 100 H 20 120/64 90 Room Air 02/12/25 09:30 103 H 18 120/64 90 Room Air 02/12/25 09:00 102 H 20 115/64 90 Room Air 02/12/25 08:30 105 H 20 134/76 90 Room Air 02/12/25 08:00 116 H 22 151/86 H 90 Room Air 02/12/25 07:15 98 H 22 129/66 91 Room Air 02/12/25 06:45 103 H 18 95/65 L 91 Room Air 02/12/25 06:45 103 H 18 92 Room Air 02/12/25 06:36 108 H 15 120/73 91 Room Air 02/12/25 06:35 109 H 02/12/25 06:22 36.8 C 90 20 90/62 L 97 PG Care Time/CCT Total # of Minutes Spent Total Time Spent with Patient: Total time spent is greater than 50% in coordination of care (as documented) at patient's floor/unit and/or counseling patient: Coding Level of Care Code 48709 INT INP/OBS CARE 255MIN Diagnoses Bladder carcinoma C67.9 Bilateral hydronephrosis N13.30 Right distal ureteral calculus N20.1
--- NOTE | 2025-02-12 10:57 | History & Physical Report ---
Date of Service February 12, 2025 Assessment & Plan (1) Right distal ureteral calculus: Plan: -on 02/10/25, he underwent TURBT and was found to have a right distal stone and subsequently a right ureteral stent was also placed. -He was scheduled for an outpatient stone follow-up however he presents today acutely for worsening abdominal pain. -CT scan of the abdomen pelvis was done, which showed 8 mm right distal ureteral stone proximal to the UPJ with mild to moderate hydronephrosis, right ureteral stone in place and the new mild left-sided hydronephrosis. -WBC was 17,000, creatinine 2.06, serum lactate 2.4 -Kim catheter has been instructed -Started on IV ceftriaxone -Urology consulted (2) Bilateral hydronephrosis: Plan: CT scan of the abdomen pelvis was done, which showed 8 mm right distal ureteral stone proximal to the UPJ with mild to moderate hydronephrosis, right ureteral stone in place and the new mild left-sided hydronephrosis. Per Urolgy, maintain kim catheter (3) DAWNA (acute kidney injury): Plan: DAWNA due to obstructive uropathy from hydronephrosis Maintain Kim catheter Monitor BMP (4) Bladder carcinoma: Plan Admit to [facility] History of Present Illness Chief Complaint: Abdominal pain Primary Care Provider: Manuela Lundberg MD This is an 89-year-old male with a history of multiple TIAs/CVA, bladder cancer, bladder stones presents to the hospital today with complaints of acute abdominal pain. Currently patient a couple of days ago on 02/10/2025, he underwent TURBT and was found to have a right distal stone and subsequently a right ureteral stent was also placed. He was scheduled for an outpatient stone follow-up however he presents today acutely for worsening abdominal pain. He had emergency department a CT scan of the abdomen pelvis was done, which showed 8 mm right distal ureteral stone proximal to the UPJ with mild to moderate hydronephrosis, right ureteral stone in place and the new mild left- sided hydronephrosis. WBC was 17,000, creatinine 2.06, serum lactate 2.4 Urology has been consulted, patient got a Kim catheter inserted in the ED, he will be admitted to the hospital for management. Allergies Allergy/AdvReac Type Severity Reaction Status Date / Time No Known Drug Allergies Allergy Verified 02/10/25 09:28 Home Medications Medication Instructions Recorded Confirmed Type acetaminophen 500 mg capsule 500 mg PO Q6H PRN Pain 09/18/23 02/12/25 History amiloride 5 mg-hydrochlorothiazide 0.5 tab PO QAM #90 tabs 08/04/24 02/12/25 Rx 50 mg tablet prednisone 5 mg tablet 5 mg PO QAM #90 tabs 10/12/24 02/12/25 Rx potassium chloride 20 mEq 20 meq PO BID #60 tabs 12/22/24 02/12/25 Rx tablet,extended release(part/cryst) levothyroxine 100 mcg tablet 100 mcg PO QAM 02/03/25 02/12/25 History rosuvastatin 20 mg tablet (Crestor) 20 mg PO DAILY 02/10/25 02/12/25 History amoxicillin 500 mg-potassium 1 tab PO BID 02/12/25 02/12/25 History clavulanate 125 mg tablet gabapentin 300 mg capsule 300 mg PO BID 02/12/25 02/12/25 History mirtazapine 15 mg tablet 15 mg PO DAILY 02/12/25 02/12/25 History tamsulosin 0.4 mg capsule 0.4 mg PO QPM 02/12/25 02/12/25 History theophylline 300 mg 600 mg PO DAILY 02/12/25 02/12/25 History tablet,extended release,12 hr ticagrelor 90 mg tablet (Brilinta) 0 mg PO QAM 02/12/25 02/12/25 History Past Med/Surg History Problem List (Updated 02/12/25 @ 10:52 by Cheryle Arguelles MD) DAWNA (acute kidney injury) Right distal ureteral calculus Bilateral hydronephrosis Dizziness Decrease in appetite TIA (transient ischemic attack) multiple: 04/2023, 09/01/23, 12/16/23 Stroke-like symptoms (Acute) 09/01/23 Aphasia (Acute ~06/02/24) 09/01/23 Bladder carcinoma Postoperative hypotension Recent cerebrovascular accident (CVA) 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; possible TIA 04/2023, 09/01/23, and 12/16/23 Symptomatic stenosis of left carotid artery Occlusion of right vertebral artery Vertebral artery narrowing CVA (cerebral vascular accident) (~06/02/24) Seizure-like activity 04/21/23 Lumbosacral radiculopathy Carotid artery stenosis - 60-70% stenosis right ICA; s/p left TCAR 05/07/23 HLD (hyperlipidemia) Moderate persistent asthma, uncomplicated Renal cyst, right Spinal stenosis of lumbar region Left leg pain (Acute) 07/24/22 Lumbar disc herniation (Acute) Weakness (Acute) 07/24/22 Bladder stone History of loop recorder Thoracic aortic aneurysm Nephrolithiasis Lung nodule Malignant neoplasm of parotid gland (Chronic) hx Squamous cell carcinoma Status post Mohs surgery sees dermatology on 08/09/23 for follow up/ possible procedure 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 Per neuro note 01/2024: pt had normal EEG 08/2023 Hx of carotid stenosis s/p L left TCAR 04/2023; R ICA 60-70% at origin, prox L vertebral artery stenosis of 70%, and an essentially occluded right vertebral artery of a chronic nature Hx of hypotension post operative, per records Small vessel disease, cerebrovascular Spinal stenosis of lumbar region History of TIAs (11/2023) multiple, most recent admit to [facility] 11/2023, follows with Dr. Schafer Malignant neoplasm of parotid gland (2020) Hx -left parotid neoplasm 2020- treated with surgical excision and radiation. Last treatment November 2020 per records Lung nodule per chart, pt. unaware Lumbosacral radiculopathy Hypothyroidism PCP closely monitoring Hypercholesteremia HLD (hyperlipidemia) History of asthma no symptoms for > 20 years per pt. Bladder carcinoma PFO (patent foramen ovale) per chart review, 'Possible PFO'; however 12/17/23 showed no evidence for an atrial septal defect. 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 History of CVA (cerebrovascular accident) 2018 - no residual Probably TIA 04/21/23- treated with TNK- admitted at [facility] Admitted to [facility] 09/01/23 and 12/16/23 with TIA sx - follows with neuro,(Dr. 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 Lumbar disc disease with radiculopathy History of skin cancer Meningioma Dural based calcification along the inner table at the vertex is 14 x 8mm, likely a small meningioma per 04/22/23 brain MRI Followed by neurology per PCP records Status post placement of implantable loop recorder Explanted February 2022 Ventral hernia Acid reflux Surgical History History of anesthesia reaction Hard time waking up>did well with last TURBT History of tooth extraction History of cataract surgery right/left History of bladder surgery multiple TURBT procedures; most recent: 06/23/24 Status post Mohs surgery History of transcarotid artery revascularization (TCAR) (05/06/23) left ICA shunt, [facility] History of loop recorder (2021) removed 03/12, no current buffer nickel per pt. History of urologic surgery Cystolithopaxy (Bladder Stone Fragmentation and Removal) Transurethral resection of bladder tumor) History of colonoscopy History of colostomy reversal History of bowel resection (2015) due to cancer, w/ colostomy & reversal Hx of parotidectomy due to ca History of hemorrhoidectomy Family History (Updated 02/03/25 @ 08:57 by Joelle Jones RN) Unknown Coronary heart disease Cancer Father Cancer Hypertension Son Diabetes Mother Benign neoplasm of head Brother Heart disease Brother Liver disease Heart disease Valve replacement Other No family history of adverse response to anesthesia Denies family history of Stroke Social History Smoking Status: Former smoker Tobacco Type: Cigarettes Age Started Using Tobacco: 20; Age Quit Using Tobacco: 30; packs per day: 1; Second Hand Exposure: No; Do You Dip or Chew Tobacco: No; Hx Alcohol Use: Yes Alcohol type: beer Alcohol Intake Frequency: 2-3 x/Week Hx Substance Use: No Preferred Language: [place] Communication Ability: Effective Communication Ability Comment: Mild expressive aphasia Visual Impairment: No Limitations Hearing Ability: Hard of Hearing Head Turning Machine Operator Required: No Beliefs That Will Affect Care: None marital status: Current Living Situation: Spouse Current Living Situation Comment: with spouse current occupational status: retired Feels Safe at Home: Yes Childhood Exposure to Second-Hand Smoke: No caffeine: No Dental Care, Regularly: No Physical Activity Frequency: Daily Seatbelt Use: always Sunscreen Use: No Assistive Devices: Cane, Glasses and Hearing Aid - Right Review of Systems Review of Systems: All systems reviewed are negative, apart from the ones contained in the history. Physical Exam Physical Exam: The patient is awake, alert and oriented 3, well developed and well nourished, normocephalic and atraumatic, lying in bed and in no acute distress. HEENT--PERRL, EOMI, mucous membranes and oropharynx mildly dry Neck--supple. No JVD. No bruits. Thyroid normal, trachea midline, no adenopathy. Heart--normal S1 and S2. No murmurs, rubs or gallops. Lungs--clear bilaterally, no respiratory distress, no accessory muscle use. Abdomen--normal bowel sounds and soft. Extremities--no cyanosis or clubbing. No edema. Dermatologic--normal skin turgor, normal color, no abnormal lymph nodes, no rash. Neurologic--cranial nerves II through XII grossly intact. Rheumatologic--normal range of motion. Psychiatric--normal affect. Results & Data Results & Data Vital Signs (Past 12 Hours) Vital Signs Temp Pulse Resp BP Pulse Ox O2 Del Method 02/12/25 10:36 103 H 02/12/25 10:30 113 H 20 131/74 90 Room Air 02/12/25 10:00 105 H 20 111/63 90 Room Air 02/12/25 09:30 100 H 20 120/64 90 Room Air 02/12/25 09:30 103 H 18 120/64 90 Room Air 02/12/25 09:00 102 H 20 115/64 90 Room Air 02/12/25 08:30 105 H 20 134/76 90 Room Air 02/12/25 08:00 116 H 22 151/86 H 90 Room Air 02/12/25 07:15 98 H 22 129/66 91 Room Air 02/12/25 06:45 103 H 18 95/65 L 91 Room Air 02/12/25 06:45 103 H 18 92 Room Air 02/12/25 06:36 108 H 15 120/73 91 Room Air 02/12/25 06:35 109 H 02/12/25 06:22 98.2 F 90 20 90/62 L 97 PG Care Time/CCT Total # of Minutes Spent Total Time Spent with Patient: Total time spent is greater than 50% in coordination of care (as documented) at patient's floor/unit and/or counseling patient: Coding Level of Care Code 85409 INT INP/OBS CARE 3/75MIN Diagnoses Right distal ureteral calculus N20.1 Bilateral hydronephrosis N13.30 DAWNA (acute kidney injury) N17.9 Bladder carcinoma C67.9 Time Spent (min) 75
[2025-02-12 10:59] LABS: Appearance Urine Turbid (Clear); Bacteria Urine Automated None Seen (None Seen); Cast Urine Automated 0-2 /lpf (0-2); Glucose Urine UA Negative (Negative); RBC Urine Automated >20 /hpf (0-2)
[2025-02-12] MEDS: ACETAMINOPHEN 1,000 MG/100 ML VIAL IV PRN (20:46)
[2025-02-12] MEDS: TAMSULOSIN HCL 0.4 MG CAP PO SCH (20:46)
[2025-02-12] MEDS: GABAPENTIN 300 MG CAP PO SCH (20:46)
[2025-02-13] MEDS: LEVOTHYROXINE SODIUM 100 MCG TABLET PO SCH (06:08)
[2025-02-13] MEDS: cefTRIAXone SODIUM 2,000 MG/50 ML BAG IV SCH (06:08)
[2025-02-13 07:45] LABS: Cdiff Toxin B Gene (2yr or >) Positive Cdiff Gene (Neg)
[2025-02-13 08:34] LABS: Cdiff Toxin A+B Positive Cdiff Toxin (Negative)
[2025-02-13 08:40] LABS: Hematocrit (blood only) 38.1 % (42.0-52.0); Hemoglobin 12.7 g/dl (14.0-18.0); Mean Corpuscular Hemoglobin 30.0 pg (25.0-34.0); Mean Corpuscular Volume 90.1 fL (80.0-100.0); Platelet Count 101 K/uL (130-400); RDW Standard Deviation 52.5 fL (36.4-46.3); Red Blood Count 4.23 M/uL (4.70-6.10); White Blood Count 22.69 K/ul (4.8-10.8)
[2025-02-13 08:58] LABS: Anion Gap 10.0 (3-11); Blood Urea Nitrogen 25.0 mg/dl (6-23); Calcium 7.7 mg/dl (8.6-10.3); Carbon Dioxide 20.0 mmol/L (21-32); Chloride 107.0 mmol/L (98-107); Creatinine Clr Calc Pharmacy 41.7 ml/min; Glucose 55.0 mg/dl (70-99(Fasting)); Potassium 3.1 mmol/L (3.5-5.1); Sodium 137.0 mmol/L (136-145)
[2025-02-13] MEDS: aMILoride HCL 5 MG TAB PO SCH (09:13)
[2025-02-13] MEDS: ROSUVASTATIN CALCIUM 20 MG TAB PO SCH (09:14)
[2025-02-13] MEDS: hydroCHLOROthiazide 25 MG TAB PO SCH (09:14)
[2025-02-13] MEDS: MIRTAZAPINE TAB 15 MG TAB PO SCH (09:15)
--- NOTE | 2025-02-13 09:45 | Hospitalist Progress Note ---
Date of Service February 13, 2025 Assessment & Plan (1) C. difficile diarrhea: Plan: Tested positive for C diff toxin Still some loose stool this morning WBC trended up to 22k Start Oral vancomycin 125mg Q6H for 10 days (2) Right distal ureteral calculus: Plan: -on 02/10/25, he underwent TURBT and was found to have a right distal stone and subsequently a right ureteral stent was also placed. -He was scheduled for an outpatient stone follow-up however he presents today acutely for worsening abdominal pain. -CT scan of the abdomen pelvis was done, which showed 8 mm right distal ureteral stone proximal to the UPJ with mild to moderate hydronephrosis, right ureteral stone in place and the new mild left-sided hydronephrosis. -Kim catheter has been inserted -urinalysis showed no bacteria. Stop ceftriaxone -Urology consulted, no surgical plans for now (3) Bilateral hydronephrosis: Plan: CT scan of the abdomen pelvis was done, which showed 8 mm right distal ureteral stone proximal to the UPJ with mild to moderate hydronephrosis, right ureteral stone in place and the new mild left-sided hydronephrosis. Per Urolgy, maintain kim catheter (4) DAWNA (acute kidney injury): Plan: DAWNA due to obstructive uropathy from hydronephrosis Maintain Kim catheter Monitor BMP (5) Bladder carcinoma: Plan Admit to [facility] Admission and Anticipated Discharge Date Admission Date: February 12, 2025 Subjective patient seen and examined, feels better Review of Systems Review of Systems: All systems reviewed are negative, apart from the ones contained in the history. Physical Exam Physical Exam: The patient is awake, alert and oriented 3, well developed and well nourished, normocephalic and atraumatic, lying in bed and in no acute distress. HEENT--PERRL, EOMI, mucous membranes and oropharynx mildly dry Neck--supple. No JVD. No bruits. Thyroid normal, trachea midline, no adenopathy. Heart--normal S1 and S2. No murmurs, rubs or gallops. Lungs--clear bilaterally, no respiratory distress, no accessory muscle use. Abdomen--normal bowel sounds and soft. Extremities--no cyanosis or clubbing. No edema. Dermatologic--normal skin turgor, normal color, no abnormal lymph nodes, no rash. Neurologic--cranial nerves II through XII grossly intact. Rheumatologic--normal range of motion. Psychiatric--normal affect. Results & Data Results & Data Vital Signs (Past 12 Hours) Vital Signs Temp Pulse Resp BP Pulse Ox O2 Del Method O2 Flow Rate 02/13/25 09:16 98.2 F 80 16 95/57 L 96 Nasal Cannula 2 02/13/25 08:53 Nasal Cannula PG Care Time/CCT Total # of Minutes Spent Total Time Spent with Patient: Total time spent is greater than 50% in coordination of care (as documented) at patient's floor/unit and/or counseling patient: Coding Level of Care Code 79251 SUB INP/OBS CARE 2/35MIN Diagnoses C. difficile diarrhea A04.72 Right distal ureteral calculus N20.1 Bilateral hydronephrosis N13.30 DAWNA (acute kidney injury) N17.9 Bladder carcinoma C67.9 Time Spent (min) 35
--- NOTE | 2025-02-13 11:30 | Urology Progress Note ---
Date of Service February 13, 2025 Assessment & Plan (1) DAWNA (acute kidney injury): Plan: Creatinine has returned essentially to baseline s/p Smith catheter placement. Ureteral stent remains in position. Recommend maintaining Smith catheter, potentially long-term due to incomplete bladder emptying. (2) Right distal ureteral calculus: Plan: Right ureteral stone remains in place, bypassed by right ureteral stent. This can be addressed as an outpatient. No plan for additional surgical intervention at this time. (3) Bilateral hydronephrosis: Plan: Since creatinine improved with Smith catheter placement, and no focal obstructions were seen on the left to explain hydronephrosis, I suspect this was just related to bladder outlet obstruction. If creatinine worsens, could consider repeat renal ultrasound. 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 difficile toxin and was started on oral vancomycin Urine and blood cultures pending Physical Exam Physical Exam: Frail-appearing, resting in bed Smith catheter in place draining concentrated urine Results & Data Vital Signs (Past 12 Hours) Vital Signs Temp Pulse Resp BP Pulse Ox O2 Del Method O2 Flow Rate 02/13/25 09:16 36.8 C 80 16 95/57 L 96 Nasal Cannula 2 02/13/25 08:53 Nasal Cannula PG Care Time/CCT Total # of Minutes Spent Total Time Spent with Patient: Total time spent is greater than 50% in coordination of care (as documented) at patient's floor/unit and/or counseling patient: Coding Level of Care Code 42034 SUB INP/OBS CARE 2/35MIN Diagnoses DAWNA (acute kidney injury) N17.9 Right distal ureteral calculus N20.1 Bilateral hydronephrosis N13.30 Benign prostatic hyperplasia with urinary obstruction N40.1; N13.8
[2025-02-13] MEDS: VANCOMYCIN HCL 125 MG/2.5ML SOLN PO SCH (12:56)
[2025-02-13] MEDS: CHERRY SYRUP 5 ML UDP PO SCH (12:56)
[2025-02-13] MEDS: ADVANCED PROBIOTIC 625 MG CAPSULE PO SCH (18:11)
[2025-02-13] MEDS: MoRPHine SULFATE 2 MG/ML CARP IV PRN (21:47)
[2025-02-14] MEDS: ACETAMINOPHEN 325 MG TAB PO PRN (05:31)
[2025-02-14 08:01] LABS: Hematocrit (blood only) 32.6 % (42.0-52.0); Hemoglobin 11.0 g/dl (14.0-18.0); Mean Corpuscular Hemoglobin 30.2 pg (25.0-34.0); Mean Corpuscular Volume 89.6 fL (80.0-100.0); Platelet Count 105 K/uL (130-400); RDW Standard Deviation 52.9 fL (36.4-46.3); Red Blood Count 3.64 M/uL (4.70-6.10); White Blood Count 12.27 K/ul (4.8-10.8)
[2025-02-14 08:08] LABS: Anion Gap 4.0 (3-11); Blood Urea Nitrogen 22.0 mg/dl (6-23); Calcium 7.7 mg/dl (8.6-10.3); Carbon Dioxide 24.0 mmol/L (21-32); Chloride 111.0 mmol/L (98-107); Creatinine Clr Calc Pharmacy 57.5 ml/min; Glucose 90.0 mg/dl (70-99(Fasting)); Potassium 2.9 mmol/L (3.5-5.1); Sodium 139.0 mmol/L (136-145)
--- NOTE | 2025-02-14 09:34 | Hospitalist Progress Note ---
Date of Service February 14, 2025 Assessment & Plan (1) C. difficile diarrhea: Plan: Tested positive for C diff toxin Still some loose stool this morning WBC trended up to 22k Start Oral vancomycin 125mg Q6H for 10 days (2) Right distal ureteral calculus: Plan: -on 02/10/25, he underwent TURBT and was found to have a right distal stone and subsequently a right ureteral stent was also placed. -He was scheduled for an outpatient stone follow-up however he presents today acutely for worsening abdominal pain. -CT scan of the abdomen pelvis was done, which showed 8 mm right distal ureteral stone proximal to the UPJ with mild to moderate hydronephrosis, right ureteral stone in place and the new mild left-sided hydronephrosis. -Kim catheter has been inserted -urinalysis showed no bacteria. Stop ceftriaxone -Urology consulted, no surgical plans for now -Outpatient follow up (3) Bilateral hydronephrosis: Plan: CT scan of the abdomen pelvis was done, which showed 8 mm right distal ureteral stone proximal to the UPJ with mild to moderate hydronephrosis, right ureteral stone in place and the new mild left-sided hydronephrosis. Per Urolgy, maintain kim catheter Follow up with Urology outpatient (4) DAWNA (acute kidney injury): Plan: DAWNA due to obstructive uropathy from hydronephrosis Now resolved Maintain Kim catheter Monitor BMP (5) Bladder carcinoma: Plan Awaiting PT eval, patient may need rehab Admission and Anticipated Discharge Date Admission Date: February 12, 2025 Subjective patient seen and examined, feels better, although weak Review of Systems Review of Systems: All systems reviewed are negative, apart from the ones contained in the history. Physical Exam Physical Exam: The patient is awake, alert and oriented 3, well developed and well nourished, normocephalic and atraumatic, lying in bed and in no acute distress. HEENT--PERRL, EOMI, mucous membranes and oropharynx mildly dry Neck--supple. No JVD. No bruits. Thyroid normal, trachea midline, no adenopathy. Heart--normal S1 and S2. No murmurs, rubs or gallops. Lungs--clear bilaterally, no respiratory distress, no accessory muscle use. Abdomen--normal bowel sounds and soft. Extremities--no cyanosis or clubbing. No edema. Dermatologic--normal skin turgor, normal color, no abnormal lymph nodes, no rash. Neurologic--cranial nerves II through XII grossly intact. Rheumatologic--normal range of motion. Psychiatric--normal affect. Results & Data Results & Data Vital Signs (Past 12 Hours) Vital Signs Pulse Resp BP Pulse Ox O2 Del Method O2 Flow Rate 02/14/25 08:34 70 16 96/42 L 97 Nasal Cannula 2 PG Care Time/CCT Total # of Minutes Spent Total Time Spent with Patient: Total time spent is greater than 50% in coordination of care (as documented) at patient's floor/unit and/or counseling patient: Coding Level of Care Code 33551 SUB INP/OBS CARE 2/35MIN Diagnoses C. difficile diarrhea A04.72 Right distal ureteral calculus N20.1 Bilateral hydronephrosis N13.30 DAWNA (acute kidney injury) N17.9 Bladder carcinoma C67.9 Time Spent (min) 35
--- NOTE | 2025-02-14 10:10 | Urology Progress Note ---
Date of Service February 14, 2025 Assessment & Plan (1) DAWNA (acute kidney injury): Plan: Renal function has returned to normal. Suspect this was related to bladder outlet obstruction which is now addressed with Smith catheter in place. Would recommend maintaining Smith catheter. (2) Right distal ureteral calculus: Plan: Right ureteral stone is bypassed with ureteral stent. I will defer to Dr. Yen for definitive stone management plan. Admission and Anticipated Discharge Date Admission Date: February 12, 2025 Subjective Reports he is feeling slightly better today Smith catheter continues to drain well, urine is clear Creatinine has improved (0.82 down from 2.06 on 02/12) Leukocytosis improved: WBC 12.27 Urine culture from 02/12/2025 with no growth, blood cultures negative as well. Physical Exam Physical Exam: Frail-appearing, NAD Results & Data Vital Signs (Past 12 Hours) Vital Signs Pulse Resp BP Pulse Ox O2 Del Method O2 Flow Rate 02/14/25 08:34 70 16 96/42 L 97 Nasal Cannula 2 PG Care Time/CCT Total # of Minutes Spent Total Time Spent with Patient: Total time spent is greater than 50% in coordination of care (as documented) at patient's floor/unit and/or counseling patient: Coding Level of Care Code 31987 SUB INP/OBS CARE 2/35MIN Diagnoses DAWNA (acute kidney injury) N17.9 Right distal ureteral calculus N20.1
[2025-02-14] MEDS: POTASSIUM CHLORIDE CRTAB 20 MEQ TABCR PO STA ×2 (10:24→11:03)
[2025-02-15 08:56] LABS: Hematocrit (blood only) 38.2 % (42.0-52.0); Hemoglobin 12.6 g/dl (14.0-18.0); Mean Corpuscular Hemoglobin 29.9 pg (25.0-34.0); Mean Corpuscular Volume 90.7 fL (80.0-100.0); Platelet Count 107 K/uL (130-400); RDW Standard Deviation 52.7 fL (36.4-46.3); Red Blood Count 4.21 M/uL (4.70-6.10); White Blood Count 7.13 K/ul (4.8-10.8)
[2025-02-15 09:17] LABS: Anion Gap 3.0 (3-11); Blood Urea Nitrogen 16.0 mg/dl (6-23); Calcium 8.0 mg/dl (8.6-10.3); Carbon Dioxide 25.0 mmol/L (21-32); Chloride 113.0 mmol/L (98-107); Creatinine Clr Calc Pharmacy 68.3 ml/min; Glucose 89.0 mg/dl (70-99(Fasting)); Potassium 3.2 mmol/L (3.5-5.1); Sodium 141.0 mmol/L (136-145)
--- NOTE | 2025-02-15 09:44 | Urology Progress Note ---
Date of Service February 15, 2025 Assessment & Plan (1) DAWNA (acute kidney injury): (2) Right distal ureteral calculus: Plan: Follow up of DAWNA, right ureteral stone Renal function has returned to normal, 0.69 today Suspect DAWNA was related to bladder outlet obstruction which is now addressed with Smith catheter in place Recommend maintaining Smith catheter upon discharge Right ureteral stone is bypassed with ureteral stent Patient has stone treatment scheduled on 02/23 - plan to keep as scheduled will sign off, please contact our service with any additional questions or concerns Admission and Anticipated Discharge Date Admission Date: February 12, 2025 Subjective Patient seen and examined at bedside this morning. Subjectively feeling better. Smith draining clear yellow. Denies pain. Creatinine 0.69, WBC 7.13. Urine culture from 02/12/2025 with no growth, blood cultures negative as well. Review of Systems Constitutional: as per Subjective / HPI Genitourinary: + as per Subjective / HPI Physical Exam Constitutional: no acute distress Respiratory: normal respiratory effort; no respiratory distress and no labored breathing Musculoskeletal: Head/Neck/Chest: normocephalic Neurologic: moves all extremities and awake Psychiatric: Orientation: alert and oriented to person Genitourinary: Smith intact, clear yellow urine Results & Data Vital Signs (Past 12 Hours) Vital Signs Temp Pulse Resp BP Pulse Ox O2 Del Method O2 Flow Rate 02/15/25 07:46 36.8 C 77 18 114/55 L 94 Nasal Cannula 3 PG Care Time/CCT Total # of Minutes Spent Total Time Spent with Patient: Total time spent is greater than 50% in coordination of care (as documented) at patient's floor/unit and/or counseling patient: Coding Level of Care Code 38619 SUB INP/OBS CARE 08/15MIN Diagnoses DAWNA (acute kidney injury) N17.9 Right distal ureteral calculus N20.1
--- NOTE | 2025-02-15 10:39 | Hospitalist Progress Note ---
Date of Service February 15, 2025 Assessment & Plan (1) C. difficile diarrhea: Plan: Tested positive for C diff toxin continue Oral vancomycin 125mg Q6H for 10 days total (2) Right distal ureteral calculus: Plan: -on 02/10/25, he underwent TURBT and was found to have a right distal stone and subsequently a right ureteral stent was also placed. -He was scheduled for an outpatient stone follow-up however he presents today acutely for worsening abdominal pain. -CT scan of the abdomen pelvis was done, which showed 8 mm right distal ureteral stone proximal to the UPJ with mild to moderate hydronephrosis, right ureteral stone in place and the new mild left-sided hydronephrosis. -Kim catheter has been inserted -urinalysis showed no bacteria. Stop ceftriaxone -Urology consulted, no surgical plans for now -Outpatient follow up (3) Bilateral hydronephrosis: Plan: CT scan of the abdomen pelvis was done, which showed 8 mm right distal ureteral stone proximal to the UPJ with mild to moderate hydronephrosis, right ureteral stone in place and the new mild left-sided hydronephrosis. Per Urolgy, maintain kim catheter Follow up with Urology outpatient (4) DAWNA (acute kidney injury): Plan: DAWNA due to obstructive uropathy from hydronephrosis Now resolved Maintain Kim catheter Monitor BMP (5) Bladder carcinoma: Plan Awaiting PT eval, patient may need rehab Admission and Anticipated Discharge Date Admission Date: February 12, 2025 Subjective Patient seen and examined, lying quietly in bed, feeling very weak but tolerating diet Review of Systems Review of Systems: All systems reviewed are negative, apart from the ones contained in the history. Physical Exam Physical Exam: The patient is awake, alert and oriented 3, thin looking HEENT--PERRL, EOMI, mucous membranes and oropharynx mildly dry Neck--supple. No JVD. No bruits. Thyroid normal, trachea midline, no adenopathy. Heart--normal S1 and S2. No murmurs, rubs or gallops. Lungs--clear bilaterally, no respiratory distress, no accessory muscle use. Abdomen--normal bowel sounds and soft. Extremities--no cyanosis or clubbing. No edema. Dermatologic--normal skin turgor, normal color, no abnormal lymph nodes, no rash. Neurologic--cranial nerves II through XII grossly intact. Rheumatologic--normal range of motion. Psychiatric--normal affect. Results & Data Results & Data Vital Signs (Past 12 Hours) Vital Signs Temp Pulse Resp BP Pulse Ox O2 Del Method O2 Flow Rate 02/15/25 07:46 98.2 F 77 18 114/55 L 94 Nasal Cannula 3 02/15/25 07:31 Nasal Cannula 2 PG Care Time/CCT Total # of Minutes Spent Total Time Spent with Patient: Total time spent is greater than 50% in coordination of care (as documented) at patient's floor/unit and/or counseling patient: Coding Level of Care Code 29719 SUB INP/OBS CARE 2/35MIN Diagnoses C. difficile diarrhea A04.72 Right distal ureteral calculus N20.1 Bilateral hydronephrosis N13.30 DAWNA (acute kidney injury) N17.9 Bladder carcinoma C67.9 Time Spent (min) 35
[2025-02-15] MEDS: POTASSIUM CHLORIDE CRTAB 20 MEQ TABCR PO STA (11:18)
[2025-02-16 08:13] VITALS: RESP 18; O2SAT 92
[2025-02-16 10:02] LABS: Anion Gap 6.0 (3-11); Blood Urea Nitrogen 11.0 mg/dl (6-23); Calcium 8.1 mg/dl (8.6-10.3); Carbon Dioxide 26.0 mmol/L (21-32); Chloride 111.0 mmol/L (98-107); Creatinine Clr Calc Pharmacy 74.8 ml/min; Glucose 110.0 mg/dl (70-99(Fasting)); Potassium 3.3 mmol/L (3.5-5.1); Sodium 143.0 mmol/L (136-145)
--- NOTE | 2025-02-16 10:32 | Hospitalist Progress Note ---
Date of Service February 16, 2025 Assessment & Plan (1) C. difficile diarrhea: Plan: Tested positive for C diff toxin continue Oral vancomycin 125mg Q6H for 10 days total (2) Right distal ureteral calculus: Plan: -on 02/10/25, he underwent TURBT and was found to have a right distal stone and subsequently a right ureteral stent was also placed. -He was scheduled for an outpatient stone follow-up however he presents today acutely for worsening abdominal pain. -CT scan of the abdomen pelvis was done, which showed 8 mm right distal ureteral stone proximal to the UPJ with mild to moderate hydronephrosis, right ureteral stone in place and the new mild left-sided hydronephrosis. -Kim catheter has been inserted -urinalysis showed no bacteria. Stop ceftriaxone -Urology consulted, no surgical plans for now -Outpatient follow up (3) Bilateral hydronephrosis: Plan: CT scan of the abdomen pelvis was done, which showed 8 mm right distal ureteral stone proximal to the UPJ with mild to moderate hydronephrosis, right ureteral stone in place and the new mild left-sided hydronephrosis. Per Urolgy, maintain kim catheter Follow up with Urology outpatient (4) DAWNA (acute kidney injury): Plan: DAWNA due to obstructive uropathy from hydronephrosis Now resolved Maintain Kim catheter per Urology Monitor BMP (5) Bladder carcinoma: (6) Physical deconditioning: Plan: He is seriously deconditioned and would need therapy however, he is not motivated i urged him to participate in PT Plan awaiting SNF placement Admission and Anticipated Discharge Date Admission Date: February 12, 2025 Subjective Patient seen and examined, lying quietly in bed, feeling very weak but tolerating diet Review of Systems Review of Systems: All systems reviewed are negative, apart from the ones contained in the history. Physical Exam Physical Exam: The patient is awake, alert and oriented 3, thin looking HEENT--PERRL, EOMI, mucous membranes and oropharynx mildly dry Neck--supple. No JVD. No bruits. Thyroid normal, trachea midline, no adenopathy. Heart--normal S1 and S2. No murmurs, rubs or gallops. Lungs--clear bilaterally, no respiratory distress, no accessory muscle use. Abdomen--normal bowel sounds and soft. Extremities--no cyanosis or clubbing. No edema. Dermatologic--normal skin turgor, normal color, no abnormal lymph nodes, no rash. Neurologic--cranial nerves II through XII grossly intact. Rheumatologic--normal range of motion. Psychiatric--normal affect. Results & Data Results & Data Vital Signs (Past 12 Hours) Vital Signs Temp Pulse Resp BP Pulse Ox O2 Del Method 02/16/25 08:13 97.7 F 82 18 149/71 H 92 Room Air 02/16/25 07:52 Room Air PG Care Time/CCT Total # of Minutes Spent Total Time Spent with Patient: Total time spent is greater than 50% in coordination of care (as documented) at patient's floor/unit and/or counseling patient: Coding Level of Care Code 01370 SUB INP/OBS CARE 2/35MIN Diagnoses C. difficile diarrhea A04.72 Right distal ureteral calculus N20.1 Bilateral hydronephrosis N13.30 DAWNA (acute kidney injury) N17.9 Bladder carcinoma C67.9 Physical deconditioning R53.81 Time Spent (min) 35
[2025-02-16] MEDS: POTASSIUM CHLORIDE CRTAB 20 MEQ TABCR PO STA (11:06)
--- NOTE | 2025-02-16 13:55 | Discharge Summary ---
Date of Service February 16, 2025 Admission HPI Per Admitting Provider This is an 89-year-old male with a history of multiple TIAs/CVA, bladder cancer, bladder stones presents to the hospital today with complaints of acute abdominal pain. Currently patient a couple of days ago on 02/10/2025, he underwent TURBT and was found to have a right distal stone and subsequently a right ureteral stent was also placed. He was scheduled for an outpatient stone follow-up however he presents today acutely for worsening abdominal pain. He had emergency department a CT scan of the abdomen pelvis was done, which showed 8 mm right distal ureteral stone proximal to the UPJ with mild to moderate hydronephrosis, right ureteral stone in place and the new mild left- sided hydronephrosis. WBC was 17,000, creatinine 2.06, serum lactate 2.4 Urology has been consulted, patient got a Kim catheter inserted in the ED, he will be admitted to the hospital for management. Admission Exam (Per Admitting) Constitutional The patient is awake, alert and oriented 3, thin looking HEENT--PERRL, EOMI, mucous membranes and oropharynx mildly dry Neck--supple. No JVD. No bruits. Thyroid normal, trachea midline, no adenopathy. Heart--normal S1 and S2. No murmurs, rubs or gallops. Lungs--clear bilaterally, no respiratory distress, no accessory muscle use. Abdomen--normal bowel sounds and soft. Extremities--no cyanosis or clubbing. No edema. Dermatologic--normal skin turgor, normal color, no abnormal lymph nodes, no rash. Neurologic--cranial nerves II through XII grossly intact. Rheumatologic--normal range of motion. Psychiatric--normal affect. Discharge Data Consultations 02/12/25 09:19 ED Decision to Admit Stat 02/12/25 12:55 Consult Urology Routine Hospital Course (1) C. difficile diarrhea: Tested positive for C diff toxin continue Oral vancomycin 125mg Q6H for 10 days total (2) Right distal ureteral calculus: -on 02/10/25, he underwent TURBT and was found to have a right distal stone and subsequently a right ureteral stent was also placed. -He was scheduled for an outpatient stone follow-up however he presents today acutely for worsening abdominal pain. -CT scan of the abdomen pelvis was done, which showed 8 mm right distal ureteral stone proximal to the UPJ with mild to moderate hydronephrosis, right ureteral stone in place and the new mild left-sided hydronephrosis. -Kim catheter has been inserted -urinalysis showed no bacteria. Stop ceftriaxone -Urology consulted, no surgical plans for now -Outpatient follow up (3) Bilateral hydronephrosis: CT scan of the abdomen pelvis was done, which showed 8 mm right distal ureteral stone proximal to the UPJ with mild to moderate hydronephrosis, right ureteral stone in place and the new mild left-sided hydronephrosis. Per Urolgy, maintain kim catheter Follow up with Urology outpatient (4) DAWNA (acute kidney injury): DAWNA due to obstructive uropathy from hydronephrosis Now resolved Maintain Kim catheter per Urology Monitor BMP (5) Bladder carcinoma: (6) Physical deconditioning: He is seriously deconditioned and would need therapy however, he is not motivated i urged him to participate in PT Plan awaiting SNF placement Coding Level of Care Code 39018 INP/OBS DISCH >30 MIN Diagnoses C. difficile diarrhea A04.72 Right distal ureteral calculus N20.1 Bilateral hydronephrosis N13.30 DAWNA (acute kidney injury) N17.9 Bladder carcinoma C67.9 Physical deconditioning R53.81 Time Spent (min) 35
[2025-02-16 14:04] VITALS: BP 136/75; PULSE 74; TEMP 98.1
== END 2025-02-16 17:13 | DRG 694 ==
LOC: ED 06:21 → 3W 10:16

== ENCOUNTER 2025-03-05 20:08 | Inpatient (IN) ==
[2025-03-05] MEDS: CEFEPIME 2000MG 2,000 MG/20 ML SYR IV STA (20:26)
[2025-03-05] MEDS: ACETAMINOPHEN 500 MG TAB PO STA (20:26)
[2025-03-05 20:41] LABS: Hematocrit (blood only) 35.2 % (42.0-52.0); Hemoglobin 11.8 g/dl (14.0-18.0); Immature Granulocytes # (auto) 0.10 K/uL (0.01-0.20); Immature Granulocytes % (auto) 0.9 %; Mean Corpuscular Hemoglobin 29.9 pg (25.0-34.0); Mean Corpuscular Volume 89.3 fL (80.0-100.0); Platelet Count 122 K/uL (130-400); RDW Standard Deviation 50.2 fL (36.4-46.3); Red Blood Count 3.94 M/uL (4.70-6.10); White Blood Count 11.47 K/ul (4.8-10.8)
[2025-03-05] MEDS: SODIUM CHLORIDE 0.9% 1,000 ML IV SCH (20:43)
--- NOTE | 2025-03-05 20:47 | Emergency Department Note ---
Impression & Plan Sepsis, Complicated urinary tract infection, Cholelithiasis, Acute hyponatremia, Hypoalbuminemia ED Provider Note NAME: BARON ZAMORA AGE: 89 SEX: M : 1935 ARRIVES VIA: Ambulance INFORMANT: Patient, EMS, daughter ED PROVIDER(S): Meliton Turcios DO CHIEF COMPLAINT: weakness HPI: This is a 89-year-old male with the PMHx of HTN, HLD, hypothyroidism, PAD, squamous cell carcinoma, asthma, peripheral vascular disease, CVA, hydronephrosis in the setting of bladder cancer with recent procedure presenting to [facility] for further evaluation of generalized weakness. Patient is accompanied by EMS and his daughter who provide additional history. Patient currently resides at the [facility]. Patient states he has had fatigue and weakness over the course a day. Noted to be febrile. Patient's blood pressure was also noted to be low. Patient was transported here for further evaluation. Noted to have recent urologic procedures including stenting and for a distal ureteral calculus. Patient has a known history of bladder cancer and has had recent cystoscopic procedures. He was recently treated for Clostridium difficile. No cough or congestion. Denies chest pain or palpitations. No shortness of breath. They deny abdominal pain, nausea and vomiting. No urinary complaints. No recent changes in bowel movements. Patient denies recent changes in medications or OTC supplements. Patient offers no other complaints, today. ADDITIONAL HISTORY OBTAINED: Per HPI Chronic Medical/Social Conditions Affecting Care: Per HPI PAST MEDICAL HISTORY: See Below PAST SURGICAL HISTORY: See Below FAMILY HISTORY: See Below SOCIAL HISTORY: See Below HOME MEDICATIONS: See Below ALLERGIES: See Below VITALS: See Below PHYSICAL EXAMINATION: GENERAL: Sitting up in bed, alert, ill appearing, well nourished, no distress, non-toxic EYE EXAM: normal conjunctiva. PERRL and EOM's grossly intact. OROPHARYNX: no exudate, no erythema, lips, buccal mucosa, and tongue normal and mucous membranes are dry NECK: supple, no nuchal rigidity, no adenopathy, non-tender LUNGS: Clear to auscultation. Normal chest wall mechanics HEART: no murmurs, regular rate, regular rhythm ABDOMEN: abdomen soft, non-tender, no masses, no rebound or guarding. BACK: Back is symmetrical on inspection and there is no deformity, no midline tenderness, no CVA tenderness. SKIN: no rashes and no bruising UPPER EXTREMITIES: upper extremities are grossly normal. LOWER EXTREMITIES: No pitting edema. NEURO EXAM: Normal sensorium, GCS 15, normal speech, no gross weakness of arms, no gross weakness of legs. MEDICAL DECISION MAKING: Differential diagnoses includes but not limited to sepsis, complicated UTI, pyelonephritis, infected stone, viral URI, PNA, bacteremia, C diff colitis, bowel perforation, ureteral injury, electrolyte derangements, dehydration In summary, this is a 89 year old male who presented with generalized weakness. Differential as above. Nursing notes and pertinent past medical records reviewed. Vital signs reviewed and the patient is febrile and hypotensive but otherwise hemodynamically stable. IV fluid resuscitation started on arrival to the emergency department. He had already received 700 mL of crystalloid prior to my evaluation. Patient's fever was addressed with a gram of Tylenol. Given recent urologic procedures I am concerned for possible complicated UTI with urethral catheter in place. Plan for CT abdomen/pelvis for further characterization of source of patient's sepsis but likely related to the urinary edema. Will provide IV cefepime while in the emergency department. Plan to check basic labs including blood cultures and inflammatory markers. Diagnostics interpreted by me include EKG and cardiac monitoring as listed below: -Cardiac Monitoring: An order was placed for continuous cardiac monitoring. The monitor shows a rate of 60-80s with regular rhythm. -ECG: EKG independently interpreted by me reveals normal sinus rhythm ventricular rate of [address] segment changes to suggest STEMI. There is a left anterior fascicular block present. Patient completed laboratory studies and imaging. CXR independently interpreted by me reveals no evidence of focal consolidation to suggest pna. No large pneumothorax or pleural effusion. Results independently interpreted by me are to mild leukocytosis. Patient has a mild anemia that is comparable to prior. VBG shows mild alkalosis. No CO2 retention. Mild hyponatremia present. Kidney function is stable. Patient has mild elevation in LFTs including AST and alkaline phosphatase. Hypoalbuminemia noted. Procalcitonin is mildly elevated. Urinalysis shows evidence of infection including positive for nitrites and leukocyte esterase in the setting of pyuria and bacteriuria.. The patient was managed with IV fluid resuscitation and broad-spectrum antibiotics. CT abdomen/pelvis was independently interpreted by me show right ureteral stent in place with large fluid collection/mass centered in the right kidney that appears comparable to prior. Patient does have cholelithiasis with thickened gallbladder wall and possible free fluid. Did order right upper quadrant ultrasound given these findings along with his elevation in LFTs. Ultimately, the decision was made to admit the patient for sepsis 2/2 complicated UTI. I discussed the case with the hospitalist service via telephone/[employer] and they are agreeable to admit the patient to their services. Based on the above, including the patient's age, coexisting illnesses, labs, imaging, and exam findings the decision to treat as an inpatient. I discussed the patient with the hospitalist team who recommended admission to their services. They received the medications, treatments, interventions indicated above and their condition remained guarded. I discussed my findings with the patient and their family and they understand and agree with the treatment plan. All patient / family questions were answered to their satisfaction. Consults/Care Managements Discussions: Per [facility] treatment provided: See above Procedures:none Critical Care: None The chart was completed utilizing [employer] Speech voice recognition software. Grammatical errors, random word insertions, pronoun errors, and incomplete sentences are an occasional consequence of this system due to software limitations, ambient noise, and hardware issues. Any formal questions or concerns about the content, text, or information contained within the body of this dictation should be directly addressed to the physician for clarification. Past Med/Surg History Problem List (Updated 03/06/25 @ 00:28 by Meliton Turcios DO) Hypoalbuminemia (Acute) Acute hyponatremia (Acute) Cholelithiasis (Acute) Complicated urinary tract infection (Acute) Sepsis (Acute) Encounter for pre-operative examination Physical deconditioning C. difficile diarrhea Pleural effusion (Acute) Diverticulitis (Acute) Right distal ureteral calculus (Acute) Bilateral hydronephrosis (Acute) Dizziness Decrease in appetite TIA (transient ischemic attack) multiple: 04/2023, 09/01/23, 12/16/23 Stroke-like symptoms (Acute) 09/01/23 Aphasia (Acute ~06/02/24) 09/01/23 Bladder carcinoma Postoperative hypotension Recent cerebrovascular accident (CVA) 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; possible TIA 04/2023, 09/01/23, and 12/16/23 Symptomatic stenosis of left carotid artery Occlusion of right vertebral artery Vertebral artery narrowing CVA (cerebral vascular accident) (~06/02/24) Seizure-like activity 04/21/23 Lumbosacral radiculopathy Carotid artery stenosis s/p left TCAR 05/07/23 HLD (hyperlipidemia) Moderate persistent asthma, uncomplicated Renal cyst, right Spinal stenosis of lumbar region Left leg pain (Acute) 07/24/22 Lumbar disc herniation (Acute) Weakness (Acute) 07/24/22 Bladder stone History of loop recorder Thoracic aortic aneurysm Nephrolithiasis Lung nodule Malignant neoplasm of parotid gland (Chronic) hx Squamous cell carcinoma Status post Mohs surgery sees dermatology on 08/09/23 for follow up/ possible procedure 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 difficile diarrhea started abx 02/12/25-script ends 02/23/25 History of BPH History of aphasia History of seizure last one 04/2023 > unaware of details/type, pt reports, "just talked funny" went to ED, no meds per pt. Per neuro note 01/2024: pt had normal EEG 08/2023 Hx of carotid stenosis - s/p L left TCAR 04/2023; R ICA 60-70% at origin, prox L vertebral artery stenosis of 70%, and an essentially occluded right vertebral artery of a chronic nature - per vascular surgery note 07/27/24- carotid u/s that day showed widely patient left carotids stent, <80% right ICA stenosis Hx of hypotension post operative, per records Small vessel disease, cerebrovascular Spinal stenosis of lumbar region History of TIAs (11/2023) multiple, most recent admit to [facility] 11/2023, follows with Dr. Schafer Malignant neoplasm of parotid gland (2020) Hx -left parotid neoplasm 2020- treated with surgical excision and radiation. Last treatment November 2020 per records Lung nodule per chart Hypothyroidism PCP closely monitoring Hypercholesteremia History of asthma no symptoms for > 20 years per pt. Bladder carcinoma PFO (patent foramen ovale) per chart review, 'Possible PFO'; however 12/17/23 ECHO showed no evidence for an atrial septal defect. 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 History of CVA (cerebrovascular accident) 2017 - no residual Probably TIA 04/21/23- treated with TNK- admitted at [facility] Admitted to [facility] 09/01/23 and 12/16/23 with TIA sx - follows with neuro,(Dr. 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 Lumbar disc disease with radiculopathy History of skin cancer Meningioma Dural based calcification along the inner table at the vertex is 14 x 8mm, likely a small meningioma per 04/22/23 brain MRI Followed by neurology per PCP records Ventral hernia Acid reflux Surgical History History of anesthesia reaction Hard time waking up>did well with last TURBT History of tooth extraction History of cataract surgery right/left History of bladder surgery multiple TURBT procedures; most recent: 02/10/25 Status post Mohs surgery History of transcarotid artery revascularization (TCAR) (05/06/23) left ICA shunt, [facility] History of loop recorder (2021) removed 02/2022, 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 History of urologic surgery Cystolithopaxy (Bladder Stone Fragmentation and Removal) Transurethral resection of bladder tumor) History of colonoscopy History of colostomy reversal History of bowel resection (2015) due to cancer, w/ colostomy & reversal Hx of parotidectomy due to ca History of hemorrhoidectomy Family History Unknown Coronary heart disease Cancer Father Cancer Hypertension Son Diabetes Mother Benign neoplasm of head Brother Heart disease Brother Liver disease Heart disease Valve replacement Other No family history of adverse response to anesthesia Denies family history of Stroke Social History Smoking Status: Former smoker Tobacco Type: Cigarettes Age Started Using Tobacco: 20; Age Quit Using Tobacco: 30; packs per day: 1; Preferred Language: Sami Communication Ability: unknown Communication Ability Comment: Mild expressive aphasia Visual Impairment: No Limitations Hearing Ability: 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 Hearing 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 Beliefs That Will Affect Care: None marital status: Current Living Situation: [facility] Current Living Situation Comment: resident of [facility] current occupational status: retired Feels Safe at Home: Yes Childhood Exposure to Second-Hand Smoke: No caffeine: No Dental Care, Regularly: No Physical Activity Frequency: Daily Seatbelt Use: always Sunscreen Use: No Assistive Devices: Cane Allergies Allergies Allergy/AdvReac Type Severity Reaction Status Date / Time No Known Drug Allergies Allergy Verified 02/23/25 08:34 Home Meds Home Medications Medication Instructions Recorded Confirmed levothyroxine 100 mcg tablet 100 mcg PO QAM 02/03/25 02/23/25 rosuvastatin 20 mg tablet (Crestor) 20 mg PO HS 02/10/25 02/23/25 gabapentin 300 mg capsule 300 mg PO BID 02/12/25 02/23/25 mirtazapine 15 mg tablet 15 mg PO QAM 02/12/25 02/23/25 tamsulosin 0.4 mg capsule 0.4 mg PO QPM 02/12/25 02/23/25 theophylline 300 mg 600 mg PO QAM asthma 02/12/25 02/23/25 tablet,extended release,12 hr ticagrelor 90 mg tablet (Brilinta) 0 mg PO QAM 02/12/25 02/23/25 acetaminophen 325 mg tablet 650 mg PO QID PRN pain 1-10/fever 02/18/25 02/23/25 >100 bisacodyl 10 mg rectal suppository 10 mg HI UD PRN Constipation 02/18/25 02/23/25 (Dulcolax (bisacodyl)) magnesium hydroxide 400 mg/5 mL 30 ml PO UD PRN Constipation 02/18/25 02/23/25 oral suspension menthol 0.44 %-zinc oxide 20 % 1 ea topical BID 02/18/25 02/23/25 topical ointment sodium phosphates 19 gram-7 118 ml HI UD PRN Constipation 02/18/25 02/23/25 gram/118 mL enema (Fleet Enema) vancomycin 125 mg capsule 125 mg PO QID 02/18/25 02/23/25 Previous Rx's Medication Instructions Recorded amiloride 5 mg-hydrochlorothiazide 0.5 tab PO QAM #90 tabs 08/04/24 50 mg tablet prednisone 5 mg tablet 5 mg PO QAM #90 tabs 10/12/24 potassium chloride 20 mEq 20 meq PO BID #60 tabs 02/18/25 tablet,extended release(part/cryst) Results & Data (ED) Vital Signs Vital Signs - 24 hr 03/05/25 20:00 03/05/25 20:00 03/05/25 20:00 Temperature 37.1 C 37.1 C Temperature Source Oral Oral Pulse Rate 92 H Pulse Rate [Right Finger] 82 Pulse Rate from SpO2 Sensor Pulse Rhythm Pulse Rhythm [Right Finger] Pulse Strength Normal Pulse Strength [Right Finger] Respiratory Rate 14 19 Respiratory Effort / Characteristics Non-Labored Spontaneous Non-Labored Spontaneous Respiratory Depth Normal Normal Respiratory Pattern Regular Regular Blood Pressure 88/53 L Blood Pressure [Left Arm] 96/51 L Blood Pressure Mean 64 Blood Pressure Mean [Left Arm] 66 Blood Pressure Position Lying Blood Pressure Position [Left Arm] Lying Pulse Oximetry 94 94 Oxygen Delivery Method Nasal Cannula Nasal Cannula Nasal Cannula Oxygen Flow Rate 3 3 3 Sepsis Recent Fever Within 48 Hours Yes Sepsis New/Unexplained Change in Mental Status No Sepsis Action Taken by Nursing Physician Notified 03/05/25 20:14 03/05/25 20:14 03/05/25 20:15 Temperature 37.9 C H Temperature Source Oral Pulse Rate 88 Pulse Rate [Right Finger] 88 Pulse Rate from SpO2 Sensor Pulse Rhythm Regular Pulse Rhythm [Right Finger] Regular Pulse Strength Pulse Strength [Right Finger] Normal Respiratory Rate 16 18 Respiratory Effort / Characteristics Non-Labored Spontaneous Respiratory Depth Normal Respiratory Pattern Regular Blood Pressure 96/51 L Blood Pressure [Left Arm] 88/53 L Blood Pressure Mean 61 Blood Pressure Mean [Left Arm] 64 Blood Pressure Position Blood Pressure Position [Left Arm] Lying Pulse Oximetry 94 94 Oxygen Delivery Method Nasal Cannula Nasal Cannula Oxygen Flow Rate 3 3 Sepsis Recent Fever Within 48 Hours Sepsis New/Unexplained Change in Mental Status Sepsis Action Taken by Nursing 03/05/25 20:18 03/05/25 20:18 03/05/25 20:21 Temperature Temperature Source Pulse Rate 88 88 85 Pulse Rate [Right Finger] Pulse Rate from SpO2 Sensor 88 85 Pulse Rhythm Pulse Rhythm [Right Finger] Pulse Strength Pulse Strength [Right Finger] Respiratory Rate 23 14 Respiratory Effort / Characteristics Respiratory Depth Respiratory Pattern Blood Pressure Blood Pressure [Left Arm] Blood Pressure Mean Blood Pressure Mean [Left Arm] Blood Pressure Position Blood Pressure Position [Left Arm] Pulse Oximetry 92 93 Oxygen Delivery Method Oxygen Flow Rate Sepsis Recent Fever Within 48 Hours Sepsis New/Unexplained Change in Mental Status Sepsis Action Taken by Nursing 03/05/25 20:30 03/05/25 20:30 03/05/25 20:30 Temperature Temperature Source Pulse Rate Pulse Rate [Right Finger] Pulse Rate from SpO2 Sensor Pulse Rhythm Pulse Rhythm [Right Finger] Pulse Strength Pulse Strength [Right Finger] Respiratory Rate Respiratory Effort / Characteristics Respiratory Depth Respiratory Pattern Blood Pressure 115/61 115/61 115/61 Blood Pressure [Left Arm] Blood Pressure Mean 72 72 72 Blood Pressure Mean [Left Arm] Blood Pressure Position Blood Pressure Position [Left Arm] Pulse Oximetry Oxygen Delivery Method Oxygen Flow Rate Sepsis Recent Fever Within 48 Hours Sepsis New/Unexplained Change in Mental Status Sepsis Action Taken by Nursing 03/05/25 20:30 03/05/25 20:42 03/05/25 20:45 Temperature Temperature Source Pulse Rate 79 79 Pulse Rate [Right Finger] Pulse Rate from SpO2 Sensor 79 79 Pulse Rhythm Pulse Rhythm [Right Finger] Pulse Strength Pulse Strength [Right Finger] Respiratory Rate 18 19 Respiratory Effort / Characteristics Respiratory Depth Respiratory Pattern Blood Pressure 95/49 L Blood Pressure [Left Arm] Blood Pressure Mean 66 Blood Pressure Mean [Left Arm] Blood Pressure Position Blood Pressure Position [Left Arm] Pulse Oximetry 95 94 Oxygen Delivery Method Oxygen Flow Rate Sepsis Recent Fever Within 48 Hours Sepsis New/Unexplained Change in Mental Status Sepsis Action Taken by Nursing 03/05/25 20:45 03/05/25 20:51 03/05/25 21:14 Temperature Temperature Source Pulse Rate 80 Pulse Rate [Right Finger] 72 Pulse Rate from SpO2 Sensor 79 Pulse Rhythm Pulse Rhythm [Right Finger] Regular Pulse Strength Pulse Strength [Right Finger] Normal Respiratory Rate 14 17 Respiratory Effort / Characteristics Non-Labored Spontaneous Respiratory Depth Normal Respiratory Pattern Regular Blood Pressure 95/49 L Blood Pressure [Left Arm] 98/53 L Blood Pressure Mean 66 Blood Pressure Mean [Left Arm] 68 Blood Pressure Position Blood Pressure Position [Left Arm] Lying Pulse Oximetry 95 97 Oxygen Delivery Method Nasal Cannula Oxygen Flow Rate 2 Sepsis Recent Fever Within 48 Hours Sepsis New/Unexplained Change in Mental Status Sepsis Action Taken by Nursing 03/05/25 21:15 03/05/25 21:24 03/05/25 21:42 Temperature Temperature Source Pulse Rate 79 74 Pulse Rate [Right Finger] Pulse Rate from SpO2 Sensor Pulse Rhythm Pulse Rhythm [Right Finger] Pulse Strength Pulse Strength [Right Finger] Respiratory Rate 21 17 Respiratory Effort / Characteristics Respiratory Depth Respiratory Pattern Blood Pressure 98/53 L Blood Pressure [Left Arm] Blood Pressure Mean 57 Blood Pressure Mean [Left Arm] Blood Pressure Position Blood Pressure Position [Left Arm] Pulse Oximetry Oxygen Delivery Method Oxygen Flow Rate Sepsis Recent Fever Within 48 Hours Sepsis New/Unexplained Change in Mental Status Sepsis Action Taken by Nursing 03/05/25 21:45 03/05/25 21:45 03/05/25 21:54 Temperature Temperature Source Pulse Rate 74 Pulse Rate [Right Finger] Pulse Rate from SpO2 Sensor Pulse Rhythm Pulse Rhythm [Right Finger] Pulse Strength Pulse Strength [Right Finger] Respiratory Rate 17 Respiratory Effort / Characteristics Respiratory Depth Respiratory Pattern Blood Pressure 89/53 L 89/53 L Blood Pressure [Left Arm] Blood Pressure Mean 75 75 Blood Pressure Mean [Left Arm] Blood Pressure Position Blood Pressure Position [Left Arm] Pulse Oximetry Oxygen Delivery Method Oxygen Flow Rate Sepsis Recent Fever Within 48 Hours Sepsis New/Unexplained Change in Mental Status Sepsis Action Taken by Nursing 03/05/25 22:00 03/05/25 22:15 03/05/25 22:15 Temperature Temperature Source Pulse Rate Pulse Rate [Right Finger] Pulse Rate from SpO2 Sensor Pulse Rhythm Pulse Rhythm [Right Finger] Pulse Strength Pulse Strength [Right Finger] Respiratory Rate Respiratory Effort / Characteristics Respiratory Depth Respiratory Pattern Blood Pressure 89/51 L 85/49 L 85/49 L Blood Pressure [Left Arm] Blood Pressure Mean 68 61 61 Blood Pressure Mean [Left Arm] Blood Pressure Position Blood Pressure Position [Left Arm] Pulse Oximetry Oxygen Delivery Method Oxygen Flow Rate Sepsis Recent Fever Within 48 Hours Sepsis New/Unexplained Change in Mental Status Sepsis Action Taken by Nursing 03/05/25 22:15 03/05/25 22:24 03/05/25 22:30 Temperature Temperature Source Pulse Rate 71 70 75 Pulse Rate [Right Finger] Pulse Rate from SpO2 Sensor 70 69 74 Pulse Rhythm Pulse Rhythm [Right Finger] Pulse Strength Pulse Strength [Right Finger] Respiratory Rate 21 17 18 Respiratory Effort / Characteristics Respiratory Depth Respiratory Pattern Blood Pressure Blood Pressure [Left Arm] Blood Pressure Mean Blood Pressure Mean [Left Arm] Blood Pressure Position Blood Pressure Position [Left Arm] Pulse Oximetry 95 93 95 Oxygen Delivery Method Oxygen Flow Rate Sepsis Recent Fever Within 48 Hours Sepsis New/Unexplained Change in Mental Status Sepsis Action Taken by Nursing 03/05/25 22:30 03/05/25 22:39 03/05/25 22:45 Temperature Temperature Source Pulse Rate 69 Pulse Rate [Right Finger] 68 Pulse Rate from SpO2 Sensor 69 Pulse Rhythm Pulse Rhythm [Right Finger] Regular Pulse Strength Pulse Strength [Right Finger] Normal Respiratory Rate 19 18 Respiratory Effort / Characteristics Non-Labored Spontaneous Respiratory Depth Normal Respiratory Pattern Regular Blood Pressure 92/53 L Blood Pressure [Left Arm] 91/55 L Blood Pressure Mean 67 Blood Pressure Mean [Left Arm] 67 Blood Pressure Position Blood Pressure Position [Left Arm] Pulse Oximetry 96 96 Oxygen Delivery Method Oxygen Flow Rate 3 Sepsis Recent Fever Within 48 Hours Sepsis New/Unexplained Change in Mental Status Sepsis Action Taken by Nursing 03/05/25 23:00 03/05/25 23:00 03/05/25 23:36 Temperature Temperature Source Pulse Rate 67 Pulse Rate [Right Finger] 71 Pulse Rate from SpO2 Sensor 67 Pulse Rhythm Pulse Rhythm [Right Finger] Regular Pulse Strength Pulse Strength [Right Finger] Normal Respiratory Rate 16 17 Respiratory Effort / Characteristics Non-Labored Spontaneous Respiratory Depth Normal Respiratory Pattern Regular Blood Pressure 100/52 L Blood Pressure [Left Arm] 100/52 L Blood Pressure Mean 66 Blood Pressure Mean [Left Arm] 68 Blood Pressure Position Blood Pressure Position [Left Arm] Lying Pulse Oximetry 96 95 Oxygen Delivery Method Nasal Cannula Oxygen Flow Rate 3 Sepsis Recent Fever Within 48 Hours Sepsis New/Unexplained Change in Mental Status Sepsis Action Taken by Nursing 03/06/25 00:02 Temperature Temperature Source Pulse Rate Pulse Rate [Right Finger] Pulse Rate from SpO2 Sensor Pulse Rhythm Pulse Rhythm [Right Finger] Pulse Strength Pulse Strength [Right Finger] Respiratory Rate Respiratory Effort / Characteristics Respiratory Depth Respiratory Pattern Blood Pressure 82/53 L Blood Pressure [Left Arm] Blood Pressure Mean 63 Blood Pressure Mean [Left Arm] Blood Pressure Position Blood Pressure Position [Left Arm] Pulse Oximetry Oxygen Delivery Method Oxygen Flow Rate Sepsis Recent Fever Within 48 Hours Sepsis New/Unexplained Change in Mental Status Sepsis Action Taken by Nursing Laboratory Data 03/05/25 20:15 03/05/25 20:15 Lab Results 03/05/25 03/05/25 03/05/25 Range/Units 20:15 20:21 20:44 WBC 11.47 H (4.8-10.8) K/ul RBC 3.94 L (4.70-6.10) M/uL Hgb 11.8 L (14.0-18.0) g/dl POC Hgb 10.9 L (14.0-18.0) g/dl Hct 35.2 L (42.0-52.0) % POC Hct 32 L (42-52) % MCV 89.3 (80.0-100.0) fL MCH 29.9 (25.0-34.0) pg MCHC 33.5 (32.0-36.0) g/dL RDW Std Deviation 50.2 H (36.4-46.3) fL RDW Coeff of Celestino 15.2 H (11.5-14.5) % Plt Count 122 L (130-400) K/uL MPV 10.9 (9.4-12.4) fL Immature Gran % (Auto) 0.9 % Neut % (Auto) 85.8 % Lymph % (Auto) 1.8 % [place] % (Auto) 11.3 % Eos % (Auto) 0.1 % Baso % (Auto) 0.1 % Neut # (Auto) 9.84 H (1.40-6.50) K/uL Lymph # (Auto) 0.21 L (1.20-3.40) K/uL [place] # (Auto) 1.30 H (0.11-0.59) K/uL Eos # (Auto) 0.01 (0.00-0.50) K/uL Baso # (Auto) 0.01 (0.00-0.20) K/uL Immature Gran # (Auto) 0.10 (0.01-0.20) K/uL VBG pH 7.42 H (7.36-7.41) VBG pCO2 40 (38-50) mmHg VBG pO2 48 mmHg VBG HCO3 26 mmol/L VBG O2 Saturation 79.2 % VBG Base Excess 1.3 mEq/L POC Sodium 134 L (135-144) mmol/L Sodium 135 L (136-145) mmol/L POC Potassium 4.3 (3.3-5.0) mmol/L Potassium 4.3 (3.5-5.1) mmol/L POC Chloride 100 L (101-112) mmol/L Chloride 103 (98-107) mmol/L Carbon Dioxide 26 (21-32) mmol/L POC Total CO2 23 L (24-31) mmol/L Anion Gap 6 (3-11) POC Anion Gap 16.0 (16-25) mmol/L POC BUN 14 (7-18) mg/dl BUN 17 (6-23) mg/dl Creatinine 1.02 (0.6-1.4) mg/dl POC Creatinine 1.1 (0.6-1.3) mg/dl Est Cr Clr Drug Dosing 45.7 ml/min eGFR 71.13 BUN/Creatinine Ratio 16.7 (10-20) Glucose 132 H (70-99(Fasting)) mg/dl POC Glucose (other) 130 H (70-99) mg/dl Lactate 2.1 H* (0.4-2.0) mmol/L Calcium 8.0 L (8.6-10.3) mg/dl POC Ioniz Calcium Frank 1.15 (1.12-1.32) mmol/l Magnesium 1.8 (1.7-2.4) mg/dl Total Bilirubin 0.9 (0.2-1.0) mg/dl Direct Bilirubin 0.3 H (0-0.2) mg/dl AST 116 H (13-39) U/L ALT 50 (7-52) U/L Alkaline Phosphatase 254 H (34-104) U/L Troponin I High Sens 11.2 (0-20) pg/ml Total Protein 4.7 L (6.0-8.3) gm/dl Albumin 2.3 L (3.4-5.0) gm/dl Procalcitonin 0.56 H (0-0.5) ng/ml Urine Color Urine Appearance (Clear) Urine pH (4.5-7.5) Ur Specific [place] (1.000-1.030) Urine Protein (Negative) Urine Glucose (UA) (Negative) Urine Ketones (Negative) Urine Blood (Negative) Urine Nitrite (Negative) Urine Bilirubin (Negative) Urine Urobilinogen (Negative) Ur Leukocyte Esterase (Negative) Urine RBC (0-2) /hpf Urine WBC (0-5) /hpf Ur Epithelial Cells (0-2) /hpf Urine Bacteria (None Seen) Hyaline Casts (None Presnt) /lpf Urine Comment Adenovirus (PCR) Not Detected (NotDetected) B. pertussis DNA (PCR) Not Detected (NotDetected) B.parapertussis DNA PCR Not Detected (NotDetected) C. pneumoniae DNA (PCR) Not Detected (NotDetected) Coronavirus OC43 (PCR) Not Detected (NotDetected) Coronavirus HKU1 (PCR) Not Detected (NotDetected) Coronavirus 229E (PCR) Not Detected (NotDetected) SARS-CoV-2 (PCR) Not Detected (NotDetected) Coronavirus NL63 (PCR) Not Detected (NotDetected) Human Metapneumovir PCR Not Detected (NotDetected) Influenza Type A (PCR) Not Detected (NotDetected) Influenza Type B (PCR) Not Detected (NotDetected) M. pneumoniae (PCR) Not Detected (NotDetected) Parainfluenza 1 (PCR) Not Detected (NotDetected) Parainfluenza 2 (PCR) Not Detected (NotDetected) Parainfluenza 3 (PCR) Not Detected (NotDetected) Parainfluenza 4 (PCR) Not Detected (NotDetected) RSV (PCR) Not Detected (NotDetected) Entero/Rhino (PCR) Not Detected (NotDetected) 03/05/25 03/05/25 Range/Units 21:25 22:16 WBC (4.8-10.8) K/ul RBC (4.70-6.10) M/uL Hgb (14.0-18.0) g/dl POC Hgb (14.0-18.0) g/dl Hct (42.0-52.0) % POC Hct (42-52) % MCV (80.0-100.0) fL MCH (25.0-34.0) pg MCHC (32.0-36.0) g/dL RDW Std Deviation (36.4-46.3) fL RDW Coeff of Celestino (11.5-14.5) % Plt Count (130-400) K/uL MPV (9.4-12.4) fL Immature Gran % (Auto) % Neut % (Auto) % Lymph % (Auto) % [place] % (Auto) % Eos % (Auto) % Baso % (Auto) % Neut # (Auto) (1.40-6.50) K/uL Lymph # (Auto) (1.20-3.40) K/uL [place] # (Auto) (0.11-0.59) K/uL Eos # (Auto) (0.00-0.50) K/uL Baso # (Auto) (0.00-0.20) K/uL Immature Gran # (Auto) (0.01-0.20) K/uL VBG pH (7.36-7.41) VBG pCO2 (38-50) mmHg VBG pO2 mmHg VBG HCO3 mmol/L VBG O2 Saturation % VBG Base Excess mEq/L POC Sodium (135-144) mmol/L Sodium (136-145) mmol/L POC Potassium (3.3-5.0) mmol/L Potassium (3.5-5.1) mmol/L POC Chloride (101-112) mmol/L Chloride (98-107) mmol/L Carbon Dioxide (21-32) mmol/L POC Total CO2 (24-31) mmol/L Anion Gap (3-11) POC Anion Gap (16-25) mmol/L POC BUN (7-18) mg/dl BUN (6-23) mg/dl Creatinine (0.6-1.4) mg/dl POC Creatinine (0.6-1.3) mg/dl Est Cr Clr Drug Dosing ml/min eGFR BUN/Creatinine Ratio (10-20) Glucose (70-99(Fasting)) mg/dl POC Glucose (other) (70-99) mg/dl Lactate 1.3 (0.4-2.0) mmol/L Calcium (8.6-10.3) mg/dl POC Ioniz Calcium Frank (1.12-1.32) mmol/l Magnesium (1.7-2.4) mg/dl Total Bilirubin (0.2-1.0) mg/dl Direct Bilirubin (0-0.2) mg/dl AST (13-39) U/L ALT (7-52) U/L Alkaline Phosphatase (34-104) U/L Troponin I High Sens (0-20) pg/ml Total Protein (6.0-8.3) gm/dl Albumin (3.4-5.0) gm/dl Procalcitonin (0-0.5) ng/ml Urine Color Yellow Urine Appearance Slightly Cloudy (Clear) Urine pH 6.0 (4.5-7.5) Ur Specific [place] 1.015 (1.000-1.030) Urine Protein 3+ H (Negative) Urine Glucose (UA) Negative (Negative) Urine Ketones Negative (Negative) Urine Blood 3+ H (Negative) Urine Nitrite Positive A (Negative) Urine Bilirubin Negative (Negative) Urine Urobilinogen Negative (Negative) Ur Leukocyte Esterase 1+ H (Negative) Urine RBC 3-5 H (0-2) /hpf Urine WBC 21-50 H (0-5) /hpf Ur Epithelial Cells 0-2 (0-2) /hpf Urine Bacteria 3+ H (None Seen) Hyaline Casts P (None Presnt) /lpf Urine Comment Adenovirus (PCR) (NotDetected) B. pertussis DNA (PCR) (NotDetected) B.parapertussis DNA PCR (NotDetected) C. pneumoniae DNA (PCR) (NotDetected) Coronavirus OC43 (PCR) (NotDetected) Coronavirus HKU1 (PCR) (NotDetected) Coronavirus 229E (PCR) (NotDetected) SARS-CoV-2 (PCR) (NotDetected) Coronavirus NL63 (PCR) (NotDetected) Human Metapneumovir PCR (NotDetected) Influenza Type A (PCR) (NotDetected) Influenza Type B (PCR) (NotDetected) M. pneumoniae (PCR) (NotDetected) Parainfluenza 1 (PCR) (NotDetected) Parainfluenza 2 (PCR) (NotDetected) Parainfluenza 3 (PCR) (NotDetected) Parainfluenza 4 (PCR) (NotDetected) RSV (PCR) (NotDetected) Entero/Rhino (PCR) (NotDetected) Administered Medications Discontinued Medications Acetaminophen (Acetaminophen 500 Mg Tab) 1,000 mg PO NOW STA Stop: 03/05/25 20:15 Last Admin: 03/05/25 20:26 Dose: 1,000 mg Documented By: SUSANNE Sodium Chloride (Nss) 1,000 mls @ 999 mls/hr IV .Q1H1M RICCI Stop: 03/05/25 21:15 Last Infusion: 03/06/25 00:06 Dose: Infused Documented By: Admin: 03/05/25 20:43 Dose: 999 mls/hr Documented By: ADRIANE Cefepime HCl (Maxipime 2000mg) 2,000 mg in 20 mls @ 5 mls/min IV NOW STA; Protocol Stop: 03/05/25 20:17 Last Admin: 03/05/25 20:26 Dose: 5 mls/min Documented By: SUSANNE Ioversol (Optiray 320 100ml) 92 ml IV ONCE ONE Stop: 03/05/25 21:08 Last Admin: 03/05/25 21:08 Dose: 92 ml Documented By: FERNANDO Imaging Data Radiologist's Impression: Abdomen/Pelvis CT 03/05/25 20:39 Exam(s): CT ABDOMEN + PELVIS With Contrast IV Amt: 92ML OPTIRAY 320 EXAM: CT Abdomen and Pelvis With Intravenous Contrast CLINICAL HISTORY: Reason for exam: eval for septic stone. TECHNIQUE: Axial computed tomography images of the abdomen and pelvis with intravenous contrast. CTDI is 11 mGy and DLP is 599 mGy-cm. Automated exposure control was utilized for the study. A dose lowering technique was utilized adhering to the principles of ALARA. CONTRAST: Patient received 92ML OPTIRAY 320 of IV contrast COMPARISON: 02/12/2025. FINDINGS: Lung bases: There is a small left pleural effusion with a trace right pleural effusion. There are bibasilar areas of atelectasis. The heart contains coronary artery calcifications. There is a small pericardial effusion.. ABDOMEN: Liver: There is a 1.8 cm lucency noted in the left lobe of the liver. Gallbladder and bile ducts: There are gallstones within the gallbladder. . No ductal dilation. Pancreas: No mass. No ductal dilation. Spleen: No splenomegaly. Adrenals: No mass. Kidneys and ureters: There are small bilateral renal calcifications. There are rounded lucencies noted in both kidneys. There is a right ureteral stent present. No evidence of hydronephrosis. There are rounded lucencies in both kidneys.. Stomach and bowel: There is air and fluid within the stomach. There is air and stool noted in the colon. There are diverticula present on the colon. There are inflammatory changes surrounding the rectum.. PELVIS: Appendix: Unremarkable CT scan appearance noted the appendix.. Bladder: A Smith catheter is noted within a decompressed urinary bladder. The distal end of a right ureteral stent is noted within the bladder. There appear to be small calculi within the bladder.. Reproductive: Unremarkable as visualized. ABDOMEN and PELVIS: Intraperitoneal space: No free air. No significant fluid collection. Bones/joints: There are degenerative changes in the spine and hips.. Soft tissues: Unremarkable. Vasculature: There are atherosclerotic changes. No abdominal aortic aneurysm. Lymph nodes: No enlarged lymph nodes. IMPRESSION: There are small bilateral renal calcifications. There is a right ureteral stent. No evidence of hydronephrosis. There are possible bilateral renal cysts. There appear to be small calculi within the urinary bladder. Cholelithiasis. There are diverticula present on the colon. There are inflammatory changes surrounding the rectum. This may represent proctitis. There is a problem 1.8 cm cyst in left lobe of the liver. See discussion above Electronically signed by: Paul Delatorre MD 03/05/25 23:06 PM Discharge Plan Visit Data Chief Complaint: Hypotension Stated Complaint: ?INFECTION/SEPSIS, HYPOTENSION ED Provider: Meliton Turcios Discharge Problem: Sepsis, Complicated urinary tract infection, Cholelithiasis, Acute hyponatremia, Hypoalbuminemia Patient Disposition: Admitted As Inpatient Condition: Serious Forms Stand Alone Forms: My [facility] iPrint Prescriptions Prescriptions: No Action amiloride-hydrochlorothiazide 5-50 mg tablet 0.5 tab PO QAM Qty: 90 3RF prednisone 5 mg tablet 5 mg PO QAM Qty: 90 1RF Rx Instructions: TAKE 1 TABLET BY MOUTH ONCE DAILY potassium chloride 20 mEq tablet,ER particles/crystals 20 meq PO BID Qty: 60 1RF levothyroxine 100 mcg tablet 100 mcg PO QAM rosuvastatin [Crestor] 20 mg tablet 20 mg PO HS Patient Comments: takes qam Rx Instructions: TAKE 1 TABLET BY MOUTH ONCE DAILY theophylline 300 mg tablet extended release 12 hr 600 mg PO QAM Rx Instructions: TAKE TWO TABLETS BY MOUTH DAILY tamsulosin 0.4 mg capsule 0.4 mg PO QPM Rx Instructions: TAKE 1 CAPSULE BY MOUTH IN THE EVENING gabapentin 300 mg capsule 300 mg PO BID Rx Instructions: TAKE 1 CAPSULE BY MOUTH TWICE DAILY ticagrelor [Brilinta] 90 mg tablet 0 mg PO QAM Patient Comments: Currently on hold, set to resume on 02/12/25. Unable to verify when pt started holding medication. Original Directions: 90mg by mouth once daily in the morning 02/18/25-medication not on [facility] MAR mirtazapine 15 mg tablet 15 mg PO QAM acetaminophen 325 mg Tablet 650 mg PO QID PRN (Reason: pain 1-10/fever >100) Rx Instructions: do not exceed 3 grams per 24 hours magnesium hydroxide 400 mg/5 mL Suspension 30 ml PO UD PRN (Reason: Constipation) Rx Instructions: after no BM for 3 days, administer on 7-3 shift bisacodyl [Dulcolax (bisacodyl)] 10 mg Suppository 10 mg HI UD PRN (Reason: Constipation) Rx Instructions: day 3, 3-11pm shift if no BM after MOM Fleet Enema 19-7 gram/118 mL Enema 118 ml HI UD PRN (Reason: Constipation) Rx Instructions: if no BM after dulcolax administer fleets on 7-3 shift day 4 menthol-zinc oxide 0.44-20 % Ointment 1 ea TOPICAL BID Rx Instructions: apply to sacrum topically every day and evening shift for wound prevention for 14 days vancomycin 125 mg Capsule 125 mg PO QID Patient Comments: 02/13/25-02/23/25 Referrals Referrals: Manuela Lundberg MD [Primary Care Provider] -
[2025-03-05 20:58] LABS: Alanine Aminotransferase 50.0 U/L (7-52); Alkaline Phosphatase 254.0 U/L (34-104); Anion Gap 6.0 (3-11); Bilirubin,Total 0.9 mg/dl (0.2-1.0); Blood Urea Nitrogen 17.0 mg/dl (6-23); Calcium 8.0 mg/dl (8.6-10.3); Carbon Dioxide 26.0 mmol/L (21-32); Chloride 103.0 mmol/L (98-107); Creatinine Clr Calc Pharmacy 45.7 ml/min; Glucose 132.0 mg/dl (70-99(Fasting)); Magnesium 1.8 mg/dl (1.7-2.4); Potassium 4.3 mmol/L (3.5-5.1); Sodium 135.0 mmol/L (136-145); Total Protein 4.7 gm/dl (6.0-8.3)
[2025-03-05 21:04] LABS: Base Excess VBG 1.3 mEq/L; HCO3 VBG 26 mmol/L; Oxygen Saturation VBG 79.2 %; PCO2 VBG 40 mmHg (38-50); PO2 VBG 48 mmHg; pH VBG 7.42 (7.36-7.41)
[2025-03-05] MEDS: OPTIRAY 320 100ml IV ONE (21:08)
[2025-03-05 21:43] LABS: Appearance Urine Slightly Cloudy (Clear); Glucose Urine UA Negative (Negative)
[2025-03-05 21:51] LABS: Epithelial Cell Urine 0-2 /hpf (0-2)
--- NOTE | 2025-03-05 23:07 | CT Scan Report ---
Exam(s): CT ABDOMEN + PELVIS With Contrast IV Amt: 92ML OPTIRAY 320 EXAM: CT Abdomen and Pelvis With Intravenous Contrast CLINICAL HISTORY: Reason for exam: eval for septic stone. TECHNIQUE: Axial computed tomography images of the abdomen and pelvis with intravenous contrast. CTDI is 11 mGy and DLP is 599 mGy-cm. Automated exposure control was utilized for the study. A dose lowering technique was utilized adhering to the principles of ALARA. CONTRAST: Patient received 92ML OPTIRAY 320 of IV contrast COMPARISON: 02/12/2025. FINDINGS: Lung bases: There is a small left pleural effusion with a trace right pleural effusion. There are bibasilar areas of atelectasis. The heart contains coronary artery calcifications. There is a small pericardial effusion.. ABDOMEN: Liver: There is a 1.8 cm lucency noted in the left lobe of the liver. Gallbladder and bile ducts: There are gallstones within the gallbladder. . No ductal dilation. Pancreas: No mass. No ductal dilation. Spleen: No splenomegaly. Adrenals: No mass. Kidneys and ureters: There are small bilateral renal calcifications. There are rounded lucencies noted in both kidneys. There is a right ureteral stent present. No evidence of hydronephrosis. There are rounded lucencies in both kidneys.. Stomach and bowel: There is air and fluid within the stomach. There is air and stool noted in the colon. There are diverticula present on the colon. There are inflammatory changes surrounding the rectum.. PELVIS: Appendix: Unremarkable CT scan appearance noted the appendix.. Bladder: A Smith catheter is noted within a decompressed urinary bladder. The distal end of a right ureteral stent is noted within the bladder. There appear to be small calculi within the bladder.. Reproductive: Unremarkable as visualized. ABDOMEN and PELVIS: Intraperitoneal space: No free air. No significant fluid collection. Bones/joints: There are degenerative changes in the spine and hips.. Soft tissues: Unremarkable. Vasculature: There are atherosclerotic changes. No abdominal aortic aneurysm. Lymph nodes: No enlarged lymph nodes. IMPRESSION: There are small bilateral renal calcifications. There is a right ureteral stent. No evidence of hydronephrosis. There are possible bilateral renal cysts. There appear to be small calculi within the urinary bladder. Cholelithiasis. There are diverticula present on the colon. There are inflammatory changes surrounding the rectum. This may represent proctitis. There is a problem 1.8 cm cyst in left lobe of the liver. See discussion above Electronically signed by: Paul Delatorre MD 03/05/25 23:06 PM
--- NOTE | 2025-03-05 23:45 | History & Physical Report ---
Date of Service March 05, 2025 Assessment & Plan (1) Sepsis: (2) Complicated urinary tract infection: (3) Hypoxia: (4) Cholelithiasis: Plan Patient is an 89-year-old male with a past medical history including recent C. difficile infection (Dx 02/12), bladder carcinoma under surveillance, CVA, GERD, hypothyroidism, hypertension. Patient presented via EMS from [facility] after he was fatigued, weak, and warm today. He was found to be septic from a UTI after recent right ureteral stent placement 02/23 with white count 11.47, HR 92, temp 37.9 C, hypotensive, lactate 2.1, procalcitonin 0.56. #Sepsis/UTI (stent associated and catheter associated) - UA appears infectious with 1+ LE, 11-50 WBC, 3+ bacteria, positive nitrites. Repeat CT reveals no acute changes within bladder or renal system. Septic presentation with white count 11.47, tachycardia (HR 92), temp 37.9 C, hypotensive (85/49), lactate 2.1 -> 1.3, procal 0.56. Renal function stable. S/p TURBT found to have right distal stone, right stent placed 02/10/25. Stone lithotripsy and stent replacement 02/23. Chronic kim in place. - Sepsis fluid bolus for ideal body weight = 2263.5; given 1L NSS in ED - Additional fluid resuscitation with 1L bolus of NSS followed by LR at 100 mL/hour - additional fluids with IV antibiotics and albumin - patient has a history of grade 1 diastolic dysfunction with most recent EF 45 to 50% however clinically volume depleted - started on cefepime in the ED, will transition to Zosyn - blood and urine cultures pending - Chronic Kim in place, daily catheter care - urology consulted, Dr. Yen on-call who patient follows with in outpatient setting and performed recent stent placement - Trend CBC #hypotension secondary to sepsis above. Albumin 2.3. BP as low as 85/49 in ED, persistently low however improved to 120/80 after sepsis fluid bolus and albumin. - hold diuretics IVF as above 50 G IV albumin on admission - trend albumin - consider stress dose steroids if remains persistently low as patient on chronic steroids #hypoxia 90% on room air, currently on 3L NC at time of admission. Suspect 2/2 sepsis. CXR mild left pleural effusion infiltrate and/or atelectasis at left lung base (suspect atelectasis given asymptomatic). Bio fire and troponin negative. Patient denies chest pain, dyspnea, cough, congestion, oxygen use at baseline. incentive spirometry Wean oxygen as tolerated #Thrombocytopenia platelet count 122. Intermittently low at baseline. Suspect secondary to acute infection/sepsis above. Defer chemical PPx trend CBC #recent C. difficile infection Dx during recent admission 02/14, completed 10- day course of oral vancomycin 125 Mg p.o. Patient asymptomatic on admission. Given at high risk for recurrence with broad-spectrum IV antibiotic use, will prophylactically treat with oral vancomycin Probiotic ordered #transaminitis/cholelithiasis patient asymptomatic. AST 116, alk phos 245 on admission. Gallbladder ultrasound showed cholelithiasis without noticeable cystitis or bile duct dilation. possibly elevated 2/2 acute infection/sepsis above. - if patient becomes symptomatic consider surgery consult Avoid further Tylenol use - tick panel ordered Trend CMP #adrenal insufficiency - has been on 5mg PO prednisone for 10+ years with unclear reasoning. - will increase to 10mg PO daily with acute infection - if BP remains persistently low, consider stress dose steroids #ambulatory dysfunction - patient noted to be extremely frail on admission. Uses cane at baseline. PT/OT consulted #HFpEF most recent echo 11/2023 revealed grade 1 diastolic dysfunction, EF 45 to 50%, mild global hypokinesis of ventricle, moderate LVH, mild pulmonic valvular regurg, mild MR, mild to moderate AR. Patient volume depleted at time of admission. Holding diuretics Daily weights Strict I's and O's heart healthy, low-sodium diet #bladder carcinoma under surveillance. Follows with Dr. Yen. #Hx CVA/Hx TIA/carotid artery stenosis follows with neurologist Dr. Garrido. S/p LCAR 04/2023. - continue Brilinta and statin VTE ppx: SCDs, defer chemical ppx with thrombocytopenia Dispo: PCU Admission and Anticipated Discharge Date Admission Date: 03/05/25 - note admit orders in prior to midnight History of Present Illness Chief Complaint: hypotension Primary Care Provider: Manuela Lundberg MD Patient is an 89-year-old male with a past medical history including recent C. difficile infection (Dx 02/12), bladder carcinoma under surveillance, CVA with PFO, GERD, hypothyroidism, hypertension. Patient presented via EMS from [facility] after he was fatigued, weak, and warm today. He was found to be septic from a UTI after recent right ureteral stent placement 02/23 with white count 11.47, HR 92, temp 37.9 C, hypotensive, lactate 2.1, procalcitonin 0.56. Patient seen at bedside. He is a relatively poor historian. He stated he was very tired and weak today. He also felt warm. He denies any headaches, dizziness, lightheadedness, chest pain, shortness of breath, cough, congestion, abdominal pain, hematuria. He stated he does think he has had diarrhea recently but is not sure. He denies any recent pain associated with this type. He does not use oxygen at baseline. He is unsure if he got any home medications today as they are dosed based on her care. Extensively discussed CODE STATUS at bedside, he wishes to be full code. He is unsure if he spends much time out or had any tick exposures. Allergies Allergy/AdvReac Type Severity Reaction Status Date / Time No Known Drug Allergies Allergy Verified 02/23/25 08:34 Home Medications Medication Instructions Recorded Confirmed Type amiloride 5 mg-hydrochlorothiazide 0.5 tab PO QAM #90 tabs 08/04/24 02/23/25 Rx 50 mg tablet prednisone 5 mg tablet 5 mg PO QAM #90 tabs 10/12/24 02/23/25 Rx levothyroxine 100 mcg tablet 100 mcg PO QAM 02/03/25 02/23/25 History rosuvastatin 20 mg tablet (Crestor) 20 mg PO HS 02/10/25 02/23/25 History gabapentin 300 mg capsule 300 mg PO BID 02/12/25 02/23/25 History mirtazapine 15 mg tablet 15 mg PO QAM 02/12/25 02/23/25 History tamsulosin 0.4 mg capsule 0.4 mg PO QPM 02/12/25 02/23/25 History theophylline 300 mg 600 mg PO QAM asthma 02/12/25 02/23/25 History tablet,extended release,12 hr ticagrelor 90 mg tablet (Brilinta) 0 mg PO QAM 02/12/25 02/23/25 History acetaminophen 325 mg tablet 650 mg PO QID PRN pain 1-10/fever 02/18/25 02/23/25 History >100 bisacodyl 10 mg rectal suppository 10 mg HI UD PRN Constipation 02/18/25 5 History (Dulcolax (bisacodyl)) magnesium hydroxide 400 mg/5 mL 30 ml PO UD PRN Constipation 02/18/25 02/23/25 History oral suspension menthol 0.44 %-zinc oxide 20 % 1 ea topical BID 02/18/25 02/23/25 History topical ointment potassium chloride 20 mEq 20 meq PO BID #60 tabs 02/18/25 02/23/25 Rx tablet,extended release(part/cryst) sodium phosphates 19 gram-7 118 ml HI UD PRN Constipation 02/18/25 02/23/25 History gram/118 mL enema (Fleet Enema) vancomycin 125 mg capsule 125 mg PO QID 02/18/25 02/23/25 History Past Med/Surg History Problem List (Updated 03/06/25 @ 00:54 by Mona Dick PA-C) Hypoxia Hypotension Hypoalbuminemia (Acute) Acute hyponatremia (Acute) Cholelithiasis (Acute) Complicated urinary tract infection (Acute) Sepsis (Acute) Encounter for pre-operative examination Physical deconditioning C. difficile diarrhea Pleural effusion (Acute) Diverticulitis (Acute) Right distal ureteral calculus (Acute) Bilateral hydronephrosis (Acute) Dizziness Decrease in appetite TIA (transient ischemic attack) multiple: 04/2023, 09/01/23, 12/16/23 Stroke-like symptoms (Acute) 09/01/23 Aphasia (Acute ~06/02/24) 09/01/23 Bladder carcinoma Postoperative hypotension Recent cerebrovascular accident (CVA) 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; possible TIA 04/2023, 09/01/23, and 12/16/23 Symptomatic stenosis of left carotid artery Occlusion of right vertebral artery Vertebral artery narrowing CVA (cerebral vascular accident) (~06/02/24) Seizure-like activity 04/21/23 Lumbosacral radiculopathy Carotid artery stenosis s/p left TCAR 05/07/23 HLD (hyperlipidemia) Moderate persistent asthma, uncomplicated Renal cyst, right Spinal stenosis of lumbar region Left leg pain (Acute) 07/24/22 Lumbar disc herniation (Acute) Weakness (Acute) 07/24/22 Bladder stone History of loop recorder Thoracic aortic aneurysm Nephrolithiasis Lung nodule Malignant neoplasm of parotid gland (Chronic) hx Squamous cell carcinoma Status post Mohs surgery sees dermatology on 08/09/23 for follow up/ possible procedure 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 difficile diarrhea started abx 02/12/25-script ends 02/23/25 History of BPH History of aphasia History of seizure last one 04/2023 > unaware of details/type, pt reports, "just talked funny" went to ED, no meds per pt. Per neuro note 01/2024: pt had normal EEG 08/2023 Hx of carotid stenosis - s/p L left TCAR 04/2023; R ICA 60-70% at origin, prox L vertebral artery stenosis of 70%, and an essentially occluded right vertebral artery of a chronic nature - per vascular surgery note 07/27/24- carotid u/s that day showed widely patient left carotids stent, <80% right ICA stenosis Hx of hypotension post operative, per records Small vessel disease, cerebrovascular Spinal stenosis of lumbar region History of TIAs (11/2023) multiple, most recent admit to [facility] 11/2023, follows with Dr. Schafer Malignant neoplasm of parotid gland (2020) Hx -left parotid neoplasm 2020- treated with surgical excision and radiation. Last treatment November 2020 per records Lung nodule per chart Hypothyroidism PCP closely monitoring Hypercholesteremia History of asthma no symptoms for > 20 years per pt. Bladder carcinoma PFO (patent foramen ovale) per chart review, 'Possible PFO'; however 12/17/23 ECHO showed no evidence for an atrial septal defect. 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 History of CVA (cerebrovascular accident) 2018 - no residual Probably TIA 04/21/23- treated with TNK- admitted at [facility] Admitted to [facility] 09/01/23 and 12/16/23 with TIA sx - follows with neuro,(Dr. 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 Lumbar disc disease with radiculopathy History of skin cancer Meningioma Dural based calcification along the inner table at the vertex is 14 x 8mm, likely a small meningioma per 04/22/23 brain MRI Followed by neurology per PCP records Ventral hernia Acid reflux Surgical History History of anesthesia reaction Hard time waking up>did well with last TURBT History of tooth extraction History of cataract surgery right/left History of bladder surgery multiple TURBT procedures; most recent: 02/10/25 Status post Mohs surgery History of transcarotid artery revascularization (TCAR) (05/06/23) left ICA shunt, [facility] History of loop recorder (2021) removed 02/2022, 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 History of urologic surgery Cystolithopaxy (Bladder Stone Fragmentation and Removal) Transurethral resection of bladder tumor) History of colonoscopy History of colostomy reversal History of bowel resection (2015) due to cancer, w/ colostomy & reversal Hx of parotidectomy due to ca History of hemorrhoidectomy Family History Unknown Coronary heart disease Cancer Father Cancer Hypertension Son Diabetes Mother Benign neoplasm of head Brother Heart disease Brother Liver disease Heart disease Valve replacement Other No family history of adverse response to anesthesia Denies family history of Stroke Social History Smoking Status: Former smoker Tobacco Type: Cigarettes Age Started Using Tobacco: 20; Age Quit Using Tobacco: 30; packs per day: 1; Preferred Language: Cambodian Communication Ability: unknown Communication Ability Comment: Mild expressive aphasia Visual Impairment: No Limitations Hearing Ability: Hard of Hearing Launch Check Out Required: No Beliefs That Will Affect Care: None marital status: Current Living Situation: [facility] Current Living Situation Comment: resident of [facility] current occupational status: retired Feels Safe at Home: Yes Childhood Exposure to Second-Hand Smoke: No caffeine: No Dental Care, Regularly: No Physical Activity Frequency: Daily Seatbelt Use: always Sunscreen Use: No Assistive Devices: Cane Review of Systems Review of Systems: see HPI Physical Exam Physical Exam: The patient is awake, alert and oriented 3, however mildly confused, frail. HEENT- EOMI, mucous membranes dry. Hearing grossly intact. Heart-normal S1 and S2. No murmurs, rubs or gallops. Lungs-clear bilaterally, no respiratory distress, no accessory muscle use. Abdomen-normal bowel sounds and soft. No ascites noted. Non-tender. Extremities- no clubbing, cyanosis, or edema. Rheumatologic-normal range of motion. Psychiatric-normal affect. Results & Data Results & Data Vital Signs (Past 12 Hours) Vital Signs Temp Pulse Pulse Resp BP BP Pulse Ox 03/05/25 22:30 92/53 L 03/05/25 22:30 75 18 95 03/05/25 22:24 70 17 93 03/05/25 22:15 71 21 95 03/05/25 22:15 85/49 L 03/05/25 22:15 85/49 L 03/05/25 22:00 89/51 L 03/05/25 21:54 74 17 03/05/25 21:45 89/53 L 03/05/25 21:45 89/53 L 03/05/25 21:42 74 17 03/05/25 21:24 79 21 03/05/25 21:15 98/53 L 03/05/25 21:14 72 17 98/53 L 97 03/05/25 20:51 80 14 95 03/05/25 20:45 95/49 L 03/05/25 20:45 95/49 L 03/05/25 20:42 79 19 94 03/05/25 20:30 79 18 95 03/05/25 20:30 115/61 03/05/25 20:30 115/61 03/05/25 20:30 115/61 03/05/25 20:21 85 14 93 03/05/25 20:18 88 23 92 03/05/25 20:18 88 03/05/25 20:15 96/51 L 03/05/25 20:14 37.9 C H 88 18 88/53 L 94 03/05/25 20:14 88 16 94 03/05/25 20:00 03/05/25 20:00 37.1 C 82 19 96/51 L 94 03/05/25 20:00 37.1 C 92 H 14 88/53 L 94 O2 Del Method O2 Flow Rate 03/05/25 22:30 03/05/25 22:30 03/05/25 22:24 03/05/25 22:15 03/05/25 22:15 03/05/25 22:15 03/05/25 22:00 03/05/25 21:54 03/05/25 21:45 03/05/25 21:45 03/05/25 21:42 03/05/25 21:24 03/05/25 21:15 03/05/25 21:14 Nasal Cannula 2 03/05/25 20:51 03/05/25 20:45 03/05/25 20:45 03/05/25 20:42 03/05/25 20:30 03/05/25 20:30 03/05/25 20:30 03/05/25 20:30 03/05/25 20:21 03/05/25 20:18 03/05/25 20:18 03/05/25 20:15 03/05/25 20:14 Nasal Cannula 3 03/05/25 20:14 Nasal Cannula 3 03/05/25 20:00 Nasal Cannula 3 03/05/25 20:00 Nasal Cannula 3 03/05/25 20:00 Nasal Cannula 3 Laboratory Results Reviewed CBC, VBG, CMP, Pro-Kwame, bio fire, UA, troponin, mag, lactate Diagnostic Findings reviewed AP ct gallbladder us and cxr pending at time of admission - personally reviewed cxr and negative for acute changes, similar to previous Medications Administered ed - 1L NSS bolus, cefepime 2g IV, 1g PO Tylenol admission - 1L NSS bolus, LR @ 100 ml/hr, Zosyn 4.5g IV, Vancomycin 125mg PO, albumin 50g IV ECG Additional Comments: NSR rate 81 qtc 415 Code Status & VTE Plan Code Status full code Supervising Physician Co-Signing Physician Notes Attending addendum: I have physically seen this patient, have supervised the RAGHAV's activities, and agree with the H&P unless as otherwise noted. Assessment and Plan: The patient is an 89-year-old male with past medical history including recent C. difficile infection on 02/12, bladder carcinoma under surveillance, CVA, GERD, hypothyroidism, hypertension. The patient was referred from [facility], via EMS to the ED due to fatigue, generalized weakness and feeling warm today. Patient had recently undergone a right ureteral stent placement on 02/23, and was found to be septic due to UTI in the emergency department this evening. He did receive normal saline 1 L bolus, cefepime 2 g IV, and Tylenol 1 g p.o. [facility]. Sepsis due to UTI/ureteral stent/catheter associated- Follow urine culture and sensitivity Status post TURBT, with right distal stone, right ureteral stent placement on 02/10/2025. Lithotripsy and stent replacement on 02/23 Continue Kim catheter Status post 1 L normal saline bolus in ED Will give an additional 1 L normal saline bolus, followed by LR at 100 mL/h to meet septic protocol Albumin 50 g IV x 1 Received cefepime 2 g IV from the ED Placed on Zosyn 4.5 g IV every 8 hours Urology consulted in the ED, and will follow during admission Follow serial CBC with differential and basic metabolic panel Continue tamsulosin Hypotension- Lowest recorded blood pressure 85/49 Hold amiloride/HCTZ, potassium chloride IV fluids as noted above 50 g of albumin IV Will be continued on prednisone 5 mg daily, but may need stress dosing Hypoxia- Noted to be 90% on room air, and had been placed on 3 L nasal cannula to get pulse ox 95% Chest x-ray without significant findings Likely due to overall septic picture and decreased inspiratory effort Incentive spirometry Wean oxygen as able to C. difficile colitis- noted on 02/12, having completed 10-day course of oral vancomycin Will place on vancomycin orally prophylactically due to being on broad-spectrum IV antibiotics as above Start Florastor daily Transaminitis/cholelithiasis- AST 116, alkaline phosphatase 254, and albumin 2.3 Gallbladder ultrasound notes cholelithiasis without noticeable cholecystitis or bile duct dilatation Did receive 1 g Tylenol p.o. from the ED Avoid further Tylenol Follow serial laboratories Adrenal insufficiency- Chronically on prednisone 5 mg p.o. daily Will double her prednisone to 10 mg p.o. daily for 2 days Try to avoid IV hydrocortisone due to infection as above PG Care Time/CCT Total # of Minutes Spent Total Time Spent with Patient: Total time spent is greater than 50% in coordination of care (as documented) at patient's floor/unit and/or counseling patient: Coding Level of Care Code 52279 INT INP/OBS CARE 375MIN Diagnoses Sepsis A41.9 Complicated urinary tract infection N39.0 Hypoxia R09.02 Cholelithiasis K80.20
[2025-03-06 00:09] LABS: Chlamydia pneumoniae PCR Not Detected (NotDetected); Coronavirus 229E PCR Not Detected (NotDetected); Coronavirus CoV-2 (COVID19)PCR Not Detected (NotDetected); Coronavirus HKU1 PCR Not Detected (NotDetected); Coronavirus NL63 PCR Not Detected (NotDetected); Coronavirus OC43PCR Not Detected (NotDetected); Human Metapneumovirus PCR Not Detected (NotDetected); Parainfluenza Virus 1 PCR Not Detected (NotDetected); Parainfluenza Virus 2 PCR Not Detected (NotDetected); Parainfluenza Virus 3 PCR Not Detected (NotDetected); Parainfluenza Virus 4 PCR Not Detected (NotDetected); Respiratory Syncytial VirusPCR Not Detected (NotDetected); Rhinovirus/Enterovirus PCR Not Detected (NotDetected)
--- NOTE | 2025-03-06 00:15 | XRay Report ---
Exam(s): XR CXR 1 VIEW EXAM: XR Chest, 1 View CLINICAL HISTORY: Reason for exam: Sepsis. TECHNIQUE: Frontal view of the chest. COMPARISON: 12/16/2023. FINDINGS: Lungs: There is some increased opacity at the left lung base.. Pleural space: There is a small left pleural effusion.. No pneumothorax. Heart: Heart is normal in size.. Mediastinum: There is uncoiling calcification thoracic aorta.. Bones/joints: There are degenerative changes in the shoulders.. IMPRESSION: There is a small left pleural effusion with infiltrate and/or atelectasis at the left lung base. Electronically signed by: Paul Delatorre MD 03/06/25 00:14 AM
[2025-03-06] MEDS: ALBUMIN 25% 25 GM/100 ML VIAL IV SCH (00:21)
[2025-03-06] MEDS: LACTATED RINGER'S 1,000 ML IV SCH (00:21)
[2025-03-06] MEDS: SODIUM CHLORIDE 0.9% 1,000 ML IV ONE (00:21)
--- NOTE | 2025-03-06 00:24 | Ultrasound Report ---
Exam(s): US GALLBLADDER EXAM: US Abdomen Limited, Right Upper Quadrant CLINICAL HISTORY: Reason for exam: eval for acute cholecystitis. TECHNIQUE: Real-time ultrasound of the right upper quadrant with image documentation. COMPARISON: CT scan dated 03/05/2025. FINDINGS: Liver: The liver is of increased echogenicity. There is a 2 cm complex cyst noted in the left lobe of the liver. No intrahepatic bile duct dilation. Gallbladder: Gallbladder wall measured 3.6 mm. There are gallstones within the gallbladder. A- Samuels sign was reported.. Common bile duct: Unremarkable as visualized. No stones. The common bile duct measured 4 mm. Pancreas: The pancreas is very limitedly visualized. The visualized portions are unremarkable.. Right kidney: No stones. No hydronephrosis. There is an 8.8 cm complex cystic structure in the upper pole of the right kidney. A right ureteral stent is noted. Fluid: There is a trace amount of free fluid noted adjacent to the liver. IMPRESSION: Cholelithiasis. The liver is of increased echogenicity which may be due to fatty infiltration and/or hepatocellular disease. There is a 2 cm complex cyst in left lobe of the liver. There is a right ureteral stent. There is an 8.8 cm complex cystic structure in the upper pole of the right kidney. There is a trace amount of free fluid noted posterior to the liver. Electronically signed by: Paul Delatorre MD 03/06/25 00:23 AM
[2025-03-06 00:46] LABS: Basophilic Stippling 1+; Polychromasia 2+
[2025-03-06] MEDS ORDERED: ONDANSETRON INJ 2 MG/ML 2 ML VIAL IV PRN (02:10)
[2025-03-06] MEDS ORDERED: DOCUSATE SODIUM 100 MG CAP PO PRN (02:10)
[2025-03-06] MEDS ORDERED: MELATONIN 3 MG TAB PO PRN (02:10)
[2025-03-06] MEDS: VANCOMYCIN HCL 125 MG/2.5ML SOLN PO SCH (03:15)
[2025-03-06] MEDS: CHERRY SYRUP 5 ML UDP PO SCH ×2 (03:15→17:51)
[2025-03-06] MEDS: 4.5GM X1 IV STA (03:19)
--- NOTE | 2025-03-06 05:15 | Urology Consultation ---
Date of Consultation March 06, 2025 Supervising Physician Co-Signing Physician Notes Discussed patient with RAGHAV. Rounded on patient personally. Patient is feeling well and his only symptom was fatigue. He denies any right flank pain or issues with this catheter. No urologic intervention necessary. Interestingly, it almost looks as if the proximal tip of his stent is in the large right renal cyst he had previously. This cyst appears smaller and has some rim enhancement now which makes me wonder if the proximal coil is in fact in that cyst which would be odd. That being said, he is asymptomatic and I do not think it changes his plan. He is scheduled for catheter and stent removal on Saturday and we will see how he does over the weekend in the hospital but my guess is we will likely push that back due to his possible infection. Continue antibiotics, follow-up cultures. Urology will follow peripherally. History of Present Illness Reason for Consultation: Urinary tract infection History of ureteral stent Attending Physician: Kilo Newsome MD History of Present Illness This is an 89-year-old male known to [facility] urology. On 02/23/2025 Dr. Yen performed a cystoscopy with laser lithotripsy and basket extraction of kidney stone fragments as well as right ureteral stent exchange. Patient was discharged home the same day as his procedure. Patient presented to the emergency department today secondary to not feeling well. Patient says that over the past few days at home he has felt tired and weak. He says he has had at least 1 episode of nausea and vomiting. He denies any back or flank pain and he also denies any abdominal pain whatsoever. He believes he may have had some fevers at home. Patient says that he did have a catheter in his bladder so he did not have any urinary symptoms. Because of his symptomatology his family brought him to the emergency department. Since arrival to hospital patient has had labs and imaging which independent reviewed. Chest x-ray shows small left pleural effusion with potential infiltrate at the left lung base. A CT scan of the abdomen pelvis was performed and this showed a right ureteral stent with no evidence of hydronephrosis. Bilateral renal cysts are noted. Several small calculi were noted within the bladder. The patient was also noted to have gallstones with no biliary ductal dilatation. A gallbladder ultrasound showed gallstones. Labs included CBC white blood cell count was 11.4. Hemoglobin and hematocrit were 11.8 and 35.2. Platelet count was 122,000. Chemistry profile showed sodium was 135 with a normal potassium. BUN and creatinine are both normal. Lactic acid level was elevated at 2.1 but has improved to 1.3 since treatment was initiated the patient's total bilirubin was not elevated he did have a slight elevation of his AST of 116 and an elevation of his alkaline phosphatase at 254. Urinalysis was positive for nitrites as well as 1+ leukocyte esterase. There is pyuria with 21-50 white blood cells per high-power field and 3+ bacteria. In the emergency department the patient was noted to be hypotensive and febrile. He was treated with intravenous antibiotics as well as intravenous fluids. He did receive cefepime and Zosyn. It was felt the patient was likely septic from a complicated urinary tract infection and has since been admitted to the hospitalist service. At the time of my visit with the patient he notes he was feeling better and was resting comfortably in bed in no distress. Allergies Allergy/AdvReac Type Severity Reaction Status Date / Time No Known Drug Allergies Allergy Verified 02/23/25 08:34 Home Medications Medication Instructions Recorded Confirmed Type amiloride 5 mg-hydrochlorothiazide 0.5 tab PO QAM #90 tabs 08/04/24 02/23/25 Rx 50 mg tablet prednisone 5 mg tablet 5 mg PO QAM #90 tabs 10/12/24 02/23/25 Rx levothyroxine 100 mcg tablet 100 mcg PO QAM 02/03/25 02/23/25 History rosuvastatin 20 mg tablet (Crestor) 20 mg PO HS 02/10/25 02/23/25 History gabapentin 300 mg capsule 300 mg PO BID 02/12/25 02/23/25 History mirtazapine 15 mg tablet 15 mg PO QAM 02/12/25 02/23/25 History tamsulosin 0.4 mg capsule 0.4 mg PO QPM 02/12/25 02/23/25 History theophylline 300 mg 600 mg PO QAM asthma 02/12/25 02/23/25 History tablet,extended release,12 hr ticagrelor 90 mg tablet (Brilinta) 0 mg PO QAM 02/12/25 02/23/25 History acetaminophen 325 mg tablet 650 mg PO QID PRN pain 1-10/fever 02/18/25 02/23/25 History >100 bisacodyl 10 mg rectal suppository 10 mg CO UD PRN Constipation 02/18/25 02/23/25 History (Dulcolax (bisacodyl)) magnesium hydroxide 400 mg/5 mL 30 ml PO UD PRN Constipation 02/18/25 02/23/25 History oral suspension menthol 0.44 %-zinc oxide 20 % 1 ea topical BID 02/18/25 02/23/25 History topical ointment potassium chloride 20 mEq 20 meq PO BID #60 tabs 02/18/25 02/23/25 Rx tablet,extended release(part/cryst) sodium phosphates 19 gram-7 118 ml CO UD PRN Constipation 02/18/25 02/23/25 History gram/118 mL enema (Fleet Enema) vancomycin 125 mg capsule 125 mg PO QID 02/18/25 02/23/25 History Patient History Medical History (Updated 03/06/25 @ 09:31 by Claude Rolon, DO) Squamous cell carcinoma Nephrolithiasis Bladder carcinoma TIA (transient ischemic attack) aphasia; 04/2023, 09/01/23, 12/16/23 Diverticulitis C. difficile diarrhea Calculus of ureter Malignant neoplasm of parotid gland (2020) Hx -left parotid neoplasm 2020- treated with surgical excision and radiation. 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 Meningioma Dural based calcification along the inner table at the vertex is 14 x 8mm, likely a small meningioma per 04/22/23 brain MRI Followed by neurology per PCP records Ventral hernia Surgical History (Updated 03/06/25 @ 09:25 by Claude Rolon DO) Status post Mohs surgery sees dermatology on 08/09/23 for follow up/ possible procedure History of anesthesia reaction Hard time waking up>did well with last TURBT History of tooth extraction History of cataract surgery right/left History of bladder surgery multiple TURBT procedures; most recent: 02/10/25 Status post Mohs surgery History of transcarotid artery revascularization (TCAR) (05/06/23) left ICA shunt, [facility] History of loop recorder (2021) removed 02/2022, 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 History of urologic surgery Cystolithopaxy (Bladder Stone Fragmentation and Removal) Transurethral resection of bladder tumor) History of colonoscopy History of colostomy reversal History of bowel resection (2015) due to cancer, w/ colostomy & reversal Hx of parotidectomy due to ca History of hemorrhoidectomy Family History Unknown Coronary heart disease Cancer Father Cancer Hypertension Son Diabetes Mother Benign neoplasm of head Brother Heart disease Brother Liver disease Heart disease Valve replacement Other No family history of adverse response to anesthesia Denies family history of Stroke Social History Smoking Status: Never smoker Tobacco Type: Cigarettes Age Started Using Tobacco: 20; Age Quit Using Tobacco: 30; packs per day: 1; Hx Alcohol Use: No Hx Substance Use: No Preferred Language: Trinidadian Communication Ability: Effective Communication Ability Comment: Mild expressive aphasia Visual Impairment: No Limitations Hearing Ability: Hard of Hearing Field Inspector Required: No Beliefs That Will Affect Care: None marital status: Current Living Situation: Family Current Living Situation Comment: resident of [facility] current occupational status: retired Other Information That Helps Us Care for You: No Feels Safe at Home: Yes Safety Concerns: Feels Safe At This Time Childhood Exposure to Second-Hand Smoke: No caffeine: No Dental Care, Regularly: No Physical Activity Frequency: Daily Seatbelt Use: always Sunscreen Use: No Assistive Devices: Hearing Aid - Right and Wheelchair Review of Systems Review of Systems: All systems reviewed & are unremarkable except as noted in HPI & below Physical Exam Constitutional: WD/WN, vitals as above Eyes: no conjunctival abnormality ENMT: Ears: no hearing impairment and no external ear abnormality Mouth: + oropharynx abnormality Neck: trachea midline Respiratory: normal respiratory effort; no respiratory distress and no labored breathing Cardiovascular: Rate/Rhythm: regular rate and regular rhythm Gastrointestinal (Abdomen): Patient's abdomen is soft and nontender, he has no rebound tenderness, guarding, or any areas of point tenderness. He specifically does not have any right upper quadrant tenderness Musculoskeletal: No calf tenderness Skin: no rashes Neurologic: moves all extremities No CVA tenderness with percussion bilaterally. Smith catheter is in place and is patent draining yellow urine Results & Data Vital Signs (Past 12 Hours) Vital Signs Temp Pulse Pulse Resp BP BP BP 03/06/25 04:00 35.5 C L 56 L 16 101/54 L 03/06/25 02:25 03/06/25 02:06 60 03/06/25 01:45 64 20 141/69 H 03/06/25 01:14 57 L 18 99/57 L 03/06/25 00:33 59 L 17 97/50 L 03/06/25 00:13 67 03/06/25 00:02 82/53 L 03/05/25 23:36 67 17 03/05/25 23:00 100/52 L 03/05/25 23:00 71 16 100/52 L 03/05/25 22:45 68 18 91/55 L 03/05/25 22:39 69 19 03/05/25 22:30 92/53 L 03/05/25 22:30 75 18 03/05/25 22:24 70 17 03/05/25 22:15 71 21 03/05/25 22:15 85/49 L 03/05/25 22:15 85/49 L 03/05/25 22:00 89/51 L 03/05/25 21:54 74 17 03/05/25 21:45 89/53 L 03/05/25 21:45 89/53 L 03/05/25 21:42 74 17 03/05/25 21:24 79 21 03/05/25 21:15 98/53 L 03/05/25 21:14 72 17 98/53 L 03/05/25 20:51 80 14 03/05/25 20:45 95/49 L 03/05/25 20:45 95/49 L 03/05/25 20:42 79 19 03/05/25 20:30 79 18 03/05/25 20:30 115/61 03/05/25 20:30 115/61 03/05/25 20:30 115/61 03/05/25 20:21 85 14 03/05/25 20:18 88 23 03/05/25 20:18 88 03/05/25 20:15 96/51 L 03/05/25 20:14 37.9 C H 88 18 88/53 L 03/05/25 20:14 88 16 03/05/25 20:00 03/05/25 20:00 37.1 C 82 19 96/51 L 03/05/25 20:00 37.1 C 92 H 14 88/53 L Pulse Ox O2 Del Method O2 Flow Rate 03/06/25 04:00 97 Room Air 03/06/25 02:25 Nasal Cannula 3 03/06/25 02:06 03/06/25 01:45 95 Nasal Cannula 2 03/06/25 01:14 97 Nasal Cannula 3 03/06/25 00:33 97 Nasal Cannula 3 03/06/25 00:13 03/06/25 00:02 03/05/25 23:36 95 03/05/25 23:00 03/05/25 23:00 96 Nasal Cannula 3 03/05/25 22:45 96 3 03/05/25 22:39 96 03/05/25 22:30 03/05/25 22:30 95 03/05/25 22:24 93 03/05/25 22:15 95 03/05/25 22:15 03/05/25 22:15 03/05/25 22:00 03/05/25 21:54 03/05/25 21:45 03/05/25 21:45 03/05/25 21:42 03/05/25 21:24 03/05/25 21:15 03/05/25 21:14 97 Nasal Cannula 2 03/05/25 20:51 95 03/05/25 20:45 03/05/25 20:45 03/05/25 20:42 94 03/05/25 20:30 95 03/05/25 20:30 03/05/25 20:30 03/05/25 20:30 03/05/25 20:21 93 03/05/25 20:18 92 03/05/25 20:18 03/05/25 20:15 03/05/25 20:14 94 Nasal Cannula 3 03/05/25 20:14 94 Nasal Cannula 3 03/05/25 20:00 Nasal Cannula 3 03/05/25 20:00 94 Nasal Cannula 3 03/05/25 20:00 94 Nasal Cannula 3 PG Care Time/CCT Total # of Minutes Spent Total Time Spent with Patient: Total time spent is greater than 50% in coordination of care (as documented) at patient's floor/unit and/or counseling patient: Coding Level of Care Code 46462 INT INP/OBS CARE 3/75MIN
[2025-03-06] MEDS: LEVOTHYROXINE SODIUM 100 MCG TABLET PO SCH (06:09)
[2025-03-06 06:48] LABS: Hematocrit (blood only) 31.7 % (42.0-52.0); Hemoglobin 10.2 g/dl (14.0-18.0); Mean Corpuscular Hemoglobin 29.3 pg (25.0-34.0); Mean Corpuscular Volume 91.1 fL (80.0-100.0); Platelet Count 102 K/uL (130-400); RDW Standard Deviation 50.7 fL (36.4-46.3); Red Blood Count 3.48 M/uL (4.70-6.10); White Blood Count 10.20 K/ul (4.8-10.8)
[2025-03-06 06:57] LABS: Alanine Aminotransferase 83.0 U/L (7-52); Albumin Globulin Ratio 1.6 (0.9-2); Alkaline Phosphatase 221.0 U/L (34-104); Anion Gap 5.0 (3-11); Bilirubin,Total 1.3 mg/dl (0.2-1.0); Blood Urea Nitrogen 15.0 mg/dl (6-23); Calcium 8.1 mg/dl (8.6-10.3); Carbon Dioxide 26.0 mmol/L (21-32); Chloride 108.0 mmol/L (98-107); Creatinine Clr Calc Pharmacy 53.6 ml/min; Globulin 2.0 gm/dl (2.5-4.0); Glucose 161.0 mg/dl (70-99(Fasting)); Magnesium 1.9 mg/dl (1.7-2.4); Potassium 4.1 mmol/L (3.5-5.1); Sodium 139.0 mmol/L (136-145); Total Protein 5.1 gm/dl (6.0-8.3)
[2025-03-06 07:49] LABS: Immature Granulocytes # (auto) 0.05 K/uL (0.01-0.20); Immature Granulocytes % (auto) 0.5 %
[2025-03-06] MEDS: PIPERACILLIN/TAZOBACTAM 4.5 GM/100 ML BAG IV SCH (08:36)
[2025-03-06] MEDS: HYDROCORTISONE SOD 100 MG in SYRINGE 0 ML IV STA (08:36)
[2025-03-06] MEDS: GLYCERIN ADULT 12 SUPP/BOX SUPP PR ONE (08:37)
[2025-03-06] MEDS: GABAPENTIN 300 MG CAP PO SCH (08:37)
[2025-03-06] MEDS: MIRTAZAPINE TAB 15 MG TAB PO SCH (08:38)
[2025-03-06] MEDS ORDERED: SACCHAROMYCES BOULARDII 250 MG CAP PO SCH (09:00)
[2025-03-06] MEDS: TICAGRELOR 90 MG TAB PO SCH (09:18)
--- NOTE | 2025-03-06 09:42 | Hospitalist Progress Note ---
Date of Service March 06, 2025 Assessment & Plan (1) Catheter-associated urinary tract infection: (2) Iatrogenic adrenal insufficiency: (3) Sepsis without acute organ dysfunction: (4) Hypoxia: (5) Transaminasemia: (6) Cholelithiasis: (7) Chronic heart failure with preserved ejection fraction: (8) Thoracic aortic aneurysm: Plan In summary this is an 89-year-old male admitted to [facility] due to sepsis without acute organ dysfunction in the setting of a catheter associated urinary tract infection, complicated by iatrogenic adrenal insufficiency, new transaminasemia in the setting of cholelithiasis without cholecystitis #Sepsis without acute organ dysfunction // CAUTI // Iatrogenic adrenal insufficiency patient initially presented with mild leukocytosis, hypotension, lactic acidosis; found to have elevated procalcitonin of 0.56; urinalysis notable for pyuria, bacteriuria, nitrates; CT abdomen/pelvis did not reveal any significant inflammatory changes in the genitourinary system; patient is chronically prescribed prednisone for previously diagnosed adrenal insufficiency, given the presentation and critical illness, we will start stress dose steroids as detailed below Continue Zosyn, started 03/05 Administer hydrocortisone 100 mg IV one-time stat followed by 50 mg IV every 6 hours to be reassessed daily based on need as the patient's clinical course improves Continue lactated ringer 100 mL/h, p.o. ad lyubov. Follow urine culture Urology consulted #Transient Hypoxia // Chronic heart failure with preserved ejection fraction // Hyperlipidemia // Coronary and peripheral arterial disease // Hypertension most recent TTE 11/2023 with ejection fraction 45 to 50% with mild global hypokinesis of the left ventricle and other findings With hold home diuretic therapies in the setting of intravascular depletion from sepsis Continue remaining cardiovascular medications #Transaminasemia // Cholelithiasis without cholecystitis AST 181, ALT 83, alkaline phosphatase 221 with total bilirubin 1.3; R factor 0.8 suggestive of a cholestatic injury; abdominal ultrasound has already been obtained revealing multiple gallstones with negative Samuels sign; the patient is asymptomatic with regard to any biliary pathology at this time; transaminasemia may be consequential of the patient's systemic illness, continue to follow daily #Geriatric frailty and physical deconditioning Chronic condition, resident at [facility] #Acquired hypothyroidism Chronic condition; continue home medication at this time DVT PPx: start enoxaparin 40 mg SQ daily Admission and Anticipated Discharge Date Admission Date: March 05, 2025 Anticipated date of discharge: 03/08/25 Subjective Mr. Redmond is an 89-year-old male whose active medical conditions include benign prostatic hyperplasia with urinary obstruction, recurrent nephrolithiasis with a recent right ureteral stent placement and subsequent lithotripsy and stent replacement on 02/23, peripheral and coronary arterial disease, hyperlipidemia, hypertension among other chronic medical conditions who presented to [facility] on 03/05 due to fatigue, weakness. No acute overnight events; feels fatigue this morning, though slightly improved from his initial presentation. Review of Systems Review of Systems: Review of constitutional, genitourinary, gastrointestinal, cardiovascular, pulmonary systems was unremarkable Physical Exam Physical Exam: General: Elderly male in no acute distress Vital Signs: reviewed HEENT: atraumatic, normocephalic; pupils equally round reactive to light; extraocular motion intact; tacky mucous membranes Neck: Pulmonary: symmetric and unrestricted chest wall excursion; lungs clear to auscultation bilaterally Cardiovascular: regular rate and rhythm without murmurs, rubs, or gallops; S1 and S2 normal; bilateral radial and posterior tibial pulse 2+; no notable lower extremity edema Gastrointestinal: soft, nondistended; normal bowel sounds present throughout all 4 quadrants; nontender to superficial and deep palpation throughout the abdomen; no notable hepatomegaly; sign negative Genitourinary: Smith catheter in place with approximately 200 mL of tonia urine without sediment Musculoskeletal: Neurologic: CN II-XII grossly intact; no discernible focal weakness nor paresthesias Skin: scattered seborrheic keratoses and scars from prior incisional biopsies Results & Data Results & Data Vital Signs (Past 12 Hours) Vital Signs Temp Pulse Pulse Resp BP BP BP 03/06/25 07:22 36.3 C L 62 20 118/51 L 03/06/25 07:21 61 03/06/25 06:00 36.4 C L 03/06/25 04:00 35.5 C L 56 L 16 101/54 L 03/06/25 02:30 03/06/25 02:25 03/06/25 02:06 60 03/06/25 01:45 64 20 141/69 H 03/06/25 01:14 57 L 18 99/57 L 03/06/25 00:33 59 L 17 97/50 L 03/06/25 00:13 67 03/06/25 00:02 82/53 L 03/05/25 23:36 67 17 03/05/25 23:00 100/52 L 03/05/25 23:00 71 16 100/52 L 03/05/25 22:45 68 18 91/55 L 03/05/25 22:39 69 19 03/05/25 22:30 92/53 L 03/05/25 22:30 75 18 03/05/25 22:24 70 17 03/05/25 22:15 71 21 03/05/25 22:15 85/49 L 03/05/25 22:15 85/49 L 03/05/25 22:00 89/51 L 03/05/25 21:54 74 17 03/05/25 21:45 89/53 L 03/05/25 21:45 89/53 L 03/05/25 21:42 74 17 Pulse Ox O2 Del Method O2 Flow Rate 03/06/25 07:22 98 Nasal Cannula 3 03/06/25 07:21 03/06/25 06:00 03/06/25 04:00 97 Room Air 03/06/25 02:30 Nasal Cannula 3 03/06/25 02:25 Nasal Cannula 3 03/06/25 02:06 03/06/25 01:45 95 Nasal Cannula 2 03/06/25 01:14 97 Nasal Cannula 3 03/06/25 00:33 97 Nasal Cannula 3 03/06/25 00:13 03/06/25 00:02 03/05/25 23:36 95 03/05/25 23:00 03/05/25 23:00 96 Nasal Cannula 3 03/05/25 22:45 96 3 03/05/25 22:39 96 03/05/25 22:30 03/05/25 22:30 95 03/05/25 22:24 93 03/05/25 22:15 95 03/05/25 22:15 03/05/25 22:15 03/05/25 22:00 03/05/25 21:54 03/05/25 21:45 03/05/25 21:45 03/05/25 21:42 PG Care Time/CCT Total # of Minutes Spent Total Time Spent with Patient: Total time spent is greater than 50% in coordination of care (as documented) at patient's floor/unit and/or counseling patient: Coding Level of Care Code 18377 SUB INP/OBS CARE 50MIN Diagnoses Urinary tract infection associated with indwelling urethral catheter, initial encounter T83.511A; N39.0 Indwelling urinary catheter type: indwelling urethral catheter Encounter type: initial encounter Iatrogenic adrenal insufficiency E27.49 Sepsis without acute organ dysfunction, due to unspecified organism A41.9 Sepsis type: sepsis due to unspecified organism Hypoxia R09.02 Transaminasemia R74.01 Calculus of gallbladder without cholecystitis without obstruction K80.20 Cholelithiasis location: gallbladder Cholecystitis presence: without cholecystitis Biliary obstruction: without biliary obstruction Chronic heart failure with preserved ejection fraction I50.32 Aneurysm of ascending aorta without rupture I71.21 Thoracic aorta location: ascending aorta Presence of rupture: without rupture (1) Catheter-associated urinary tract infection Indwelling urinary catheter type: indwelling urethral catheter Encounter type: initial encounter Qualified Code(s): T83.511A - Infection and inflammatory reaction due to indwelling urethral catheter, initial encounter; N39.0 - Urinary tract infection, site not specified (3) Sepsis without acute organ dysfunction Sepsis type: sepsis due to unspecified organism Qualified Code(s): A41.9 - Sepsis, unspecified organism (6) Cholelithiasis Cholelithiasis location: gallbladder Cholecystitis presence: without cholecystitis Biliary obstruction: without biliary obstruction Qualified Code(s): K80.20 - Calculus of gallbladder without cholecystitis without obstruction (8) Thoracic aortic aneurysm Thoracic aorta location: ascending aorta Presence of rupture: without rupture Qualified Code(s): I71.21 - Aneurysm of the ascending aorta, without rupture
--- NOTE | 2025-03-06 13:29 | Electrocardiogram Report ---
Test Reason : Blood Pressure : */* mmHG Vent. Rate : 81 BPM Atrial Rate : 81 BPM P-R Int : 198 ms QRS Dur : 118 ms QT Int : 358 ms P-R-T Axes : 36 -51 25 degrees QTcB Int : 415 ms Normal sinus rhythm Left anterior fascicular block Minimal voltage criteria for LVH, may be normal variant ( [place] product ) Abnormal ECG When compared with ECG of 18-Jan-2025 14:09, No significant change was found Confirmed by Mike Izquierdo ([id number]) on 03/06/2025 1:28:20 PM Referred By: REFERRED SELF Confirmed By: Mike Izquierdo
[2025-03-06] MEDS: PANTOprazole 40 MG/10 ML SYR IV SCH (21:16)
[2025-03-06] MEDS: TAMSULOSIN HCL 0.4 MG CAP PO SCH (21:16)
[2025-03-06] MEDS: ROSUVASTATIN CALCIUM 20 MG TAB PO SCH (21:16)
--- NOTE | 2025-03-07 07:06 | Hospitalist Progress Note ---
Date of Service March 07, 2025 Assessment & Plan (1) Catheter-associated urinary tract infection: (2) Iatrogenic adrenal insufficiency: (3) Sepsis without acute organ dysfunction: (4) Hypoxia: (5) Transaminasemia: (6) Cholelithiasis: Plan In summary this is an 89-year-old male admitted to [facility] due to sepsis without acute organ dysfunction in the setting of a catheter associated urinary tract infection, complicated by iatrogenic adrenal insufficiency, new transaminasemia in the setting of cholelithiasis without cholecystitis #Sepsis without acute organ dysfunction // CAUTI // Iatrogenic adrenal insufficiency Patient initially presented with mild leukocytosis, hypotension, lactic acidosis; found to have elevated procalcitonin of 0.56; urinalysis notable for pyuria, bacteriuria, nitrates; urine culture was with pinpoint growth on 03/06, pending recultured datea Continue Zosyn, started 03/05 Discontinue hydrocortisone stress dosing, resume usual home prescription Discontinue lactated ringer Follow urine culture Urology consulted; recommend outpatient follow up unless unforseen complication occurs #Transient Hypoxia // Chronic heart failure with preserved ejection fraction // Hyperlipidemia // Coronary and peripheral arterial disease // Hypertension most recent TTE 11/2023 with ejection fraction 45 to 50% with mild global hypokinesis of the left ventricle and other findings With hold home diuretic therapies in the setting of intravascular depletion from sepsis Continue remaining cardiovascular medications #Transaminasemia // Cholelithiasis without cholecystitis Improving laboratory measures with downtrending transaminases and alkalinephosphatase; abdominal ultrasound revealed multiple gallstones with negative Samuels sign; the patient is asymptomatic with regard to any biliary pathology at this time; transaminasemia suspected to be consequential of the patient's systemic illness, continue to follow daily #Geriatric frailty and physical deconditioning Chronic condition, resident at [facility] #Acquired hypothyroidism Chronic condition; continue home medication at this time DVT PPx: continue enoxaparin 40 mg SQ daily Admission and Anticipated Discharge Date Admission Date: March 05, 2025 Anticipated date of discharge: 03/09/25 Subjective Mr. Redmond is an 89-year-old male whose active medical conditions include benign prostatic hyperplasia with urinary obstruction, recurrent nephrolithiasis with a recent right ureteral stent placement and subsequent lithotripsy and stent replacement on 02/23, peripheral and coronary arterial disease, hyperlipidemia, hypertension among other chronic medical conditions who presented to [facility] on 03/05 due to fatigue, weakness. No acute overnight events; continues to feel improved Review of Systems Review of Systems: Review of constitutional, genitourinary, gastrointestinal, cardiovascular, pulmonary systems was unremarkable Physical Exam Physical Exam: General: Elderly male in no acute distress Vital Signs: reviewed HEENT: atraumatic, normocephalic; pupils equally round reactive to light; extraocular motion intact; tacky mucous membranes Pulmonary: symmetric and unrestricted chest wall excursion; lungs clear to auscultation bilaterally Cardiovascular: regular rate and rhythm without murmurs, rubs, or gallops; S1 and S2 normal; bilateral radial and posterior tibial pulse 2+; no notable lower extremity edema Gastrointestinal: soft, nondistended Genitourinary: Smith catheter in place with approximately 200 mL of tonia urine without sediment Neurologic: CN II-XII grossly intact; no discernible focal weakness nor paresthesias Results & Data Results & Data Vital Signs (Past 12 Hours) Vital Signs Temp Pulse Pulse Resp BP Pulse Ox O2 Del Method 03/07/25 04:19 36.4 C L 63 17 107/70 90 Room Air 03/06/25 23:58 36.5 C 67 18 115/68 94 Room Air 03/06/25 21:44 64 03/06/25 21:00 Room Air 03/06/25 20:21 36.5 C 62 18 108/64 92 Room Air PG Care Time/CCT Total # of Minutes Spent Total Time Spent with Patient: Total time spent is greater than 50% in coordination of care (as documented) at patient's floor/unit and/or counseling patient: Coding Level of Care Code 17294 SUB INP/OBS CARE 2/35MIN Diagnoses Urinary tract infection associated with indwelling urethral catheter, initial encounter T83.511A; N39.0 Encounter type: initial encounter Indwelling urinary catheter type: indwelling urethral catheter Iatrogenic adrenal insufficiency E27.49 Sepsis without acute organ dysfunction, due to unspecified organism A41.9 Sepsis type: sepsis due to unspecified organism Hypoxia R09.02 Transaminasemia R74.01 Calculus of gallbladder without cholecystitis without obstruction K80.20 Biliary obstruction: without biliary obstruction Cholecystitis presence: without cholecystitis Cholelithiasis location: gallbladder (1) Catheter-associated urinary tract infection Encounter type: initial encounter Indwelling urinary catheter type: indwelling urethral catheter Qualified Code(s): T83.511A - Infection and inflammatory reaction due to indwelling urethral catheter, initial encounter; N39.0 - Urinary tract infection, site not specified (3) Sepsis without acute organ dysfunction Sepsis type: sepsis due to unspecified organism Qualified Code(s): A41.9 - Sepsis, unspecified organism (6) Cholelithiasis Biliary obstruction: without biliary obstruction Cholecystitis presence: without cholecystitis Cholelithiasis location: gallbladder Qualified Code(s): K80.20 - Calculus of gallbladder without cholecystitis without obstruction
[2025-03-07 07:21] LABS: Hematocrit (blood only) 32.8 % (42.0-52.0); Hemoglobin 10.7 g/dl (14.0-18.0); Immature Granulocytes # (auto) 0.25 K/uL (0.01-0.20); Immature Granulocytes % (auto) 1.4 %; Mean Corpuscular Hemoglobin 29.6 pg (25.0-34.0); Mean Corpuscular Volume 90.6 fL (80.0-100.0); Platelet Count 114 K/uL (130-400); RDW Standard Deviation 50.6 fL (36.4-46.3); Red Blood Count 3.62 M/uL (4.70-6.10); White Blood Count 18.17 K/ul (4.8-10.8)
[2025-03-07 07:46] LABS: Alanine Aminotransferase 58.0 U/L (7-52); Albumin Globulin Ratio 1.2 (0.9-2); Alkaline Phosphatase 194.0 U/L (34-104); Anion Gap 5.0 (3-11); Bilirubin,Total 0.6 mg/dl (0.2-1.0); Blood Urea Nitrogen 16.0 mg/dl (6-23); Calcium 8.1 mg/dl (8.6-10.3); Carbon Dioxide 27.0 mmol/L (21-32); Chloride 108.0 mmol/L (98-107); Creatinine Clr Calc Pharmacy 57.1 ml/min; Globulin 2.1 gm/dl (2.5-4.0); Glucose 104.0 mg/dl (70-99(Fasting)); Magnesium 1.9 mg/dl (1.7-2.4); Potassium 3.4 mmol/L (3.5-5.1); Sodium 140.0 mmol/L (136-145); Total Protein 4.7 gm/dl (6.0-8.3)
--- NOTE | 2025-03-07 08:23 | Urology Progress Note ---
Date of Service March 07, 2025 Assessment & Plan (1) Renal cyst, right: (2) Nephrolithiasis: (3) Physical deconditioning: (4) Bladder carcinoma: Plan 89-year-old male with a history of bladder cancer and right nephrolithiasis who is status post TURBT and more recently right ureteroscopy. Presented the hospital due to feelings of fatigue. CT scan showed no hydronephrosis but on my interpretation the proximal coil of the stent may be in a upper pole renal cyst. Maintain Smith catheter. Patient is scheduled for cystoscopy and stent removal tomorrow which will likely have to be canceled and pushed back and my office will handle that Unclear why he had a bump in his leukocytosis as his urine culture is not growing anything. I am less convinced that this is an issue that is urologically related Remainder of care per primary team. Defer to them on further workup for leukocytosis Urology to follow peripherally Admission and Anticipated Discharge Date Admission Date: March 05, 2025 Subjective No acute issues overnight. Afebrile with stable vitals. Leukocytosis did raise from 10-18. Creatinine remained stable at 0.86. Nothing growing out on cultures at this point. Patient reports feeling fine today. Physical Exam Physical Exam: General: Alert and oriented, no acute distress HEENT: Normocephalic, mucous membranes moist Pulmonary: Nonlabored respirations Abdomen: Nondistended Extremities: Moves all 4 spontaneously Neuro: No gross deficits Skin: Warm, dry, no rashes noted Results & Data Vital Signs (Past 12 Hours) Vital Signs Temp Pulse Pulse Resp BP Pulse Ox O2 Del Method 03/07/25 07:23 36.7 C 61 17 117/69 92 Room Air 03/07/25 04:19 36.4 C L 63 17 107/70 90 Room Air 03/06/25 23:58 36.5 C 67 18 115/68 94 Room Air 03/06/25 21:44 64 03/06/25 21:00 Room Air PG Care Time/CCT Total # of Minutes Spent Total Time Spent with Patient: Total time spent is greater than 50% in coordination of care (as documented) at patient's floor/unit and/or counseling patient: Coding Level of Care Code 81113 SUB INP/OBS CARE 2/35MIN Diagnoses Renal cyst, right N28.1 Nephrolithiasis N20.0 Physical deconditioning R53.81 Bladder carcinoma C67.9
--- NOTE | 2025-03-08 07:14 | Hospitalist Progress Note ---
Date of Service March 08, 2025 Assessment & Plan (1) Catheter-associated urinary tract infection: (2) Iatrogenic adrenal insufficiency: (3) Sepsis without acute organ dysfunction: (4) Hypoxia: (5) Transaminasemia: (6) Cholelithiasis: Plan In summary this is an 89-year-old male admitted to [facility] due to sepsis without acute organ dysfunction in the setting of a catheter associated urinary tract infection, complicated by iatrogenic adrenal insufficiency, new transaminasemia in the setting of cholelithiasis without cholecystitis #Sepsis without acute organ dysfunction // CAUTI // Iatrogenic adrenal insufficiency Patient initially presented with mild leukocytosis, hypotension, lactic acidosis; found to have elevated procalcitonin of 0.56; urinalysis notable for pyuria, bacteriuria, nitrates; urine culture was with pinpoint growth on 03/06, pending recultured datea Discontinue Zosyn, total 3 day course - Start Levofloxacin 750 mg p.o. daily on 03/08 Continue prednisone Discontinue lactated ringer Urine culture without significant growth, though without any additional source from initial presentation Urology consulted; recommend outpatient follow up unless unforseen complication occurs #Transient Hypoxia // Chronic heart failure with preserved ejection fraction // Hyperlipidemia // Coronary and peripheral arterial disease // Hypertension most recent TTE 11/2023 with ejection fraction 45 to 50% with mild global hypokinesis of the left ventricle and other findings With hold home diuretic therapies in the setting of intravascular depletion from sepsis Continue remaining cardiovascular medications #Transaminasemia // Cholelithiasis without cholecystitis Resolved; consider outpatient follow up with General Surgery to reduce risk of future hospitalizations #Geriatric frailty and physical deconditioning Chronic condition, resident at [facility] #Acquired hypothyroidism Chronic condition; continue home medication at this time DVT PPx: continue enoxaparin 40 mg SQ daily Admission and Anticipated Discharge Date Admission Date: March 05, 2025 Subjective Mr. Redmond is an 89-year-old male whose active medical conditions include benign prostatic hyperplasia with urinary obstruction, recurrent nephrolithiasis with a recent right ureteral stent placement and subsequent lithotripsy and stent replacement on 02/23, peripheral and coronary arterial disease, hyper lipidemia, hypertension among other chronic medical conditions who presented to [facility] on 03/05 due to fatigue, weakness. No acute overnight events; continues to feel improved Review of Systems Review of Systems: Review of constitutional, genitourinary, gastrointestinal, cardiovascular, pulmonary systems was unremarkable Physical Exam Physical Exam: General: Elderly male in no acute distress Vital Signs: reviewed HEENT: atraumatic, normocephalic; pupils equally round reactive to light; extraocular motion intact; tacky mucous membranes Pulmonary: symmetric and unrestricted chest wall excursion; lungs clear to auscultation bilaterally Cardiovascular: regular rate and rhythm without murmurs, rubs, or gallops; S1 and S2 normal; bilateral radial and posterior tibial pulse 2+; no notable lower extremity edema Gastrointestinal: soft, nondistended Genitourinary: Smith catheter in place with approximately 200 mL of tonia urine without sediment Neurologic: CN II-XII grossly intact; no discernible focal weakness nor paresthesias Results & Data Results & Data Vital Signs (Past 12 Hours) Vital Signs Temp Pulse Pulse Resp BP BP Pulse Ox 03/08/25 05:15 65 03/08/25 03:50 36.4 C L 62 17 144/84 H 95 03/07/25 22:48 36.5 C 69 18 154/79 H 94 03/07/25 19:34 36.9 C 69 17 136/75 93 O2 Del Method 03/08/25 05:15 03/08/25 03:50 Room Air 03/07/25 22:48 Room Air 03/07/25 19:34 Room Air PG Care Time/CCT Total # of Minutes Spent Total Time Spent with Patient: Total time spent is greater than 50% in coordination of care (as documented) at patient's floor/unit and/or counseling patient: Coding Level of Care Code 85177 SUB INP/OBS CARE 2/35MIN Diagnoses Urinary tract infection associated with indwelling urethral catheter, initial encounter T83.511A; N39.0 Encounter type: initial encounter Indwelling urinary catheter type: indwelling urethral catheter Iatrogenic adrenal insufficiency E27.49 Sepsis without acute organ dysfunction, due to unspecified organism A41.9 Sepsis type: sepsis due to unspecified organism Hypoxia R09.02 Transaminasemia R74.01 Calculus of gallbladder without cholecystitis without obstruction K80.20 Biliary obstruction: without biliary obstruction Cholecystitis presence: without cholecystitis Cholelithiasis location: gallbladder (1) Catheter-associated urinary tract infection Encounter type: initial encounter Indwelling urinary catheter type: indwelling urethral catheter Qualified Code(s): T83.511A - Infection and inflammatory reaction due to indwelling urethral catheter, initial encounter; N39.0 - Urinary tract infection, site not specified (3) Sepsis without acute organ dysfunction Sepsis type: sepsis due to unspecified organism Qualified Code(s): A41.9 - Sepsis, unspecified organism (6) Cholelithiasis Biliary obstruction: without biliary obstruction Cholecystitis presence: without cholecystitis Cholelithiasis location: gallbladder Qualified Code(s): K80.20 - Calculus of gallbladder without cholecystitis without obstruction
[2025-03-08 10:56] LABS: Hematocrit (blood only) 37.3 % (42.0-52.0); Hemoglobin 12.1 g/dl (14.0-18.0); Immature Granulocytes # (auto) 0.06 K/uL (0.01-0.20); Immature Granulocytes % (auto) 0.7 %; Mean Corpuscular Hemoglobin 29.4 pg (25.0-34.0); Mean Corpuscular Volume 90.5 fL (80.0-100.0); Platelet Count 137 K/uL (130-400); RDW Standard Deviation 51.7 fL (36.4-46.3); Red Blood Count 4.12 M/uL (4.70-6.10); White Blood Count 8.36 K/ul (4.8-10.8)
[2025-03-08 11:07] LABS: Alanine Aminotransferase 57.0 U/L (7-52); Albumin Globulin Ratio 1.1 (0.9-2); Alkaline Phosphatase 248.0 U/L (34-104); Anion Gap 6.0 (3-11); Bilirubin,Total 0.6 mg/dl (0.2-1.0); Blood Urea Nitrogen 16.0 mg/dl (6-23); Calcium 8.7 mg/dl (8.6-10.3); Carbon Dioxide 27.0 mmol/L (21-32); Chloride 108.0 mmol/L (98-107); Creatinine Clr Calc Pharmacy 56.5 ml/min; Globulin 2.7 gm/dl (2.5-4.0); Glucose 82.0 mg/dl (70-99(Fasting)); Potassium 3.5 mmol/L (3.5-5.1); Sodium 141.0 mmol/L (136-145); Total Protein 5.6 gm/dl (6.0-8.3)
--- NOTE | 2025-03-09 07:38 | Hospitalist Progress Note ---
Date of Service March 09, 2025 Assessment & Plan (1) Catheter-associated urinary tract infection: (2) Iatrogenic adrenal insufficiency: (3) Sepsis without acute organ dysfunction: (4) Hypoxia: (5) Transaminasemia: (6) Cholelithiasis: Plan In summary this is an 89-year-old male admitted to [facility] due to sepsis without acute organ dysfunction in the setting of a catheter associated urinary tract infection, complicated by iatrogenic adrenal insufficiency, new transaminasemia in the setting of cholelithiasis without cholecystitis #Sepsis without acute organ dysfunction // CAUTI // Iatrogenic adrenal insufficiency Patient initially presented with mild leukocytosis, hypotension, lactic acidosis; found to have elevated procalcitonin of 0.56; urinalysis notable for pyuria, bacteriuria, nitrates; urine culture was with pinpoint growth on 03/06, second urine culture without significant growth Discontinued Zosyn, total 3 day course - Continue Levofloxacin 750 mg p.o. daily on 03/08 Continue prednisone Urine culture without significant growth, though without any additional source from initial presentation Urology consulted; recommend outpatient follow up unless unforeseen complication occurs #Transient Hypoxia // Chronic heart failure with preserved ejection fraction // Hyperlipidemia // Coronary and peripheral arterial disease // Hypertension most recent TTE 11/2023 with ejection fraction 45 to 50% with mild global hypokinesis of the left ventricle and other findings With hold home diuretic therapies in the setting of intravascular depletion from sepsis Continue remaining cardiovascular medications #Transaminasemia // Cholelithiasis without cholecystitis Resolved; consider outpatient follow up with General Surgery to reduce risk of future hospitalizations #Geriatric frailty and physical deconditioning Chronic condition, resident at [facility] #Acquired hypothyroidism Chronic condition; continue home medication at this time DVT PPx: continue enoxaparin 40 mg SQ daily Admission and Anticipated Discharge Date Admission Date: March 05, 2025 Anticipated date of discharge: 03/09/25 Subjective Mr. Redmond is an 89-year-old male whose active medical conditions include benign prostatic hyperplasia with urinary obstruction, recurrent nephrolithiasis with a recent right ureteral stent placement and subsequent lithotripsy and stent replacement on 02/23, peripheral and coronary arterial disease, hyperlipidemia, hypertension among other chronic medical conditions who presented to [facility] on 03/05 due to fatigue, weakness. No acute overnight events; continues to feel improved, hopeful for discharge Review of Systems Review of Systems: Review of constitutional, genitourinary, gastrointestinal, cardiovascular, pulmonary systems was unremarkable Physical Exam Physical Exam: General: Elderly male in no acute distress Vital Signs: reviewed HEENT: atraumatic, normocephalic; pupils equally round reactive to light; extr aocular motion intact; tacky mucous membranes Pulmonary: symmetric and unrestricted chest wall excursion; lungs clear to auscultation bilaterally Cardiovascular: regular rate and rhythm without murmurs, rubs, or gallops; S1 and S2 normal; bilateral radial and posterior tibial pulse 2+; no notable lower extremity edema Gastrointestinal: soft, nondistended Genitourinary: Smith catheter in place with approximately 200 mL of tonia urine without sediment Neurologic: CN II-XII grossly intact; no discernible focal weakness nor paresthesias Results & Data Results & Data Vital Signs (Past 12 Hours) Vital Signs Temp Pulse Pulse Resp BP BP Pulse Ox 03/09/25 06:54 37.3 C 76 18 130/66 94 03/08/25 23:05 36.5 C 69 16 162/75 H 91 03/08/25 22:04 67 03/08/25 20:12 36.8 C 72 18 154/65 H 95 O2 Del Method 03/09/25 06:54 Room Air 03/08/25 23:05 Room Air 03/08/25 22:04 03/08/25 20:12 Room Air PG Care Time/CCT Total # of Minutes Spent Total Time Spent with Patient: Total time spent is greater than 50% in coordination of care (as documented) at patient's floor/unit and/or counseling patient: Coding Level of Care Code 18857 SUB INP/OBS CARE 2MIN Diagnoses Urinary tract infection associated with indwelling urethral catheter, initial encounter T83.511A; N39.0 Encounter type: initial encounter Indwelling urinary catheter type: indwelling urethral catheter Iatrogenic adrenal insufficiency E27.49 Sepsis without acute organ dysfunction, due to unspecified organism A41.9 Sepsis type: sepsis due to unspecified organism Hypoxia R09.02 Transaminasemia R74.01 Calculus of gallbladder without cholecystitis without obstruction K80.20 Biliary obstruction: without biliary obstruction Cholecystitis presence: without cholecystitis Cholelithiasis location: gallbladder (1) Catheter-associated urinary tract infection Encounter type: initial encounter Indwelling urinary catheter type: indwelling urethral catheter Qualified Code(s): T83.511A - Infection and inflammatory reaction due to indwelling urethral catheter, initial encounter; N39.0 - Urinary tract infection, site not specified (3) Sepsis without acute organ dysfunction Sepsis type: sepsis due to unspecified organism Qualified Code(s): A41.9 - Sepsis, unspecified organism (6) Cholelithiasis Biliary obstruction: without biliary obstruction Cholecystitis presence: without cholecystitis Cholelithiasis location: gallbladder Qualified Code(s): K80.20 - Calculus of gallbladder without cholecystitis without obstruction
[2025-03-10 10:37] VITALS: BP 129/55; RESP 19; TEMP 97.5; O2SAT 91
--- NOTE | 2025-03-10 14:51 | Discharge Summary ---
Discharge Summary Date of Service March 10, 2025 Principal Dx & Hospital Course #1 = Principal Diagnosis (1) Catheter-associated urinary tract infection: (2) Iatrogenic adrenal insufficiency: (3) Sepsis without acute organ dysfunction: (4) Hypoxia: (5) Transaminasemia: (6) Cholelithiasis: Plan In summary this is an 89-year-old male admitted to [facility] due to sepsis without acute organ dysfunction in the setting of a catheter associated urinary tract infection, complicated by iatrogenic adrenal insufficiency, new transaminasemia in the setting of cholelithiasis without cholecystitis #Sepsis without acute organ dysfunction // CAUTI // Iatrogenic adrenal insufficiency Patient initially presented with mild leukocytosis, hypotension, lactic acidosis; found to have elevated procalcitonin of 0.56; urinalysis notable for pyuria, bacteriuria, nitrates; urine culture was with pinpoint growth on 03/06, second urine culture without significant growth Discontinued Zosyn, total 3 day course - Continue Levofloxacin 750 mg p.o. daily on 03/08 Continue prednisone Urine culture without significant growth, though without any additional source from initial presentation Urology consulted; recommend outpatient follow up unless unforeseen complication occurs #Transient Hypoxia // Chronic heart failure with preserved ejection fraction // Hyperlipidemia // Coronary and peripheral arterial disease // Hypertension most recent TTE 11/2023 with ejection fraction 45 to 50% with mild global hypokinesis of the left ventricle and other findings With hold home diuretic therapies in the setting of intravascular depletion from sepsis Continue remaining cardiovascular medications #Transaminasemia // Cholelithiasis without cholecystitis Resolved; consider outpatient follow up with General Surgery to reduce risk of future hospitalizations #Geriatric frailty and physical deconditioning Chronic condition, resident at [facility] #Acquired hypothyroidism Chronic condition; continue home medication at this time DVT PPx: continue enoxaparin 40 mg SQ daily Admission HPI Per Admitting Provider Patient is an 89-year-old male with a past medical history including recent C. difficile infection (Dx 02/12), bladder carcinoma under surveillance, CVA with PFO, GERD, hypothyroidism, hypertension. Patient presented via EMS from [facility] after he was fatigued, weak, and warm today. He was found to be septic from a UTI after recent right ureteral stent placement 02/23 with white count 11.47, HR 92, temp 37.9 C, hypotensive, lactate 2.1, procalcitonin 0.56. Patient seen at bedside. He is a relatively poor historian. He stated he was very tired and weak today. He also felt warm. He denies any headaches, dizziness, lightheadedness, chest pain, shortness of breath, cough, congestion, abdominal pain, hematuria. He stated he does think he has had diarrhea recently but is not sure. He denies any recent pain associated with this type. He does not use oxygen at baseline. He is unsure if he got any home medications today as they are dosed based on her care. Extensively discussed CODE STATUS at bedside, he wishes to be full code. He is unsure if he spends much time out or had any tick exposures. Discharge Plan Discharge Items Patient Disposition: Transfer Half-Way Fac Reason For Visit: UTI, SEPSIS Discharge Diagnosis: Sepsis secondary to catheter associated urinary tract infection Condition on Discharge: Good Activity: As commented below Lifting: Gradually increase as tolerated Bathing: No limitations Exercise/Sports: Gradually increase as tolerated Weightbearing: Full weightbearing Non-emergency contact: Primary Care Provider and Urologist Call non-emergency contact if: you have any medication questions, your symptoms worsen and your temperature is above 101.5 Follow-up/Referrals: Manuela Lundberg MD [Primary Care Provider] - Chinmay Yen MD [Physician] - Diet: Low Fat and Low Sodium (2gm) Fluids: 1800ml (7 cups) Addtl Attending Provider Instructions: Please maintain scheduled follow up with your primary care provider as well as urology. Recommend outpatient follow up with General Surgery regarding the gallbladder. Pending Studies at Discharge: No Stand-Alone Forms: [facility] Skilled Items Patient informed of condition?: Yes DNR: Yes Discharge Level of Care: Skilled Communicable Disease: No Discharge Prognosis: Improving Lines: None Urinary Catheter: Yes Medications and DC Order Prescriptions: New levofloxacin 750 mg Tablet 750 mg PO DAILY@1100 Qty: 1 0RF Continued amiloride-hydrochlorothiazide 5-50 mg tablet 0.5 tab PO QAM Qty: 90 3RF prednisone 5 mg tablet 5 mg PO QAM Qty: 90 1RF Rx Instructions: TAKE 1 TABLET BY MOUTH ONCE DAILY potassium chloride 20 mEq tablet,ER particles/crystals 20 meq PO BID Qty: 60 1RF levothyroxine 100 mcg tablet 100 mcg PO QAM rosuvastatin [Crestor] 20 mg tablet 20 mg PO HS Patient Comments: takes qam Rx Instructions: TAKE 1 TABLET BY MOUTH ONCE DAILY theophylline 300 mg tablet extended release 12 hr 600 mg PO QAM Rx Instructions: TAKE TWO TABLETS BY MOUTH DAILY tamsulosin 0.4 mg capsule 0.4 mg PO QPM Rx Instructions: TAKE 1 CAPSULE BY MOUTH IN THE EVENING gabapentin 300 mg capsule 300 mg PO BID Rx Instructions: TAKE 1 CAPSULE BY MOUTH TWICE DAILY ticagrelor [Brilinta] 90 mg tablet 0 mg PO QAM Patient Comments: Currently on hold, set to resume on 02/12/25. Unable to verify when pt started holding medication. Original Directions: 90mg by mouth once daily in the morning 02/18/25-medication not on [facility] mirtazapine 15 mg tablet 15 mg PO QAM acetaminophen 325 mg Tablet 650 mg PO QID PRN (Reason: pain 1-10/fever >100) Rx Instructions: do not exceed 3 grams per 24 hours bisacodyl [Dulcolax (bisacodyl)] 10 mg Suppository 10 mg SC UD PRN (Reason: Constipation) Rx Instructions: day 3, 3-11pm shift if no BM after MOM Fleet Enema 19-7 gram/118 mL Enema 118 ml SC UD PRN (Reason: Constipation) Rx Instructions: if no BM after dulcolax administer fleets on 3 shift day 4 Changed vancomycin 125 mg Capsule 125 mg PO DAILY Qty: 7 0RF Patient Comments: 02/13/25-02/23/25 Discontinued magnesium hydroxide 400 mg/5 mL Suspension 30 ml PO UD PRN (Reason: Constipation) Rx Instructions: after no BM for 3 days, administer on 7-3 shift menthol-zinc oxide 0.44-20 % Ointment 1 ea TOPICAL BID Rx Instructions: apply to sacrum topically every day and evening shift for wound prevention for 14 days Discharge Orders: Discharge Order (Routine); Ordered 03/10/25 Ordered By: Robert Hu/Other Patient Handouts: Urinary Catheter Bag Empty Clean, Indwelling Urinary Catheter Dc Admission Data Admit Date/Time: 03/05/25 23:58 Attending Provider: Robert Ferguson Admit Provider: Kilo Newsome Primary Care Provider: Manuela Lundberg Other Providers: Kilo Newsome; Chinmay Yen; Rich Hillman [facility] Stay Data Consultations 03/05/25 23:20 ED Decision to Admit Stat 03/06/25 02:10 Consult Urology Routine Diagnostic Imagining Performed 03/05/25 20:39 CT abd pelvis IV con only Stat 03/05/25 22:40 US gallbladder Stat Pending Results Patient Have Any Pending Studies at Discharge: No Discharge Instructions Given to Patient (Per Discharging Provider) Please maintain scheduled follow up with your primary care provider as well as urology. Recommend outpatient follow up with General Surgery regarding the gallbladder. Coding Diagnoses Urinary tract infection associated with indwelling urethral catheter, initial encounter T83.511A; N39.0 Indwelling urinary catheter type: indwelling urethral catheter Encounter type: initial encounter Iatrogenic adrenal insufficiency E27.49 Sepsis without acute organ dysfunction, due to unspecified organism A41.9 Sepsis type: sepsis due to unspecified organism Hypoxia R09.02 Transaminasemia R74.01 Calculus of gallbladder without cholecystitis without obstruction K80.20 Biliary obstruction: without biliary obstruction Cholecystitis presence: without cholecystitis Cholelithiasis location: gallbladder
[2025-03-10 15:09] LABS: Alanine Aminotransferase 109.0 U/L (7-52); Alkaline Phosphatase 536.0 U/L (34-104); Anion Gap 11.0 (3-11); Bilirubin,Total 1.3 mg/dl (0.2-1.0); Blood Urea Nitrogen 15.0 mg/dl (6-23); Calcium 8.6 mg/dl (8.6-10.3); Carbon Dioxide 25.0 mmol/L (21-32); Chloride 102.0 mmol/L (98-107); Creatinine Clr Calc Pharmacy 54.0 ml/min; Glucose 144.0 mg/dl (70-99(Fasting)); Magnesium 2.1 mg/dl (1.7-2.4); Potassium 3.4 mmol/L (3.5-5.1); Sodium 138.0 mmol/L (136-145); Total Protein 5.5 gm/dl (6.0-8.3)
[2025-03-10 16:02] VITALS: PULSE 76
== END 2025-03-10 16:02 | DRG 698 ==
LOC: ED 20:08 → 2S 23:58 → SUATTDRO 23:58 → 2S 03-06 01:14